=== PATIENT | female | born 1970 ===

== ENCOUNTER 2020-06-25 09:00 | Outpatient (RCR) | payer MEDICAID, SELFPAY | END 2021-05-11 09:36 | disposition home or self-care (01) | LOC: HO.PT 09:00 | PROVIDERS: Visit Provider Physician Assistant | DX: M25.562 Pain in left knee (principal); M79.7 Fibromyalgia; R79.82 Elevated C-reactive protein (CRP); Z79.899 Other long term (current) drug therapy | CPT/HCPCS: 97110; 97140; 99213 ==

== ENCOUNTER → 2021-05-07 08:52 | Outpatient (BNVA) | payer MEDICAID, SELFPAY | PROVIDERS: Visit Provider Nurse Practitioner Family | DX: M79.7 Fibromyalgia (principal); R79.82 Elevated C-reactive protein (CRP) | CPT/HCPCS: 99212 ==

== ENCOUNTER 2021-05-25 08:53 | Outpatient (REF) | payer MEDICAID, SELFPAY ==
--- NOTE | ~2021-05-25 | US_ITS ---
EXAMINATION: US PELVIS CLINICAL INFORMATION: Pelvic pain COMPARISON: Previous CT of the abdomen and pelvis February 2017 TECHNIQUE: Ultrasound of the pelvis is performed using both transabdominal and transvaginal transducers along with Doppler. Transvaginal imaging is performed due to inadequate visualization transabdominally. FINDINGS: The uterus is anteverted and measures 8.4 x 3.9 x 5.2 cm in dimension. No focal uterine lesion is seen. Endometrial thickness is normal measuring 0.5 cm. There are nabothian cysts in the cervix. The ovaries are normal-appearing. The right ovary measures 1.5 x 1.8 x 0.7 cm. The left ovary measures 1.6 x 1.3 x 1.3 cm. There is no fluid in the pelvis. US/US pelvic and transvaginal IMPRESSION: Unremarkable exam.
== END 2021-05-25 08:54 | disposition home or self-care (01) ==
LOC: HO.US 08:53
PROVIDERS: PCP Family Medicine; Visit Provider Family Medicine
DX: R10.2 Pelvic and perineal pain (principal)
CPT/HCPCS: 76830; 76856

== ENCOUNTER 2021-11-18 10:09 | Outpatient (REF) | payer MEDICAID, SELFPAY ==
--- NOTE | ~2021-11-18 | MM_ITS ---
EXAMINATION: MM SCREENING DIGITAL BREAST TOMOSYNTHESIS, BILATERAL CLINICAL INFORMATION: Screening. Asymptomatic. The lifetime risk of breast cancer based on the Tyrer-Cuzick Model is 8%. COMPARISON: Mammography: 09/28/2018, 07/11/2016 (baseline). TECHNIQUE: Digital breast tomosynthesis is performed in both the craniocaudal and mediolateral oblique views along with computer-aided detection (CAD). Synthesized 2D images are generated from the tomosynthesis. FINDINGS: The breasts are almost entirely fatty (ACR BI-RADS breast composition Category a). There are no significant masses, abnormal calcifications, or other abnormalities. Fibroglandular and stromal densities are stable. No developing density. No suspicious changes. MM/MM tomosynthesis screening BI IMPRESSION: No mammographic evidence of malignancy. ASSESSMENT: BI-RADS 1: Negative RECOMMENDATION: Routine annual mammography screening. This patient's information was entered into a reminder system with a target due date for their next mammogram.
== END 2021-11-18 10:10 | disposition home or self-care (01) ==
LOC: HO.MAMMO 10:09
PROVIDERS: PCP Family Medicine; Visit Provider Family Medicine
DX: Z12.31 Encounter for screening mammogram for malignant neoplasm of breast (principal)
CPT/HCPCS: 77063; 77067

== ENCOUNTER → 2022-01-04 08:18 | Outpatient (BNVA) | payer MEDICAID, SELFPAY | PROVIDERS: PCP Family Medicine; Visit Provider Nurse Practitioner Family | DX: M79.7 Fibromyalgia (principal); R79.82 Elevated C-reactive protein (CRP) | CPT/HCPCS: 99212 ==

== ENCOUNTER → 2022-01-05 15:29 | Outpatient (BNVA) | payer MEDICAID, SELFPAY | PROVIDERS: PCP Family Medicine; Referring Provider Family Medicine; Visit Provider Nurse Practitioner Family | DX: Z12.11 Encounter for screening for malignant neoplasm of colon (principal) | CPT/HCPCS: 99202 ==

== ENCOUNTER 2022-01-06 10:04 | Outpatient (REF) | payer MEDICAID, SELFPAY ==
[2022-01-06 10:59] LABS: Appearance Urine CLEAR; Color Urine YELLOW; Glucose Urine UA NEG (NEG); Leukocyte Esterase Urine NEG (NEG); Nitrite Urine NEG (NEG); Specific Gravity - Urine <= 1.005 (1.005-1.025); Urine Blood NEG (NEG); Urine Ketones NEG (NEG); Urine Protein NEG (NEG-TRACE)
[2022-01-06 11:19] LABS: Estimated Average Glucose 131 mg/dL; Hemoglobin A1c % 6.2 %
[2022-01-06 11:23] LABS: Alanine Aminotransferase 17 U/L (0-31); Albumin Level 3.8 g/dL (3.5-5.0); Alkaline Phosphatase 73 U/L (39-117); Anion Gap 12 (12-20); Aspartate Amino Transferase 18 U/L (5-31); Bilirubin Total 0.9 mg/dL (0.0-1.0); Blood Urea Nitrogen 13 mg/dL (9-16); Calcium 9.2 mg/dL (8.4-10.2); Carbon Dioxide 27 mmol/L (22-29); Chloride 100 mmol/L (96-108); Cholesterol 195 mg/dL; Estimated Glomerular Filt Rate > 60; Glucose Random 137 mg/dL (60-115); HDL Cholesterol 50 mg/dL; LDL Cholesterol Calculated 121 mg/dl; Potassium 4.6 mmol/L (3.3-5.1); Sodium 134 mmol/L (135-145); Total Protein 7.3 g/dL (6.5-8.0); Triglycerides 121 mg/dL
[2022-01-06 11:46] LABS: TSH reflex Free T4 1.84 uIU/mL (0.32-4.0); Vitamin D 25-OH Total 37.4 ng/mL (>30)
[2022-01-07 12:46] LABS: Calcium (PTHI) 9.1 mg/dL (8.6-10.4); PTHI 45 pg/mL (16-77)
== END 2022-01-06 10:05 | disposition home or self-care (01) ==
LOC: HO.LAB 10:04
PROVIDERS: Absent Provider Family Medicine; PCP Family Medicine; Visit Provider Nurse Practitioner Family
DX: E11.9 Type 2 diabetes mellitus without complications (principal); E78.5 Hyperlipidemia, unspecified; I10 Essential (primary) hypertension; R82.90 Unspecified abnormal findings in urine
CPT/HCPCS: 36415; 80053; 80061; 81003; 82306; 83036; 83970; 84443

== ENCOUNTER → 2022-03-18 10:51 | Outpatient (BNVA) | payer MEDICAID, SELFPAY | PROVIDERS: PCP Family Medicine; Visit Provider Nurse Practitioner Family | DX: R06.83 Snoring (principal); R40.0 Somnolence | CPT/HCPCS: 99202 ==

== ENCOUNTER → 2022-03-31 13:43 | Outpatient (REF) | payer MEDICAID, SELFPAY | LOC: HO.SL 13:43 | PROVIDERS: PCP Family Medicine; Visit Provider Nurse Practitioner Family | DX: G47.33 Obstructive sleep apnea (adult) (pediatric) (principal); R06.83 Snoring; R40.0 Somnolence | CPT/HCPCS: 95806 ==

== ENCOUNTER 2022-04-25 06:58 | Day surgery (SDC) | payer MEDICAID, SELFPAY ==
--- NOTE | 2022-04-21 14:08 | HO.ANESPROP2 ---
Documented by User: Patito Paredes NP 04/21/22 14:09 HPI - Anesthesia Eval Consult details Narrative: 51yo F for Colonoscopy PMFSH Active Problems Active Problems: All Active Problems (Updated 04/20/22 @ 10:40 by Meli Garcias RN) Loud snoring (Acute) Elevated C-reactive protein (CRP) (Acute) Fibromyalgia (Acute) Past Medical History Medical History Anxiety Depression Elevated C-reactive protein (CRP) Fibromyalgia Hypertension Lumbar herniated disc Snores Family History Family History Mother HTN (hypertension) Diabetes Maternal Aunt Colon cancer Maternal Uncle Throat cancer Surgical History Surgical History H/O section Social History Social History Household Members: Spouse Housing: Apartment Are you a primary animal care specialist to a significant other at home: No Do you presently have visiting nurse or other home services: No Alcohol intake: never Patient Tobacco Use Status: Former Tobacco user Quit Date: 27 yrs ago Years Smoked: Quit 28 years ago Use of substances other than those prescribed or required for medical reasons: No Have you been hit, kicked, punched, or otherwise hurt by someone within the past year? If so, by whom?: No Are you DNR?: No Advance Directives: No Advance Directives Information Provided: Yes Recently lost weight without trying: No Eating poorly because of decreased appetite: No Nutrition Risks: No Nutritional Risk Patient : No (menopasal) Meds Allergies Allergy/AdvReac Type Severity Reaction Status Date / Time No Known Allergies Allergy Verified 04/20/22 10:35 [No Known Allergies*] Home Medications Medication Instructions Recorded Confirmed Last Taken Type cholecalciferol (vitamin D3) 25 25 mcg PO DAILY 06/25/20 04/20/22 Unknown History mcg (1,000 unit) capsule fluticasone propionate 110 1 puff inhalation BID 06/25/20 04/20/22 Unknown History mcg/actuation HFA aerosol inhaler (Flovent HFA) hydrochlorothiazide 12.5 mg tablet 12.5 mg PO DAILY 06/25/20 04/20/22 Unknown History loratadine 10 mg tablet (Allergy 10 mg PO DAILY 06/25/20 04/20/22 Unknown History Relief (loratadine)) meloxicam 15 mg tablet 15 mg PO DAILY 06/25/20 04/20/22 Unknown History clonazepam 1 mg tablet (Klonopin) 1 mg PO BID PRN Anxiety 05/07/21 04/20/22 Unknown History duloxetine 30 mg capsule,delayed 30 mg PO BID 05/07/21 04/20/22 Unknown History release (Cymbalta) gabapentin 300 mg capsule 300 mg PO BEDTIME 05/07/21 04/20/22 Unknown History ibuprofen 600 mg tablet 600 mg PO BID 01/05/22 04/20/22 Unknown History lisinopril 5 mg tablet 5 mg PO DAILY 01/05/22 04/25/22 04/24/22 History zolpidem 5 mg tablet 5 mg PO BEDTIME PRN Sleep 01/05/22 04/20/22 Unknown History albuterol sulfate 2.5 mg/3 mL 2.5 mg inhalation Q6H PRN Wheezing 03/18/22 04/25/22 1 Day Ago History (0.083 %) solution for nebulization ~04/24/22 albuterol sulfate 90 mcg/actuation 2 puff inhalation Q4-6H PRN 03/18/22 04/25/22 04/24/22 History aerosol inhaler (ProAir HFA) Wheezing lisinopril 10 mg tablet 10 mg PO DAILY 03/18/22 Unknown History montelukast 10 mg tablet 10 mg PO BEDTIME 03/18/22 04/20/22 Unknown History (Jimena) Exam Exam Date and Time: April 21, 2022 1408 Pertinent Lab Results Pertinent Lab Results: Laboratory Tests 01/06/22 10:24 Sodium 134 L Potassium 4.6 Chloride 100 Carbon Dioxide 27 BUN 13 Creatinine 0.90 Assessment and Plan Assessment Anesthesia Assessment: Chart Reviewed Documented by User: Sushma Avalos MD 04/25/22 08:06 [facility] Past Medical History Medical History Anxiety Depression Elevated C-reactive protein (CRP) Fibromyalgia Hypertension Lumbar herniated disc Snores Family History Family History Mother HTN (hypertension) Diabetes Maternal Aunt Colon cancer Maternal Uncle Throat cancer Surgical History Surgical History H/O section History of Problems with Anesthesia: No Social History Social History Household Members: Spouse Housing: Apartment Are you a primary animal care specialist to a significant other at home: No Do you presently have visiting nurse or other home services: No Alcohol intake: never Patient Tobacco Use Status: Former Tobacco user Quit Date: 27 yrs ago Years Smoked: Quit 28 years ago Use of substances other than those prescribed or required for medical reasons: No Have you been hit, kicked, punched, or otherwise hurt by someone within the past year? If so, by whom?: No Are you DNR?: No Advance Directives: No Advance Directives Information Provided: Yes Recently lost weight without trying: No Eating poorly because of decreased appetite: No Nutrition Risks: No Nutritional Risk Patient : No (menopasal) Meds Allergies Allergy/AdvReac Type Severity Reaction Status Date / Time No Known Allergies Allergy Verified 04/20/22 10:35 [No Known Allergies*] Home Medications Medication Instructions Recorded Confirmed Last Taken Type cholecalciferol (vitamin D3) 25 25 mcg PO DAILY 06/25/20 04/20/22 Unknown History mcg (1,000 unit) capsule fluticasone propionate 110 1 puff inhalation BID 06/25/20 04/20/22 Unknown History mcg/actuation HFA aerosol inhaler (Flovent HFA) hydrochlorothiazide 12.5 mg tablet 12.5 mg PO DAILY 06/25/20 04/20/22 Unknown History loratadine 10 mg tablet (Allergy 10 mg PO DAILY 06/25/20 04/20/22 Unknown History Relief (loratadine)) meloxicam 15 mg tablet 15 mg PO DAILY 06/25/20 04/20/22 Unknown History clonazepam 1 mg tablet (Klonopin) 1 mg PO BID PRN Anxiety 05/07/21 04/20/22 Unknown History duloxetine 30 mg capsule,delayed 30 mg PO BID 05/07/21 04/20/22 Unknown History release (Cymbalta) gabapentin 300 mg capsule 300 mg PO BEDTIME 05/07/21 04/20/22 Unknown History ibuprofen 600 mg tablet 600 mg PO BID 01/05/22 04/20/22 Unknown History lisinopril 5 mg tablet 5 mg PO DAILY 01/05/22 04/25/22 04/24/22 History zolpidem 5 mg tablet 5 mg PO BEDTIME PRN Sleep 01/05/22 04/20/22 Unknown History albuterol sulfate 2.5 mg/3 mL 2.5 mg inhalation Q6H PRN Wheezing 03/18/22 04/25/22 1 Day Ago History (0.083 %) solution for nebulization ~04/24/22 albuterol sulfate 90 mcg/actuation 2 puff inhalation Q4-6H PRN 03/18/22 04/25/22 04/24/22 History aerosol inhaler (ProAir HFA) Wheezing lisinopril 10 mg tablet 10 mg PO DAILY 03/18/22 Unknown History montelukast 10 mg tablet 10 mg PO BEDTIME 03/18/22 04/20/22 Unknown History (Jimena) Exam Airway Mallampati Class: III TM Dist: >3cm Neck ROM: Full Loose/Missing/Broken Teeth: No Heart: RRR Lungs: CTA Assessment and Plan Assessment Anesthesia Assessment: Anesthesia Plan Discussed Final Anesthetic Review History of Problems with Anesthesia: No NPO: Yes ASA Class: III Final Preanesthetic Review: Meds/Allgs Chart Reviewed, Consent Obtained/Reviewed and Anes Risks/Benef Reviewed Patient Risk: Intermediate Procedure Risk: Low Anesthetic Plan Anesthetic Plan: MAC: Disposition: Standard PACU
--- NOTE | 2022-04-25 07:00 | P.HPSUR_ITS ---
Pre-Procedural Eval Section A Date of Service: 04/25/22 The patient is an INPATIENT: No The History & Physical has been completed within 30 days and I have reviewed it.: No Section B Chief Complaint: screening Details of Present Illness: colon cancer screening, family history of colon cancer Relevant Family History (Specify if Yes): Yes Relevant Social History: Tobacco Use (Former smoker) Present Medications: see Short Stay Collaborative assessment Medical History: Significant History (Anxiety Depression Elevated C-reactive pro tein (CRP) Fibromyalgia Hypertension Lumbar herniated disc) History of Previous Operations: Relevant previous surgery/procedure and date(s) (Status post ) Allergies: Allergies Allergy/AdvReac Type Severity Reaction Status Date / Time No Known Allergies Allergy Verified 04/20/22 10:35 [No Known Allergies*] Review of Systems Sugical H&P ROS: Negative: Constitution, Cardiovascular, Respiratory and Gastrointestinal Exam Surgical H&P Exam: Normal: Heart, Normal: Lungs, Normal: Extremities and Normal: Abdomen Plan Diagnosis/Plan: Unchanged I have reviewed the history and physical and performed a pertinent physical examination on my patient. No changes have occurred unless specified.
[2022-04-25 07:45] VITALS: BP 145/78; PULSE 98; RESP 18; TEMP 36.1; O2SAT 97; BMI 61.6
[2022-04-25] MEDS: Lactated Ringers 1,000 ML 100 ML IVCONT (07:58)
--- NOTE | 2022-04-25 08:08 | PM.OP ---
Brief Operative Note Date of Service: 04/25/22 Pre-op diagnosis: Colon cancer screening, family history of colon cancer (maternal aunt in her 40's) Post-op diagnosis: other ( diverticulosis, hemorrhoids) Procedure: COLONOSCOPY TILL CECUM Consent: Indications for the procedure and potential complications of bleeding, perforation, reaction to medications and missed diagnosis were discussed with the patient and informed consent was obtained. Instrument: Olympus PCF H 190 L variable stiffness pediatric colonoscope Monitoring: Vital signs and clinical assessment, intermittent blood pressure monitoring, continuous EKG monitoring, Pulse oximetry and Carbon Dioxide monitoring were done throughout the procedure. Colon withdrawl time was 12 minutes. Procedure: The patient was placed in the left lateral decubitis position and pre-procedure medications were administered. After a digital rectal examination of the ano-rectum, the video colonoscope was inserted into the rectum and advanced through the colon to the cecum. The colonoscope was slowly withdrawn in a retrograde panoramic fashion and the colon mucosa was carefully examined including a retroflexed view of the rectum. Findings and interventions are described below. Procedure Difficulty: Without difficulty Findings: Terminal Ileum: Not evaluated Cecum: Normal Ascending Colon: Normal Transverse Colon: Normal Descending Colon: moderate diverticulosis Sigmoid Colon: Moderate diverticulosis Rectum: Normal Ano-rectum: small internal hemorrhoids Colon preparation: Excellent Impression and Post Procedure Diagnosis: Colonoscopy Findings: No polyps were detected Moderate diverticulosis seen in the left colon Small hemorrhoids on retroflexed exam. Plan: Patient has an appointment on 05/10/22 in the GI Clinic with Rosa Elena Smith FNP-BC. Repeat Colonoscopy interval based on path results - in 5 years due to positive Family hx. Above findings were reviewed with the patient and diverticulosis handouts was given in the discharge area Surgeon: Moira Cote MD Anesthesia: MAC Was an Beef Cattle Farmer used for this Procedure?: Yes Beef Cattle Farmer: Marly Figueredo Estimated blood loss (mL): 0 Pathology: none sent Condition: stable Disposition: PACU
--- NOTE | 2022-04-25 08:28 | P.OP_ITS ---
Operative Note Operative Note Date of Service: 04/25/22 Narrative: Pre-op diagnosis: Colon cancer screening, family history of colon cancer (maternal aunt in her 40's) Post-op diagnosis:?other ( diverticulosis, hemorrhoids) Procedure: COLONOSCOPY TILL CECUM Consent: Indications for the procedure and potential complications of bleeding, perforation, reaction to medications and missed diagnosis were discussed with the patient and informed consent was obtained. Instrument: Olympus PCF H 190 L variable stiffness pediatric colonoscope Monitoring: Vital signs and clinical assessment, intermittent blood pressure monitoring, continuous EKG monitoring, Pulse oximetry and Carbon Dioxide monitoring were done throughout the procedure. Colon withdrawl time was 12 minutes. Procedure: The patient was placed in the left lateral decubitis position and pre-procedure medications were administered. After a digital rectal examination of the ano-rectum, the video colonoscope was inserted into the rectum and advanced through the colon to the cecum. The colonoscope was slowly withdrawn in a retrograde panoramic fashion and the colon mucosa was carefully examined including a retroflexed view of the rectum. Findings and interventions are described below. Procedure Difficulty: Without difficulty Findings: Terminal Ileum: Not evaluated Cecum:? Normal Ascending Colon:? Normal Transverse Colon:? Normal Descending Colon: ? moderate diverticulosis Sigmoid Colon:? Moderate diverticulosis Rectum:? Normal Ano-rectum: ? small internal hemorrhoids Colon preparation: Excellent ? Impression and Post Procedure Diagnosis: Colonoscopy Findings: No polyps were detected Moderate diverticulosis seen in the left colon Small hemorrhoids on retroflexed exam. Plan: Patient has an appointment on 05/10/22 in the GI Clinic with Rosa Elena Smith FNP- BC. Repeat Colonoscopy interval based on path results - in 5 years due to positive Family hx. Above findings were reviewed with the patient and diverticulosis handouts was given in the discharge area Surgeon: Moira Cote MD Anesthesia:?MAC Was an Practice Specialist used for this Procedure?:?Yes Practice Specialist:?Marly Figueredo Estimated blood loss (mL):?0 Pathology:?none sent Condition:?stable Disposition:?PACU
[2022-04-25 09:02] VITALS: BP 85/53; PULSE 84; RESP 16; TEMP 37.1; O2SAT 96
[2022-04-25 09:17] VITALS: BP 121/68; PULSE 72; RESP 16; TEMP 36.3; O2SAT 96
== END 2022-04-25 09:44 | disposition home or self-care (01) ==
PROVIDERS: PCP Family Medicine; Visit Provider Internal Medicine Gastroenterology
PROC: 0DJD8ZZ Inspection of Lower Intestinal Tract, Via Natural or Artificial Opening Endoscopic (ICD-10-PCS; CPT 45378; principal; 2022-04-25 08:30)
DX: Z12.11 Encounter for screening for malignant neoplasm of colon (principal); K57.30 Diverticulosis of large intestine without perforation or abscess without bleeding; K64.8 Other hemorrhoids; K59.00 Constipation, unspecified; I10 Essential (primary) hypertension; R79.82 Elevated C-reactive protein (CRP); M79.7 Fibromyalgia; R06.83 Snoring; F41.8 Other specified anxiety disorders; Z79.1 Long term (current) use of non-steroidal anti-inflammatories (NSAID); Z79.899 Other long term (current) drug therapy; Z87.891 Personal history of nicotine dependence
CPT/HCPCS: 45378

== ENCOUNTER → 2022-05-31 09:17 | Outpatient (BNVA) | payer MEDICAID, SELFPAY | PROVIDERS: PCP Family Medicine; Visit Provider Nurse Practitioner Family | DX: K57.90 Diverticulosis of intestine, part unspecified, without perforation or abscess without bleeding (principal); Z98.890 Other specified postprocedural states | CPT/HCPCS: 99212 ==

== ENCOUNTER → 2022-09-16 07:46 | Outpatient (BNVA) | payer MEDICAID, SELFPAY | PROVIDERS: PCP Family Medicine; Visit Provider Nurse Practitioner Family | DX: G47.33 Obstructive sleep apnea (adult) (pediatric) (principal); Z99.89 Dependence on other enabling machines and devices | CPT/HCPCS: 99212 ==

== ENCOUNTER → 2022-09-19 11:43 | Outpatient (BNVA) | payer MEDICAID, SELFPAY | PROVIDERS: PCP Family Medicine; Visit Provider Nurse Practitioner Family | DX: M79.7 Fibromyalgia (principal) | CPT/HCPCS: 99212 ==

== ENCOUNTER 2023-02-12 15:58 | Emergency (ER) | payer OTHER, SELFPAY ==
[2023-02-12 16:09] VITALS: BP 117/83; PULSE 115; RESP 20; TEMP 36.7; O2SAT 95; BMI 58.8
--- NOTE | 2023-02-12 16:11 | ED_ITS ---
HPI - General Adult General Chief complaint: General Medical Stated complaint: Bllod pressure/sugar high Time Seen by Provider: 02/12/23 20:21 Source: patient Mode of arrival: ambulatory Limitations: no limitations History of Present Illness HPI narrative: 52-year-old female with a history of hypertension, asthma, fibromyalgia, morbid obesity, borderline diabetes here with complaints of feeling dizzy when she leonid nges position and moves her head from side to side. This began this morning with waking. She denies any associated fevers, chills, neck pain or stiffness, vision changes, vomiting, chest pain, abdominal pain, shortness of breath. Patient was concerned that her blood pressure and blood sugar were elevated She currently is checking her sugars daily at home with a glucometer but is not currently on any medications for her blood sugars as her primary care doctor is marked during her Related Data Home Medications Medication Instructions Recorded Confirmed cholecalciferol (vitamin D3) 25 25 mcg PO DAILY 06/25/20 04/20/22 mcg (1,000 unit) capsule fluticasone propionate 110 1 puff inhalation BID 06/25/20 04/20/22 mcg/actuation HFA aerosol inhaler (Flovent HFA) hydrochlorothiazide 12.5 mg tablet 12.5 mg PO DAILY 06/25/20 04/20/22 meloxicam 15 mg tablet 15 mg PO DAILY 06/25/20 04/20/22 clonazepam 1 mg tablet (Klonopin) 1 mg PO BID PRN Anxiety 05/07/21 04/25/22 duloxetine 30 mg capsule,delayed 30 mg PO BID 05/07/21 04/25/22 release (Cymbalta) ibuprofen 600 mg tablet 600 mg PO BID 01/05/22 04/20/22 zolpidem 5 mg tablet 5 mg PO BEDTIME PRN Sleep 01/05/22 04/20/22 albuterol sulfate 2.5 mg/3 mL 2.5 mg inhalation Q6H PRN Wheezing 03/18/22 04/25/22 (0.083 %) solution for nebulization albuterol sulfate 90 mcg/actuation 2 puff inhalation Q4-6H PRN 03/18/22 04/25/22 aerosol inhaler (ProAir HFA) Wheezing lisinopril 10 mg tablet 10 mg PO DAILY 03/18/22 montelukast 10 mg tablet 10 mg PO BEDTIME 03/18/22 04/20/22 (Singulair) acetaminophen 500 mg tablet 1,000 mg PO Q8H PRN 09/16/22 atorvastatin 10 mg tablet 10 mg PO BEDTIME 09/16/22 Previous Rx's Medication Instructions Recorded bisacodyl 5 mg tablet 10 mg PO BEDTIME #180 tabs 01/05/22 polyethylene glycol 3350 17 gram 17 g PO DAILY #100 ea 05/31/22 oral powder packet (Miralax) cyclobenzaprine 5 mg tablet 5 mg PO BEDTIME PRN muscle spasm 12/30/22 #90 tabs meclizine 25 mg tablet 25 mg PO TID PRN dizziness #20 tabs 02/12/23 Allergies Allergy/AdvReac Type Severity Reaction Status Date / Time No Known Allergies Allergy Verified 09/19/22 12:11 [No Known Allergies*] Review of Systems Review of Systems: Yes all other systems are reviewed and are negative Constitutional: Constitutional: Reports no additional constitutional complaints, Denies body ache(s), Denies chills, Denies fever(s), Denies hea dache(s) and Denies weakness Eyes: Eyes: Reports no additional eye complaints and Denies change in vision ENT: Reports system reviewed and no additional complaints, except as documented, Reports dizziness, Denies headache(s), Denies nasal congestion, Denies nasal discharge and Denies neck pain Cardiovascular: Cardiovascular: Reports no additional cardiovascular complaints, Denies chest pain, Denies leg edema and Denies dyspnea Respiratory: Respiratory: Reports no additional respiratory complaints, Denies cough and Denies dyspnea Gastrointestinal: Gastrointestinal: Reports no additional gastrointestinal complaints, Denies abdominal pain, Denies diarrhea, Denies nausea and Denies vomiting Genitourinary: Genitourinary: Reports no additional female genitourinary complaints and Denies urinary incontinence Musculoskeletal: Musculoskeletal: Reports no additional musculoskeletal complaints, Denies back pain, Denies arthralgias, Denies joint swelling, Denies neck pain, Denies numbness and Denies tingling Integumentary/Breasts: Skin/Breast: Reports system reviewed and no additional complaints, except as docu and Denies rash Neurologic: Reports system reviewed and no additional complaints, except as documented, Reports dizziness, Denies headache(s), Denies numbness, Denies tingling and Denies weakness PMFSH Past Medical History Attestation statement: The following information was validated with the patient. Source: old records reviewed and nursing notes reviewed Medical History Anxiety Depression Elevated C-reactive protein (CRP) Fibromyalgia Hypertension Lumbar herniated disc Snores Surgical History H/O section Hx of colonoscopy Family History Family History Mother HTN (hypertension) Diabetes Maternal Aunt Colon cancer Maternal Uncle Throat cancer Social History Social History Household Members: Spouse Housing: Apartment Are you a primary ostomy care nurse to a significant other at home: No Do you presently have visiting nurse or other home services: No Alcohol intake: never Patient Tobacco Use Status: Former Tobacco user Quit Date: 27 yrs ago Years Smoked: Quit 28 years ago Advance Directives: No Advance Directives Information Provided: No Physical Exam ED Vital Signs: Vital Signs - 24 hr 02/12/23 16:09 02/12/23 19:59 02/12/23 20:39 Temperature 98.0 F 98.3 F Pulse Rate 115 H 82 77 Respiratory Rate 20 19 Blood Pressure 117/83 115/69 122/67 Pulse Oximetry 95 96 Oxygen Delivery Method Room Air Room Air 02/12/23 20:41 02/12/23 20:42 02/12/23 20:42 Temperature 97.8 F Pulse Rate 96 96 96 Respiratory Rate 20 Blood Pressure 138/81 142/85 H 142/85 H Pulse Oximetry 96 Oxygen Delivery Method Room Air BMI result Body Mass Index 58.8 Const General: cooperative, healthy appearing, comfortable and no acute distress Orientation/consciousness: patient oriented x3 Limitations: no limitations HENMT Head: Yes normal to inspection Ears: hearing grossly normal bilaterally and TM normal on the right Throat: Yes posterior oropharynx normal, Yes tonsils normal and Yes uvula midline Eyes General: appearance normal, both eyes and all related structures Pupils: Equal, round and reactive pupils present Neck Neck: Yes normal visual inspection, Yes full ROM, Yes no lymphadenopathy and Yes no meningeal signs Chest Chest palpation & inspection: normal inspection of the chest Resp Effort & Inspection: normal respiratory effort Auscultation: clear to auscultation bilaterally Cardio Rate: regular rate Rhythm: regular rhythm Peripheral pulses: Peripheral pulses 2+ throughout GI Inspection: Yes normal to inspection Palpation (GI): Soft to palpation and nontender Back/Spine/Pelvis Thoracic/Lumbar Spine: thoracic and lumbar spine normal to inspection Skin General skin exam: no rashes or lesions noted Neuro General: patient oriented x3, moves all extremities and no meningeal signs Cranial nerves: Yes CN's II-XII intact bilaterally, Yes Equal, round and reactive pupils present, Yes Bilaterally intact EOM present, Yes Nystagmus not present, Yes Normal facial strength present and Yes Midline tongue present Cognition (Neuro): normal cognition Gait exam (Neuro): Normal gait present Motor exam (neuro): 5/5 motor strength present throughout Sensory Exam: Normal double simultaneous stimulation for sensation Coordination: [id number] test normal, [id number] test normal and tandem gait normal Extrem General: Yes normal to inspection, Yes no pedal edema and Yes no calf tenderness Course Course Course Narrative: RmE: 52 yold female presents to the ED for dizziness. FEels like glucose and blood pressure is high. no neuro defcitis on exam. no chest pain or shortness of breath. labs and eKG ordrered Reevaluation(s) Reevaluation #1: Labs are unremarkable. EKG shows no ischemic changes. Orthostatics are negative. Patient feels improved after receiving meclizine. Likely vertigo. Patient be discharged home with meclizine p.r.n.. Reviewed worrisome signs and symptoms of when to return to the emergency room. Comfortable plan for discharge home. Medications Administered Discontinued Medications Generic Name Dose Route Start Last Admin Trade Name Jose Eduardoq PRN Reason Stop Dose Admin Meclizine HCl 50 mg 02/12/23 20:26 02/12/23 20:31 Meclizine Hcl 25 Mg Tablet PO 02/12/23 20:27 50 mg ONCE ONE Administration Medical Decision Making Medical Decision Making [facility] Narrative: 52-year-old female here with complaints of dizziness which is worsened with position changes and movement of the head from side to side which began today but with waking. On exam normal neurological with no focal deficits. Normal cerebellar function. Will check labs, EKG, orthostatics Will give oral meclizine Differential Diagnosis Differential Diagnoses: The differential diagnosis associated with the presentation includes Vertigo, orthostatic hypotension Low concern for intracranial hemorrhage or cerebellar infarct Lab Data MDM Lab Attestation statement: I reviewed the patient's lab results. 02/12/23 16:20 02/12/23 16:20 Labs: Lab Results 02/12/23 02/12/23 02/12/23 Range/Units 16:20 16:20 16:20 WBC 8.0 (4.8-10.8) X10*3/uL RBC 4.84 (4.20-5.50) X10*6/uL Hgb 14.1 (12.0-16.0) g/dl Hct 43.2 (37.0-47.0) % MCV 89.3 (80.0-98.0) fL MCH 29.1 (27.0-33.0) pg MCHC 32.6 (31.0-35.0) g/dl RDW 13.3 (11.0-16.0) % Plt Count 353 (160-400) X10*3/uL MPV 9.3 L (9.4-12.3) fL Immature Gran % (Auto) 0.3 (0.0-0.4) % Neut % (Auto) 60.7 (45-73) % Lymph % (Auto) 30.3 (20-40) % Greenlee % (Auto) 5.9 (2-11) % Eos % (Auto) 2.4 (0-4) % Baso % (Auto) 0.4 (0-2) % Lymph # (Auto) 2.4 (1.2-4.9) X10*3/uL Greenlee # (Auto) 0.5 (0.1-1.2) X10*3/uL Eos # (Auto) 0.2 (0.0-0.4) X10*3/uL Baso # (Auto) 0.0 (0.0-0.2) X10*3/uL Abs Immat Gran (auto) 0.02 (0.00-0.03) X10*3/uL Absolute Neuts (auto) 4.9 (2.0-8.3) x10*3/uL Absolute Nucleated RBC 0.000 (0.0-0.012) X10*3/uL Nucleated RBC % (auto) 0.0 (0.0-0.2) /100WBC PT 11.3 (10.0-13.1) SEC INR 1.0 (0.9-1.1) APTT 29.9 (26.0-36.4) SEC Sodium 138 (135-145) mmol/L Potassium 4.0 (3.3-5.1) mmol/L Chloride 102 (96-108) mmol/L Carbon Dioxide 25 (22-29) mmol/L Anion Gap 15 (12-20) BUN 16 (9-16) mg/dL Creatinine 1.39 (0.5-1.4) mg/dL Estim Creat Clear Calc 68.5 Estimated GFR 40 Random Glucose 233 H (60-115) mg/dL Calcium 9.8 D (8.4-10.2) mg/dL Total Bilirubin 1.3 H (0.0-1.0) mg/dL AST 20 (5-31) U/L ALT 21 (0-31) U/L Alkaline Phosphatase 79 (39-117) U/L Troponin I High Sens (<3.5-17.0) ng/L Total Protein 7.8 (6.5-8.0) g/dL Albumin 4.0 (3.5-5.0) g/dL 02/12/23 Range/Units 16:20 WBC (4.8-10.8) X10*3/uL RBC (4.20-5.50) X10*6/uL Hgb (12.0-16.0) g/dl Hct (37.0-47.0) % MCV (80.0-98.0) fL MCH (27.0-33.0) pg MCHC (31.0-35.0) g/dl RDW (11.0-16.0) % Plt Count (160-400) X10*3/uL MPV (9.4-12.3) fL Immature Gran % (Auto) (0.0-0.4) % Neut % (Auto) (45-73) % Lymph % (Auto) (20-40) % Greenlee % (Auto) (2-11) % Eos % (Auto) (0-4) % Baso % (Auto) (0-2) % Lymph # (Auto) (1.2-4.9) X10*3/uL Greenlee # (Auto) (0.1-1.2) X10*3/uL Eos # (Auto) (0.0-0.4) X10*3/uL Baso # (Auto) (0.0-0.2) X10*3/uL Abs Immat Gran (auto) (0.00-0.03) X10*3/uL Absolute Neuts (auto) (2.0-8.3) x10*3/uL Absolute Nucleated RBC (0.0-0.012) X10*3/uL Nucleated RBC % (auto) (0.0-0.2) /100WBC PT (10.0-13.1) SEC INR (0.9-1.1) APTT (26.0-36.4) SEC Sodium (135-145) mmol/L Potassium (3.3-5.1) mmol/L Chloride (96-108) mmol/L Carbon Dioxide (22-29) mmol/L Anion Gap (12-20) BUN (9-16) mg/dL Creatinine (0.5-1.4) mg/dL Estim Creat Clear Calc Estimated GFR Random Glucose (60-115) mg/dL Calcium (8.4-10.2) mg/dL Total Bilirubin (0.0-1.0) mg/dL AST (5-31) U/L ALT (0-31) U/L Alkaline Phosphatase (39-117) U/L Troponin I High Sens < 2.7 (<3.5-17.0) ng/L Total Protein (6.5-8.0) g/dL Albumin (3.5-5.0) g/dL Independent Interpretation I performed an independent interpretation of an: EKG Interpretation: And apparently reviewed the EKG which shows sinus tachycardia with rate of 111, normal NV, normal QRS, normal QT Discharge Plan Discharge Clinical Impression: Vertigo Patient Disposition: Home, Self-Care Instructions: Vertigo (DC) Prescriptions: New meclizine 25 mg tablet 25 mg PO TID PRN (Reason: dizziness) Qty: 20 0RF No Action cyclobenzaprine 5 mg tablet 5 mg PO BEDTIME PRN (Reason: muscle spasm) Qty: 90 0RF cholecalciferol (vitamin D3) 25 mcg (1,000 unit) capsule 25 mcg PO DAILY hydrochlorothiazide 12.5 mg tablet 12.5 mg PO DAILY Flovent HFA 110 mcg/actuation HFA aerosol inhaler 1 puff inhalation BID meloxicam 15 mg tablet 15 mg PO DAILY duloxetine [Cymbalta] 30 mg capsule,delayed release(DR/EC) 30 mg PO BID clonazepam [Klonopin] 1 mg tablet 1 mg PO BID PRN (Reason: Anxiety) polyethylene glycol 3350 [Miralax] 17 gram powder in packet 17 g PO DAILY Qty: 100 3RF albuterol sulfate 2.5 mg /3 mL (0.083 %) solution for nebulization 2.5 mg inhalation Q6H PRN (Reason: Wheezing) albuterol sulfate [ProAir HFA] 90 mcg/actuation HFA aerosol inhaler 2 puff inhalation Q4-6H PRN (Reason: Wheezing) montelukast [Singulair] 10 mg tablet 10 mg PO BEDTIME lisinopril 10 mg tablet 10 mg PO DAILY zolpidem 5 mg tablet 5 mg PO BEDTIME PRN (Reason: Sleep) ibuprofen 600 mg tablet 600 mg PO BID bisacodyl 5 mg tablet 10 mg PO BEDTIME Qty: 180 2RF atorvastatin 10 mg tablet 10 mg PO BEDTIME acetaminophen 500 mg tablet 1,000 mg PO Q8H PRN Referrals: [facility] [Primary Care Provider] - Discharge Date/Time: 02/12/23 22:20
--- NOTE | 2023-02-12 16:11 | ECG_ITS ---
Test Reason : blood pressure Blood Pressure : / mmHG Vent. Rate : 111 BPM Atrial Rate : 111 BPM P-R Int : 148 ms QRS Dur : 076 ms QT Int : 328 ms P-R-T Axes : 049 009 064 degrees QTc Int : 446 ms Sinus tachycardia Possible Inferior infarct , age undetermined Cannot rule out Anterior infarct , age undetermined Abnormal ECG When compared with ECG of 25-FEB-2017 00:05, No significant change was found Referred By: Young Dove Electronically Signed By:Rishabh Willis
[2023-02-12 16:24] LABS: MANUAL DIFF FLAG NO
[2023-02-12 16:26] LABS: Basophils Percent Auto 0.4 % (0-2); Eosinophils Absolute Auto 0.2 X10*3/uL (0.0-0.4); Eosinophils Percent Auto 2.4 % (0-4); Hematocrit 43.2 % (37.0-47.0); Hemoglobin 14.1 g/dl (12.0-16.0); Imm Gran Abs Auto 0.02 X10*3/uL (0.00-0.03); Imm Gran Pct Auto 0.3 % (0.0-0.4); Lymphocytes Absolute Auto 2.4 X10*3/uL (1.2-4.9); Lymphocytes Percent Auto 30.3 % (20-40); Mean Corpuscular HGB Conc 32.6 g/dl (31.0-35.0); Mean Corpuscular Hemoglobin 29.1 pg (27.0-33.0); Mean Corpuscular Volume 89.3 fL (80.0-98.0); Mean Platelet Volume 9.3 fL (9.4-12.3); Monocytes Absolute Auto 0.5 X10*3/uL (0.1-1.2); Monocytes Percent Auto 5.9 % (2-11); Neutrophils Absolute Auto 4.9 x10*3/uL (2.0-8.3); Neutrophils Percent Auto 60.7 % (45-73); Platelet Count 353 X10*3/uL (160-400); Red Blood Count 4.84 X10*6/uL (4.20-5.50); Red Cell Distribution Width 13.3 % (11.0-16.0)
[2023-02-12 16:31] LABS: Prothrombin Time 11.3 SEC (10.0-13.1)
[2023-02-12 16:34] LABS: Partial Thromboplastin Time 29.9 SEC (26.0-36.4)
[2023-02-12 16:44] LABS: Alanine Aminotransferase 21 U/L (0-31); Alkaline Phosphatase 79 U/L (39-117); Anion Gap 15 (12-20); Aspartate Amino Transferase 20 U/L (5-31); Bilirubin Total 1.3 mg/dL (0.0-1.0); Blood Urea Nitrogen 16 mg/dL (9-16); Calcium 9.8 mg/dL (8.4-10.2); Carbon Dioxide 25 mmol/L (22-29); Chloride 102 mmol/L (96-108); Creatinine Clr Calc Pharmacy 68.5; Estimated Glomerular Filt Rate 40; Glucose Random 233 mg/dL (60-115); Sodium 138 mmol/L (135-145); Total Protein 7.8 g/dL (6.5-8.0)
[2023-02-12 16:53] LABS: Troponin-I High Sensitivity < 2.7 ng/L (<3.5-17.0)
[2023-02-12 19:59] VITALS: BP 115/69; PULSE 82; RESP 19; TEMP 36.8; O2SAT 96
[2023-02-12] MEDS: Meclizine HCl 25 MG TABLET 50 MG PO (20:31)
[2023-02-12 20:39] VITALS: BP 122/67; PULSE 77
[2023-02-12 20:41] VITALS: BP 138/81; PULSE 96
[2023-02-12 20:42] VITALS: BP 142/85; PULSE 96; RESP 20; TEMP 36.6; O2SAT 96
== END 2023-02-12 22:20 | disposition home or self-care (01) ==
PROVIDERS: Physician Assistant; Emergency Provider Internal Medicine
DX: R42 Dizziness and giddiness (principal); R00.0 Tachycardia, unspecified; Z87.891 Personal history of nicotine dependence; Z79.899 Other long term (current) drug therapy
CPT/HCPCS: 36415; 80053; 84484; 85025; 85610; 85730; 93005; 99283; 99284

== ENCOUNTER → 2023-03-01 09:54 | Outpatient (BNVA) | payer OTHER, SELFPAY | PROVIDERS: Visit Provider Physician Assistant ==

== ENCOUNTER 2023-05-11 13:47 | Outpatient (AMB) | payer MEDICARE, SELFPAY ==
--- NOTE | 2023-05-11 13:49 | MHC.OFFVIS ---
Intake Vital Signs 05/11/23 13:50 Height 5 ft 3 in Weight 353 lb 9.943 oz BMI 62.6 BP 130/68 Blood Pressure Location Rt brachial Position Sitting Pulse 108 H Pulse Source Pulse Oximeter Temp 97.2 F Temp Source Skin Pulse Oximetry (%) 95 Intake Visit Reasons: Fibromyalgia Intake Note: Pt seen today for FM follow up. 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 Accompanied by: Self / Same As Patient Allergies Seasonal Allergies Allergy (Intermediate, Verified 05/11/23 13:53) Sneezing Medication List - Last Reconciled 05/11/23 by Ileana Isaacs MD acetaminophen 1,000 mg PO Q8H PRN albuterol sulfate 2.5 mg inhalation Q6H PRN albuterol sulfate 90 mcg/actuation (ProAir HFA) 2 puffs inhalation Q4-6H PRN atorvastatin 10 mg PO BEDTIME bisacodyl 10 mg (2 x 5 mg) PO BEDTIME calcium carbonate-vitamin D3 600 mg-10 mcg (400 unit) 1 tab PO BID cholecalciferol (vitamin D3) 25 mcg PO DAILY clonazepam (Klonopin) 1 mg PO BID PRN cyclobenzaprine 5 mg PO BEDTIME PRN duloxetine (Cymbalta) 30 mg PO BID fluticasone propionate 110 mcg/actuation (Flovent HFA) 1 puff inhalation BID hydrochlorothiazide 12.5 mg PO DAILY ibuprofen 600 mg PO BID lisinopril 10 mg PO DAILY meclizine 25 mg PO TID PRN meloxicam 15 mg PO DAILY montelukast (Singulair) 10 mg PO BEDTIME polyethylene glycol 3350 (Miralax) 17 grams PO DAILY zolpidem 5 mg PO BEDTIME PRN HPI HPI Comments History of Present Illness Details This is a 52-year-old female who presents for evaluation of fibromyalgia. She was last seen by Shirlene Dunlap 09/26. Patient states that she feels about the same overall. Continues to have aches and pains. Continues to take cyclobenzaprine 5 mg nightly and duloxetine 30 mg Twice daily. She states that she gets right shoulder pain when she reaches above her head and on the days that she washes dishes and does laundry. She also continues to have chronic mid and low back pain. [facility] Medical History Snores Lumbar herniated disc Hypertension Anxiety Depression Elevated C-reactive protein (CRP) Fibromyalgia Surgical History Hx of colonoscopy H/O section Family History Mother HTN (hypertension) Diabetes Maternal Aunt Colon cancer Maternal Uncle Throat cancer Social History Household Members: Spouse Housing: Apartment Are you a primary residential care officer to a significant other at home: No Do you presently have visiting nurse or other home services: No Alcohol intake: never Patient Tobacco Use Status: Former Tobacco user Quit Date: 27 yrs ago Years Smoked: Quit 28 years ago Review of Systems Musc Reports back pain, Reports myalgias, Reports arthralgias and Reports stiffness Physical Exam Vital Signs: Last Vital Signs Temp 97.2 F 05/11/23 13:50 Pulse 108 H 05/11/23 13:50 BP 130/68 05/11/23 13:50 Pulse Ox 95 05/11/23 13:50 BMI result Body Mass Index 62.6 Const General: cooperative, healthy appearing and comfortable Nutritional Appearance: obese morbidly obese Orientation/consciousness: patient oriented x3 Limitations: no limitations HEENT Head: Yes normocephalic and Yes atraumatic Resp Effort & Inspection: normal respiratory effort and able to speak in complete sentences Skin General skin exam: no rashes or lesions noted Neuro General: patient oriented x3 Extrem Other: No active synovitis Diffuse fibromyalgia tender points Positive empty can test right shoulder Negative infraspinatus test and lift-off test bilaterally Assessment & Plan Assessment & Plan (1) Fibromyalgia: Code(s): M79.7 - Fibromyalgia Plan: This is a 52-year-old female with a past medical history of fibromyalgia who presents for follow-up. Fibromyalgia is stable. Can continue with cyclobenzaprine and duloxetine. Patient did not have any side effects such as serotonin syndrome when combining these 2 meds for a very long period of time. Can continue the same (2) Degenerative lumbar disc: Code(s): M51.36 - Other intervertebral disc degeneration, lumbar region Plan: Referred to PT (3) Rotator cuff arthropathy of right shoulder: Code(s): M12.811 - Other specific arthropathies, not elsewhere classified, right shoulder Plan: Referred to PT. Can consider injection for subacromial bursitis next visit if no improvement with PT Plan I spent 27 minutes reviewing patient's chart, evaluating patient, placing orders, counseling patient and documenting in the chart Orders: Orders PT Evaluation and Treatment Today M12.811 - Other specific arthropathies, not elsewhere classified, right shoulder, M51.36 - Other intervertebral disc degeneration, lumbar region Coding Level of Care Code Est Pt Level 4 (63864) Diagnoses Fibromyalgia M79.7 Degenerative lumbar disc M51.36 Rotator cuff arthropathy of right shoulder M12.811
[2023-05-11 13:50] VITALS: BP 130/68; PULSE 108; TEMP 36.2; O2SAT 95; BMI 62.6
== END 2023-05-11 14:07 | disposition home or self-care (01) ==
PROVIDERS: Visit Provider Student in an Organized Health Care Education/Training Program
DX: M79.7 Fibromyalgia (principal); M51.36 Other intervertebral disc degeneration, lumbar region; M12.811 Other specific arthropathies, not elsewhere classified, right shoulder
CPT/HCPCS: 99214

== ENCOUNTER → 2023-05-11 13:47 | Outpatient (BNVA) | payer MEDICARE, SELFPAY | PROVIDERS: Visit Provider Student in an Organized Health Care Education/Training Program | DX: M79.7 Fibromyalgia (principal); M51.36 Other intervertebral disc degeneration, lumbar region; M12.811 Other specific arthropathies, not elsewhere classified, right shoulder | CPT/HCPCS: 99212 ==

== ENCOUNTER 2023-05-30 08:29 | Outpatient (AMB) | payer MEDICARE, SELFPAY ==
--- NOTE | 2023-05-30 08:38 | A.OFFVIS_ITS ---
Intake Vital Signs 05/30/23 08:40 Height 5 ft 3 in Weight 352 lb 11.834 oz BMI 62.5 BP 127/67 Blood Pressure Location Lt radial Position Sitting Pulse 96 Intake Visit Reasons: 1 Year follow up Diverticulosis Intake Note: Janina presents in the office as a 1 year follow up diverticulosis. CC: She states that she is having bleeding for 3 weeks but it is menstrual bleeding so she sees the OB tomorrow. She has not had it for 3 years and now she has had it for 3 weeks. She denies any rectal bleeding. Neighborhood Aide Required: No Allergies Seasonal Allergies Allergy (Intermediate, Verified 05/30/23 08:40) Sneezing HPI 1 Year follow up Diverticulosis HPI Details LAST VISIT Status post colonoscopy Patient denies any ill effects from the prep, anesthesia or procedure itself. Denies any GI concerning symptoms. No polyps found. However due to patient's family history of colorectal cancer patient will return for colorectal screening in 5 years. Diverticulosis to left colon. Will start patient on MiraLax Diverticulosis Patient was diagnosed with diverticulosis of left colon on colonoscopy. Will start patient on MiraLax. I will see her in 1 year to re-evaluate. Patient will call me sooner if she will have any GI concerning symptoms. Patient is agreeable to this plan and verbalizes understanding of instructions. She was given the opportunity to ask questions and all of answered. ? Thank you for allowing me to participate in her care Plan Medications Refilled polyethylene glycol 3350 (Miralax) 17 grams PO DAILY 100 ea 3RF TODAY'S VISIT Patient is here today for follow-up. Patient reports that since the last him I have seen her she has been doing well. Patient reports that she has been moving bowels without any issues now that she takes MiraLax in the morning and Dulcolax tablets in the evening. Patient denies melena, hematochezia, unintentional weight loss or ribbon like stools. Patient reports that she has been bleeding vaginally in the last 3 weeks. Patient has a follow-up appointment with PCP has not followed up with shut off worker for very long time. Patient also reports pelvic pain. Patient denies any fever or chills. Denies any urinary frequency, burning or dysuria. Patient denies any GI concerning symptoms. Denies dy spepsia, dysphagia or odynophagia. [facility] Medical History (Updated 05/30/23 @ 14:26 by Rosa Elena Smith [facility]) Menorrhagia Snores Lumbar herniated disc Hypertension Anxiety Depression Elevated C-reactive protein (CRP) Fibromyalgia Surgical History Hx of colonoscopy H/O section Family History Mother HTN (hypertension) Diabetes Maternal Aunt Colon cancer Maternal Uncle Throat cancer Social History Household Members: Spouse Housing: Apartment Are you a primary client care manager to a significant other at home: No Do you presently have visiting nurse or other home services: No Alcohol intake: never Patient Tobacco Use Status: Former Tobacco user Quit Date: 27 yrs ago Years Smoked: Quit 28 years ago Review of Systems Const Denies weight gain and Denies weight loss ENT Reports no additional complaints, Denies dysphagia and Denies odynophagia Card Reports no additional complaints Resp Reports no additional complaints GI Denies abdominal pain, Denies belching, Denies melena, Denies bloating, Denies change in bowel habits, Denies dysphagia, Denies excessive flatus, Denies dyspepsia, Denies heartburn, Denies diarrhea, Denies loose stools, Denies nausea, Denies odynophagia and Denies vomiting Reports other (Menorrhagia) Musc Reports no additional complaints Neuro Reports no additional complaints Psych Reports no additional complaints Endo Reports no additional complaints Physical Exam Vital Signs: Last Vital Signs Pulse 96 05/30/23 08:40 BP 127/67 05/30/23 08:40 BMI result Body Mass Index 62.5 Const General: healthy appearing, no acute distress and well developed Nutritional Appearance: obese Orientation/consciousness: patient oriented x3 HEENT Head: Yes normal to inspection, Yes normocephalic and Yes atraumatic Face and sinus: Yes normal facial exam Mouth: Normal oral and palatal mucosa present Throat: Yes posterior oropharynx normal, Yes tonsils normal and Yes uvula midline Eyes General: appearance normal, both eyes and all related structures Neck Neck: Yes normal visual inspection, Yes full ROM and Yes trachea midline Thyroid: Thyroid normal Resp Effort & Inspection: normal respiratory effort, able to speak in complete sentences, no tracheal deviation and symmetric chest movement Auscultation: clear to auscultation bilaterally Cardio Rate: regular rate Heart sounds: S1 normal heart sound present and S2 normal heart sound present GI Inspection: Yes normal to inspection, No distended and Yes obesity Palpation (GI): Soft to palpation, not firm, nontender and No hepatosplenomegaly present Auscultation: normal bowel sounds General: Yes no CVA tenderness Back/Spine/Pelvis Back: no CVA tenderness Skin General skin exam: elasticity normal, turgor normal and dry skin Neuro General: patient oriented x3 Psych Appearance: grossly normal Mental Status: mental status grossly normal Speech and movement: Normal speech and movement present Assessment & Plan Assessment & Plan (1) Menorrhagia: Code(s): N92.0 - Excessive and frequent menstruation with regular cycle Qualifiers: Menorrhagia type: premenopausal Qualified Code(s): N92.4 - Excessive bleeding in the premenopausal period Plan: Referral to [facility] office (2) Diverticulosis: Code(s): K57.90 - Diverticulosis of intestine, part unspecified, without perforation or abscess without bleeding Plan: Continue high-fiber diet. Can take [id number] probiotics (3) Constipation: Code(s): K59.00 - Constipation, unspecified Qualifiers: Constipation type: chronic idiopathic constipation Qualified Code(s): K59.04 - Chronic idiopathic constipation Plan: Patient can continue MiraLax and Dulcolax. Patient was encouraged to increase fluid intake and activity to promote better bowel motility. I will see patient in young year, sooner on as needed basis. Patient is agreeable to this plan and verbalizes understanding of instructions. She was given the opportunity to ask questions and all questions answered. Thank you for allowing me to participate in her care Orders: Referrals SUPPLIER QUALITY ENGINEERING MANAGER Referral N92.0 - Excessive and frequent menstruation with regular cycle Medications: Refilled polyethylene glycol 3350 (Miralax) 17 grams PO DAILY 100 ea 3RF bisacodyl 10 mg (2 x 5 mg) PO BEDTIME 180 tabs 2RF K59.00 - Constipation, unspecified Coding Level of Care Code Est Pt Level 3 (59162) Diagnoses Excessive bleeding in premenopausal period N92.4 Menorrhagia type: premenopausal Diverticulosis K57.90 Chronic idiopathic constipation K59.04 Constipation type: chronic idiopathic constipation Time Spent (min) 30 Comment 20 minutes spent with patient and additional 10 minutes spent reviewing her records
[2023-05-30 08:40] VITALS: BP 127/67; PULSE 96; BMI 62.5
== END 2023-05-30 09:10 | disposition home or self-care (01) ==
PROVIDERS: PCP Family Medicine; Visit Provider Nurse Practitioner Family
DX: N92.4 Excessive bleeding in the premenopausal period (principal); K57.90 Diverticulosis of intestine, part unspecified, without perforation or abscess without bleeding; K59.04 Chronic idiopathic constipation
CPT/HCPCS: 99213

== ENCOUNTER → 2023-05-30 08:29 | Outpatient (BNVA) | payer MEDICARE, SELFPAY | PROVIDERS: PCP Family Medicine; Visit Provider Nurse Practitioner Family | DX: K57.90 Diverticulosis of intestine, part unspecified, without perforation or abscess without bleeding (principal); K59.04 Chronic idiopathic constipation; N92.4 Excessive bleeding in the premenopausal period | CPT/HCPCS: 99212 ==

== ENCOUNTER 2023-06-08 12:15 | Outpatient (REF) | payer MEDICARE, SELFPAY | END 2023-06-08 12:16 | disposition home or self-care (01) | LOC: HO.HHCL 12:15 | PROVIDERS: Visit Provider Advanced Practice Midwife | DX: N95.0 Postmenopausal bleeding (principal) | CPT/HCPCS: 36415; 76830; 76856; 85014; 85018; 87491; 87591; 87624; 87661; 88142 ==

== ENCOUNTER 2023-06-27 09:00 | Outpatient (RCR) | payer MEDICARE, SELFPAY ==
--- NOTE | 2023-06-20 15:16 | MHC.PT.EP ---
[facility] [place] Office [place] Office [place] Office [address] Mychal Quintana [address] [phone] F: [phone] F: [phone] F: [phone] F: [phone] Physical Therapy Plan of Care Date of Evaluation: 06/20/23 Date of Surgery: Diagnosis: RIGHT shoulder cuff arthropathy (MD Dx) chronic RIGHT shoulder pain with impingement (PT Dx) Lumbar spine degenerative disc (on MD referral, pt prefers just shoulder treatment) Assessment: Patient is a 52 y.o. female who is referred to PT by Dr. Ileana Isaacs MD, with Dx of RIGHT shoulder cuff arthropathy and lumbar spine degenerative disc (on MD referral, pt prefers just shoulder treatment). PT diagnosis is chronic RIGHT shoulder pain with impingement. Patient impairments include pain, poor posture, weakness, limited ROM. Patient current functional limitations are overhead reaching, brush her hair, take off shirt, reaching out for something, reaching behind back for bra, mopping. Patient will benefit from skilled PT to address aforementioned impairments and functional limitations to meet established goals. Frequency and Duration: The patient will be seen 1x/week for 4 weeks Short Term Goals: 2 weeks Patient demonstrates consistency and independence with HEP to self manage symptoms. Patient presents with improved posture without rounded shoulders in sitting. Usp Goals: 4 weeks Patient presents with increased R shoulder flexion AROM 170 degrees to reach overhead to brush her hair. Patient presents with increased R shoulder flexion strength 4+/5 to be able to mop/clean home. Treatment Plan: Modalities to reduce pain, spasms and effusion. Manual therapy to restore motion and function. Therapeutic exercise to improve strength and flexibility. Neuromuscular re-education for posture and balance. Therapeutic activities to return to functional activities of daily living. Electronically signed by: Bess Leon, PT, DPT Please sign and return to therapist. Thank you for your referral.
--- NOTE | 2023-08-09 13:21 | MHC.PT.DC ---
[facility] [place] Office [place] Office [place] Office [address] Mychal Quintana 140 [facility] [phone] F: [phone] F: [phone] F: [phone] F: [phone] Physical Therapy Discharge Report Diagnosis: RIGHT shoulder cuff arthropathy (MD Dx) chronic RIGHT shoulder pain with impingement (PT Dx) Lumbar spine degenerative disc (on MD referral, pt prefers just shoulder treatment) Date of Surgery: Date of Evaluation: 06/20/23 Date of Discharge: 08/09/23 Treatments to Date: 2 Cancellations to Date: 0 No Shows to Date: 3 Discharge Status: Visit Non-compliance Discharge Summary: Patient was only seen for 2 sessions then did not show to her remaining scheduled sessions. Therefore she is dischagred from PT at this time. Difficulty determining effectiveness of PT interventions on patient condition due to limited visits. Electronically signed by: Bess Leon PT, DPT Please sign and return to therapist. Thank you for your referral.
== END 2023-08-09 13:22 | disposition home or self-care (01) ==
LOC: HO.PT 09:00
PROVIDERS: PCP Family Medicine; Visit Provider Student in an Organized Health Care Education/Training Program
DX: M12.811 Other specific arthropathies, not elsewhere classified, right shoulder (principal); M51.36 Other intervertebral disc degeneration, lumbar region
CPT/HCPCS: 97110; 97161

== ENCOUNTER 2023-08-04 08:15 | Outpatient (AMB) | payer MEDICARE, SELFPAY ==
--- NOTE | 2023-08-04 08:20 | A.OFFVIS_ITS ---
Intake Vital Signs 08/04/23 08:22 Height 5 ft 3 in Weight 353 lb BMI 62.5 BP 142/84 H Blood Pressure Location Rt brachial Position Sitting Pulse 107 H Pulse Source Pulse Oximeter Pulse Oximetry (%) 96 Oxygen Delivery Method Room Air Intake Visit Reasons: follow up/ Confirmed Intake Note: Pt presents to the office today for a follow up for LESTER. Allergies Seasonal Allergies Allergy (Intermediate, Verified 08/04/23 08:24) Sneezing HPI HPI Comments History of Present Illness Details 52 y/o female patient presents for follo w up of LESTER on CPAP. Pt reports she is on Ozempic now and lost 10 lb. She uses CPAP nightly and having good, rested sleep. She wakes up much less to go to bathroom, and her AM headache has resolved. She is more alert and no more naps during the day. Compliance and therapy response (05/07/23-08/04/23) reviewed. She is on APAP [id number]. Days of use was 96%, average usage hours 6 hours. Max pressure is 7.7 and the residual AHI was 0.4. [facility] Medical History Menorrhagia Snores Lumbar herniated disc Hypertension Anxiety Depression Elevated C-reactive protein (CRP) Fibromyalgia Surgical History Hx of colonoscopy H/O section Family History Mother HTN (hypertension) Diabetes Maternal Aunt Colon cancer Maternal Uncle Throat cancer Social History Household Members: Spouse Housing: Apartment Are you a primary primary care provider to a significant other at home: No Do you presently have visiting nurse or other home services: No Alcohol intake: never Patient Tobacco Use Status: Former Tobacco user Quit Date: 27 yrs ago Years Smoked: Quit 28 years ago Review of Systems Const All systems reviewed & are unremarkable except as noted in HPI and below Physical Exam Vital Signs: Last Vital Signs Pulse 107 H 08/04/23 08:22 BP 142/84 H 08/04/23 08:22 Pulse Ox 96 08/04/23 08:22 Oxygen Delivery Method Room Air 08/04/23 08:22 BMI result Body Mass Index 62.5 Const General: cooperative and comfortable Nutritional Appearance: obese Orientation/consciousness: patient oriented x3 Limitations: no limitations HEENT Head: Yes normocephalic Throat: Yes other (mallampati score 4) Neck Neck: Yes full ROM and Yes supple Resp Effort & Inspection: normal respiratory effort and able to speak in complete sentences Neuro General: patient oriented x3, gait normal, moves all extremities and CN's II-XI intact bilaterally Psych Appearance: grossly normal Mental Status: mental status grossly normal Speech and movement: Normal speech and movement present Assessment & Plan Assessment & Plan (1) LESTER on CPAP: Comment: Moderate degree of sleep apnea. The AHI was 15/hr and oxygen hosea was 81%. Code(s): G47.33 - Obstructive sleep apnea (adult) (pediatric); Z99.89 - Dependence on other enabling machines and devices Plan Advised patient to continue APAP [id number] as patient experiences good clinical effects. Stressed compliance, use CPAP every night and more than 4 hours. Clean mask and tube routinely. Wt reduction advised. Coding Level of Care Code Est Pt Level 3 (43278) Diagnoses LESTER on CPAP G47.33; Z99.89
[2023-08-04 08:22] VITALS: BP 142/84; PULSE 107; O2SAT 96; BMI 62.5
== END 2023-08-04 08:47 | disposition home or self-care (01) ==
PROVIDERS: Visit Provider Nurse Practitioner Family
DX: G47.33 Obstructive sleep apnea (adult) (pediatric) (principal); Z99.89 Dependence on other enabling machines and devices
CPT/HCPCS: 99213

== ENCOUNTER → 2023-08-04 08:15 | Outpatient (BNVA) | payer MEDICARE, SELFPAY | PROVIDERS: Visit Provider Nurse Practitioner Family | DX: G47.33 Obstructive sleep apnea (adult) (pediatric) (principal); Z99.89 Dependence on other enabling machines and devices | CPT/HCPCS: 99212 ==

== ENCOUNTER 2023-08-16 09:25 | Outpatient (AMB) | payer MEDICARE, SELFPAY ==
[2023-08-16 09:36] VITALS: BP 132/70; BMI 62.2
--- NOTE | 2023-08-16 09:36 | A.OFFVIS_ITS ---
Intake Vital Signs 08/16/23 09:36 Height 5 ft 3 in Weight 351 lb BMI 62.2 BP 132/70 Intake Visit Reasons: Irregular menses Ancillary Specialist Required: No Information Interpreted: clinical only Personal Financial Advisor: Personal Financial Advisor Present Allergies Seasonal Allergies Allergy (Intermediate, Verified 08/16/23 09:38) Sneezing Is last menstrual period known: Yes Last menstrual period: 06/18/23 Do you need a note to return to daycare/school/sports/work: No HPI Irregular menses HPI Details Patient is being seen here as a new patient referred from the [facility] for abnormal uterine bleeding. She had a full visit with Pap smear and could negative cultures and pelvic ultrasound ordered and done at the [facility] a pelvic ultrasound showed a thickened endometrial lining of 9 mm. Which was increased from an ultrasound of 2020. There are also small fibroids noted. Cultures were negative Pap smear was negative with negative HPV patient was referred here for further evaluation. Patient states that now she is fine and not bleeding anymore it is not happening anymore. Her normal last period had been 2 years previous. Patient states that she believes she is prediabetic and but her hemoglobin A1c was either 6.46.7 and her fasting blood sugars are 120 but her sugars after eating are and maybe 180. She is on metformin and Ozempic per her primary care provider and she says she has lost 14 lb. She has been overweight all her life. She also has hypertension. [facility] Medical History Menorrhagia Snores Lumbar herniated disc Hypertension Anxiety Depression Elevated C-reactive protein (CRP) Fibromyalgia Surgical History Hx of colonoscopy H/O section Family History Mother HTN (hypertension) Diabetes Maternal Aunt Colon cancer Maternal Uncle Throat cancer Social History Household Members: Spouse Housing: Apartment Are you a primary intensive care anaesthetist to a significant other at home: No Do you presently have visiting nurse or other home services: No Alcohol intake: never Patient Tobacco Use Status: Former Tobacco user Quit Date: 27 yrs ago Years Smoked: Quit 28 years ago Female Reproductive History Menstrual Age of Menarche: 12 Duration of menses: 3-5 days Date of last menstrual period: 06/18/23 control method: none Total pregnancies: 1 Full term: 1 History of abnormal pap smear: No (07[facility]14/23,[facility]) Physical Exam Vital Signs: Last Vital Signs BP 132/70 08/16/23 09:36 BMI result Body Mass Index 62.2 Assessment & Plan Assessment & Plan (1) Menorrhagia: Code(s): N92.0 - Excessive and frequent menstruation with regular cycle Qualifiers: Menorrhagia type: premenopausal Qualified Code(s): N92.4 - Excessive bleeding in the premenopausal period (2) Obesity, morbid, BMI 50 or higher: Code(s): E66.01 - Morbid (severe) obesity due to excess calories (3) Abnormal uterine bleeding (AUB): Code(s): N93.9 - Abnormal uterine and vaginal bleeding, unspecified Plan Patient is being seen here as a new patient referred from the [facility] for abnormal uterine bleeding. She had a full visit with Pap smear and could negative cultures and pelvic ultrasound ordered and done at the [facility] a pelvic ultrasound showed a thickened endometrial lining of 9 mm. Which was increased from an ultrasound of 2020. There are also small fibroids noted. Cultures were negative Pap smear was negative with negative HPV patient was referred here for further evaluation. Patient states that now she is fine and not bleeding anymore it is not happening anymore. Her normal last period had been 2 years previous. Patient states that she believes she is prediabetic and but her hemoglobin A1c was either 6.46.7 and her fasting blood sugars are 120 but her sugars after eating are and maybe 180. She is on metformin and Ozempic per her primary care provider and she says she has lost 14 lb. She has been overweight all her life. She also has hypertension. I explained to the patient that this requires a workup and that the concern could be that she could have endometrial hyperplasia or possibly cancer because of the thickened lining and that it is something that needs to be further evaluated she needs to have an endometrial biopsy and I explained how that is done and that it would cramp and be uncomfortable and that she could take ibuprofen the morning before it is being done. It can be done in this office however this provider is being sent to a different office were keep ability is not yet established for procedures so in order to not delay her care she needs to be referred to Dr. Vergara in this office for endometrial biopsy. In discussing next available appointment with his back office medical assistant Bushra parker now Discussed that depending on the results of the biopsy it is possible that she may have care here but it is also possible that she might be referred to [facility] depending on results. I encouraged her to continue with her act for hurts to lose weight and look after her health long-term. Coding Level of Care Code New Pt Level 3 (58226) Diagnoses Excessive bleeding in premenopausal period N92.4 Menorrhagia type: premenopausal Obesity, morbid, BMI 50 or higher E66.01 Abnormal uterine bleeding (AUB) N93.9
== END 2023-08-16 11:58 | disposition home or self-care (01) ==
PROVIDERS: PCP Family Medicine; Visit Provider Advanced Practice Midwife
DX: N92.4 Excessive bleeding in the premenopausal period (principal); E66.01 Morbid (severe) obesity due to excess calories; N93.9 Abnormal uterine and vaginal bleeding, unspecified
CPT/HCPCS: 99203

== ENCOUNTER → 2023-08-16 09:25 | Outpatient (BNVA) | payer MEDICARE, SELFPAY | PROVIDERS: PCP Family Medicine; Visit Provider Advanced Practice Midwife | DX: N92.4 Excessive bleeding in the premenopausal period (principal); N93.9 Abnormal uterine and vaginal bleeding, unspecified; E66.01 Morbid (severe) obesity due to excess calories; Z68.44 Body mass index [BMI] 60.0-69.9, adult | CPT/HCPCS: 99202 ==

== ENCOUNTER 2023-11-09 09:32 | Outpatient (AMB) | payer OTHER, SELFPAY ==
[2023-11-09 09:34] VITALS: BP 128/76; PULSE 87; O2SAT 97; BMI 61.1
--- NOTE | 2023-11-09 09:34 | A.OFFVIS_ITS ---
Intake Vital Signs 11/09/23 09:34 Height 5 ft 3 in Weight 345 lb 0.375 oz BMI 61.1 BP 128/76 Blood Pressure Location Lt radial Position Sitting Pulse 87 Pulse Source Pulse Oximeter Pulse Oximetry (%) 97 Oxygen Delivery Method Room Air Intake Visit Reasons: FMS Intake Note: Patient last seen 05/11/23 presents today for follow up. Chemical Production Engineer Required: No Accompanied by: Self / Same As Patient Allergies Seasonal Allergies Allergy (Intermediate, Verified 11/09/23 09:36) Sneezing Medication List - Last Reconciled 11/09/23 by Ileana Isaacs MD acetaminophen 1,000 mg PO Q8H PRN albuterol sulfate 2.5 mg inhalation Q6H PRN albuterol sulfate 90 mcg/actuation (ProAir HFA) 2 puffs inhalation Q4-6H PRN atorvastatin 10 mg PO BEDTIME bisacodyl 10 mg (2 x 5 mg) PO BEDTIME calcium carbonate-vitamin D3 600 mg-10 mcg (400 unit) 1 tab PO BID chlorhexidine gluconate 0.12% PO clonazepam (Klonopin) 1 mg PO BID PRN cyclobenzaprine 5 mg PO BEDTIME PRN duloxetine (Cymbalta) 30 mg PO BID fluticasone propionate 110 mcg/actuation (Flovent HFA) 1 puff inhalation BID hydrochlorothiazide 12.5 mg PO DAILY ibuprofen 600 mg PO BID lisinopril 10 mg PO DAILY meclizine 25 mg PO TID PRN meloxicam 15 mg PO DAILY metformin ER 500 mg PO DAILY montelukast (Singulair) 10 mg PO BEDTIME polyethylene glycol 3350 (Miralax) 17 grams PO DAILY semaglutide (Ozempic) 0.25 mg subcut QWEEK zolpidem 5 mg PO BEDTIME PRN HPI HPI Comments History of Present Illness Details This is a 53-year-old female who presents fibromyalgia follow-up. She was last seen by Shirlene Dunlap 05/27. Patient states that she feels about the same overall. Continues to have aches and pains. Continues to take cyclobenzaprine 5 mg nightly and duloxetine 30 mg Twice daily. She did some PT for her back and shoulder. States that it was quite painful. [facility] Medical History (Updated 11/09/23 @ 10:10 by Ileana Isaacs MD) LESTER (obstructive sleep apnea) Menorrhagia Lumbar herniated disc Hypertension Anxiety Depression Elevated C-reactive protein (CRP) Fibromyalgia Surgical History Hx of colonoscopy H/O section Family History Mother HTN (hypertension) Diabetes Maternal Aunt Colon cancer Maternal Uncle Throat cancer Social History Household Members: Spouse Housing: Apartment Are you a primary pet care associate to a significant other at home: No Do you presently have visiting nurse or other home services: No Alcohol intake: never Patient Tobacco Use Status: Former Tobacco user Quit Date: 27 yrs ago Years Smoked: Quit 28 years ago Female Reproductive History Menstrual Age of Menarche: 12 Review of Systems Musc Reports back pain, Reports myalgias, Reports arthralgias and Reports stiffness Physical Exam Vital Signs: Last Vital Signs Pulse 87 11/09/23 09:34 BP 128/76 11/09/23 09:34 Pulse Ox 97 11/09/23 09:34 Oxygen Delivery Method Room Air 11/09/23 09:34 BMI result Body Mass Index 61.1 Const General: cooperative, healthy appearing and comfortable Nutritional Appearance: obese morbidly obese Orientation/consciousness: patient oriented x3 Limitations: no limitations HEENT Head: Yes normocephalic and Yes atraumatic Resp Effort & Inspection: normal respiratory effort and able to speak in complete sentences Skin General skin exam: no rashes or lesions noted Neuro General: patient oriented x3 Extrem Other: No active synovitis Diffuse fibromyalgia tender points Assessment & Plan Assessment & Plan (1) Fibromyalgia: Code(s): M79.7 - Fibromyalgia Plan: This is a 53-year-old female with a past medical history of fibromyalgia who presents for follow-up. Fibromyalgia is stable. Can continue with cyclobenzaprine and duloxetine. Patient did not have any side effects such as serotonin syndrome when combining these 2 meds for a very long period of time. Can continue the same. Duloxetine is prescribed by psychiatrist Advised patient to speak with her PCP and ask them whether they would refill her cyclobenzaprine. If PCP would refill her cyclobenzaprine, she does not need to follow-up with me regularly. Plan I spent 17 minutes reviewing patient's chart, evaluating patient, counseling patient and documenting in the chart Coding Level of Care Code Est Pt Level 3 (03851) Diagnoses Fibromyalgia M79.7
== END 2023-11-09 10:09 | disposition home or self-care (01) ==
PROVIDERS: PCP Family Medicine; Visit Provider Student in an Organized Health Care Education/Training Program
DX: M79.7 Fibromyalgia (principal)
CPT/HCPCS: 99213

== ENCOUNTER → 2023-11-09 09:32 | Outpatient (BNVA) | payer OTHER, SELFPAY | PROVIDERS: PCP Family Medicine; Visit Provider Student in an Organized Health Care Education/Training Program | DX: M79.7 Fibromyalgia (principal) | CPT/HCPCS: 99212 ==

== ENCOUNTER 2023-12-08 10:03 | Outpatient (REF) | payer OTHER, SELFPAY ==
--- NOTE | ~2023-12-08 | MM_ITS ---
EXAMINATION: MM SCREENING DIGITAL BREAST TOMOSYNTHESIS, BILATERAL CLINICAL INFORMATION: Screening. Asymptomatic. COMPARISON: Mammography: This study is compared with prior exams dating back to 2016. TECHNIQUE: Digital breast tomosynthesis is performed in both the craniocaudal and mediolateral oblique views along with computer-aided detection (CAD). Synthesized 2D images are generated from the tomosynthesis. FINDINGS: The breasts are almost entirely fatty (ACR BI-RADS breast composition Category a). There are no significant masses, abnormal calcifications, or other abnormalities. MM/MM tomosynthesis screening BI IMPRESSION: No mammographic evidence of malignancy. ASSESSMENT: BI-RADS BI-RADS 1 - Negative RECOMMENDATION: Routine annual mammography screening. 1 year F/U This examination should not preclude the clinical evaluation of a suspicious palpable abnormality. This patient's information was entered into a reminder system with a target due date for their next mammogram.
== END 2023-12-08 10:04 | disposition home or self-care (01) ==
LOC: HO.MAMMO 10:03
PROVIDERS: PCP Family Medicine; Visit Provider Family Medicine
DX: Z12.31 Encounter for screening mammogram for malignant neoplasm of breast (principal)
CPT/HCPCS: 77063; 77067

== ENCOUNTER → 2023-12-08 10:45 | Outpatient (BNV) | payer OTHER, SELFPAY | PROVIDERS: PCP Family Medicine; Visit Provider Radiology Diagnostic Radiology | DX: Z12.31 Encounter for screening mammogram for malignant neoplasm of breast (principal) | CPT/HCPCS: 77063; 77067 ==

== ENCOUNTER 2024-01-26 12:42 | Outpatient (REF) | payer OTHER, SELFPAY ==
[2024-01-26 14:00] LABS: Microalbum/Creatinine Ratio Ur 3.2 ug/mg cr (<30)
[2024-01-26 16:43] LABS: Alanine Aminotransferase 22 U/L (0-31); Albumin Level 3.9 g/dL (3.5-5.0); Alkaline Phosphatase 73 U/L (39-117); Anion Gap 14 (12-20); Aspartate Amino Transferase 23 U/L (5-31); Blood Urea Nitrogen 11 mg/dL (9-16); Calcium 9.3 mg/dL (8.4-10.2); Carbon Dioxide 25 mmol/L (22-29); Chloride 103 mmol/L (96-108); Cholesterol 161 mg/dL (<200); Estimated Glomerular Filt Rate > 60; Glucose Random 125 mg/dL (60-115); HDL Cholesterol 52 mg/dL (>40); LDL Cholesterol Calculated 82 mg/dL (<100); Potassium 3.9 mmol/L (3.3-5.1); Sodium 138 mmol/L (135-145); Total Protein 7.6 g/dL (6.5-8.0); Triglycerides 136 mg/dL (<150)
[2024-01-26 16:44] LABS: Estimated Average Glucose 137 mg/dL; Hemoglobin A1c % 6.4 % (<6.0)
[2024-01-26 16:59] LABS: TSH reflex Free T4 1.42 uIU/mL (0.32-4.0)
[2024-01-26 17:13] LABS: Folate 14.6 ng/mL (> or = 4.0); Vitamin B12 535 pg/mL (200-900)
[2024-01-26 17:22] LABS: Reflex LDLD? No
== END 2024-01-26 12:43 | disposition home or self-care (01) ==
LOC: HO.HHCL 12:42
PROVIDERS: Visit Provider Family Medicine
DX: E11.9 Type 2 diabetes mellitus without complications (principal)
CPT/HCPCS: 36415; 80053; 80061; 82043; 82570; 82607; 82746; 83036; 84443

== ENCOUNTER 2024-02-19 10:51 | Outpatient (AMB) | payer OTHER, SELFPAY ==
--- NOTE | 2024-02-19 11:09 | A.OFFVIS_ITS ---
Vital Signs 02/19/24 11:12 Height 5 ft 3 in Weight 347 lb BMI 61.5 BP 120/86 Intake Visit Reasons: AUB Facilities Flight Check Pilot Required: No Information Interpreted: non-clinical & clinical Track Leader: Track Leader Present (Yin KLINE) Accompanied by: Self / Same As Patient Allergies Seasonal Allergies Allergy (Intermediate, Verified 02/19/24 11:14) Sneezing Post menopausal: Yes HPI Comments Details: Presenting for postmenopausal bleeding over the last six-month. Pelvic ultrasound done in 06/26 showed the following: The uterus is anteverted and measures 8.2 x 4.3 x 4.9 cm in dimension. There are 2 heterogeneous uterine lesions suggestive of fibroids measuring 1.5 x 1.3 x 1.5 cm in the fundus and 0.9 x 0.8 x 0.9 cm in the left uterine body. The endometrium is abnormally thickened for a postmenopausal patient measuring 9 mm. There are nabothian cysts in the cervix. The ovaries are seen transabdominally only and not optimally visualized, particularly the left ovary. The right ovary measures 3.2 x 1.9 x 2 cm. The left ovary measures 3.5 x 1.7 x 2.7 cm. No focal lesion. No fluid in the pelvis. Last co testing done in 06/26 showed the following: General Category: Negative for intraepithelial lesion/malignancy. Adequacy: Endocervical component absent. Interpretation: Endometrial cells present after age 45. Abundant blood present. HPV mRNA E6/E7: Not Detected PFSH Medical History LESTER (obstructive sleep apnea) Menorrhagia Lumbar herniated disc Hypertension Anxiety Depression Elevated C-reactive protein (CRP) Fibromyalgia Surgical History Hx of colonoscopy H/O section Family History Mother HTN (hypertension) Diabetes Maternal Aunt Colon cancer Maternal Uncle Throat cancer Social History Household Members: Spouse Housing: Apartment Are you a primary day care home provider to a significant other at home: No Do you presently have visiting nurse or other home services: No Alcohol intake: never Patient Tobacco Use Status: Former Tobacco user Years Smoked: Quit 28 years ago Female Reproductive History Menstrual Age of Menarche: 12 Review of Systems Const All systems reviewed & are unremarkable except as noted in HPI and below Physical Exam Vital Signs: Last Vital Signs BP 120/86 02/19/24 11:12 BMI result Body Mass Index 61.5 General: Yes no CVA tenderness External Female Exam: normal external appearance and normal appearance of the urethra Speculum Exam - Vagina: normal appearance of the vagina, normal palpation, no lesions and no masses Speculum Exam - Cervix: normal appearance of the cervix, normal palpation, no lesions, no masses and nontender Bimanual exam- vagina & uterus: normal bimanual exam, normal palpation, uterine size normal, normal palpation, uterine shape normal, No Cervical tenderness present and non-tender Bimanual Exam- Adnexa, other: normal adnexae Back/Spine/Pelvis Back: no CVA tenderness Office Procedures Endometrial Biopsy Details: The patient was counseled regarding the indication and benefits of endometrial sampling to rule out endometrial pathology including not limited to endometrial hyperplasia or endometrial cancer and others; The alternatives (Either do nothing vs. hysteroscopy D&C) & the risks were discussed with the patient including but not limited: pain, uterine perforation, bleeding, infection, possible injury to bladder, bowel, ureter, possible need for blood transfusion with all its possible risks. The patient verbalized understanding all questions answered and signed consent. The patient was placed into the dorsal lithotomy position; a speculum was inserted in the vagina. Using aseptic technique for the procedure, the cervix was cleansed with Betadine. The anterior lip of the cervix was grasped with a single tooth tenaculum. The uterus was sounded to 7 cm with a 4 mm Pipelle was used. Tissues samples were obtained and placed in formalin, in a patient labeled container and sent to the pathology department. At the end of the procedure, there was minimal bleeding noted The patient tolerated the procedure well and was discharged in good condition with the following instructions: Nothing in the vagina until the bleeding stops. No sex until the bleeding stops, to call if any of the following occurs: fever (>100.4), flu-like symptoms, abdominal pain, heavy bleeding, four smelling vaginal discharge. The patient was instructed to schedule a Follow up appointment in 2 weeks to discuss pathology results of the biopsy and treatment options. This note was generated with a voice recognition program. Some errors may have been overlooked during the review of this note. Sometimes these errors may affect the content or meaning of a given sentence. [id number] Biopsy Assessment & Plan Assessment & Plan (1) Postmenopausal bleeding: Code(s): N95.0 - Postmenopausal bleeding Category: Medical Plan: Discussed with the patient the pelvic ultrasound findings, the endometrial stripe thickenss measured by ultrasound was more than 4mm. The negative predictive value, positive predictive value, Sensitivity, specificity of using ultrasound measurement of endometrial stripe to detecting endometrial pathology including hyperplasia , polyp or cancer were discussed with the patient. Recommended to the patient that the next step is an endometrial sampling via hysteroscopy D&C possible polypectomy versus endometrial biopsy to r/o endometrial pathology including hyperplasia or cancer. All the pros and cons risks and benefits of each approach were discussed with the patient, endometrial biopsy being less invasive, office procedure with less sensitivity and inability diagnose a polyp and removal versus hysteroscopy done under anesthesia more invasive more sensitive to endometrial cancer and possibility of diagnosing and endometrial polyp with the possibility of polypectomy. All questions were answered pt verbalized understanding and decided to proceed with endometrial biopsy, EMB done, see procedure note (2) Uterine myoma: Code(s): D25.9 - Leiomyoma of uterus, unspecified Category: Medical Plan: Discussed with the patient the findings on pelvic ultrasound & the risk of myosarcoma; discussed with the patient the options of treatment including expectant management versus hysterectomy; the pros and cons, risks benefits of each approach were discussed with the patient including the fact that in cases of myosarcoma, surgical treatment can lead to early diagnosis and positively affects the prognosis; after further discussion, the patient decided to proceed with expectant management. Will repeat pelvic ultrasound periodically. Instructions given to patient to call in case any of the following occurs: pressure symptoms, abnormal uterine bleeding, pelvic pain; and to schedule a six-month ultrasound and a follow-up appointment . All questions answered, the patient verbalized understanding and agreed with the plan . (3) Unexplained endometrial cells on cervical Pap smear: Code(s): R87.618 - Other abnormal cytological findings on specimens from cervix uteri Category: Medical Plan: Discussed with the patient the finding of endometrial cells on Pap smear in menopause, recommended endometrial sampling to rule out endometrial pathology including endometrial hyperplasia or malignancy, EMB done, see procedure note. Orders: Orders AMB Endometrial Biopsy Today N95.0 - Postmenopausal bleeding Coding Level of Care Code New Pt Level 3 (97744) Procedure Only Diagnoses Postmenopausal bleeding N95.0 Uterine myoma D25.9 Unexplained endometrial cells on cervical Pap smear R87.618 CPT Codes Endometrial Biopsy - CPT: 55696-[id number] Biopsy ([id number])
[2024-02-19 11:12] VITALS: BP 120/86; BMI 61.5
== END 2024-02-19 11:58 | disposition home or self-care (01) ==
PROVIDERS: PCP Family Medicine; Visit Provider Obstetrics & Gynecology
DX: N95.0 Postmenopausal bleeding (principal); D25.9 Leiomyoma of uterus, unspecified; R87.618 Other abnormal cytological findings on specimens from cervix uteri
CPT/HCPCS: 58100; 99203

== ENCOUNTER 2024-02-19 10:51 | Outpatient (REF) | payer OTHER, SELFPAY | END 2024-02-19 10:52 | disposition home or self-care (01) | LOC: HO.LNP 10:51 | PROVIDERS: PCP Family Medicine; Visit Provider Obstetrics & Gynecology | DX: N95.0 Postmenopausal bleeding (principal) | CPT/HCPCS: 58100; 88305; 99202 ==

== ENCOUNTER 2024-03-26 11:37 | Outpatient (AMB) | payer OTHER, SELFPAY ==
--- NOTE | 2024-03-26 11:53 | A.OFFVIS_ITS ---
Vital Signs 03/26/24 11:54 Height 5 ft 3 in Intake Visit Reasons: EMB Results Allergies Seasonal Allergies Allergy (Intermediate, Verified 02/19/24 11:14) Sneezing HPI Comments Details: The patient is presenting after endometrial biopsy. The patient has no complaints, no vaginal bleeding, no feverishness chills or abdominal pain. The endometrial biopsy pathology report showed the following: Strips of inactive endometrium and tubal metaplasia; negative for atypia, hyperplasia or malignancy PFSH Medical History LESTER (obstructive sleep apnea) Menorrhagia Lumbar herniated disc Hypertension Anxiety Depression Elevated C-reactive protein (CRP) Fibromyalgia Surgical History Hx of colonoscopy H/O section Family History Mother HTN (hypertension) Diabetes Maternal Aunt Colon cancer Maternal Uncle Throat cancer Social History Household Members: Spouse Housing: Apartment Are you a primary anesthesiologist and critical care to a significant other at home: No Do you presently have visiting nurse or other home services: No Alcohol intake: never Patient Tobacco Use Status: Former Tobacco user Years Smoked: Quit 28 years ago Female Reproductive History Menstrual Age of Menarche: 12 Review of Systems Const All systems reviewed & are unremarkable except as noted in HPI and below Reports as per HPI and Reports no additional complaints GI Reports no additional complaints Reports no additional complaints Assessment & Plan Assessment & Plan (1) Postmenopausal bleeding: Code(s): N95.0 - Postmenopausal bleeding Category: Medical Plan: Discussed with the patient the results of the endometrial biopsy showing inactive endometrium. Discussed with the patient the sensitivity, specificity, positive and negative predictive value, of endometrial biopsy in detecting endometrial pathology including but not limited to endometrial hyperplasia, cancer and other pathology; instructed the patient to call in case vaginal bleeding bleeding recurs, the next step will be to proceed with a diagnostic hysteroscopy/D&C for further endometrial sampling evaluation to rule out end ometrial pathology. All questions answered and the patient verbalized understanding and agreed with the plan. Coding Level of Care Code Est Pt Level 3 (94471) Diagnoses Postmenopausal bleeding N95.0
== END 2024-03-26 12:07 | disposition home or self-care (01) ==
PROVIDERS: PCP Family Medicine; Visit Provider Obstetrics & Gynecology
DX: N95.0 Postmenopausal bleeding (principal)
CPT/HCPCS: 99213

== ENCOUNTER → 2024-03-26 11:37 | Outpatient (BNVA) | payer OTHER, SELFPAY | PROVIDERS: PCP Family Medicine; Visit Provider Obstetrics & Gynecology | DX: N95.0 Postmenopausal bleeding (principal); Z98.890 Other specified postprocedural states | CPT/HCPCS: 99212 ==

== ENCOUNTER 2024-05-29 13:28 | Outpatient (AMB) | payer OTHER, SELFPAY ==
[2024-05-29 13:30] VITALS: BP 128/62; PULSE 105; O2SAT 98; BMI 60.8
--- NOTE | 2024-05-29 13:30 | A.OFFVIS_ITS ---
Vital Signs 05/29/24 13:30 Height 5 ft 3 in Weight 343 lb BMI 60.8 BP 128/62 Blood Pressure Location Rt radial Position Sitting Pulse 105 H Pulse Source Doppler Pulse Oximetry (%) 98 Oxygen Delivery Method Room Air Intake Visit Reasons: asthma Allergies Seasonal Allergies Allergy (Intermediate, Verified 05/29/24 13:33) Sneezing HPI HPI asthma: Details: 53-year-old lady, nonsmoker, with underlying history of adult onset asthma with symptoms mostly with upper respiratory infections referred for pulmonary evaluation. Patient states that overall his symptoms are well controlled on her current regimen of Symbicort 160, albuterol MDI / nebs. She denies recent exacerbation. Patient denies family history of lung disease. She does complain of environmental allergies. Patient does have a dog. She denies have an allergy testing. She only had remote pulmonary function testing. Patient is also using CPAP to manage underlying obstructive sleep apnea. [facility] Medical History LESTER (obstructive sleep apnea) Menorrhagia Lumbar herniated disc Hypertension Anxiety Depression Elevated C-reactive protein (CRP) Fibromyalgia Surgical History Hx of colonoscopy H/O section Family History Mother HTN (hypertension) Diabetes Maternal Aunt Colon cancer Maternal Uncle Throat cancer Social History Household Members: Spouse Housing: Apartment Are you a primary resident care aid to a significant other at home: No Do you presently have visiting nurse or other home services: No Alcohol intake: never Patient Tobacco Use Status: Former Tobacco user Years Smoked: Quit 28 years ago Female Reproductive History Menstrual Age of Menarche: 12 Review of Systems Const Denies daytime sleepiness, Denies excessive sweating, Denies fatigue, Denies fever(s), Denies lethargy, Denies malaise, Denies night sweats, Denies snoring and Denies weight loss Eyes Denies blurry vision and Denies itchy eyes ENT Denies nasal congestion, Denies post nasal drip, Denies sinus pain, Denies sinus pressure and Denies other ( Thrush) Card Denies chest pain, Denies pedal edema, Denies dyspnea, Denies orthopnea and Denies paroxysmal nocturnal dyspnea Resp Denies cough, Denies hemoptysis, Denies excessive phlegm production, Denies dyspnea, Denies snoring and Denies wheezing GI Denies abdominal pain and Denies heartburn Musc Denies myalgias, Denies arthralgias and Denies joint swelling Skin/Breast Denies rash Neuro Denies memory loss and Denies seizure-like activity Psych Denies abnormal sleep pattern, Denies anxiety and Denies memory loss Endo Denies excessive sweating, Denies fatigue and Denies heat intolerance Bob/Lymph Denies easy bruising Aller/Immun Denies itchy eyes, Denies seasonal rhinorrhea and Denies wheezing Physical Exam Vital Signs: Last Vital Signs Pulse 105 H 05/29/24 13:30 BP 128/62 05/29/24 13:30 Pulse Ox 98 05/29/24 13:30 Oxygen Delivery Method Room Air 05/29/24 13:30 BMI result Body Mass Index 60.8 Const General: no acute distress and alert Nutritional Appearance: obese Orientation/consciousness: Other orientation findings ( oriented) HEENT Head: Yes atraumatic Eyes General: appearance normal, both eyes and all related structures Sclerae: sclerae normal EOM: EOMs intact bilaterally Neck Neck: Yes supple Lymphatic: no lymphadenopathy noted Resp Effort & Inspection: normal respiratory effort and no use of accessory muscles Auscultation: clear to auscultation bilaterally Cardio Rate: regular rate Rhythm: regular rhythm Heart sounds: no gallops, no murmurs and no rubs Skin General skin exam: other ( warm) Extrem General: No clubbing, No cyanosis and No edema Assessment & Plan Assessment & Plan (1) Asthma: Code(s): J45.909 - Unspecified asthma, uncomplicated Category: Medical Plan: Unclear severity, though well controlled on current regimen of Symbicort and albuterol MDI /nebs. Continue current regimen. Will obtain full PFT. (2) Environmental allergies: Code(s): Z91.09 - Other allergy status, other than to drugs and biological substances Category: Medical Plan: Now well controlled on Singulair. Continue current regimen. Will obtain IgE level and RAST panel for further evaluation. Orders: Orders Resp Allergy Profile Region I Today J45.909 - Unspecified asthma, uncomplicated, Z91.09 - Other allergy status, other than to drugs and biological substances PFT pulmonary function test Today J45.909 - Unspecified asthma, uncomplicated Coding Level of Care Code New Pt Level 4 (02289) Diagnoses Asthma J45.909 Environmental allergies Z91.09
== END 2024-05-29 14:11 | disposition home or self-care (01) ==
PROVIDERS: PCP Family Medicine; Visit Provider Internal Medicine Pulmonary Disease
DX: J45.909 Unspecified asthma, uncomplicated (principal); Z91.09 Other allergy status, other than to drugs and biological substances
CPT/HCPCS: 99204

== ENCOUNTER 2024-05-29 13:28 | Outpatient (REF) | payer OTHER, SELFPAY ==
[2024-06-04 23:33] LABS: Class Alternaria alternata 0; Class Aspergillus fumigatus 0; Class Bermuda Grass 0/1; Class Birch 3; Class Cat Dander 2; Class Cladosporium herbarum 0; Class Cockroach 0/1; Class Common Ragweed 2; Class Cottonwood 0; Class Derm. pterony 4; Class Dermatophagoides farinae 4; Class Dog Dander 3; Class Elm 0/1; Class Maple Box Elder 0; Class Mountain Cedar 0; Class Mouse Urine Protein 1; Class Mugwort 1; Class Oak 2; Class Penicillium crysogenum 0; Class Rough Pigweed 0; Class Sheep Sorrel 0; Class Sycamore 0/1; Class Timothy Grass 2; Class Walnut Tree 2; Class White Ash 0; Class White Mulberry 0; E001 - IgE Cat Dander 1.05 kU/L; E072-IgE Mouse Urine 0.47 kU/L; G002 IgE Bermuda Grass 0.17 kU/L; G006 - IgE Timothy Grass 0.74 kU/L; I006-IgE Cockroach, German 0.11 kU/L; Immunoglobulin E 439 kU/L (<OR=114); M001 IgE Penicillium chrysogen <0.10 kU/L; M002 - IgE Cladosporium herbar <0.10 kU/L; M003 - IgE Aspergillus fumigat <0.10 kU/L; M006 - IgE Alternaria alternat <0.10 kU/L; T001 IgE Maple/Box Elder <0.10 kU/L; T006 - IgE Cedar, Mountain <0.10 kU/L; T007 - IgE Oak, White 0.74 kU/L; T008 IgE Elm, American 0.13 kU/L; T010 - IgE Walnut 1.24 kU/L; T011 - IgE Maple Leaf Sycamore 0.12 kU/L; T014 - IgE Cottonwood <0.10 kU/L; T015 - IgE Ash, White <0.10 kU/L; T070 - IgE White Mulberry <0.10 kU/L; W001 - IgE Ragweed, Short 2.45 kU/L; W006 - IgE Mugwort 0.37 kU/L; W014 IgE Pigweed, Common <0.10 kU/L; W018 IgE Sheep Sorrel <0.10 kU/L
== END 2024-05-29 13:29 | disposition home or self-care (01) ==
LOC: HO.LAB 13:28
PROVIDERS: PCP Family Medicine; Visit Provider Internal Medicine Pulmonary Disease
DX: J45.909 Unspecified asthma, uncomplicated (principal); Z91.09 Other allergy status, other than to drugs and biological substances
CPT/HCPCS: 36415; 82785; 86003; 99202

== ENCOUNTER 2024-07-19 06:46 | Emergency (ER) | payer OTHER, SELFPAY ==
[2024-07-19 06:47] VITALS: BP 150/77; PULSE 92; RESP 18; TEMP 36.6; O2SAT 98; BMI 60.2
--- NOTE | 2024-07-19 07:31 | ED_ITS ---
HPI - Nausea/Vomiting/Diarrhea General Chief complaint: Nausea/Vomiting/Diarrhea Stated complaint: vomiting , diarrhea Time Seen by Provider: 07/19/24 06:56 Source: patient Mode of arrival: ambulatory History of Present Illness ED Provider: Arvind ALY Narrative: 53-year-old female with history of diabetes and hypertension, she is on Ozempic as well as metformin, recently had Ozempic increased in June and reports that her last shot was on Monday and then developed episodes of nausea and vomiting last night with diarrhea early this morning. No further episodes since arrival to the emergency room, patient does also report eating a meat empanada yesterday in the afternoon. Related Data Home Medications ?Medication ?Instructions ?Recorded ?Confirmed hydrochlorothiazide 12.5 mg tablet 12.5 mg PO DAILY 06/25/20 05/11/23 clonazepam 1 mg tablet (Klonopin) 1 mg PO BID PRN Anxiety 05/07/21 05/11/23 duloxetine 30 mg capsule,delayed 30 mg PO BID 05/07/21 05/11/23 release (Cymbalta) ibuprofen 600 mg tablet 600 mg PO BID 01/05/22 05/11/23 zolpidem 5 mg tablet 5 mg PO BEDTIME PRN Sleep 01/05/22 05/11/23 albuterol sulfate 2.5 mg/3 mL 2.5 mg inhalation Q6H PRN Wheezing 03/18/22 05/11/23 (0.083 %) solution for nebulization lisinopril 10 mg tablet 10 mg PO DAILY 03/18/22 05/11/23 montelukast 10 mg tablet 10 mg PO BEDTIME 03/18/22 05/11/23 (Singulair) acetaminophen 500 mg tablet 1,000 mg PO Q8H PRN 09/16/22 05/11/23 atorvastatin 10 mg tablet 10 mg PO BEDTIME 09/16/22 05/11/23 calcium carbonate 600 mg-vitamin 1 tab PO BID 05/11/23 05/11/23 D3 10 mcg (400 unit) tablet chlorhexidine gluconate 0.12 % PO 05/30/23 mouthwash metformin 500 mg tablet,extended 500 mg PO DAILY 05/30/23 release 24 hr semaglutide 0.25 mg or 0.5 mg (2 0.25 mg subcut QWEEK 12/13/23 mg/3 mL) subcutaneous pen injector (Ozempic) albuterol sulfate 90 mcg/actuation 2 puff inhalation Q6H PRN 05/29/24 aerosol inhaler (Ventolin HFA) budesonide-formoterol HFA 160 2 puff inhalation 05/29/24 mcg-4.5 mcg/actuation aerosol inhaler Previous Rx's ?Medication ?Instructions ?Recorded bisacodyl 5 mg tablet 10 mg (2 x 5 mg) PO BEDTIME #180 05/30/23 tabs polyethylene glycol 3350 17 gram 17 g PO DAILY #100 ea 05/30/23 oral powder packet (Miralax) cyclobenzaprine 5 mg tablet 5 mg PO BEDTIME PRN for muscle 12/21/23 spasm #90 tabs ondansetron 4 mg disintegrating 4 mg PO Q8H PRN nausea and 07/19/24 tablet vomiting #7 tabs Allergies Allergy/AdvReac Type Severity Reaction Status Date / Time Seasonal Allergies Allergy Intermediate Sneezing Verified 07/19/24 06:47 Review of Systems 2 Review of Systems: Pertinent positives and negatives as stated in HPI [facility] Past Medical History Medical History LESTER (obstructive sleep apnea) Menorrhagia Lumbar herniated disc Hypertension Anxiety Depression Elevated C-reactive protein (CRP) Fibromyalgia Surgical History Hx of colonoscopy H/O section Family History Family History Mother HTN (hypertension) Diabetes Maternal Aunt Colon cancer Maternal Uncle Throat cancer Social History Social History Household Members: Spouse Housing: Apartment Are you a primary nurse behavioral health care to a significant other at home: No Do you presently have visiting nurse or other home services: No Alcohol intake: never Patient Tobacco Use Status: Former Tobacco user Years Smoked: Quit 28 years ago Smoked in Last 30 Days: No Use of substances other than those prescribed or required for medical reasons: No Advance Directives: No Advance Directives Information Provided: No Do you have a plan to hurt others: No Plan Patient : No Physical Exam 2 Vital Signs: Vital Signs: Last Vital Signs Temp 97.9 F 07/19/24 06:47 Pulse 92 07/19/24 06:47 Resp 18 07/19/24 06:47 BP 150/77 H 07/19/24 06:47 Pulse Ox 98 07/19/24 06:47 O2 Del Method Room Air 07/19/24 06:47 BMI result Body Mass Index 60.2 VITAL SIGNS: Reviewed. GENERAL: Elevated BMI, Well developed, well nourished, in no acute distress. HEAD: Normocephalic/atraumatic EYES: PERRLA, EOMI EARS: Ext canals without abnormality NOSE: Nares patent bilateral OROPHARYNX: no oral lesions noted, posterior pharynx clear NECK: Supple, no adenopathy LUNGS: Normal breath sounds. No adventitious sounds or accessory muscle use. SpO2<98> CARDIOVASCULAR: Regular rate and rhythm without noted murmurs ABDOMEN: Soft, non-tender, non-distended with bowel sounds. MUSCULOSKELETAL: No tenderness, deformities, or effusions noted on gross inspection. EXTREMITIES: No cyanosis, clubbing or edema. SKIN: Inspection of the skin reveals no rashes NEUROLOGIC: Alert and oriented x 4. Strength and sensation to light touch were grossly intact x 4. Medications Administered Discontinued Medications Generic Name Dose Route Start Last Admin Trade Name Freq PRN Reason Stop Dose Admin Ondansetron HCl 4 mg 07/19/24 08:13 07/19/24 08:22 Ondansetron Odt 4 Mg Tab.Rapdis TRANSLINGU 07/19/24 08:14 4 mg ONCE ONE Administration Medical Decision Making Medical Decision Making MDM Narrative: 53-year-old female with history and clinical presentation, DD DX: Medication side effect, food poisoning, gastroenteritis, low clinical suspicion for cholecystitis/pancreatitis/gastritis/obstruction. INTERVENTION: P.o. Zofran 0852: I reviewed interpreted all investigations and there is no evidence of acute infection, anemia, or thrombocytopenia. There is no evidence of KRYSTYNA/electrolyte or liver enzyme derangements. The noted T bili is likely stress response or possibly related with suspicion of food contamination. Urinalysis is negative for UTI or hematuria, it appears to be a contaminated sample with multiple squamous epithelium and so do not feel that the bacteria that is seen is related with urinary tract infection. Will recommend that patient follows up with primary care doctor for review of urine culture. Urine is negative. Patient has had no further episodes of nausea, vomiting, or diarrhea. My interpretation is patient has had either gastroenteritis or food poisoning and is otherwise stable at this time. Differential Diagnosis Differential Diagnoses: The differential diagnosis associated with the presentation includes See above Admission/Observation Consideration of admission/observation: Escalation of care including admission/observation considered Does not meet inpatient level of care Lab Data MDM Lab Attestation statement: I reviewed the patient's lab results. See above 07/19/24 07:40 07/19/24 07:40 Labs: Lab Results 07/19/24 Range/Units 07:40 WBC 9.5 (4.8-10.8) X10*3/uL RBC 4.68 (4.20-5.50) X10*6/uL Hgb 14.3 (12.0-16.0) g/dl Hct 42.6 (37.0-47.0) % MCV 91.0 (80.0-98.0) fL MCH 30.6 (27.0-33.0) pg MCHC 33.6 (31.0-35.0) g/dl RDW 13.8 (11.0-16.0) % Plt Count 345 (160-400) X10*3/uL MPV 9.2 L (9.4-12.3) fL Immature Gran % (Auto) 0.4 (0.0-0.4) % Neut % (Auto) 79.8 H (45-73) % Lymph % (Auto) 13.7 L (20-40) % [place] % (Auto) 4.9 (2-11) % Eos % (Auto) 1.0 (0-4) % Baso % (Auto) 0.2 (0-2) % Lymph # (Auto) 1.3 (1.2-4.9) X10*3/uL [place] # (Auto) 0.5 (0.1-1.2) X10*3/uL Eos # (Auto) 0.1 (0.0-0.4) X10*3/uL Baso # (Auto) 0.0 (0.0-0.2) X10*3/uL Abs Immat Gran (auto) 0.04 H (0.00-0.03) X10*3/uL Absolute Neuts (auto) 7.6 (2.0-8.3) x10*3/uL Absolute Nucleated RBC 0.000 (0.0-0.012) X10*3/uL Nucleated RBC % (auto) 0.0 (0.0-0.2) /100WBC Sodium 136 (135-145) mmol/L Potassium 4.0 (3.3-5.1) mmol/L Chloride 99 (96-108) mmol/L Carbon Dioxide 28 (22-29) mmol/L Anion Gap 13 (12-20) BUN 14 (9-16) mg/dL Creatinine 1.02 (0.5-1.4) mg/dL Estim Creat Clear Calc 93.8 Estimated GFR 57 Random Glucose 137 H (60-115) mg/dL Calcium 9.7 (8.4-10.2) mg/dL Total Bilirubin 1.1 H (0.0-1.0) mg/dL AST 25 (5-31) U/L ALT 20 (0-31) U/L Alkaline Phosphatase 83 (39-117) U/L Total Protein 8.0 (6.5-8.0) g/dL Albumin 4.1 (3.5-5.0) g/dL Lipase 23 (8-78) U/L Urine Color Dark Yellow Urine Appearance Cloudy Urine pH 5.5 (5.0-9.0) Ur Specific [place] 1.020 (1.005-1.025) Urine Protein Negative (Neg-Trace) mg/dL Urine Glucose (UA) Negative (Negative) mg/dL Urine Ketones Negative (Negative) mg/dL Urine Blood Negative (Negative) Urine Nitrite Negative (Negative) Ur Leukocyte Esterase Small (1+) H (Negative) Urine RBC 0-2 (0-2) /HPF Urine WBC 0-5 (0-5) /HPF Ur Squamous Epith Cells 11-20 (0-2) /HPF Urine Bacteria 3+ (None Seen) Hyaline Casts 0-2 (0-2) /LPF Urine Test NEGATIVE (NEGATIVE) External Record Review External record reviewed: Prior outpatient labs and Outside ED record Chronic Conditions Patient?s care impacted by: Diabetes and Hypertension Discharge Plan Discharge Clinical Impression: Food poisoning, Gastroenteritis Patient Disposition: Home, Self-Care Instructions: Gastroenteritis (ED), Food Poisoning (ED) Additional Instructions: Resume all home medications as prescribed. You are being discharged with a prescription for nausea control medication, take this as directed and continue to stay well hydrated. Follow-up with your primary care doctor as you will need to review urine cultures. Return to the ER for any worsening symptoms. Prescriptions: New ondansetron 4 mg tablet,disintegrating 4 mg PO Q8H PRN (Reason: nausea and vomiting) Qty: 7 0RF No Action cyclobenzaprine 5 mg tablet 5 mg PO BEDTIME PRN (Reason: for muscle spasm) Qty: 90 0RF hydrochlorothiazide 12.5 mg tablet 12.5 mg PO DAILY duloxetine [Cymbalta] 30 mg capsule,delayed release(DR/EC) 30 mg PO BID clonazepam [Klonopin] 1 mg tablet 1 mg PO BID PRN (Reason: Anxiety) albuterol sulfate 2.5 mg /3 mL (0.083 %) solution for nebulization 2.5 mg inhalation Q6H PRN (Reason: Wheezing) montelukast [Singulair] 10 mg tablet 10 mg PO BEDTIME lisinopril 10 mg tablet 10 mg PO DAILY metformin 500 mg tablet extended release 24 hr 500 mg PO DAILY chlorhexidine gluconate 0.12 % mouthwash PO polyethylene glycol 3350 [Miralax] 17 gram powder in packet 17 g PO DAILY Qty: 100 3RF bisacodyl 5 mg tablet 10 mg PO BEDTIME Qty: 180 2RF zolpidem 5 mg tablet 5 mg PO BEDTIME PRN (Reason: Sleep) ibuprofen 600 mg tablet 600 mg PO BID atorvastatin 10 mg tablet 10 mg PO BEDTIME acetaminophen 500 mg tablet 1,000 mg PO Q8H PRN calcium carbonate-vitamin D3 600 mg-10 mcg (400 unit) tablet 1 tab PO BID budesonide-formoterol 160-4.5 mcg/actuation HFA aerosol inhaler 2 puff inhalation albuterol sulfate [Ventolin HFA] 90 mcg/actuation HFA aerosol inhaler 2 puff inhalation Q6H PRN Ozempic 0.25 mg or 0.5 mg (2 mg/3 mL) pen injector 0.25 mg subcut QWEEK Rx Instructions: for 4 weeks Print Language: Tajik
[2024-07-19 07:47] LABS: Appearance Urine Cloudy; Color Urine Dark Yellow; Glucose Urine UA Negative (Negative); Leukocyte Esterase Urine Small (1+) (Negative); Nitrite Urine Negative (Negative); PH 5.5 (5.0-9.0); UMIC TRIGGER UACC YES; Urine Blood Negative (Negative); Urine Ketones Negative (Negative); Urine Protein Negative (Neg-Trace)
[2024-07-19 07:48] LABS: MANUAL DIFF FLAG NO
[2024-07-19 07:49] LABS: UPreg QC Valid YES; Urine Pregnancy NEGATIVE (NEGATIVE)
[2024-07-19 07:52] LABS: Basophils Percent Auto 0.2 % (0-2); Eosinophils Absolute Auto 0.1 X10*3/uL (0.0-0.4); Hematocrit 42.6 % (37.0-47.0); Hemoglobin 14.3 g/dl (12.0-16.0); Imm Gran Abs Auto 0.04 X10*3/uL (0.00-0.03); Imm Gran Pct Auto 0.4 % (0.0-0.4); Lymphocytes Absolute Auto 1.3 X10*3/uL (1.2-4.9); Lymphocytes Percent Auto 13.7 % (20-40); Mean Corpuscular HGB Conc 33.6 g/dl (31.0-35.0); Mean Corpuscular Hemoglobin 30.6 pg (27.0-33.0); Mean Platelet Volume 9.2 fL (9.4-12.3); Monocytes Absolute Auto 0.5 X10*3/uL (0.1-1.2); Monocytes Percent Auto 4.9 % (2-11); Neutrophils Absolute Auto 7.6 x10*3/uL (2.0-8.3); Neutrophils Percent Auto 79.8 % (45-73); Platelet Count 345 X10*3/uL (160-400); Red Blood Count 4.68 X10*6/uL (4.20-5.50); Red Cell Distribution Width 13.8 % (11.0-16.0); White Blood Count 9.5 X10*3/uL (4.8-10.8)
[2024-07-19 07:58] LABS: Bacteria Urine 3+ (None Seen); Hyaline Casts Urine 0-2 /LPF (0-2); RBC Urine 0-2 /HPF (0-2); UACC Culture Trigger YES; WBC Urine 0-5 /HPF (0-5)
[2024-07-19 08:05] LABS: Alanine Aminotransferase 20 U/L (0-31); Albumin Level 4.1 g/dL (3.5-5.0); Alkaline Phosphatase 83 U/L (39-117); Anion Gap 13 (12-20); Aspartate Amino Transferase 25 U/L (5-31); Bilirubin Total 1.1 mg/dL (0.0-1.0); Blood Urea Nitrogen 14 mg/dL (9-16); Calcium 9.7 mg/dL (8.4-10.2); Carbon Dioxide 28 mmol/L (22-29); Chloride 99 mmol/L (96-108); Creatinine Clr Calc Pharmacy 93.8; Estimated Glomerular Filt Rate 57; Glucose Random 137 mg/dL (60-115); Lipase 23 U/L (8-78); Sodium 136 mmol/L (135-145)
--- NOTE | 2024-07-19 08:06 | PC.NURSE ---
a&ox4. vss and up to date. pt presents to the ED c/o generalized upper abd pain in epigastric region w/ associate nonbloody n/v/d/decreased PO intake/chills x yesterday. pt reports 9/10 pain. tender w/ palpation. denies aggravating/provoking factors. 20gIV placed in the left AC - labs obtained/sent to lab. pt ambulates to the restroom w/ a steady gait - no use of assistive devices. on RA w/o difficulty - no sob/wob noted. respirations even/unlabored. family bedside for support. plan of care ongoing. call [place]ham placed within reach.
[2024-07-19] MEDS: Ondansetron ODT 4 MG TAB.RAPDIS TRANSLINGU (08:22)
[2024-07-19 09:46] VITALS: BP 128/63; PULSE 75; RESP 16; TEMP 36.6; O2SAT 99
== END 2024-07-19 09:46 | disposition home or self-care (01) ==
PROVIDERS: Emergency Provider Student in an Organized Health Care Education/Training Program; PCP Family Medicine
DX: A05.9 Bacterial foodborne intoxication, unspecified (principal); K52.9 Noninfective gastroenteritis and colitis, unspecified; R11.2 Nausea with vomiting, unspecified; I10 Essential (primary) hypertension; E11.9 Type 2 diabetes mellitus without complications; Z79.899 Other long term (current) drug therapy
CPT/HCPCS: 36415; 80053; 81001; 81025; 83690; 85025; 87086; 99283; 99284

== ENCOUNTER 2024-07-23 09:50 | Outpatient (REF) | payer OTHER, SELFPAY ==
[2024-07-23 11:30] LABS: Alanine Aminotransferase 30 U/L (0-31); Albumin Level 3.9 g/dL (3.5-5.0); Alkaline Phosphatase 73 U/L (39-117); Amylase 34 U/L (28-100); Anion Gap 9 (12-20); Aspartate Amino Transferase 28 U/L (5-31); Bilirubin Direct 0.3 mg/dL (0.0-0.5); Bilirubin Total 1.1 mg/dL (0.0-1.0); Blood Urea Nitrogen 12 mg/dL (9-16); Calcium 9.1 mg/dL (8.4-10.2); Carbon Dioxide 29 mmol/L (22-29); Chloride 103 mmol/L (96-108); Estimated Glomerular Filt Rate 59; Glucose Random 119 mg/dL (60-115); Lipase 17 U/L (8-78); Potassium 3.9 mmol/L (3.3-5.1); Sodium 137 mmol/L (135-145); Total Protein 7.4 g/dL (6.5-8.0)
== END 2024-07-23 09:51 | disposition home or self-care (01) ==
LOC: HO.HHCL 09:50
PROVIDERS: Visit Provider Nurse Practitioner Primary Care
DX: N17.9 Acute kidney failure, unspecified (principal); R10.13 Epigastric pain
CPT/HCPCS: 36415; 80048; 80076; 82150; 83690

== ENCOUNTER 2024-08-20 09:05 | Outpatient (REF) | payer OTHER, SELFPAY ==
--- OUTSIDE RECORDS SUMMARY | 2024-08-20 09:14 | XMS_ITS | Continuity of Care Document ---
Author Organization [place] 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 [facility] after being seen in hospital on 07/18 with n/v/d, had labs done at that time. On 07/20 creatinine had elevated a bit and she was given IVFs. No recent antibiotics prior to the onset of diarrhea earlier this month. She has had similar symptoms in the past and was told she had colitis per report (and was given antibiotics at that time). This colitis diagnosis was approximately 3 years ago. No recent travel. No known sick contacts at home. Had usual Thanksgiving dinner last night. Diarrhea recurred today, 3 watery episodes today, nonbloody. She reports having an episode of vomiting today. She is thirsty and hungry. Drinking soup right now with the medic at the bedside. No f/c. No abd pain. No cp. No sob. Evaluation in the field was performed by my transportation inspector colleague, as noted above, I provided real-time direction and supervision for this visit. Please reference exam above Impression: Nausea, Vomiting, Diarrhea Per medic assessment, she appears well hydrated, she is voiding, she is taking POs. She did have a mild bump in her creatinine earlier in the month (1.02-->1.8) in the setting of an ED visit for n/v/d and hypotension. We did not repeat the labs today as she clinically appears well, sxs less severe, nl BP, is taking POs, has normal BP, appears clinically well hydrated Plan: Continue to push PO fluids, BRAT diet Red flags reviewed for immediate re-evaluation Discussed with patient differential diagnosis which includes viral, c diff (though no recent abx and no prior history), bacterial (though no fevers, no abd pain, no bloody stool), diverticulitis (though no fevers, no abd pain). Lower clinical suspicion for appendicitis She has zofran left over. Advised on use of that prn and can use pepto-bismul prn Red flags of abd pain, fevers, bloody diarrhea, worsening symptoms, dehydration/light headedness reviewed for immediate re-evaluation Primary care, consider a re-evaluation. This is the 2nd episode of n/v/d this month. No known history of diverticulitis (per report) and no known risk factors for c diff but advised the patient that if diarrhea continues, she should have a stool sample collected and repeat labs. Thank you. Disposition: We discussed the diagnostic uncertainty of home visits and the risk associated with this. In this case, the patient and I felt this to be an acceptable and reasonable amount of risk given the benefit of avoiding an ED visit. We discussed the need to seek care urgently/emergent ly in the setting of any new or worsening serious symptoms, particularly red flags as detailed in my note [email or web address] Not available 08/02/2024 19:04:04 Plan of Treatment Reminders Order Date Submit Date Provider Last Modified By Organization Details Last Modified Time Details Appointments None record ed. Lab None record ed. Referral None record ed. Procedures None record ed. Surgeries None record ed. Imaging None record ed. Medication Orders None record ed. Patient TargetsNo targets recorded. Patient InstructionsNo instructions recorded. Reason for Referral None Reported. Medical Equipment None Reported. Allergies No known drug allergies Medications Name Sig Start Date Stop Date Status Note LastModified by Organization Details LastModified Time cetirizine 10 mg tablet TAKE 1 TABLET BY MOUTH EVERY MORNING active Not Available Not Available No t Available atorvastatin 10 mg tablet active Not Available Not Available Not Available azithromycin 250 mg tablet TAKE 2 TABLETS BY MOUTH FOR 1 DAY THEN TAKE 1 TABLET BY MOUTH DAILY FOR 4 DAYS active Not Available Not Available N ot Available FreeStyle Lancets 28 gauge DIRECTED TO TEST BLOOD SUGAR TWICE DAILY active Not Available Not Available Not Available prednisone 20 mg tablet TAKE 1 TABLET BY MOUTH THREE TIMES DAILY FOR 5 DAYS THEN TAKE 1 TABLET TWICE DAILY FOR 2 DAYS THEN TAKE 1 TABLET IN THE MORNING FOR 2 DAYS active Not Available Not Available N ot Available clonazepam 0.5 mg tablet TAKE 1 TABLET BY MOUTH THREE TIMES DAILY NEEDED FOR ANXIETY active Not Available Not Available Not Available clonazepam 1 mg tablet TAKE 1 TABLET BY MOUTH TWICE DAILY NEEDED FOR ANXIETY active Not Available Not Available No t Available lactated Ringers intravenous solution Inject 1000 mL by intravenous route. 2023 active Not Available Not Available Not Avai lable guaifenesin 100 mg/5 mL oral liquid active Not Available Not Available Not Available triamcinolon e acetonide 0.1 % topical cream APPLY TOPICALLY TO THE AFFECTED AREA IN THE MORNING AND AT BEDTIME NEEDED FOR PAIN OR SWELLING active Not Available Not Available No t Available lisinopril 10 mg tablet TAKE 1 TABLET BY MOUTH DAILY active Not Available Not Available Not Available bisacodyl 5 mg tablet,delay ed release TAKE 2 TABLETS BY MOUTH AT BEDTIME active Not Available Not Available No t Available zolpidem 5 mg tablet TAKE 1 TABLET BY MOUTH AT BEDTIME NEEDED active Not Available Not Available No t Available ondansetron 4 mg disintegrati ng tablet active Not Available Not Available No t Available fluticasone propionate 50 mcg/actuatio n nasal spray,suspen nathan active Not Available Not Available Not Available metformin ER 500 mg tablet,exten ded release 24 hr active Not Available Not Available Not Available loratadine 10 mg tablet TAKE1 TABLET BY MOUTH ONCE DAILY active Not Available Not Available No t Available Ventolin HFA 90 mcg/actuatio n aerosol inhaler INHALE 2 PUFFS BY MOUTH EVERY 4 HOURS NEEDED FOR WHEEZING OR SHORTNESS OF BREATH active Not Available Not Available No t Available cyclobenzapr ine 5 mg tablet TAKE 1 TABLET BY MOUTH AT BEDTIME NEEDED FOR MUSCLE SPASM active Not Available Not Available No t Available nitrofuranto in monohydrate/ macrocrystal s 100 mg capsule active Not Available Not Available Not Available duloxetine 30 mg capsule,beto yed release TAKE ONE CAPSULE BY MOUTH TWICE DAILY active Not Available Not Available No t Available Flovent HFA 110 mcg/actuatio n aerosol inhaler INHALE 1 PUFF BY MOUTH TWICE DAILY active Not Available Not Available No t Available Chest Congestion Relief 400 mg tablet TAKE 1 TABLET BY MOUTH EVERY 6 HOURS IF NEEDED FOR COUGH active Not Available Not Available No t Available calcium 600 mg (as carbonate)-v itamin D3 10 mcg (400 unit) tablet TAKE 1 TABLET BY MOUTH TWICE DAILY active Not Available Not Available No t Available hydrochlorot hiazide 12.5 mg tablet active Not Available Not Available No t Available budesonide-f ormoterol HFA 160 mcg-4.5 mcg/actuatio n aerosol inhaler INHALE 2 PUFFS BY MOUTH IN THE MORNING AND AT BEDTIME. RINSE MOUTH WITH WATER AFTER USE FOR AFTERTASTE AND INCIDENCE OF CANDIDIASIS . DO NOT SWALLOW active Not Available Not Available No t Available FreeStyle Lite Strips DIRECTED TO TEST BLOOD SUGAR TWICE DAILY active Not Available Not Available Not Available blood pressure kit-extra large cuff USE TO CHECK BLOOD PRESSURE EVERY DAY DIRECTED active Not Available Not Available Not Available Ozempic 1 mg/dose (4 mg/3 mL) subcutaneous pen injector INJECT 1 MG UNDER THE SKIN ONCE PER WEEK active Not Available Not Available No t Available Ozempic 2 mg/dose (8 mg/3 mL) subcutaneous pen injector INJECT 2 MG UNDER THE SKIN 1 TIME PER WEEK active Not Available Not Available No t Available Ozempic 0.25 mg or 0.5 mg (2 mg/3 mL) subcutaneous pen injector INJECT 0.5 UNDER THE SKIN 1 TIME PER WEEK active Not Available Not Available No t Available Vitals Date Recorded Oxygen saturation Oxygen saturation in Arterial blood by Pulse oximetry Heart rate Respiratory rate Body weight Body temperature Systolic blood pressure Diastolic blood pressure Provider Name and Address Organization Details Last Updated DateTime 4 98 % 98 % 86 /min 16 /min 633464. 28 g 97.2 [degF] 138 mm[Hg] 78 mm[Hg] Not Available [facility] - production 4 18:22:52 Social History None recorded. Functional Status None recorded. Mental Status None recorded. Family History Nothing Reported. Medical History No medical history recorded. Gynecological HistoryNo gynecological history recorded. Obstetrics History GPAL:G 0 P 0 0 0 0 Past Encounters Encounter ID Performer Location Encounter Start Date Encounter Closed Date Diagnosis/Indication Diagnosis SNOMED-CT Code Diagnosis ICD10 Code [id number] Ramesh Merrill MD [facility] - [facility] [address] [place] [id number] 07/20/2024 19:47:48 07/21/2024 14:05:18 Acute kidney injury 20043409 N17.9 [id number] MAYA DONALD MD Main - [address] [phone] 08/02/2024 18:20:23 08/02/2024 22:57:36 Nausea, vomiting and diarrhea 0524128 R19.7 Health Concerns Section Related Observation LastModified by Organization Christine ls LastModified Time None Recorded Concern Status LastModified by Organization Details LastModified Time None Recorded Payers Encounter Date Sequence Insurance Name Policy Number Policy You Covered Member ID You Member ID Guarantor Name 08/02/[address] [facility] - DOS ON OR AFTER 2022 - DUAL ELIGIBLE - [employer] AND [employer] (MEDICARE REPLACEMENT/AD VANTAGE - HMO) Janina Saldaña [id number] Janina Saldaña Notes Date Note Type Note Provider Name and Address Organization Details Recorded Time 08/02/2024 text/html [facility] Nurse Triage Notes (Lucio Sibley): Reason For Request: PT reporting n/v/d which started today Patient Reports: Nausea with or without vomiting; Inability to tolerate foods, fluids or daily medications Denies: Vague abdominal pain greater than 24 hours Constipation Diarrhea ? no blood in stool Chief Complaints: Nausea, Vomiting, Diarrhea PMH: Diabetes Mellitus Type 2, Hypertension, Chronic Pain, Fibromyalgia Comments: Tile Edger verified the Pt.'s name//address and phone number. Education provided on the response time and the Pt. was advised to monitor reported s/s and seek emergency treatment if needed. Pt reports feeling unwell with N/V/D since this AM - Decreased PO intake - Abdominal pain - Pain is 4/10 - Denies fever - Denies chest pain - Denies SOB - Wellness visit requested - Pt has not taken any medication to assist with symptoms. .................. .................. .................. .................. .................. .................. .................. ............... Cull Grader Note From Giovani Morillo: Pt Co nausea with vomiting and diarrhea x3 since this morning. Pt sts recently had food poisoning and felt she didn't give her stomach enough time to rest before having thanksgiving Dinner. Pt denies alcohol use, CP. SOB, bloody or black stools or vomit, headache, Dizziness, abdominal pain. Pt eating noodle soup and drinking angela apolonia upon arrival. Pt sts she feels better now that she has gotten food in her stomach. Baseline vitals assessed, WNL, Good skin color and turgor, Afebrile, abdomen soft non tender, lungs clear bilaterally. [facility] Jean-Claude contacted and advised to monitor symptoms. Pepto bismol if pt felt the need. Pt advised to eat the brat diet for a few days. Pt has Zofran on hand from previous prescription, Pt advised she could take every 5-6 hours for nausea if needed. Pt advised to hydrate and rest. Pt education on signs indicating the ER. Pt advised to follow up with PCP. Pt signed hard copy consent during visit. .................. .................. .................. .................. .................. .................. .................. ............... [facility] Consulted: Maya Donald .................. .................. .................. .................. .................. .................. .................. ............... Disposition: Fulfilled MAYA DONALD MD [address] [facility],[address] [facility], [place], [phone], [employer] 08/02/2024 19:04:18 OBGyn Episode No OBEpisode recorded.
--- OUTSIDE RECORDS SUMMARY | 2024-08-20 09:14 | XMS_ITS | Data Portability ---
Author Organization [place] - [employer] [facility], Or in - [facility] Address [address] [place] [address] Care Team Providers Care Production Welder Name Role Phone HIM CCA OTHER AMBAR HAMILTON Primary Care Provider [phone] Assessment Encounter Date Assessment Date Assessment LastModified by Organization Details LastModified Time 07/20/2024 07/20/2024 As noted, pa campos called to see this patient regarding concerns of hypotension.Evalu ation in the field was performed by my recreation clerk colleague, as noted above, I provided real-time direction and supervision for this visit. 53 F reports low BP, ongoing diarrhea. recent admission at [facility] for gastroenteritis, reportedly had large volume diarrhea which is improving. Low bp checked at home which prompted her to reach out for insted eval. she is not interested in an ED eval. Labs demonstrate KRYSTYNA (nl cr yesterday) mild lactic acidosis but no abd pain. pt feels like diarrhea is getting better. no fever to suggest bacterial etiology. no blood in the stool. d/w medic, will administer 1 L LR and recommend continued oral rehydration and pcp follow up to check in on symptoms, and repeat cr. Impression: [email or web address] Plan: 1L LR, pcp follow up monday Primary care, consider repeat bmp Disposition: We discussed the diagnostic uncertainty of home visits and the risk associated with this. In this case, the patient and I felt this to be an acceptable and reasonable amount of risk given the benefit of avoiding an ED visit. We discussed the need to seek care urgently/emergent ly in the setting of any new or worsening serious symptoms, particularly abd pain, bloody stool, reduced urine output, increased diarrhea [email or web address] Not available 07/20/2024 20:45:18 08/02/2024 08/02/2024 As noted, pa campos called to see this patient regarding concerns of nausea, vomiting and diarrhea since yesterday. Patient was seen by German on 07/20 with dehydration after being seen [...] in the field was performed by my recreation clerk colleague, as noted above, I provided real-time [...] Details Last Modified Time Details Appointments None recorded. Lab BMP, serum or plasma 2023 024 DANIEL Ham [facility], [address] [place] [address], [id number], 07:56:10 Referral None recorded. Procedures None recorded. Surgeries None recorded. Imaging None recorded. Medication Orders lactated Ringers intravenous solution 2023 024 [email or web address] [id number], [address] [place], [place], [id number], 20:51:37 Patient TargetsNo targets recorded. Patient InstructionsNo instructions recorded. Reason for Referral None Reported. Results Created Date Observation Date Name Description Value Unit Range Abnormal Flag Note LastModifiedBy Organization Detail LastModifiedTime Result Notes None recorded. Medical Equipment None Reported. Allergies No known [...] 2023 active Not Available Not Available Not Lacho labserafin guaifenesin 100 mg/5 mL oral liquid active [...] Available No t Available Vitals Date Recorded Body weight Respiratory rate Heart rate Oxygen saturation Oxygen saturation in Arterial blood by Pulse oximetry Body height Body temperature Heart rate Systolic blood pressure Diastolic blood pressure Systolic blood pressure Diastolic blood pressure Provider Name and Address Organization Details Last Updated DateTime 4 726794. 28 g 16 /min 94 /min 95 % 95 % 160.02 cm 97.7 [degF] 74 /min 89 mm[Hg] 58 mm[Hg] 143 mm[Hg] 78 mm[Hg] Not Available [employer] 4 20:44:04 Date Recorded Oxygen saturation Oxygen saturation in Arterial blood by Pulse oximetry Heart rate Respiratory rate Body weight Body temperature Systolic blood pressure Diastolic blood pressure Provider Name and Address Organization Details Last Updated DateTime 4 98 % 98 % 86 /min 16 /min 778353. 28 g 97.2 [degF] 138 mm[Hg] 78 mm[Hg] Not Available [employer] 4 18:22:52 Social History None recorded. Functional Status None recorded. Mental Status None recorded. Family History Nothing Reported. Medical History No medical history recorded. Gynecological HistoryNo gynecological history recorded. Obstetrics History GPAL:G 0 P 0 0 0 0 Past Encounters Encounter ID Performer Location Encounter Start Date Encounter Closed Date Diagnosis/Indication Diagnosis SNOMED-CT Code Diagnosis ICD10 Code [id number] Ramesh Merrill MD [facility] - [facility] [address] [place] [phone] [id number] 07/20/2024 19:47:48 07/21/2024 14:05:18 Acute kidney injury 28855681 N17.9 [id number] MAYA DONALD MD Main - [facility] [address] [place] [id number] 08/02/2024 18:20:23 08/02/2024 22:57:36 Nausea, vomiting and diarrhea 1404897 R19.7 Health Concerns Section Related Observation LastModified by Organization Detai ls LastModified Time None Recorded Concern Status LastModified by Organization Details LastModified Time None Recorded Advance Directives Directive None Recorded Payers Encounter Date Sequence Insurance Name Policy Number Policy You Covered Member ID You Member ID Guarantor Name 07/20/2024 1 [employer] [facility] - DOS ON OR AFTER 2022 - DUAL ELIGIBLE - USP OPTIONS AND ONE CARE (MEDICARE REPLACEMENT/AD VANTAGE - HMO) Janina Saldaña [id number] Janina Saldaña 08/02/2024 1 [employer] [facility] - DOS ON OR AFTER 2022 - DUAL ELIGIBLE - USP OPTIONS AND ONE CARE (MEDICARE REPLACEMENT/AD VANTAGE - HMO) Janina Saldaña [id number] Janina Saldaña Notes Date Note Type Note Provider Name and Address Organization Details Recorded Time 07/20/2024 text/html CRC Nurse Triage Notes (Lucio Sibley): Chief Complaints: Hypotension PMH: Diabetes Mellitus Type 2 Comments: Ground Layer verified the Pt.'s name//address and phone number. Education provided on the response time and the Pt. was advised to monitor reported s/s and seek emergency treatment if needed. CG reports the pt is feeling unwell with dizziness and SOB - b/p 70/50 - Denies chest pain - Pt was recently discharged from the hospital for food poisoning x 2 days ago - POC 125 - Concerns expressed - ER treatment declined Registered Dental Hygienist Organization Information for Wardrobe Housekeeper Legal Name: [facility] [place] [facility] [employer] [facility] Address: [address] [place] [address], Manager Systems: Julien Macias MD CLIA No.: [id number] Registered Dental Hygienist POC Test Results from Raschilla, [facility] (19:45:09) pH: 7.44 pH units pCO2: 41.7 mmHg pO2: 33.0 mmHg Na: 136 mmol/L K: 3.6 mmol/L iCa: 1.09 mmol/L Cl: 98 mmol/L TCO2: 28.6 mEq/L Hct: 45 % Hb: 15.5 g/dL Glu: 108 mg/dL Lac: 2.5 mmol/L Cr: 1.86 mg/dL BUN: 20 mg/dL A .................... .................... .................... .................... .................... .................... .................... . Registered Dental Hygienist Note From Butch Valdez: This 53-year-old female with a history including but not limited to HTN, DM type II, COPD, obesity, depression requested a visit today to address low blood pressure readings at home. She tells me that she was seen in [facility]'s emergency department two days ago for nausea, vomiting, diarrhea. [place] told her that she has food poisoning and/or gastroenteritis. Patient states since returning home the nausea and vomiting have resolved. She reports two episodes of loose, not watery diarrhea in the past 24 hours, most recently one hour prior to my arrival. She states she feels weak overall but denies chest pain, shortness of breath, abdominal pain/discomfort, fevers, nausea, dizziness, lightheadedness.She presents awake and alert, in no acute distress. Hypotensive, vital signs are otherwise stable and she is afebrile. Nonfocal neurological exam. Normal gait. Lungs are clear throughout auscultation. Abdomen is soft, nontender, nondistended. No lower extremity edema. Cbzge-[id number] labs are uploaded, of note creatinine is 1.86. Patient was able to provide labs from [place], creatinine 1.02.I treated this patient for hypovolemia with lactated ringer's 1 L IV which resolve the hypotension. I provided education on BRAT diet and the importance of increasing oral hydration. I instructed her to follow up with her primary care physician on Monday to have her creatinine rechecked. I also instructed her to present to the emergency department for any new or worsening severe symptoms such as uncontrollable nausea, vomiting, diarrhea, high fever, severe abdominal pain, altered mental status. The patient and her daughter were given the opportunity to ask questions and are agreeable to this plan. .................... .................... .................... .................... .................... .................... .................... . [facility] Consulted: Ramesh Merrill .................... .................... .................... .................... .................... .................... .................... . Disposition: Jose Eduardo Merrill MD [address] [facility],[address], [place], [phone], [employer] 07/20/2024 20:51:47 08/02/2024 text/html CRC Nurse Triage Notes (Lucio Sibley): Reason For Request: PT reporting n/v/d which started today Patient Reports: Nausea with or without vomiting; Inability to tolerate foods, fluids or daily medications Denies: Vague abdominal pain greater than 24 hours Constipation Diarrhea ? no blood in stool Chief Complaints: Nausea, Vomiting, Diarrhea PMH: Diabetes Mellitus Type 2, Hypertension, Chronic Pain, Fibromyalgia Comments: Ground Layer verified the Pt.'s name//address and phone number. Education provided on the response time and the Pt. was advised to monitor reported s/s and seek emergency treatment if needed. Pt reports feeling unwell with N/V/D since this AM - Decreased PO intake - Abdominal pain - Pain is 12/12 - Denies fever - Denies chest pain - Denies SOB - Wellness visit requested - Pt has not taken any medication to assist with symptoms. .................... .................... .................... .................... .................... .................... .................... . Registered Dental Hygienist Note From Giovani Morillo: Pt Co nausea [...] abdomen soft non tender, lungs clear bilaterally. [facility] Jean-Claude contacted and advised to monitor symptoms. [...] Pt signed hard copy consent during visit. .................... .................... .................... .................... .................... .................... .................... . [facility] Consulted: Maya Donald .................... .................... .................... .................... .................... .................... .................... . Disposition: Fulfilled MAYA DONALD MD [address] [facility] [facility], [place], [address], [employer] 08/02/2024 19:04:18 OBGyn Episode No OBEpisode recorded.
--- OUTSIDE RECORDS SUMMARY | 2024-08-20 09:14 | XMS_ITS | Continuity of Care Document ---
Author Organization [employer], [place] in - [employer] Address [address] [place] [address] Care Team Providers Care Juvenile Correctional Officer Name Role Phone HIM CCA OTHER AMBAR HAMILOTN Primary Care Provider Assessment Encounter Date Assessment Date Assessment LastModified by Organization Details LastModified Time 07/20/2024 07/20/2024 As noted, we were called to see this patient regarding concerns of hypotension.Otilia luation in the field was performed by my reel repairer colleague, as noted above, I provided real-time direction and supervision for this visit. 53 F reports low BP, ongoing diarrhea. recent admission at [facility] for gastroenteritis , reportedly had large volume diarrhea which is [...] We discussed the need to seek care urgently/emerge ntly in the setting of any new or worsening serious symptoms, particularly abd pain, bloody stool, reduced urine output, increased diarrhea [id number] Not available 07/20/2024 20:45:18 Plan of Treatment Reminders Order Date Submit Date Provider Last Modified By Organization Details Last Modified Time Details Appointments None recorded. Lab BMP, serum or plasma 2023 024 [facility], [address] [place], [address], 4 07:56:10 Referral None recorded. Procedures None recorded. Surgeries None recorded. Imaging None recorded. Medication Orders lactated Ringers intravenous solution 2023 [email or web address] [facility][id number], [address] [place], [place], [id number], 4 20:51:37 Patient TargetsNo targets recorded. Patient InstructionsNo [...] Address Organization Details Last Updated DateTime 4 295893. 28 g 16 /min 94 /min 95 % 95 % 160.02 cm 97.7 [degF] 74 /min 89 mm[Hg] 58 mm[Hg] 143 mm[Hg] 78 mm[Hg] Not Available [facility] 4 20:44:04 Social History None recorded. Functional Status None recorded. Mental Status None recorded. Family History Nothing Reported. Medical History No medical history recorded. Gynecological HistoryNo gynecological history recorded. Obstetrics History GPAL:G 0 P 0 0 0 0 Past Encounters Encounter ID Performer Location Encounter Start Date Encounter Closed Date Diagnosis/Indication Diagnosis SNOMED-CT Code Diagnosis ICD10 Code [id number] Ramesh Merrill MD Main - [facility] [address] [place] [phone] 07/20/2024 19:47:48 07/21/2024 14:05:18 Acute kidney injury 87523137 N17.9 Health Concerns Section Related Observation LastModified by Organization Detai ls LastModified Time None Recorded Concern Status LastModified by Organization Details LastModified Time None Recorded Payers Encounter Date Sequence Insurance Name Policy Number Policy You Covered Member ID You Member ID Guarantor Name 07/20/2024 1 [facility] - DOS ON OR AFTER 2022 - DUAL ELIGIBLE - RESIDENTIAL OPTIONS AND ONE CARE (MEDICARE REPLACEMENT/AD VANTAGE - HMO) Janina Saldaña [id number] Janina Saldaña Notes Date Note Type Note Provider Name and Address Organization Details Recorded Time 07/20/2024 text/html CRC Nurse Triage Notes (Lucio Sibley): Chief Complaints: Hypotension PMH: Diabetes Mellitus Type 2 Comments: Bariatric Coordinator verified the Pt.'s name//address and phone number. [...] - Concerns expressed - ER treatment declined Windows Server Support Technician Organization Information for Butch Valdez Business Legal Name: [facility] Address: [address] [place] [address], [place] [address], Family Resource Management Specialist: Julien Macias MD CLIA No.: [id number] Windows Server Support Technician POC Test Results from Butch Valdez [facility] (19:45:09) pH: 7.44 pH units pCO2: 41.7 mmHg pO2: 33.0 mmHg Na: 136 mmol/L K: 3.6 mmol/L iCa: 1.09 mmol/L Cl: 98 mmol/L TCO2: 28.6 mEq/L Hct: 45 % Hb: 15.5 g/dL Glu: 108 mg/dL Lac: 2.5 mmol/L Cr: 1.86 mg/dL BUN: 20 mg/dL A .................... .................... .................... .................... .................... .................... .................... . Windows Server Support Technician Note From Courtney Butch: This 53-year-old female with a history including but not limited to HTN, DM type II, COPD, obesity, depression requested a visit today to address low blood pressure readings at home. She tells me that she was seen in [facility]'s emergency department two days ago for nausea, vomiting, diarrhea. [place] told her that she has food poisoning [...] soft, nontender, nondistended. No lower extremity edema. Tsika-us-cgie labs are uploaded, of note creatinine is 1.86. Patient was able to provide labs from [place], creatinine 1.02.I treated this patient for hypovolemia [...] .................... .................... .................... .................... .................... .................... . [facility] Consulted: Ramesh Merrill .................... .................... .................... .................... .................... .................... .................... . Disposition: Fulfilled Ramesh Merrill MD [address] [place] [address],[address], [place], [address], [employer], [facility] 07/20/2024 20:51:47 OBGyn Episode No OBEpisode recorded.
[2024-08-20 11:05] VITALS: PULSE 83; O2SAT 97
== END 2024-08-20 09:06 | disposition home or self-care (01) ==
LOC: HO.RESP 09:05
PROVIDERS: PCP Family Medicine; Visit Provider Internal Medicine Pulmonary Disease
DX: J45.909 Unspecified asthma, uncomplicated (principal)
CPT/HCPCS: 94010; 94640; 94727; 94729

== ENCOUNTER → 2024-08-20 09:42 | Outpatient (BNV) | payer OTHER, SELFPAY | PROVIDERS: PCP Family Medicine; Visit Provider Internal Medicine Pulmonary Disease | DX: J45.909 Unspecified asthma, uncomplicated (principal) | CPT/HCPCS: 94060; 94727; 94729 ==

== ENCOUNTER 2024-08-20 10:22 | Outpatient (REF) | payer OTHER, SELFPAY ==
--- NOTE | ~2024-08-20 | US_ITS ---
EXAMINATION: US PELVIS CLINICAL INFORMATION: Postmenopausal bleeding, patient denies pain. COMPARISON: June 08, 2023. TECHNIQUE: Ultrasound of the pelvis is performed using both transabdominal and transvaginal transducers along with Doppler. Transvaginal imaging is performed due to inadequate visualization transabdominally. Limited visualization due to bowel gas and body habitus. FINDINGS: The anteverted uterus measures 8.6 x 3.9 x 5.2 cm, volume 91.3 mL. A 1.0 x 0.9 x 1.1 cm uterine mass, previously 0.9 x 0.8 x 0.9 cm and 1.1 x 1.1 x 1.3 cm mass, previously 1.5 x 1.3 x 1.5 cm are characteristic of fibroids. Limited visualization due to bowel gas and body habitus. No significant free fluid. The ovaries were seen only on limited transabdominal ultrasound images. RIGHT ovary measures 2.4 x 1.6 x 1.6 cm. LEFT ovary measures 2.2 x 1.3 x 1.6 cm. Endometrial thickness is 6 mm, which is considered abnormal for a patient with postmenopausal bleeding, although visualization is limited due to body habitus and bowel gas. Gynecologic consultation recommended to determine further management including possible biopsy. US/US pelvic and transvaginal IMPRESSION: 1. Endometrial thickness is 6 mm, which is considered abnormal for a patient with postmenopausal bleeding, although visualization is limited due to body habitus and bowel gas. Gynecologic consultation recommended to determine further management including possible biopsy. 2. Fibroid uterus. 3. Limited visualization of the bilateral ovaries. 4. Limited visualization due to bowel gas and body habitus. Electronically signed by: Vivian Singh MD 09/09/2024 09:24 AM [facility] [place] [place]
--- NOTE | 2024-08-20 09:42 | PFT_ITS ---
Flows: FEV1: 87 % of predicted at 2.25 L FVC: 86 % of predicted at 2.77 L FEV1/FVC: 81 % Bronchodilator response: Present in small to medium airways only Volumes: Total lung capacity: 76 % of predicted at 3.79 L Residual volume: 62 % of predicted at 0.95 L Slow vital capacity: 81 % of predicted at 2.83 L Expiratory reserve volume: 52 % of predicted at 0.47 L Diffusion capacity: Normal Impression: Mild restrictive ventilatory defect with bronchodilator response present in small to medium airways only. Decreased expiratory reserve volume suggests extrathoracic restriction likely secondary to abdominal obesity. MTDD
== END 2024-08-20 10:23 | disposition home or self-care (01) ==
LOC: HO.RESP 10:22
PROVIDERS: PCP Family Medicine; Visit Provider Obstetrics & Gynecology
DX: N95.0 Postmenopausal bleeding (principal)
CPT/HCPCS: 76830; 76856

== ENCOUNTER 2024-09-11 10:38 | Outpatient (AMB) | payer OTHER, SELFPAY ==
--- NOTE | 2024-09-11 10:41 | MHC.OFFVIS ---
Intake Visit Reasons: Ultrasound follow up Emd Special Education Teacher: Emd Special Education Teacher Present (Franny) Accompanied by: Self / Same As Patient Allergies Seasonal Allergies Allergy (Intermediate, Verified 09/11/24 10:41) Sneezing HPI Comments Details: Presenting for follow-up ultrasound regarding myomas with no complaints, no vaginal bleeding, pelvic pain or pressure or any other concerns. Pelvic ultrasound showed the following: The anteverted uterus measures 8.6 x 3.9 x 5.2 cm, volume 91.3 mL. A 1.0 x 0.9 x 1.1 cm uterine mass, previously 0.9 x 0.8 x 0.9 cm and 1.1 x 1.1 x 1.3 cm mass, previously 1.5 x 1.3 x 1.5 cm are characteristic of fibroids. Limited visualization due to bowel gas and body habitus. No significant free fluid. The ovaries were seen only on limited transabdominal ultrasound images. RIGHT ovary measures 2.4 x 1.6 x 1.6 cm. LEFT ovary measures 2.2 x 1.3 x 1.6 cm. Endometrial thickness is 6 mm, which is considered abnormal for a patient with postmenopausal bleeding, although visualization is limited due to body habitus and bowel gas. Gynecologic consultation recommended to determine further management including possible biopsy. ON LICENSE OF [facility] Medical History LESTER (obstructive sleep apnea) Menorrhagia Lumbar herniated disc Hypertension Anxiety Depression Elevated C-reactive protein (CRP) Fibromyalgia Surgical History Hx of colonoscopy H/O section Family History Mother HTN (hypertension) Diabetes Maternal Aunt Colon cancer Maternal Uncle Throat cancer Social History Household Members: Spouse Housing: Apartment Are you a primary child care center administrator to a significant other at home: No Do you presently have visiting nurse or other home services: No Alcohol intake: never Patient Tobacco Use Status: Former Tobacco user Years Smoked: Quit 28 years ago Female Reproductive History Menstrual Age of Menarche: 12 Review of Systems Const All systems reviewed & are unremarkable except as noted in HPI and below Reports as per HPI and Reports no additional complaints GI Reports no additional complaints Reports no additional complaints Assessment & Plan Assessment & Plan (1) Uterine myoma: Code(s): D25.9 - Leiomyoma of uterus, unspecified Category: Medical Plan: Discussed with the patient the findings on pelvic ultrasound & the risk of myosarcoma; discussed with the patient the options of treatment including expectant management versus hysterectomy; the pros and cons, risks benefits of each approach were discussed with the patient including the fact that in cases of myosarcoma, surgical treatment can lead to early diagnosis and positively affects the prognosis; after further discussion, the patient decided to proceed with expectant management. Will repeat pelvic ultrasound periodically. Instructions given to patient to call in case any of the following occurs: pressure symptoms, abnormal uterine bleeding, pelvic pain; and to schedule a 12 months months pelvic ultrasound (order placed) and a follow-up appointment . All questions answered, the patient verbalized understanding and agreed with the plan . (2) Thickened endometrium: Code(s): R93.89 - Abnormal findings on diagnostic imaging of other specified body structures Category: Medical Plan: Discussed with the patient endometrial thickness above 4 mm in menopause , the differential diagnosis of a thickened endometrium includes but not limited to endometrial polyp, hyperplasia or carcinoma. Explained to the patient that endometrial each thickness is less predictive of endometrial neoplasia in asymptomatic patients, i.e. those without postmenopausal uterine bleeding. The sensitivity and specificity for detecting endometrial carcinoma at an endometrial thickness of >= 5mm was 83 and 72 percent, respectively; this is lower than in patients with bleeding. Studies have shown that postmenopausal patients without uterine bleeding who had an endometrial thickness >11 mm had an endometrial carcinoma risk of 6.7 percent; this risk is similar to postmenopausal patients with bleeding and an endometrial thickness >5 mm. Recommended endometrial sampling to rule endometrial pathology via either office endometrial biopsy or diagnostic hysteroscopy/D&C with possible polypectomy/myomectomy. All pros and cons, risks and benefits of each approach were discussed with the patient, the patient decided to proceed with endometrial biopsy. Instructions given the patient to schedule an EMB appointment within 2 weeks. All questions answered, the patient verbalized Orders: Orders US pelvic and transvaginal 1 Year D25.9 - Leiomyoma of uterus, unspecified Coding Level of Care Code Est Pt Level 3 (19714) Diagnoses Uterine myoma D25.9 Thickened endometrium R93.89
--- OUTSIDE RECORDS SUMMARY | 2024-09-11 11:01 | XMS_ITS | Continuity of Care Document ---
Author Organization [employer], [place] in - [employer] Address [address] [place] [address] Care Team Providers Care Datapower Developer Name Role Phone HIM CCA OTHER AMBAR HAMILTON Primary Care Provider [phone] Assessment Encounter Date Assessment Date Assessment LastModified by Organization Details LastModified Time 07/20/2024 07/20/2024 As noted, we were called to see this patient regarding concerns of hypotension.Otilia luation in the field was performed by my cathode ray tube salvage processor colleague, as noted above, I provided real-time direction and supervision for this visit. 53 F reports low BP, ongoing diarrhea. recent admission at [facility] for gastroenteritis , reportedly had large volume [...] bloody stool, reduced urine output, increased diarrhea [email or web address] Not available 07/20/2024 20:45:18 Plan of Treatment Reminders Order Date Submit Date Provider Last Modified By Organization Details Last Modified Time Details Appointments None recorded. Lab BMP, serum or plasma 2023 024 [facility], [address] [place], [address], 4 07:56:10 Referral None recorded. Procedures None recorded. Surgeries None recorded. Imaging None recorded. Medication Orders lactated Ringers intravenous solution 2023 [email or web address] [id number], [address] [place], [place], [phone], 4 20:51:37 Patient TargetsNo targets recorded. Patient [...] Address Organization Details Last Updated DateTime 4 494705. 28 g 16 /min 94 /min 95 [...] Diagnosis/Indication Diagnosis SNOMED-CT Code Diagnosis ICD10 Code Diagnosis Note [id number] Ramesh Merrill MD Main - instED [address] [place] [phone] 07/20/2024 19:47:48 07/21/2024 14:05:18 Acute kidney injury 11636044 N17.9 Health Concerns Section Related Observation LastModified by Organization Detai ls LastModified Time None Recorded Concern Status LastModified by Organization Details LastModified Time None Recorded Payers Encounter Date Sequence Insurance Name Policy Number Policy You Covered Member ID You Member ID Guarantor Name 07/20/2024 1 [facility] - DOS ON OR AFTER 2022 - DUAL ELIGIBLE - LONG-TERM OPTIONS AND ONE CARE (MEDICARE REPLACEMENT/AD VANTAGE - HMO) Janina Saldaña [id number] Janina Saldaña Notes Date Note Type Note Provider Name and Address Organization Details Recorded Time 07/20/2024 text/html CRC Nurse Triage Notes (Lucio Sibley): Chief Complaints: Hypotension PMH: Diabetes Mellitus Type 2 Comments: Control Panel Tester verified the Pt.'s name//address and phone number. [...] - Concerns expressed - ER treatment declined Helicopter Pilot Instructor Organization Information for Butch Valdez Ch[employer]ger Legal Name: [facility] Transportation Address: [address] [place] [address], [place] [address], Endodontics Dentist: Julien Macias MD CLIA No.: [id number] Helicopter Pilot Instructor POC Test Results from Butch Valdez [facility] (19:45:09) pH: 7.44 pH units pCO2: 41.7 mmHg pO2: 33.0 mmHg Na: 136 mmol/L K: 3.6 mmol/L iCa: 1.09 mmol/L Cl: 98 mmol/L TCO2: 28.6 mEq/L Hct: 45 % Hb: 15.5 g/dL Glu: 108 mg/dL Lac: 2.5 mmol/L Cr: 1.86 mg/dL BUN: 20 mg/dL A .................... .................... .................... .................... .................... .................... .................... . Helicopter Pilot Instructor Note From Butch Valdez: This 53-year-old female with a history including but not limited to HTN, DM type II, COPD, obesity, depression requested a visit today to address low blood pressure readings at home. She tells me that she was seen in [facility]'s emergency department two days ago for nausea, vomiting, diarrhea. [place] told her that she has food poisoning [...] soft, nontender, nondistended. No lower extremity edema. [id number] labs are uploaded, of note creatinine is 1.86. Patient was able to provide labs from [place], creatinine 1.02.I treated this patient for hypovolemia [...] .................... . Disposition: Fulfilled Ramesh Merrill MD [address] [place] [address],[address], [place], [address], [place] [facility] [employer], [facility] 07/20/2024 20:51:47 OBGyn Episode No OBEpisode recorded.
--- OUTSIDE RECORDS SUMMARY | 2024-09-11 11:01 | XMS_ITS | Data Portability ---
Author Organization [place] - [facility], [place] in - [facility] Address [address] [place] [address] Care Team Providers Care Automobile Damage Appraiser Name Role Phone HIM CCA OTHER AMBAR HAMILTON Primary Care Provider [phone] Assessment Encounter Date Assessment Date Assessment LastModified by Organization Details LastModified Time 07/20/2024 07/20/2024 As noted, pa campos called to see this patient regarding concerns of hypotension.Evalu ation in the field was performed by my gym attendant colleague, as noted above, I provided real-time direction and supervision for this visit. 53 F reports low BP, ongoing diarrhea. recent admission at [facility] for gastroenteritis, reportedly had large volume diarrhea [...] bloody stool, reduced urine output, increased diarrhea [email or web address] Not available 07/20/2024 20:45:18 08/02/2024 08/02/2024 As [...] in the field was performed by my gym attendant colleague, as noted above, I provided real-time [...] serum or plasma 2023 024 DANIEL Ham [facility], [address] [place] [address], [phone], 07:56:10 Referral None recorded. Procedures None recorded. Surgeries None recorded. Imaging None recorded. Medication Orders lactated Ringers intravenous solution 2023 024 [email or web address] [facility] #[id number], [address] [place], [place], [phone], 20:51:37 Patient TargetsNo targets recorded. Patient InstructionsNo [...] Address Organization Details Last Updated DateTime 4 626762. 28 g 16 /min 94 /min 95 % 95 % 160.02 cm 97.7 [degF] 74 /min 89 mm[Hg] 58 mm[Hg] 143 mm[Hg] 78 mm[Hg] Not Available [employer] 4 20:44:04 Date Recorded Oxygen saturation Oxygen saturation in Arterial blood by Pulse oximetry Heart rate Respiratory rate Body weight Body temperature Systolic blood pressure Diastolic blood pressure Provider Name and Address Organization Details Last Updated DateTime 4 98 % 98 % 86 /min 16 /min 564534. 28 g 97.2 [degF] 138 mm[Hg] 78 mm[Hg] Not Available [employer] 4 18:22:52 Social History None recorded. Functional Status None recorded. Mental Status None recorded. Family History Nothing Reported. Medical History No medical history recorded. Gynecological HistoryNo gynecological history recorded. Obstetrics History GPAL:G 0 P 0 0 0 0 Past Encounters Encounter ID Performer Location Encounter Start Date Encounter Closed Date Diagnosis/Indication Diagnosis SNOMED-CT Code Diagnosis ICD10 Code Diagnosis Note [id number] Ramesh Merrill MD Main - [facility] [address] [place] [phone] 07/20/2024 19:47:48 07/21/2024 14:05:18 Acute kidney injury [id number] N17.9 [id number] MAYA DONALD MD Main - [facility] [address] [place] [phone] 0 08/02/2024 18:20:23 08/02/2024 22:57:36 Nausea, vomiting and diarrhea 4602465 R19.7 Health Concerns Section Related Observation LastModified by Organization Detai ls LastModified Time None Recorded Concern Status LastModified by Organization Details LastModified Time None Recorded Advance Directives Directive None Recorded Payers Encounter Date Sequence Insurance Name Policy Number Policy You Covered Member ID You Member ID Guarantor Name 07/20/2024 1 [email or web address] [facility] - DOS ON OR AFTER 2022 - DUAL ELIGIBLE - [facility] OPTIONS AND ONE CARE (MEDICARE REPLACEMENT/AD VANTAGE - HMO) Janina Saldaña [id number] Janina Saldaña 08/02/2024 1 [email or web address] [facility] [employer] - DOS ON OR AFTER 2022 - DUAL ELIGIBLE - [facility] OPTIONS AND ONE CARE (MEDICARE REPLACEMENT/AD VANTAGE - HMO) Janina Saldaña [id number] Janina Saldaña Notes Date Note Type Note Provider Name and Address Organization Details Recorded Time 07/20/2024 text/html CRC Nurse Triage Notes (Lucio Sibley): Chief Complaints: Hypotension PMH: Diabetes Mellitus Type 2 Comments: [place] Boatman verified the Pt.'s name//address and phone number. [...] - Concerns expressed - ER treatment declined Senior Net Developer Architect Organization Information for [employer] Legal Name: [facility] Address: [address] [place] [address], Heat Treat Furnace Operator: Julien Macias MD CLIA No.: [id number] Senior Net Developer Architect POC Test Results from Butch Valdez [employer] [facility] (19:45:09) pH: 7.44 pH units pCO2: 41.7 mmHg pO2: 33.0 mmHg Na: 136 mmol/L K: 3.6 mmol/L iCa: 1.09 mmol/L Cl: 98 mmol/L TCO2: 28.6 mEq/L Hct: 45 % Hb: 15.5 g/dL Glu: 108 mg/dL Lac: 2.5 mmol/L Cr: 1.86 mg/dL BUN: 20 mg/dL A .................... .................... .................... .................... .................... .................... .................... . Senior Net Developer Architect Note From Butch Valdez: This 53-year-old female with a history including but not limited to HTN, DM type II, COPD, obesity, depression requested a visit today to address low blood pressure readings at home. She tells me that she was seen in [facility]'s emergency department two days ago for nausea, vomiting, diarrhea. [place] told her that she has food poisoning [...] soft, nontender, nondistended. No lower extremity edema. Mzapl-rw-[id number] labs are uploaded, of note creatinine is 1.86. Patient was able to provide labs from [place], creatinine 1.02.I treated this patient for hypovolemia [...] .................... .................... .................... .................... .................... .................... . [facility] Consulted: Ramesh Merrill .................... .................... .................... .................... .................... .................... .................... . Disposition: Fulfilled Ramesh Merrill MD [address] [facility],[address], [place], [address], [employer] 07/20/2024 20:51:47 08/02/2024 text/html CRC Nurse Triage [...] Type 2, Hypertension, Chronic Pain, Fibromyalgia Comments: [place] [employer] verified the Pt.'s name//address and phone number. [...] .................... .................... .................... .................... .................... .................... . Senior Net Developer Architect Note From Giovani Morillo: Pt Co nausea [...] abdomen soft non tender, lungs clear bilaterally. [facility] Jean-Claude contacted and advised to monitor symptoms. [...] .................... .................... .................... .................... .................... .................... . [facility] Consulted: Maya Donald .................... .................... .................... .................... .................... .................... .................... . Disposition: Fulfilled MAYA DONALD MD [address] [place] [address],[address] [facility], [place], [address], [employer] [facility] 08/02/2024 19:04:18 OBGyn Episode No OBEpisode recorded.
--- OUTSIDE RECORDS SUMMARY | 2024-09-11 11:01 | XMS_ITS | Continuity of Care Document ---
Author Organization [place] [facility], [place] - [facility] Address [address] [place] [address] Care Team Providers Care Car Ferrier Name Role Phone HIM CCA OTHER AMBAR HAMILTON Primary Care Provider [phone] Assessment Encounter Date Assessment Date Assessment LastModified by Organization Details LastModified Time 08/02/2024 08/02/2024 As noted, we radha e called to see this patient regarding concerns of nausea, vomiting and diarrhea since yesterday. [facility] after being seen [...] in the field was performed by my municipal firefighter colleague, as noted above, I provided real-time [...] % 98 % 86 /min 16 /min 430246. 28 g 97.2 [degF] 138 mm[Hg] 78 [...] SNOMED-CT Code Diagnosis ICD10 Code Diagnosis Note [id number] Ramesh Merrill MD Main - instED [address] [place] [phone] 07/20/2024 19:47:48 07/21/2024 14:05:18 Acute kidney injury [id number] N17.9 [id number] MAYA DONALD MD Main - [address] [address] 08/02/2024 18:20:23 08/02/2024 22:57:36 Nausea, vomiting and diarrhea 1256669 R19.7 Health Concerns Section Related Observation LastModified by Organization Detgeraldine ls LastModified Time None Recorded Concern Status LastModified by Organization Details LastModified Time None Recorded Payers Encounter Date Sequence Insurance Name Policy Number Policy You Covered Member ID You Member ID Guarantor Name 08/02/[address] [facility] - DOS ON OR AFTER 2022 - DUAL ELIGIBLE - NURSING HOME OPTIONS AND ONE CARE (MEDICARE REPLACEMENT/AD VANTAGE - HMO) Janina Saldaña [id number] Janina Saldaña Notes Date Note Type Note [...] Type 2, Hypertension, Chronic Pain, Fibromyalgia Comments: Grey Stock Recorder verified the Pt.'s name//address and phone number. [...] .................. .................. .................. .................. .................. .................. ............... Die Maintenance Technician Note From Giovani Morillo: Pt Co nausea [...] abdomen soft non tender, lungs clear bilaterally. [facility] Jean-Claude contacted and advised to monitor [...] .................. .................. .................. .................. .................. .................. ............... [facility] Consulted: Maya Donald .................. .................. .................. .................. .................. .................. .................. ............... Disposition: Fulfilled MAYA DONALD MD [address] [place] [address],[address] [facility], [place], [address], [employer] 08/02/2024 19:04:18 OBGyn Episode No OBEpisode recorded.
== END 2024-09-11 10:55 | disposition home or self-care (01) ==
PROVIDERS: PCP Family Medicine; Visit Provider Obstetrics & Gynecology
DX: D25.9 Leiomyoma of uterus, unspecified (principal); R93.89 Abnormal findings on diagnostic imaging of other specified body structures
CPT/HCPCS: 99213

== ENCOUNTER → 2024-09-11 10:38 | Outpatient (BNVA) | payer OTHER, SELFPAY | PROVIDERS: PCP Family Medicine; Visit Provider Obstetrics & Gynecology | DX: D25.9 Leiomyoma of uterus, unspecified (principal); R93.89 Abnormal findings on diagnostic imaging of other specified body structures | CPT/HCPCS: 99212 ==

== ENCOUNTER 2024-10-08 10:19 | Outpatient (REF) | payer OTHER, SELFPAY ==
--- OUTSIDE RECORDS SUMMARY | 2024-10-08 11:03 | XMS_ITS | Encounter Summary ---
Author Organization [employer] Address [address] [place] [address] Care Team Providers Care Loan Officer Name Role Phone Liliana Ricks MD Primary Care Provider [phone] Ozzy Quevedo PharmD Unavailable [phone] Reason for Visit * Reason Onset Date Comments Med Refill 06/12/2024 Encounter Details Date Type Department Care Team (Late st Contact Info) Description 06/12/[address] [facility] [address] [place], [place] [phone] Liliana Ricks MD [address] [place], [place] [phone] Med Refill Social History Tobacco Use Types Packs/Day Years Used Date Smoking Tobacco: Former Cigarettes Q uit: 10/08/1997 Passive Smoke Exposure: Past Smokeless Tobacco: Never Alcohol Use Standard Drinks/Week Comments Defer 0 (1 standard drink = 0.6 oz pur e alcohol) Depression Answer Date Recorded Patient Health Questionnaire-9 Score 0 02/01/2024 Patient Health Questionnaire-9 Score 0 02/01/2024 Last PHQ-9: Questionnaire Data Not on file 0 02/01/2024 Housing Stability Answer Date Recorded What is your housing situation today? I have yvonne mancear 02/01/[address] you li ve. Do you have problems with any of the following? None of the above 02/01/2024 Food Insecurity Answer Date Recorded Within the past 12 months, y ou worried that your food would run out before you got money to buy more: Never True 02/01/2024 Within the past 12 months,th e food you bought just didn't last and you didn't have enough money to get more: Never True Transportation Answer Date Recorded In the past 12 months, has l ack of transportation kept you from medical appts, meetings, work or from getting things needed for daily living? No 02/01/2024 Utilities Answer Date Recorded In the past 12 months, has t he electric, gas, oil or water company threatened to shut off services in your home? No 02/01/2024 Depression Answer Date Recorded Patient Health Questionnaire-2 Score 0 02/01/2024 Comments No Sex and Gender Information Value Date Recorded Sex Assigned at Female 07/04/2022 10:19 AM EDT Legal Sex Female 10:19 AM EDT Gender Identity Female 07/04/2022 10:19 AM EDT Sexual Orientation Straight 07/04/2022 10 :19 AM EDT documented as of this encounter Miscellaneous Notes * Telephone Encounter - Yanely Camarillo LPN - 06/12/2024 12:49 PM EDT Medication pended to PCP. * Telephone Encounter - Bernie Platt - 06/12/2024 12:44 PM EDT Tc from pt requesting a refill for lisinopril 10 MG tablet and hydroCHLOROthiazide (HYDRODiuril) 12.5 MG tablet documented in this encounter Plan of Treatment Not on file documented as of this encounter Goals Goal Patient Goal Type Associated Problems Recent Progress Patient-Stated? Author Blood Pressure < 140/90 Blood Pressure 128/76(2024 10:06 AM EST) No Ozzy Quevedo, PharmHumaira Hemoglobin A1c < 7 Result Component 5.7( 3:35 PM EST) No Ozzy Quevdeo PharmD documented as of this encounter Visit Diagnoses Not on filedocumented in this encounter Additional Health Concerns Assessment Noted Time PHQ-9 Depression Total Score: 0 02/01/20 24 10:58 AM EDT documented as of this encounter Care Teams Loan Officer Relationship Specialty Start Date End Date Liliana Ricks MD [address] [place] [address] PCP - General Family Medicine 09/04/18 Ozzy Quevedo, MarinaD [address] [place] [address] Pharmacist Internal Medicine 06/14/23 documented as of this encounter
--- OUTSIDE RECORDS SUMMARY | 2024-10-08 11:03 | XMS_ITS | Clinical Summary ---
Author Organization [employer] Address [address] [facility] [address] [place] [address] Care Team Providers Care Mac Operator Name Role Phone Liliana Hamilton MD Primary Care Provider [phone] Ozzy Quevedo PharmD Unavailable [phone] Allergies No known active allergies Medications Bisacodyl EC 5 MG EC tablet Take 10 mg by mouth at bedtime. 05/14/20 22 Active Blood Glucose Monitoring Suppl (FreeStyle Lite) device USE TO TEST BLOOD SUGAR TWICE DAILY 11/09/19 22 Active cholecalciferol (Vitamin D-3) 25 MCG (1000 UT) capsule Take 25 mcg by mouth in the morning. 08/08/20 22 Active clonazePAM (KlonoPIN) 1 MG tablet TAKE 1/2 TO 1 TABLET BY MOUTH TWICE DAILY NEEDED FOR ANXIETY 09/13/19 23 Active cyclobenzaprine (Flexeril) 5 MG tablet TAKE 1 TABLET BY MOUTH AT BEDTIME NEEDED FOR MUSCLE SPASM 09/19/19 23 Active DULoxetine (Cymbalta) [address] capsule Take 30 mg by mouth 2 times daily. 08/08/20 22 Active polyethylene glycol, PEG, 3350 (Miralax) 17 g packet MIX AND DRINK 17G BY MOUTH EVERY DAY DIRECTED 05/14/20 22 Active zolpidem (Ambien) 5 MG tablet Take 5 mg by mouth if needed at bedtime. 09/13/19 23 Active montelukast (Singulair) 10 MG tabletIndicatio ns:Moderate persistent asthma without complication Take 1 tablet (10 mg) by mouth in the evening. 90 tablet 1 11/18/19 Active Acetaminophen Extra Strength 500 MG tablet TAKE TWO TABLET BY MOUTH EVERY EIGHT HOURS NEEDED 60 tablet 3 01/18/20 Active Blood Pressure Monitor kitIndications: Essential hypertension Use daily as directed 1 kit 08/11/20 Active FREESTYLE LITE test strip Use to test blood sugar 2 times daily 100 each 10/20/19 24 025 Active Lancets misc Use to test blood sugar 2 times daily 100 each 10/20/19 24 Active atorvastatin (Lipitor) 10 MG tablet Take 1 tablet (10 mg) by mouth at bedtime. 90 tablet 3 10/30/19 24 Active fluticasone (Flonase) 50 MCG/ACT nasal spray Administer 1-2 sprays into each nostril in the morning. Shake gently. Before first use, prime pump. After use, clean tip and replace cap. 16 g 2 10/30/19 24 025 Active budesonide-form oterol (Symbicort) 160-4.5 MCG/ACT inhaler Inhale 2 puffs in the morning and at bedtime. Rinse mouth with water after use to reduce aftertaste and incidence of candidiasis. Do not swallow. 1 each 10/30/19 24 025 Active Calcium Carb-Cholecalci ferol 600-10 MG-MCG tablet TAKE 1 TABLET BY MOUTH TWICE DAILY 180 tablet 3 12/21/19 24 Active loratadine (Claritin) 10 MG tablet Take 1 tablet (10 mg) by mouth Once per day. 30 tablet 02/01/20 24 025 Active metFORMIN XR (Glucophage-XR) 500 MG 24 hr tablet TAKE 1 TABLET(500 MG) BY MOUTH WITH THE EVENING MEAL. DO NOT CRUSH, CHEW, OR SPLIT 90 tablet 3 03/22/20 24 Active Ventolin HFA 108 (90 Base) MCG/ACT inhalerIndicati ons:Moderate persistent asthma without complication INHALE 2 PUFFS BY MOUTH EVERY 4 HOURS NEEDED FOR WHEEZING OR SHORTNESS OF BREATH 18 g 3 05/01/20 24 Active lisinopril 10 MG tabletIndicatio ns:Essential hypertension TAKE 1 TABLET BY MOUTH DAILY 90 tablet 1 06/12/20 24 Active hydroCHLOROthia zide 12.5 MG tabletIndicatio ns:Essential hypertension TAKE 1 TABLET(12.5 MG) BY MOUTH IN THE MORNING 90 tablet 1 09/16/19 25 Active meloxicam (Mobic) 15 MG tabletIndicatio ns:Chronic pain of right knee TAKE 1 TABLET(15 MG) BY MOUTH EACH DAY NEEDED FOR MILD PAIN 30 tablet 2 09/17/19 25 Active semaglutide (Ozempic) 2 MG/1.5ML solution pen-injectorInd ications:Type 2 diabetes mellitus without complication, without long-term current use of insulin (CMS/HCC),Morbi d obesity (CMS/HCC) Inject 1 mg under the skin 1 (one) time per week. 2 each 12 09/17/19 25 Active omeprazole (PriLOSEC) [address] capsule Take 1 capsule (20 mg) by mouth before breakfast. Do not crush or chew. 90 capsule 3 09/17/19 25 026 Active meloxicam (Mobic) 15 MG tabletIndicatio ns:Chronic pain of right knee TAKE 1 TABLET(15 MG) BY MOUTH EACH DAY NEEDED FOR MILD PAIN 30 tablet 2 03/21/20 23 025 Discontinued(R eorder (will not trigger notification to Pharmacy)) guaiFENesin (Humibid 3) 400 MG tablet Take 1 tablet (400 mg) by mouth every 6 (six) hours if needed for cough. 30 tablet 1 10/30/19 24 025 Discontinued(M ed list cleanup (will not trigger notification to Pharmacy)) azithromycin (Zithromax Z-Vijay) 250 MG tabletIndicatio ns:Acute cough,Moderate persistent asthma without complication Take 2 tabs x 1 day then 1 tab daily x 4 days 6 tablet 01/03/20 24 025 Discontinued(M ed list cleanup (will not trigger notification to Pharmacy)) hydroCHLOROthia zide 12.5 MG tabletIndicatio ns:Essential hypertension TAKE 1 TABLET(12.5 MG) BY MOUTH IN THE MORNING 90 tablet 1 06/12/20 24 025 Discontinued semaglutide (Ozempic) 2 MG/1.5ML solution pen-injectorInd ications:Type 2 diabetes mellitus without complication, without long-term current use of insulin (CMS/[facility]),Morbi d obesity (CMS/HCC) Inject 1 mg under the skin 1 (one) time per week. 2 each 08/07/20 025 Discontinued(R eorder (will not trigger notification to Pharmacy)) Active Problems Problem Noted Date Diagnosed Date Bilious vomiting with nausea 10/08/2024 Assessment & Plan (10/08/2024 10:09 AM EST): Patient of Dr. Hamilton here with c/o persistent Nausea, Vomiting and Diarrhea on lower dose of Ozempic. Pt has been on Ozempic for over 1 year but since July noted that every time she took it she felt extremely nauseous, vomited and had diarrhea associated with it. She decided to stop it and symptoms since then have resolved. Exam today is unremarkable. It seems like she is clearly not tolerating even the lower dose Plan; Stop Ozempic, I instructed patient to increase Metformin to 2 tabs po daily IF FBS goes over 140 Follow up with PCP in 4 weeks Increased urinary frequency 08/07/2024 Assessment & Plan (08/07/2024 4:28 PM EST): U/A negative for infection today Increased urination presumed to be related to increase in fluid intake past 2 weeks Epigastric pain 08/07/2024 Assessment & Plan (09/23/2024 11:56 AM EST): - frequent vomiting when she was taking higher dose of Semaglutide - possible irritation in her GE areas - start omeprazole - check H. Pylori - consider EGD referral. Her colonoscopy was done by Dr. Cote at [facility] in Apr 2022 Assessment & Plan (08/07/2024 4:33 PM EST): Abdominal exam was normal aside from mild tenderness to palpation on epigastric area Will lower ozempic dose from 2 mg to 1 mg Will f/u with PCP in 1 month to reassess tolerance to dosage change Consideration for GI referral for gastroenteritis workup if side effects persist Traumatic ecchymosis of right lower leg 06/24/20 Assessment & Plan (06/24/2024 12:03 PM EDT): Sp accidental fall, no evidence of functional limitation or compartmental edema. We discussed re routine resolution fo sxs. Advised to elevate leg prn pain, edema, call back prn if she develops leg edema that doesn't resolve Use moisturizing cream to affected area, along with triamcinolone cream daily prn pruritus Td is up to date. Re consult prn Vertigo 05/08/2024 Assessment & Plan (05/08/2024 12:55 PM EDT): - likely BPPV - patient is not interested in PT - patient has tried meclizine and it was not effective - patient states it is not severe of affecting her activity - patient was advised to contact us if she is interested in further evaluation and treatment Abnormal uterine bleeding (AUB) 10/30/2023 Assessment & Plan (09/18/2024 1:10 PM EST): - Normal PAP and negative high risk HPV in Jun 2023 - most recent transvaginal US in Jun 2023 showed endometrial thickness, 9 mm - evaluated by cat dog or other pet groomer for postmenopausal bleeding and endometrial biopsy done on 02/19/24. Result was negative for atypia, hyperplasia, or malignancy. Assessment & Plan (05/10/2024 2:48 PM EDT): - Normal PAP and negative high risk HPV in Jun 2023 - most recent transvaginal US in Jun 2023 showed endometrial thickness, 9 mm - evaluated by cat dog or other pet groomer for postmenopausal bleeding and endometrial biopsy done on 02/19/24. Result was negative for atypia, hyperplasia, or malignancy. Assessment & Plan (02/01/2024 11:24 AM EDT): - Normal PAP and negative high risk HPV in Jun 2023 - most recent transvaginal US in Jun 2023 showed endometrial thickness, 9 mm - seen by [facility] in Aug 2023, scheduling for endometrial biopsy Assessment & Plan (10/30/2023 5:30 AM EST): - Normal PAP and negative high risk HPV in Jun 2023 - most recent transvaginal US in Jun 2023 showed endometrial thickness, 9 mm - seen by [facility] in Aug 2023, scheduling for endometrial biopsy Periodontal disease 04/17/2023 Dental caries 04/17/2023 Derangement of posterior horn of lateral meniscu s 01/13/2023 Type 2 diabetes mellitus without complication Assessment & Plan (10/08/2024 10:10 AM EST): Pt of Dr. Hamilton Most recent A1C 5.7% on 08/07/24, 6.3% on 05/08/24 Current medications: metformin ER 500 mg daily; semaglutide 1.0 mg weekly, - treatment history: patient was unable to tolerate semaglutide 2 mg due to nausea and vomiting Patient of Dr. Hamilton here with c/o persistent Nausea, Vomiting and Diarrhea on lower dose of Ozempic. Pt has been on Ozempic for over 1 year but since July noted that every time she took it she felt extremely nauseous, vomited and had diarrhea associated with it. She decided to stop it and symptoms since then have resolved. Exam today is uremarkable. It seems like she is clearly not tolerating even the lower dose Plan; Stop Ozempic, I instructed patient to increase Metformin to 2 tabs po daily IF FBS goes over 140 Follow up with PCP in 4 weeks Assessment & Plan (09/23/2024 11:49 AM EST): -A1C 5.7% on 08/07/24, 6.3% on 05/08/24 - last eye exam: Aug 2022 - last foot exam: 05/08/24 - last lipid profile: 01/26/24 - microalbumin : 01/26/24 no microalbuminuria - current medications: metformin ER 500 mg daily; semaglutide 1.0 mg weekly, - treatment history: patient was unable to tolerate semaglutide 2 mg due to nausea and vomiting - Discussed importance of lifestyle modifications. - Last dental exam: 12/15/21 - Immunizations: Up to date, except COVID-19 booster Assessment & Plan (08/07/2024 4:27 PM EST): Pt A1c at goal today 5.7 On metformin 500 daily Will titrate down dose of Ozempic from 2mg to 1mg once weekly d/t side effects including nausea and abdominal pain. Will f/u with PCP next month to assess tolerance to dosage change Assessment & Plan (05/08/2024 12:49 PM EDT): -A1C 6.3% on 05/08/24 - last eye exam: Aug 2022 - last foot exam: 05/08/24 - last lipid profile: 01/26/24 - microalbumin : 01/26/24 no microalbuminuria - current medications: metformin ER 500 mg daily; semaglutide 1.0 mg weekly, will increase to 2 mg weekly today - Discussed importance of lifestyle modifications. - Last dental exam: 12/15/21 - Immunizations: Up to date, except COVID-19 booster Assessment & Plan (02/01/2024 11:23 AM EDT): -A1C 6.7% on 02/01/24 - last eye exam: Aug 2022 - last foot exam: 04/18/23 - last lipid profile: 01/16/23 TC 206; TG 145; HDL 51; LDL 129 - microalbumin : 01/16/23 no microalbuminuria - current medications: metformin ER 500 mg daily; semaglutide 0.5 mg weekly, will increase to 1 mg weekly today - Discussed importance of lifestyle modifications. - Last dental exam: 12/15/21 - Immunizations: Up to date, except COVID-19 booster Assessment & Plan (11/13/2023 8:50 AM EDT): -A1C 6.3% on 10/30/22, stable - last eye exam: Aug 2022 - last foot exam: 04/18/23 - last lipid profile: 01/16/23 TC 206; TG 145; HDL 51; LDL 129 - microalbumin : 01/16/23 no microalbuminuria - current medications: metformin ER 500 mg daily; semaglutide 0.5 mg weekly - Discussed importance of lifestyle modifications. - Last dental exam: 12/15/21 - Immunizations: Up to date, except COVID-19 booster Assessment & Plan (07/28/2023 7:04 AM EST): -A1C 6.3% on 01/17/23 -A1C 6.7% on 04/18/23 -A1C 6.4% on 07/18/23, some improvement with new meds - last eye exam: Aug 2022 - last foot exam: 04/18/23 - last lipid profile: 01/16/23 TC 206; TG 145; HDL 51; LDL 129 - microalbumin : 01/16/23 no microalbuminuria - current medications: metformin ER 500 mg daily; semaglutide 0.2 mg weekly, increasing to 0.5 mg weekly today - Discussed importance of lifestyle modifications. - Last dental exam: 12/15/21 - Immunizations: Up to date, except COVID-19 booster Assessment & Plan (04/27/2023 5:54 AM EDT): -A1C 6.3% on 01/17/23 -A1C 6.7% on 04/18/23, trending upward - last eye exam: Aug 2022 - last foot exam: 04/18/23 - last lipid profile: 01/16/23 TC 206; TG 145; HDL 51; LDL 129 - microalbumin : 01/16/23 no microalbuminuria - current medications: none, will start metformin ER 500 mg daily today; consider GLP-1 agonist for both weight and glycemic control - Discussed importance of lifestyle modifications. - Last dental exam: 12/15/21 - Immunizations: Up to date, except COVID-19 booster Assessment & Plan (01/20/2023 12:20 PM EDT): -A1C 6.3% today 01/17/23 - last eye exam: Aug 2022 - last foot exam: 05/30/22 - last lipid profile: 01/16/23 TC 206; TG 145; HDL 51; LDL 129 - microalbumin : 01/16/23 no microalbuminuria - current medications: none - Discussed importance of lifestyle modifications. - Last dental exam: 12/15/21 - Immunizations: Up to date, except COVID-19 booster Assessment & Plan (10/21/2022 7:06 PM EST): -A1C 6.5% today 10/11/22, slightly worsened from 6.2% in May 2022 - last eye exam: 02/28/19, next appt in AUG 2022. - last foot exam: 05/30/22 - last lipid profile: 01/06/22 A1C 6.2%. TC 195; TG 121; HDL 50; LDL 121 - microalbumin : 03/10/21 UACR 2 - current medications: none - Discussed importance of lifestyle modifications. - Last dental exam: 12/15/21 - Immunizations: Up to date, except COVID-19 booster Pain in left knee 10/11/2022 Assessment & Plan (10/11/2022 10:54 AM EST): Received Steroid Injection on 05/18/22; -Cont APAP, prn -Cont following with Orthopedist at [facility] Chronic pain of right knee 10/11/2022 LESTER (obstructive sleep apnea) 10/11/2022 Assessment & Plan (05/08/2024 11:32 AM EDT): -Sleep Study in February 2019, recommended Position Therapy, avoid sleeping in spine position; If she is symptomatic still then recommended CPAP Therapy. -Home sleep study and titration study in Apr 2022 showed moderate LESTER -Following with [facility] on 09/16/22 -Continue auto PAP 5-20. Assessment & Plan (11/13/2023 8:46 AM EDT): -Sleep Study in February 2019, recommended Position Therapy, avoid sleeping in spine position; If she is symptomatic still then recommended CPAP Therapy. -Home sleep study and titration study in Apr 2022 showed moderate LESTER -Following with [facility] on 09/16/22 -Continue auto PAP 5-20. Assessment & Plan (07/28/2023 6:56 AM EST): -Sleep Study in February 2019, recommended Position Therapy, avoid sleeping in spine position; If she is symptomatic still then recommended CPAP Therapy. -Home sleep study and titration study in Apr 2022 showed moderate LESTER -Following with [facility] medicine [facility] on 09/16/22 -Continue auto PAP 5-20. Assessment & Plan (04/27/2023 5:46 AM EDT): -Sleep Study in February 2019, recommended Position Therapy, avoid sleeping in spine position; If she is symptomatic still then recommended CPAP Therapy. -Home sleep study and titration study in Apr 2022 showed moderate LESTER -Following with [facility] medicine [facility] on 09/16/22 -Continue auto PAP 5-20. Assessment & Plan (10/21/2022 7:13 PM EST): -Sleep Study in February 2019, recommended Position Therapy, avoid sleeping in spine position; If she is symptomatic still then recommended CPAP Therapy. -Home sleep study and titration study in Apr 2022 showed moderate LESTER -Following with [facility] medicine [facility] on 09/16/22 -Continue auto PAP 5-20. Essential hypertension 10/11/2022 Assessment & Plan (09/18/2024 1:09 PM EST): -Goal BP <140/90 per JNC-8 and < 130/80 per ACC/AHA guideline - BP at goal today - Co-managed with our pharmacist CDTM - Continue HCTZ 12.5 mg daily - Continue lisinopril 10 mg daily - Continue working on lifestyle modifications -Follow-up in 3-4 mo or sooner if any problem arises Assessment & Plan (05/08/2024 11:32 AM EDT): -Goal BP <140/90 per JNC-8 and < 130/80 per ACC/AHA guideline - BP at goal today - Co-managed with our pharmacist CDTM - Continue HCTZ 12.5 mg daily - Continue lisinopril 10 mg daily - Continue working on lifestyle modifications -Follow-up in 3-4 mo or sooner if any problem arises Assessment & Plan (02/01/2024 11:24 AM EDT): -Goal BP <140/90 per JNC-8 and < 130/80 per ACC/AHA guideline - BP not at goal today - Co-managed with our pharmacist CDTM - Continue HCTZ 12.5 mg daily - Continue lisinopril 10 mg daily - Continue working on lifestyle modifications -Follow-up in 3-4 mo or sooner if any problem arises Assessment & Plan (10/30/2023 5:28 AM EST): -Goal BP <140/90 per JNC-8 and < 130/80 per ACC/AHA guideline - BP not at goal today - Co-managed with our pharmacist CDTM - Continue HCTZ 12.5 mg daily - Continue lisinopril 10 mg daily - Continue working on lifestyle modifications -Follow-up in 3-4 mo or sooner if any problem arises Assessment & Plan (07/28/2023 6:58 AM EST): -Goal BP <140/90 per JNC-8 and < 130/80 per ACC/AHA guideline - BP not at goal today - Co-managed with our pharmacist CDTM - Continue HCTZ 12.5 mg daily - Continue lisinopril 10 mg daily - Continue working on lifestyle modifications -Follow-up in 3-4 mo or sooner if any problem arises Assessment & Plan (04/18/2023 9:25 AM EDT): -Goal BP <140/90 per JNC-8 and < 130/80 per ACC/AHA guideline - BP not at goal today - Continue HCTZ 12.5 mg daily - Continue lisinopril 10 mg daily - Continue working on lifestyle modifications -Follow-up in 3-6 mo or sooner if any problem arises Assessment & Plan (01/20/2023 12:15 PM EDT): -Goal BP <140/90 per JNC-8 and < 130/80 per ACC/AHA guideline - BP not at goal today - Continue HCTZ 12.5 mg daily - Continue lisinopril 10 mg daily - Continue working on lifestyle modifications -Follow-up in 3-6 mo or sooner if any problem arises Assessment & Plan (10/21/2022 6:51 PM EST): -Goal BP <140/90 per JNC-8 and < 130/80 per ACC/AHA guideline - BP not at goal today - Continue HCTZ 12.5 mg daily - Continue lisinopril 10 mg daily - Continue working on lifestyle modifications -Follow-up in 3 mo or sooner if any problem arises Dyslipidemia 10/11/2022 Assessment & Plan (09/23/2024 11:52 AM EST): -Last lipid profile: 01/26/24 LDL 82 -Current medication: atorvastatin 10 mg qhs -Work on lifestyle modification. Assessment & Plan (02/09/2024 6:17 AM EDT): -Last lipid profile: 01/26/24 LDL 82 -Current medication: atorvastatin 10 mg qhs -Work on lifestyle modification. Assessment & Plan (11/13/2023 8:48 AM EDT): - 01/16/23 TC 206; TG 145; HDL 51; LDL 129 -Current medication: atorvastatin 10 mg qhs -Work on lifestyle modification. Assessment & Plan (07/28/2023 7:01 AM EST): - 01/16/23 TC 206; TG 145; HDL 51; LDL 129 -Current medication: atorvastatin 10 mg qhs -Work on lifestyle modification. Assessment & Plan (04/27/2023 5:52 AM EDT): - 01/16/23 TC 206; TG 145; HDL 51; LDL 129 -Current medication: none -10-year ASCVD risk is 3%. Yet, because she has DM2, statin initiation is indicated. -We agreed to repeat lipid profile in 3 mo, and if it does not improve, then she will start a statin. -Work on lifestyle modification. -Follow-up in 6 months. Assessment & Plan (01/20/2023 12:21 PM EDT): - 01/16/23 TC 206; TG 145; HDL 51; LDL 129 -Current medication: none -10-year ASCVD risk is 3%. Yet, because she has DM2, statin initiation is indicated. -We agreed to repeat lipid profile in 3 mo, and if it does not improve, then she will start a statin. -Work on lifestyle modification. -Follow-up in 6 months. Assessment & Plan (10/21/2022 7:10 PM EST): 01/06/22 A1C 6.2%. TC 195; TG 121; HDL 50; LDL 121 -Current medication: none -10-year ASCVD risk is 3%. Yet, because she has DM2, statin initiation is indicated. -We agreed to repeat lipid profile in 3 mo, and if it does not improve, then she will start a statin. -Work on lifestyle modification. -Follow-up in 6 months. Fibromyalgia 10/11/2022 Assessment & Plan (09/23/2024 12:12 PM EST): -Evaluated by Rheumatology, last seen on 11/2023, safely discharged -Inflammatory arthritis work-up suggests it is unlikely (Slightly elevated ESR and CRP, negative Lyme titers, negative ZAIDA / RF) -Continue Cyclobenzaprine 5 mg QHS -Continue Cymbalta 30 mg QHS -Continue Gabapentin 300mg QHS -Continue Ibuprofen 800mg prn -Encouraged to remain physically active, increase as tolerated -Encouraged to search peer support Assessment & Plan (02/01/2024 11:28 AM EDT): -Evaluated by Rheumatology, last seen on 11/2023, safely discharged -Inflammatory arthritis work-up suggests it is unlikely (Slightly elevated ESR and CRP, negative Lyme titers, negative ZAIDA / RF) -Continue Cyclobenzaprine 5 mg QHS -Continue Cymbalta 30 mg QHS -Continue Gabapentin 300mg QHS -Continue Ibuprofen 800mg prn -Encouraged to remain physically active, increase as tolerated -Encouraged to search peer support Assessment & Plan (04/27/2023 5:48 AM EDT): -Evaluated by Rheumatology, last seen on 01/04/22. -Inflammatory arthritis work-up suggests it is unlikely (Slightly elevated ESR and CRP, negative Lyme titers, negative ZAIDA / RF) -Continue Cyclobenzaprine as prescribed by medical radiation dosimetrist -Continue Cymbalta 30 mg QHS -Continue Gabapentin 300mg QHS -Continue Ibuprofen 800mg prn -Encouraged to remain physically active, increase as tolerated -Encouraged to search peer support Assessment & Plan (01/20/2023 12:15 PM EDT): -Evaluated by Rheumatology, last seen on 01/04/22. -Inflammatory arthritis work-up suggests it is unlikely (Slightly elevated ESR and CRP, negative Lyme titers, negative ZAIDA / RF) -Continue Cyclobenzaprine as prescribed by medical radiation dosimetrist -Continue Cymbalta 30 mg QHS -Continue Gabapentin 300mg QHS -Continue Ibuprofen 800mg prn -Encouraged to remain physically active, increase as tolerated -Encouraged to search peer support Assessment & Plan (10/11/2022 10:57 AM EST): -Evaluated by Rheumatology, last seen on 01/04/22. -Inflammatory arthritis work-up suggests it is unlikely (Slightly elevated ESR and CRP, negative Lyme titers, negative ZAIDA / RF) -Continue Cyclobenzaprine as prescribed by medical radiation dosimetrist -Continue Cymbalta 30 mg QHS -Continue Gabapentin 300mg QHS -Continue Ibuprofen 800mg prn -Encouraged to remain physically active, increase as tolerated -Encouraged to search peer support Depression with anxiety 10/11/2022 Assessment & Plan (04/27/2023 5:52 AM EDT): -Followed by [facility]. -Continue current medications as prescribed: Cymbalta, Clonazepam and Ambien. -Previously on escitalopram Assessment & Plan (01/20/2023 12:21 PM EDT): Followed by N. -Continue current medications as prescribed: Cymbalta, Clonazepam and Ambien. -Previously on Lexapro. Assessment & Plan (10/11/2022 10:58 AM EST): Followed by N. -Continue current medications as prescribed: Cymbalta, Clonazepam and Ambien. -Previously on Lexapro. Bilateral primary osteoarthritis of knee 023 Assessment & Plan (09/23/2024 12:13 PM EST): Previously followed by [facility], seen 2020. -Received steroid injection. -Continue judicious use of meloxicam -Recommended to f/u. -Work on achieving healthier weight Assessment & Plan (07/28/2023 7:02 AM EST): Previously followed by [facility], seen 2020. -Received steroid injection. -Recommended to f/u. -Work on achieving healthier weight Assessment & Plan (01/20/2023 12:16 PM EDT): Previously followed by [facility], seen 2020. -Received steroid injection. -Recommended to f/u. Assessment & Plan (10/11/2022 10:59 AM EST): Previously followed by [facility], seen 2020. -Received steroid injection. -Recommended to f/u. Vitamin D deficiency 05/15/2017 Assessment & Plan (01/20/2023 12:23 PM EDT): - slightly low calcium - change vitamin D supplementation to Calcium + Vitamin D - continue weight bearing exercise for bone health Allergic rhinitis 07/11/2016 Assessment & Plan (02/01/2024 11:27 AM EDT): - switch cetirizine to loratadine, montelukast, and Fluticasone nasal (Flonase) - recommended to take it everyday while symptomatic Assessment & Plan (11/13/2023 8:52 AM EDT): - continue cetirizine, montelukast, and Fluticasone nasal (Flonase) - recommended to take it everyday while symptomatic Asthma 07/11/2016 Assessment & Plan (09/23/2024 12:06 PM EST): - 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 Last seen by Dr. Cash in May 2024 - Most recent exacerbation in January 2024, Rx azithromycin, yet still coughing - PFT in Aug 2024: Mild restrictive ventilatory defect with bronchodilator response present in small to medium airways only. Decreased expiratory reserve volume suggests extrathoracic restriction likely secondary to abdominal obesity. - Continue budesonide / formoterol (Symbicort) as maintenance - Continue Singulair 10 mg daily as maintenance - Continue albuterol HFA prn and neb prn as rescue. Assessment & Plan (05/08/2024 11:32 AM EDT): - Most recent exacerbation in January 2024, Rx azithromycin, yet still coughing - Continue budesonide / formoterol (Symbicort) as maintenance - Continue Singulair 10 mg daily as maintenance - Continue albuterol HFA prn and neb prn as rescue. Assessment & Plan (02/01/2024 11:24 AM EDT): - Most recent exacerbation in January 2024, Rx azithromycin, yet still coughing - Continue budesonide / formoterol (Symbicort) as maintenance - Continue Singulair 10 mg daily as maintenance - Continue albuterol HFA prn and neb prn as rescue. Assessment & Plan (01/03/2024 3:36 PM EDT): Asthma exacerbation with mild sinusitis x 2 weeks - azithromycin x 5 days - continue OTC/herbal remedies - continue Allergy medications - increase MRAIANELA frequency to every 4-6 hours with 4-6 puffs as needed - will refer to pulmonology to consider biologics Assessment & Plan (11/13/2023 8:47 AM EDT): - Most recent exacerbation in Sep 2023, Rx azithromycin, yet still coughing - Switch fluticasone (Flovent) to budesonide / formoterol (Symbicort) as maintenance - Continue Singulair 10 mg daily as maintenance - Continue albuterol HFA prn and neb prn as rescue. Assessment & Plan (10/30/2023 5:27 AM EST): >>ASSESSMENT AND PLAN FOR MODERATE PERSISTENT ASTHMA WITHOUT COMPLICATION WRITTEN ON 10/21/2022 6:52 PM BY LILIANA HAMILTON MD Reviewed maintenance and rescue medications. -Continue Flovent to 110 mcg bid as maintenance -Continue Singulair 10 mg daily as maintenance -Continue albuterol HFA prn and neb prn as rescue. Improve adherence or consider step-down therapy Assessment & Plan (10/30/2023 5:27 AM EST): >>ASSESSMENT AND PLAN FOR MODERATE PERSISTENT ASTHMA WITHOUT COMPLICATION WRITTEN ON 01/20/2023 12:14 PM BY LILIANA HAMILTON MD Reviewed maintenance and rescue medications. -Continue Flovent to 110 mcg bid as maintenance -Continue Singulair 10 mg daily as maintenance -Continue albuterol HFA prn and neb prn as rescue. Improve adherence or consider step-down therapy Assessment & Plan (10/30/2023 5:27 AM EST): >>ASSESSMENT AND PLAN FOR MODERATE PERSISTENT ASTHMA WITHOUT COMPLICATION WRITTEN ON 04/27/2023 5:47 AM BY LILIANA HAMILTON MD Reviewed maintenance and rescue medications. -Continue Flovent to 110 mcg bid as maintenance -Continue Singulair 10 mg daily as maintenance -Continue albuterol HFA prn and neb prn as rescue. Improve adherence or consider step-down therapy Assessment & Plan (10/30/2023 5:27 AM EST): >>ASSESSMENT AND PLAN FOR MODERATE PERSISTENT ASTHMA WITHOUT COMPLICATION WRITTEN ON 10/26/2023 4:27 PM BY MARIIA BOYD MD Pt with c/o persistent cough, exam indicative of asthma exacerbation and bronchitis. Plan; Pt co continue with inhalers, Zpack and supportive measures Folow up if no improvement Neg for Covid, Flu and Strep Assessment & Plan (10/30/2023 5:27 AM EST): >>ASSESSMENT AND PLAN FOR ASTHMA WRITTEN ON 07/28/2023 6:57 AM BY LILIANA HAMILTON MD Reviewed maintenance and rescue medications. -Continue Flovent to 110 mcg bid as maintenance -Continue Singulair 10 mg daily as maintenance -Continue albuterol HFA prn and neb prn as rescue. Improve adherence or consider step-down therapy >>ASSESSMENT AND PLAN FOR MODERATE PERSISTENT ASTHMA WITHOUT COMPLICATION WRITTEN ON 07/28/2023 6:56 AM BY LILIANA HAMILTON MD Reviewed maintenance and rescue medications. -Continue Flovent to 110 mcg bid as maintenance -Continue Singulair 10 mg daily as maintenance -Continue albuterol HFA prn and neb prn as rescue. Improve adherence or consider step-down therapy Morbid obesity 05/04/2012 Assessment & Plan (09/23/2024 11:49 AM EST): Pt was previously in [facility]. Pt is hesitant to have surgical weight loss due to family members with severe complications. Continue semaglutide at 1 mg weekly. Patient developed adverse reaction to 2 mg. Assessment & Plan (05/08/2024 12:50 PM EDT): Pt was previously in [facility]. Pt is hesitant to have surgical weight loss due to family members with severe complications. Continue semaglutide, increased dose Assessment & Plan (07/28/2023 6:59 AM EST): Pt was previously in [facility]. Pt is hesitant to have surgical weight loss due to family members with severe complications. Continue semaglutide, increased dose Assessment & Plan (04/27/2023 5:52 AM EDT): Pt was previously in [facility]. Pt is hesitant to have surgical weight loss due to family members with severe complications. Pt is interested in GLP-1 agonist; we have discussed about difficulty getting insurance coverage and its shortage at this time, but will try as she has obesity class 3 with multiple complications Assessment & Plan (01/20/2023 12:20 PM EDT): Pt was previously in [facility]. Pt is recommended to resume [facility]. Assessment & Plan (10/11/2022 10:58 AM EST): Pt was previously in [facility]. Pt advised to resume [facility]. Chronic low back pain 05/04/2012 Assessment & Plan (09/23/2024 11:51 AM EST): >>ASSESSMENT AND PLAN FOR LOW BACK PAIN POTENTIALLY ASSOCIATED WITH RADICULOPATHY WRITTEN ON 10/11/2022 10:53 AM BY REX RAMOS -Followed by [facility] provider, last seen in November 2020 -tried PT -tried different muscle relaxants: methocarbamol, cyclobenzaprine -tried gabapentin and pregabalin -received left L3-L4 transforaminal epidural steroid injection on 10/22/19 -restarted PT again at [facility], but stopped -recommended to restart [facility] management clinic -continue cyclobenzaprine -continue judicious use of meloxicam and ibuprofen -Continue gabapentin -discussed about judicious use of muscle relaxant and pain medication -optimize Tx fibromyalgia -encouraged to try home exercise Assessment & Plan (09/23/2024 11:51 AM EST): >>ASSESSMENT AND PLAN FOR LOW BACK PAIN POTENTIALLY ASSOCIATED WITH RADICULOPATHY WRITTEN ON 01/20/2023 12:21 PM BY LILIANA HAMILTON MD -Followed by [facility] provider, last seen in November 2020 -tried PT -tried different muscle relaxants: methocarbamol, cyclobenzaprine -tried gabapentin and pregabalin -received left L3-L4 transforaminal epidural steroid injection on 10/22/19 -restarted PT again at [facility], but stopped -recommended to restart [facility] management clinic -continue cyclobenzaprine -continue judicious use of meloxicam and ibuprofen -Continue gabapentin -discussed about judicious use of muscle relaxant and pain medication -optimize Tx fibromyalgia -encouraged to try home exercise Assessment & Plan (09/23/2024 11:51 AM EST): -Followed by [facility] provider, last seen in November 2020 -tried PT -tried different muscle relaxants: methocarbamol, cyclobenzaprine -tried gabapentin and pregabalin -received left L3-L4 transforaminal epidural steroid injection on 10/22/19 -restarted PT again at [facility], but stopped -recommended to restart [facility] clinic -continue cyclobenzaprine -continue judicious use of meloxicam and ibuprofen -Continue gabapentin -discussed about judicious use of muscle relaxant and pain medication -optimize Tx fibromyalgia -encouraged to try home exercise Resolved Problems Problem Noted Date Diagnosed Date Resolved Date Diarrhea 10/08/2024 10/08/2024 Acute cough 10/03/2023 10/30/2023 Hypertensive disorder 04/10/20172022 Mixed anxiety and depressive disorder 06/25/2015 01/15/2023 Impaired fasting glucose 05/04/2012 Encounters Date Type Department Care Team Description 10/08/2024 10:00 AM EST Office Visit [facility] [address] [place] [phone] Mariia Brown MD Bilious vomiting with nausea (Primary Dx); Type 2 diabetes mellitus without complication, without long-term current use of insulin ([facility]) 10/08/2024 Travel 10/03/2024 Telephone [facility] [place] [address] Liliana Hamilton MD Nurse Triage 09/17/2024 11:15 AM EST Office Visit [facility] [place] [address] Liliana Hamilton MD Moderate persistent asthma without complication (Primary Dx); LESTER (obstructive sleep apnea); Abnormal uterine bleeding (AUB); Essential hypertension; Type 2 diabetes mellitus without complication, without long-term current use of insulin ([facility]); Chronic pain of right knee; Morbid obesity ([facility]); Gastroesophageal reflux disease, unspecified whether esophagitis present; Low back pain potentially associated with radiculopathy; Chronic low back pain, unspecified back pain laterality, unspecified whether sciatica present; Dyslipidemia; Epigastric pain; Fibromyalgia; Bilateral primary osteoarthritis of knee; Dietary counseling; Exercise counseling; Class 3 severe obesity due to excess calories with serious comorbidity and body mass index (BMI) of 50.0 to 59.9 in adult ([facility]) 09/17/2024 Travel 09/16/2024 Refill [facility] [place] [address] Liliana Hamilton MD Essential hypertension 08/20/2024 Orders Only [facility] External Provider, [facility] 08/08/2024 Telephone [facility] [place] [place] [address] Liliana Hamilton MD Medication Question 08/07/2024 3:30 PM EST Office Visit [facility] [place] [address] Irena Alfred MD Type 2 diabetes mellitus without complication, without long-term current use of insulin ([facility]) (Primary Dx); Morbid obesity ([facility]); Increased urinary frequency; Epigastric pain 08/06/2024 Travel 08/06/2024 Telephone [facility] [place] [place] [address] To Moore [place] chart prep 08/05/2024 Telephone [facility] [address] [place] [address] Liliana Hamilton MD Nurse Triage 07/23/2024 9:15 AM EST Office Visit [facility] [address] [place] [phone] Amaya Lombardo ANP KRYSTYNA (acute kidney injury) (CMS/HCC) (Primary Dx); Epigastric pain 07/23/2024 Telephone [facility] [address] [place] [address] Liliana Hamilton MD Results 07/23/2024 Travel 07/22/2024 Telephone [facility] [address] [place], [place] [phone] Liliana Hamilton MD ER Follow-up from Last 3 Months Immunizations Name Administration Dates Next Due Hep B, adult 05/22/2019,12/24/2018,10/02/2018 Influenza injectable quadriv alent IIV4 with preservative 05/22/2019,06/21/2018 Influenza injectable quadriv alent preservative free 07/18/2023,05/30/2022,07/14/2021,05/19 Influenza, Split (incl. cynthia fied surface antigen) 09/21/2012 Pneumococcal Conjugate PCV 20 05/08/2024 Pneumococcal Polysaccharide PPSV23 10/02/2018 TD (adult), 2 Lf tetanus tox oid, preservative free, adsorbed 08/17/2007 Td (adult), 5 Lf tetanus tox oid, preservative free, adsorbed 01/17/2023 Tdap 09/21/2012 Family History Medical History Relation Name Comments Stomach cancer Maternal Grandfather Throat cancer Mother's Brother Colon cancer Other Maternal great Aunt Relation Name Status Comments Maternal Grandfather Mother's Brother Other Maternal great Aunt Social History Tobacco Use Types Packs/Day Years Used Date Smoking Tobacco: Former Cigarettes Q uit: 10/08/1997 Passive Smoke Exposure: Past Smokeless Tobacco: Never Tobacco Cessation:Counseling Given: Not Answered Alcohol Use Standard Drinks/Week Comments Defer 0 (1 standard drink = 0.6 oz pur e alcohol) Depression Answer Date Recorded Patient Health Questionnaire-9 Score 0 02/01/2024 Patient Health Questionnaire-9 Score 0 02/01/2024 Last PHQ-9: Questionnaire Data Not on file 0 02/01/2024 Housing Stability Answer Date Recorded What is your housing situation today? I have yvonne mancera 02/01/[address] you li [...] Orientation Straight 07/04/2022 10 :19 AM EDT Last Filed Vital Signs Vital Sign Reading Time Taken Comments Blood Pressure 128/76 10/08/2024 10:06 AM EST Pulse 95 10/08/2024 9:42 AM EST Temperature 35 ??C (95 ??F) 10/08/2024 9:42 AM EST Respiratory Rate 20 10/08/2024 9:42 AM EST Oxygen Saturation 96% 10/08/2024 9:42 AM EST Inhaled Oxygen Concentration - - Weight 150 kg (329 lb 9.6 oz) 10/08/2024 9:42 AM EST Height 160 cm (5' 3 ) 10/08/2024 9:42 AM EST Body Mass Index 58.39 10/08/2024 9:42 AM EST Plan of Treatment Health Maintenance Due Date Last Done Comments CT Colonography 1970 Dental Oral Exam 1970 Dental Prophylaxis 1970 Dental X-Ray: Bitewings 1970 FIT DNA/Cologuard 1970 FIT 1970 FOBT 1970 HIV Screening 1970 Sigmoidoscopy 1970 Eye Exam 1980 Hepatitis C Screening 1988 Zoster Vaccines (1 of 2) 2020 COVID-19 Vaccine (3 - season) 2024 12/18/2020, 11/20/2020 Diabetes: Urine Protein Screening 01/25/2025 01/26/2024, 01/16/2023, 03/10/2021, Additional history exists Lipid Panel 01/25/2025 01/26/2024, 01/02, 05/30/2022, Additional history exists Depression Screening 01/31/2025 02/01/2024, 02/01/20 24 SDOH Screening 01/31/2025 02/01/2024 Diabetes: Hemoglobin A1C 02/05/2025 024, 02/01/2024, 01/26/2024, Additional history exists Diabetes: Foot Exam 05/08/2025 05/08/2024, 05/08/2024, 05/08/2024, Additional history exists Alcohol/Substance Use Screening 08/07/2025 08/07/2024 Tobacco Screening 10/08/2025 10/08/2024 Mammogram 12/07/2025 12/08/2023, 11/02, 10/01/2018 Dental X-Ray: Full Mouth 04/18/2026 04/17/2023 Pap Smear 06/08/2026 06/08/2023, 06/08/2023 Colonoscopy 04/25/2027 04/25/2022 Colorectal Cancer Screening 04/25/2027 Cervical Cancer Screening 06/08/2028 HPV/Cotest 06/08/2028 06/08/2023 DTaP/Tdap/Td Vaccines (3 - Td or Tdap) 01/17/2033 01/17/2023, 09/21/2012, 08/17/2007 RSV Patients and Patients Aged 60 years or older (1 - 1-dose 75+ series) 2045 Hepatitis B Vaccines Completed 05/22/2019, 12/24/2018, 10/02/2018 Pneumococcal Vaccine: 50+ Years Completed 05/08/2024, 10/02/2018 Influenza Vaccine Completed 06/06/2024, , 05/30/2022, Additional history exists HIB Vaccines Aged Out No longer eligi ble based on patient's age to complete this topic HPV Vaccines Aged Out No longer eligi ble based on patient's age to complete this topic Hepatitis A Vaccines Aged Out No long er eligible based on patient's age to complete this topic IPV Vaccines Aged Out No longer eligi ble based on patient's age to complete this topic Meningococcal Vaccine Aged Out No edgar jose luis eligible based on patient's age to complete this topic RSV under 20 months Aged Out No longe r eligible based on patient's age to complete this topic Rotavirus Vaccines Aged Out No longer eligible based on patient's age to complete this topic Goals Goal Patient Goal Type Associated Problems Recent Progress Patient-Stated? Author Blood Pressure < 140/90 Blood Pressure 128/76(2024 10:06 AM EST) No Ozzy Quevedo PharmD Hemoglobin A1c < 7 Result Component 5.7( 3:35 PM EST) No Ozzy Quevedo PharmD Procedures Procedure Name Priority Date/Time Associated Diagnosis Comments US PELVIS TRANSVAGINAL Routine 4 10:52 AM EST POCT GLYCATED HEMOGLOBIN, TOTAL Routine 08/07/2024 3:35 PM EST Type 2 diabetes mellitus without complication, without long-term current use of insulin (CMS/HCC) POCT GLUCOSE Routine 08/07/2024 3:30 PM EST Type 2 diabetes mellitus without complication, without long-term current use of insulin (CMS/HCC) HEPATIC FUNCTION PANEL Routine 4 9:51 AM EST KRYSTYNA (acute kidney injury) (CMS/HCC) AMYLASE Routine 07/23/2024 9:51 AM EST Epigastric pain LIPASE Routine 07/23/2024 9:51 AM EST Epigastric pain BASIC METABOLIC PANEL Routine 07/23/2024 9:51 AM EST KRYSTYNA (acute kidney injury) (CMS/HCC) CBC WITH AUTO DIFFERENTIAL Routine 07/19/2024 7:40 AM EST HCG, QL, URINE Routine 07/19/2024 7:40 AM EST URINALYSIS, COMPLETE, WITH REFLEX TO CULTURE Routine 07/19/2024 7:40 AM EST CULTURE, URINE, ROUTINE Routine 07/19/2024 12:00 AM EST ALBUMIN, RANDOM URINE W/CREATININE Routine 01/26/2024 12:43 PM EDT Type 2 diabetes mellitus without complication, without long-term current use of insulin (CMS/HCC) LIPID PANEL WITH REFLEX TO DIRECT LDL Routine 01/26/2024 12:43 PM EDT Type 2 diabetes mellitus without complication, without long-term current use of insulin (CMS/HCC) BI MAMMOGRAM SCREENING TOMOSYNTHESIS BILATERAL Routine 12/08/2023 10:25 AM EDT HPV MRNA E6/E7 REFLEX TO HPV 16, 18/45 Routine 06/08/2023 12:02 PM EDT IMAGE-GUIDED PAP W/AGE BASED SCR,W/CT/NG/TRICH Routine 06/08/2023 12:02 PM EDT Postmenopausal bleeding Cervical cancer screening Encntr screen for infections w sexl mode of transmiss PANORAMIC RADIOGRAPHIC IMAGE Routine 04/17/2023 1:00 PM EDT HM COLONOSCOPY Routine 04/25/2022 from Last 3 Months or Most Recently Relevant to Health Maintenance Results * US Pelvis Transvaginal (08/20/2024 10:52 AM EST) Anatomical Region Laterality Modality Pelvis Ultrasound 08/20/2024 10:5 2 AM EST Narrative 09/09/2024 9:27 AM EST ? [facility] [facility] ?[address] ?[place] [address] ? Ultrasound Report ? Signed ? Patient: Saldaña,Janina ?MR#: [id number] ? : 1970 ?Acct:[id number] ? Age/Sex: 53 / F ?ADM Date: 08/20/24 ? Loc: HO.RESP ? Attending Dr: Thony Vergara MD ? Ordering Physician: Thony Vergara MD ?? Date of Service: 08/20/24 ?? Procedure(s): US pelvic and transvaginal ?? Accession Number(s): [id number] ? cc: Liilana Hamilton MD; Thony Vergara MD ? EXAMINATION: ? US PELVIS ? CLINICAL INFORMATION: ? Postmenopausal bleeding, patient denies pain. ? COMPARISON: ?? June 08, 2023. ? TECHNIQUE: ?? Ultrasound of the pelvis is performed using both transabdominal and ?? transvaginal transducers along with Doppler. Transvaginal imaging is ?? performed due to inadequate visualization transabdominally. ??Limited ?? visualization due to bowel gas and body habitus. ? FINDINGS: ?? The anteverted uterus measures 8.6 x 3.9 x 5.2 cm, volume 91.3 mL. ? A 1.0 x 0.9 x 1.1 cm uterine mass, previously 0.9 x 0.8 x 0.9 cm and ?? 1.1 x 1.1 x 1.3 cm mass, previously 1.5 x 1.3 x 1.5 cm are ?? characteristic of fibroids. ? Limited visualization due to bowel gas and body habitus. ? No significant free fluid. ? The ovaries were seen only on limited transabdominal ultrasound images. ?? RIGHT ovary measures 2.4 x 1.6 x 1.6 cm. LEFT ovary measures 2.2 x 1.3 ?? x 1.6 cm. ? Endometrial thickness is 6 mm, which is considered abnormal for a ?? patient with postmenopausal bleeding, although visualization is limited ?? due to body habitus and bowel gas. Gynecologic consultation recommended ?? to determine further management including possible biopsy. ? US/US pelvic and transvaginal ?? IMPRESSION: ? 1. Endometrial thickness is 6 mm, which is considered abnormal for a ?? patient with postmenopausal bleeding, although visualization is limited ?? due to body habitus and bowel gas. Gynecologic consultation recommended ?? to determine further management including possible biopsy. ? 2. Fibroid uterus. ? 3. Limited visualization of the bilateral ovaries. ? 4. Limited visualization due to bowel gas and body habitus. ? Electronically signed by: ??Vivian Singh MD ??09/09/2024 09:24 AM EST ? Dictated By: ?Vivian Singh MD ? Signed By: ?<Electronically signed by Vivian Singh MD in OV> ? 09/09/24923 ? DD/ 1052 ? TD/TT: 08/20/24 1110 ? Security Incident Response Engineer: ? Procedure Note Donshobhater, Image - 09/09/2024 [place] [address] Ultrasound Report Signed Patient: Catherine Saldaña#: [id number] : 1970Acct:[id number] Age/Sex: 53 / FADM Date: 08/20/24 Loc: HO.RESP Attending Dr: Thony Vergara MD Ordering Physician: Thony Vergara MD Date of Service: 08/20/24 Procedure(s): US pelvic and transvaginal Accession Number(s): [id number] cc: Liliana Hamilton MD; Thony Vergara MD EXAMINATION: US PELVIS CLINICAL INFORMATION: Postmenopausal bleeding, patient denies pain. COMPARISON: June 08, 2023. TECHNIQUE: Ultrasound of the pelvis is performed using both transabdominal and transvaginal transducers along with Doppler. Transvaginal imaging is performed due to inadequate visualization transabdominally. Limited visualization due to bowel gas and body habitus. FINDINGS: The anteverted uterus measures 8.6 x 3.9 x 5.2 cm, volume 91.3 mL. A 1.0 x 0.9 x 1.1 cm uterine mass, previously 0.9 x 0.8 x 0.9 cm and 1.1 x 1.1 x 1.3 cm mass, previously 1.5 x 1.3 x 1.5 cm are characteristic of fibroids. Limited visualization due to bowel gas and body habitus. No significant free fluid. The ovaries were seen only on limited transabdominal ultrasound images. RIGHT ovary measures 2.4 x 1.6 x 1.6 cm. LEFT ovary measures 2.2 x 1.3 x 1.6 cm. Endometrial thickness is 6 mm, which is considered abnormal for a patient with postmenopausal bleeding, although visualization is limited due to body habitus and bowel gas. Gynecologic consultation recommended to determine further management including possible biopsy. US/US pelvic and transvaginal IMPRESSION: 1. Endometrial thickness is 6 mm, which is considered abnormal for a patient with postmenopausal bleeding, although visualization is limited due to body habitus and bowel gas. Gynecologic consultation recommended to determine further management including possible biopsy. 2. Fibroid uterus. 3. Limited visualization of the bilateral ovaries. 4. Limited visualization due to bowel gas and body habitus. Electronically signed by: Vivian Singh MD 09/09/2024 09:24 AM EST Dictated By: Vivian Singh MD Signed By: <Electronically signed by Vivian Singh MD in OV> 09/09/24 0924 DD/ 1052 TD/TT: 08/20/24 1110 Security Incident Response Engineer: [facility] External Provider IMG US PROCEDURES Edited Result - Final * POCT HGB A1C (08/07/2024 3:35 PM EST) Hemoglobin A1C 5.7 4.0 - 6.0 % QC Media Lot # [id number] Lot# Expiration Date , Blood 08/07/2024 3:35 PM EST Liliana Hamilton MD POINT OF CARE TEST ENTER/EDIT OR DERABLES Final Result * POCT Glucose (08/07/2024 3:30 PM EST) Glucose Blood, POC 127 60 - 200 mg/dL QC Media Lot # [id number] Lot# Expiration Date 5,025 Blood Capillary blood specimen / Unknown 08/07/2024 3:30 PM EST Liliana Hamilton MD POINT OF CARE TEST ENTER/EDIT OR DERABLES Final Result * Lipase (07/23/2024 9:51 AM EST) Lipase 17 8 - 78 U/L [facility] Blood Venous blood specimen / Unknown 07/23/2024 9:51 AM EST 07/23/2024 10:54 AM EST Amaya Lombardo ANP LAB BLOOD ORDERABLES Final Resul t Performing Organization Address City/[facility]/ZIP Co de Phone Number [facility] LABS [address] [place] [address] [phone] * Amylase (07/23/2024 9:51 AM EST) Amylase 34 28 - 100 U/L [facility] Blood Venous blood specimen / Unknown 07/23/2024 9:51 AM EST 07/23/2024 10:54 AM EST Amaya Lombardo [facility] LAB BLOOD ORDERABLES Final Resul t Performing Organization Address [facility] de Phone Number [facility] [address] [place] [phone] * (ABNORMAL) Hepatic Function Panel (07/23/2024 9:51 AM EST) Bilirubin, Total 1.1(H) 0.0 - 1.0 mg/dL [facility] Bilirubin, Direct 0.3 0.0 - 0.5 mg/dL [facility] Aspartate Amino Transferase 28 5 - 31 U/L [facility] Alanine Aminotransferase 30 0 - 31 U/L [facility] Total Protein 7.4 6.5 - 8.0 g/dL [facility] Albumin Level 3.9 3.5 - 5.0 g/dL [facility] Alkaline Phosphatase 73 39 - 117 U/L [facility] Blood Venous blood specimen / Unknown 07/23/2024 9:51 AM EST 07/23/2024 10:54 AM EST Amaya Lombardo [facility] LAB BLOOD ORDERABLES Final Resul t Performing Organization Address [facility] de Phone Number [facility] [address] [place] [phone] * (ABNORMAL) Basic Metabolic Panel (07/23/2024 9:51 AM EST) Sodium 137 135 - 145 mmol/L [facility] Potassium 3.9 3.3 - 5.1 mmol/L [facility] Chloride 103 96 - 108 mmol/L [facility] Carbon Dioxide 29 22 - 29 mmol/L [facility] Anion Gap 9(L) 12 - 20 [facility] Urea Nitrogen (BUN) 12 9 - 16 mg/dL [facility] Creatinine, Serum 0.98 0.5 - 1.4 mg/dL [facility] Estimated Glomerular Filt Rate 59 [facility] Comment:Chronic Kidney Disea se: Estimated GFR < 60 mL/min/1.14a6Wsrsgs Kidney Disease: Estimated GFR < 15 mL/min/1.73m2 Glucose 119(H) 60 - 115 mg/dL [facility] Calcium 9.1 8.4 - 10.2 mg/dL [facility] Blood Venous blood specimen / Unknown 07/23/2024 9:51 AM EST 07/23/2024 10:54 AM EST Amaya Lombardo [facility] LAB BLOOD ORDERABLES Final Resul t Performing Organization Address [facility] Co de Phone Number [facility] [address] [place] [phone] * (ABNORMAL) Urinalysis, Complete, with Reflex to Culture (07/19/2024 7:40 AM EST) Color Urine Dark Yellow [facility] Appearance Urine Cloudy [facility] PH 5.5 5.0 - 9.0 [facility] Glucose Urine UA Negative Negative mg/dL [facility] Urine Blood Negative Negative [facility] Specific [place] - Urine 1.020 1.005 - 1.025 [facility] Urine Protein Negative Neg-Trace mg/dL [facility] Urine Ketones Negative Negative mg/dL [facility] Nitrite Urine Negative Negative [facility] Leukocyte Esterase Urine Small (1+)(A) Negative [facility] RBC Urine 0-2 0 - 2 /HPF [facility] Urine WBC 0-5 0 - 5 /HPF [facility] Urine Squamous Epithelial Cell 11-20 0 - 2 /HPF [facility] Urine Bacteria 3+ None Seen [facility] Hyaline Casts, Urine 0-2 0 - 2 /LPF [facility] 07/19/2024 7:40 AM EST 07/19/2024 7:48 AM EST Narrative [facility] - 07/19/2024 7:59 AM EST [id number], Clean Catch us Generic External Data Provider LAB URINE ORDERAB LES Final Result [facility] [address] [place] [phone] * (ABNORMAL) CBC auto differential (07/19/2024 7:40 AM EST) White Blood Count 9.5 4.8 - 10.8 X10*3/uL [facility] Red Blood Count 4.68 4.20 - 5.50 X10*6/uL [facility] Hemoglobin 14.3 12.0 - 16.0 g/dl [facility] Hematocrit 42.6 37.0 - 47.0 % [facility] Mean Corpuscular Volume 91.0 80.0 - 98.0 fL [facility] Mean Corpuscular Hemoglobin 30.6 27.0 - 33.0 pg [facility] Mean Corpuscular HGB Conc 33.6 31.0 - 35.0 g/dl [facility] Red Cell Distribution Width 13.8 11.0 - 16.0 % [facility] Platelet Count 345 160 - 400 X10*3/uL [facility] Mean Platelet Volume 9.2(L) 9.4 - 12.3 fL [facility] Neutrophils Percent Auto 79.8(H) 45 - 73 % [facility] Imm Gran Pct Auto 0.4 0.0 - 0.4 % [facility] Lymphocytes Percent Auto 13.7(L) 20 - 40 % [facility] Monocytes Percent Auto 4.9 2 - 11 % [facility] Eosinophils Percent Auto 1.0 0 - 4 % [facility] Basophils Percent Auto 0.2 0 - 2 % [facility] NRBC Pct Auto 0.0 0.0 - 0.2 /100WBC [facility] Neutrophils Absolute Auto 7.6 2.0 - 8.3 x10*3/uL [facility] Imm Gran Abs Auto 0.04(H) 0.00 - 0.03 X10*3/uL [facility] Lymphocytes Absolute Auto 1.3 1.2 - 4.9 X10*3/uL [facility] Monocytes Absolute Auto 0.5 0.1 - 1.2 X10*3/uL [facility] Eosinophils Absolute Auto 0.1 0.0 - 0.4 X10*3/uL [facility] Basophils Absolute Auto 0.0 0.0 - 0.2 X10*3/uL [facility] NRBC Abs Auto 0.000 0.0 - 0.012 X10*3/uL [facility] 07/19/2024 7:40 AM EST 07/19/2024 7:47 AM EST us Generic External Data Provider LAB BLOOD ORDERAB LES Final Result [facility] [address] [place] [phone] * HCG, Qualitative, Urine (07/19/2024 7:40 AM EST) Urine NEGATIVE NEGATIVE [facility] Comment:This test was develo ped to detect early . Falsenegative results may occur after the 5th - 7th week ofpregnancy when using this test method. If clinicallyindicated, consider a serum hCG. 07/19/2024 7:40 AM EST 07/19/2024 7:43 AM EST Generic External Data Provider LAB URINE ORDERAB LES Final Result Performing Organization Address [facility] Co de Phone Number [facility] [address] [place] [phone] * Culture, Urine, Routine (07/19/2024 12:00 AM EST) Urine Urine specimen obtained by clean catch procedure / Unknown 07/19/2024 07/19/2024 Comment:UACC Narrative [facility] - 07/20/2024 8:43 AM EST Urine Culture Report Result Urine Culture > 100,000 cfu/ml Urine Culture Mixed bacterial montrell characteristic of Urine Culture urogenital contamination. Specimen Source: Urine clean catch Generic External Data Provider LAB MICROBIOLOGY - GENERAL ORDERABLES Final Result Performing Organization Address [facility] Co de Phone Number [facility] [address] [place] [phone] * Lipid Panel with Reflex to Direct LDL (01/26/2024 12:43 PM EDT) Triglycerides 136 <150 mg/dL [facility] Comment:Desirable Triglyceri de: less than 150 mg/dLBorderline High Triglyceride 150-199 mg/dLHigh Triglyceride: 200-499 mg/dLVery High Triglyceride: greater than or equal to 5OO mg/dL Cholesterol 161 <200 mg/dL [facility] Comment:Desirable Cholestero l: less than 200 mg/dLBorderline High Cholesterol: 200-239 mg/dLHigh Cholesterol: greater than 239 mg/dL LDL Cholesterol Calculated 82 <100 mg/dL [facility] Comment:Desirable LDL: less than 100 mg/dLNear Optimal/Above Optimal LDL: 110- 129 mg/dLBorderline High LDL: 130-159 mg/dLHigh LDL: 160-189 mg/dLVery High LDL: greater than or equal to 190 mg/dL HDL Cholesterol 52 >40 mg/dL [facility] Comment:Desirable HDL: great er than 40 mg/dL Note: This HDL assay may give artificially low results in patients with liver disease. Blood 01/26/2024 12:4 3 PM EDT 01/26/2024 4:12 PM EDT Liliana Hamilton MD LAB BLOOD ORDERABLES Final Resul t Performing Organization Address [facility] Co de Phone Number [facility] [address] [place] [address] [phone] * Albumin, Random Urine W/Creatinine (01/26/2024 12:43 PM EDT) Creatinine, Urine 279.10 mg/dL [facility] Microalbumin Urine 9.0 mg/L [facility] Microalbum Creatinine Ratio Ur 3.2 <30 ug/mg cr [facility] Comment:Albumin/Creatinine R atio Reference Ranges: Normal: < 30 ug/mg creatinine Microalbuminuria: 30 - 300 ug/mg creatinineClinical Albuminuria: > 300 ug/mg creatinine Urine 01/26/2024 12:4 3 PM EDT 01/26/2024 1:09 PM EDT Liliana Hamilton MD LAB URINE ORDERABLES Final Resul t Performing Organization Address [facility] Co de Phone Number [facility] [address] [place] [address] [phone] * BI Mammogram Screening Tomosynthesis Bilateral (12/08/2023 10:25 AM EDT) Anatomical Region Laterality Modality Breast Bilateral Mammography 12/08/2023 10:2 5 AM EDT Narrative 12/16/2023 5:19 PM EDT ? [facility] ? [address] ?[place] [address] ? Mammography Report ? Signed ? Patient: Saldaña,Janina ?MR#: [id number] ?? [id number] ? : 1970 ?Acct:[id number] ? Age/Sex: 53 / F ?ADM Date: 12/08/23 ? Loc: HO.MAMMO ? Attending Dr: Liliana Hamilton MD ? Ordering Physician: Liliana Hamilton MD ?Results: 1Negative ? Date of Service: 12/08/23 ?Follow Up: 1 Year From Orig ?? inal Mammogram ? Procedure(s): MM tomosynthesis screening BI ?? Accession Number(s): [id number] ? cc: Liliana Hamilton MD ? EXAMINATION: ?? MM SCREENING DIGITAL BREAST TOMOSYNTHESIS, BILATERAL ? CLINICAL INFORMATION: ? Screening. Asymptomatic. ? COMPARISON: ?? Mammography: This study is compared with prior exams dating back to ?? 2015. ? TECHNIQUE: ?? Digital breast tomosynthesis is performed in both the craniocaudal and ?? mediolateral oblique views along with computer-aided detection (CAD). ?? Synthesized 2D images are generated from the tomosynthesis. ? FINDINGS: ?? The breasts are almost entirely fatty (ACR BI-RADS breast composition ?? Category a). ? There are no significant masses, abnormal calcifications, or other ?? abnormalities. ? MM/MM tomosynthesis screening BI ?? IMPRESSION: ?? No mammographic evidence of malignancy. ? ASSESSMENT: ? BI-RADS BI-RADS 1 - Negative ? RECOMMENDATION: ?? Routine annual mammography screening. ? 1 year F/U ? This examination should not preclude the clinical evaluation of a ?? suspicious palpable abnormality. ? This patient's information was entered into a reminder system with a ?? target due date for their next mammogram. ? Dictated By: ?Bhavna Parra MD ? Signed By: ?<Electronically signed by Bhavna Parra MD in OV> ? 12/16/235 ? DD/ 1025 ? TD/TT: ? Security Incident Response Engineer: ? Procedure Note Douglasmitul, Image - 12/16/2023 [facility] [address] [place] [address] Mammography Report Signed Patient: Janina SaldañaMR#: [id number] : 1970Acct:[id number] Age/Sex: 53 / FADM Date: 12/08/23 Loc: TRISHA Attending Dr: Liliana Hamilton MD Ordering Physician: Liliana Hamilton MDResults: 1Negative Date of Service: 12/08/23Follow Up: 1 Year From Orig inal Mammogram Procedure(s): MM tomosynthesis screening BI Accession Number(s): [id number] cc: Liliana Hamilton MD EXAMINATION: MM SCREENING DIGITAL BREAST TOMOSYNTHESIS, BILATERAL CLINICAL INFORMATION: Screening. Asymptomatic. COMPARISON: Mammography: This study is compared with prior exams dating back to 2016. TECHNIQUE: Digital breast tomosynthesis is performed in both the craniocaudal and mediolateral oblique views along with computer-aided detection (CAD). Synthesized 2D images are generated from the tomosynthesis. FINDINGS: The breasts are almost entirely fatty (ACR BI-RADS breast composition Category a). There are no significant masses, abnormal calcifications, or other abnormalities. MM/MM tomosynthesis screening BI IMPRESSION: No mammographic evidence of malignancy. ASSESSMENT: BI-RADS BI-RADS 1 - Negative RECOMMENDATION: Routine annual mammography screening. 1 year F/U This examination should not preclude the clinical evaluation of a suspicious palpable abnormality. This patient's information was entered into a reminder system with a target due date for their next mammogram. Dictated By: Bhavna Parra MD Signed By: <Electronically signed by Bhavna Parra MD in OV> 12/16/23 1715 DD/ 1025 TD/TT: Security Incident Response Engineer: Liliana Hamilton MD IMG BI PROCEDURES Edited Result - Final * Image-Guided Pap with Age-Based Screening??with CT/NG,??Trichomonas (06/08/2023 12:02 PM EDT) Pathologist [facility] Trichomonas (NAAT) NOT DETECTED NOT DETECTED [facility] Comment:The analytical perfo rmance characteristics of thisassay have been determined by [employer]. Themodifications have not been cleared or approved bythe FDA. This assay has been validated pursuant to theCLIA regulations and is used for clinical purposes.For additional information, please refer tohttp://education.Phorest/faq/Trichomonastma(This link is being provided for information/educational purposes only.)THIS TEST WAS PERFORMED AT:[facility] [place] [id number] CAR MD CTNG Ref Lab NOT DETECTED NOT DETECTED [facility] NG Ref Lab NOT DETECTED NOT DETECTED [facility] 06/08/2023 12:0 2 PM EDT 06/09/2023 9:00 AM EDT Isela BUI LAB CYTOLOGY ORDERABLES F inal Result [facility] [address] [place] [phone] * HPV mRNA E6/E7 w/Reflex to HPV Genotypes 16, 18/45 (06/08/2023 12:02 PM EDT) HPV nRNA E6/E7 Not Detected Not Detected [facility] Comment:Methodology: Transcr iption-Mediated AmplificationThis assay detects E6/E7 viral messenger RNA (mRNA) from 14high-risk HPV types (16,18,31,33,35,39,45,51,52,56,58,59,66,68).Cervical sources are required for HPV testing.If a vaginal source from a patient who has had atotal hysterectomy with removal of cervix wassubmitted, please contact the testing laboratoryfor alternative testing options.For additional information, please refer tohttp://education.Phorest/faq/NFS080g6(This link if provided for information/educational purposes only.)THIS TEST WAS PERFORMED AT:[facility] [place] [id number] CAR MD HPV mRNA E6/E7 [facility] HPV 16 RNA [facility] HPV 18/45 RNA [facility] 06/08/2023 12:0 2 PM EDT 06/09/2023 9:00 AM EDT Isela BUI LAB CYTOLOGY ORDERABLES F inal Result [facility] [address] [place] [phone] * Colonoscopy (04/25/2022) Colonoscopy Normal Normal Historical Provider HEALTH MAINTENANCE Final Result from Last 3 Months or Most Recently Relevant to Health Maintenance Insurance [facility] [address] [address] [id number] DENTAL - [facility] [address] [place] [id number] [place] [phone] [place] [phone] Care Teams Mac Operator Relationship Specialty Start Date End Date Liliana Hamilton MD [address] [place] [address] PCP - General Family Medicine 09/04/18 Ozzy Quevedo, MarinaD [address] [place] [address] Pharmacist Internal Medicine 06/14/23
--- OUTSIDE RECORDS SUMMARY | 2024-10-08 11:03 | XMS_ITS | Data Portability ---
Author Organization [place] - [employer] [facility] [place] - [facility] Address [address] [place] [address] Care Team Providers Care Glass Fitter Name Role Phone HIM CCA OTHER AMBAR HAMILTON Primary Care Provider Assessment Encounter Date Assessment Date Assessment LastModified by Organization Details LastModified Time 07/20/2024 07/20/2024 As noted, pa campos called to see this patient regarding concerns of hypotension.Evalu ation in the field was performed by my picture enlarger colleague, as noted above, I provided real-time direction and supervision for this visit. 53 F reports low BP, ongoing diarrhea. recent admission at [facility] for gastroenteritis, reportedly had large volume [...] bloody stool, reduced urine output, increased diarrhea [email or web address] Not available 07/20/2024 20:45:18 08/02/2024 08/02/2024 As [...] in the field was performed by my picture enlarger colleague, as noted above, I provided real-time [...] serum or plasma 2023 024 DANIEL [facility], [address] [place] [address], [phone], 07:56:10 Referral None recorded. Procedures None recorded. Surgeries None recorded. Imaging None recorded. Medication Orders lactated Ringers intravenous solution 2023 024 [email or web address] [id number], [address] [place], [place], [phone], 20:51:37 Patient TargetsNo targets recorded. Patient InstructionsNo [...] Address Organization Details Last Updated DateTime 4 946846. 28 g 16 /min 94 /min 95 % 95 % 160.02 cm 97.7 [degF] 74 /min 89 mm[Hg] 58 mm[Hg] 143 mm[Hg] 78 mm[Hg] Not Available [facility] 4 20:44:04 Date Recorded Oxygen saturation Oxygen saturation in Arterial blood by Pulse oximetry Heart rate Respiratory rate Body weight Body temperature Systolic blood pressure Diastolic blood pressure Provider Name and Address Organization Details Last Updated DateTime 4 98 % 98 % 86 /min 16 /min 673333. 28 g 97.2 [degF] 138 mm[Hg] 78 mm[Hg] Not Available [facility] 4 18:22:52 Social History None recorded. Functional Status None recorded. Mental Status None recorded. Family History Nothing Reported. Medical History No medical history recorded. Gynecological HistoryNo gynecological history recorded. Obstetrics History GPAL:G 0 P 0 0 0 0 Past Encounters Encounter ID Performer Location Encounter Start Date Encounter Closed Date Diagnosis/Indication Diagnosis SNOMED-CT Code Diagnosis ICD10 Code Diagnosis Note [id number] Ramesh Merrill MD [facility] [address] [place] [phone] 07/20/2024 19:47:48 07/21/2024 14:05:18 Acute kidney injury 66350400 N17.9 [id number] MAYA DONALD MD [facility] - [facility] [address] [place] [phone] 08/02/2024 18:20:23 08/02/2024 22:57:36 Nausea, vomiting and diarrhea 5974806 R19.7 Health Concerns Section Related Observation LastModified by Organization Detai ls LastModified Time None Recorded Concern Status LastModified by Organization Details LastModified Time None Recorded Advance Directives Directive None Recorded Payers Encounter Date Sequence Insurance Name Policy Number Policy You Covered Member ID You Member ID Guarantor Name 07/20/2024 1 [id number] [facility] - DOS ON OR AFTER 2022 - DUAL ELIGIBLE - INTERMEDIATE OPTIONS AND ONE CARE (MEDICARE REPLACEMENT/AD VANTAGE - HMO) Janina Saldaña [id number] Janina Saldaña 08/02/2024 1 [employer] [facility] [employer] - DOS ON OR AFTER 2022 - DUAL ELIGIBLE - INTERMEDIATE OPTIONS AND ONE CARE (MEDICARE REPLACEMENT/AD VANTAGE - HMO) Janina Saldaña [id number] Janina Saldaña Notes Date Note Type Note Provider Name and Address Organization Details Recorded Time 07/20/2024 text/html CRC Nurse Triage Notes (Lucio Sibley): Chief Complaints: Hypotension PMH: Diabetes Mellitus Type 2 Comments: Director Of Real Estate verified the Pt.'s name//address and phone number. [...] - Concerns expressed - ER treatment declined First Aid Trainer Organization Information for [employer] Legal Name: [facility] Address: [address] [place] [address], Head Mechanic: Julien Macias MD CLIA No.: [id number] First Aid Trainer POC Test Results from Butch Valdez Responsa [facility] (19:45:09) pH: 7.44 pH units pCO2: 41.7 mmHg pO2: 33.0 mmHg Na: 136 mmol/L K: 3.6 mmol/L iCa: 1.09 mmol/L Cl: 98 mmol/L TCO2: 28.6 mEq/L Hct: 45 % Hb: 15.5 g/dL Glu: 108 mg/dL Lac: 2.5 mmol/L Cr: 1.86 mg/dL BUN: 20 mg/dL A .................... .................... .................... .................... .................... .................... .................... . First Aid Trainer Note From Butch Valdez: This 53-year-old female with a history including but not limited to HTN, DM type II, COPD, obesity, depression requested a visit today to address low blood pressure readings at home. She tells me that she was seen in [facility]'s emergency department two days ago for nausea, vomiting, diarrhea. [facility]rtle told her that she has food poisoning [...] soft, nontender, nondistended. No lower extremity edema. Ehvkp-[id number] labs are uploaded, of note creatinine is 1.86. Patient was able to provide labs from [facility], creatinine 1.02.I treated this patient for hypovolemia [...] .................... .................... .................... .................... .................... .................... . [facility] Consulted: Ramesh Merrill .................... .................... .................... .................... .................... .................... .................... . Disposition: Fulfilled Ramesh Merrill MD [address] [facility],[address], [place], [phone], [employer] 07/20/2024 20:51:47 08/02/2024 text/html CRC Nurse Triage [...] Type 2, Hypertension, Chronic Pain, Fibromyalgia Comments: Director Of Real Estate verified the Pt.'s name//address and phone number. [...] .................... .................... .................... .................... .................... .................... . First Aid Trainer Note From Giovani Morillo: Pt Co nausea [...] abdomen soft non tender, lungs clear bilaterally. [facility] Jean-Claude contacted and advised to monitor symptoms. [...] .................... .................... .................... .................... .................... .................... . [facility] Consulted: Maya Donald .................... .................... .................... .................... .................... .................... .................... . Disposition: Fulfilled MAYA DONALD MD [address] [place] [address],[address] [facility], [place], [phone], [employer] 08/02/2024 19:04:18 OBGyn Episode No OBEpisode recorded.
--- OUTSIDE RECORDS SUMMARY | 2024-10-08 11:03 | XMS_ITS | Encounter Summary ---
Author Organization [employer] Address [address] [place] [address] Care Team Providers Care Letterset Press Set Up Operator Name Role Phone Liliana Ricks MD Primary Care Provider [phone] Ozzy Quevedo PharmD Unavailable [phone] Encounter Details Date Type Department Care Team (Late st Contact Info) Description 08/20/2024 Orders Only [facility] External Provider, [facility] Social History Tobacco Use Types Packs/Day Years [...] AM EDT documented as of this encounter Plan of Treatment Not on file documented as of this encounter Goals Goal Patient Goal Type Associated Problems Recent Progress Patient-Stated? Author Blood Pressure < 140/90 Blood Pressure 128/76(2024 10:06 AM EST) No Ozzy Quevedo PharmD Hemoglobin A1c < 7 Result Component 5.7( 3:35 PM EST) No Ozzy Qeuvedo PharmD documented as of this encounter Procedures Procedure Name Priority Date/Time Associated Diagnosis Comments US PELVIS TRANSVAGINAL Routine 08/20/2024 10:52 AM EST documented in this encounter Results * US Pelvis Transvaginal (08/20/2024 10:52 AM EST) Anatomical Region Laterality Modality Pelvis Ultrasound 08/20/2024 10:5 2 AM EST Narrative 09/09/2024 9:27 AM EST ? [facility] ?[address] ?[place] [address] ? Ultrasound Report ? Signed ? Patient: Saldaña,Janina ?MR#: [id number] ?? [id number] ? : 1970 ?Acct:[id number] ? Age/Sex: 53 / F ?ADM Date: 12/17/24 ? Loc: HO.RESP ? Attending : Thony Vergara MD ? Ordering Physician: Thony Vergara MD ?? Date of Service: 08/20/24 ?? Procedure(s): US pelvic and transvaginal ?? Accession Number(s): [id number] ? cc: Liliana Ricks MD; Thony Vergara MD ? EXAMINATION: ? [...] ??Vivian Singh MD ??09/09/2024 09:24 AM EST ?? RP ? Dictated By: ?Vivian Singh MD ? Signed By: ?<Electronically signed by Vivian Singh MD in OV> ? 09/09/24 0924 ? DD/ 1052 ? TD/TT: 08/20/24 1110 ? Heel Seat Filler: ? Procedure Note Donotuseinterpreter, Image - 09/09/[address] [address] Ultrasound Report Signed Patient: Catherine Saldaña#: [id number] : 1970Acct:[id number] Age/Sex: 53 / FADM Date: 08/20/24 Loc: HO.RESP Attending Dr: Thony Vergara MD Ordering Physician: Thony Vergara MD Date of Service: 08/20/24 Procedure(s): US pelvic and transvaginal Accession Number(s): [id number] cc: Liliana Ricks MD; Thony Vergara MD EXAMINATION: US PELVIS [...] 09/09/24 0924 DD/ 1052 TD/TT: 08/20/24 1110 Heel Seat Filler: [facility] External Provider IMG US PROCEDURES Edited Result - Final documented in this encounter Visit Diagnoses Not on filedocumented in this encounter Additional Health Concerns Assessment Noted Time PHQ-9 Depression Total Score: 0 02/01/20 24 10:58 AM EDT documented as of this encounter Care Teams Letterset Press Set Up Operator Relationship Specialty Start Date End Date Liliana Ricks MD [address] [place] [address] PCP - General Family Medicine 09/04/18 Ozzy Quevedo, MarinaD [address] [place] [address] Pharmacist Internal Medicine 06/14/23 documented as of this encounter
--- OUTSIDE RECORDS SUMMARY | 2024-10-08 11:04 | XMS_ITS | Encounter Summary ---
Author Organization [employer] Address [address] [place] [address] [address]t [place] [address] Care Team Providers Care Ice Cream Freezer Name Role Phone Liliana Ricks MD Primary Care Provider [phone] Ozzy Quevedo PharmD Unavailable [phone] Reason for Visit * Reason Onset Date Comments Nurse Triage 05/18/2023 Encounter Details Date Type Department Care Team (Late st Contact Info) Description 05/18/2023 Telephone [facility] [address] [place], [place] [phone] Liliana Ricks MD [address] [place], [place] [phone] Nurse Triage Social History Tobacco Use Types Packs/Day Years Used Date Smoking Tobacco: Former Cigarettes Q uit: 10/08/1997 Passive Smoke Exposure: Past Smokeless Tobacco: Never Alcohol Use Standard Drinks/Week Comments Defer 0 (1 standard drink = 0.6 oz pur e alcohol) Depression Answer Date Recorded Patient Health Questionnaire-9 Score 2 01/17/2023 Depression Answer Date Recorded Patient Health Questionnaire-2 Score 0 01/17/2023 Comments Unknown Sex and Gender Information Value Date Recorded Sex Assigned at Female 07/04/2022 10:19 AM EDT Legal Sex Female 10:19 AM EDT Gender Identity Female 07/04/2022 10:19 AM EDT Sexual Orientation Straight 07/04/2022 10 :19 AM EDT documented as of this encounter Miscellaneous Notes * Telephone Encounter - Fabi Connolly RN - 05/18/2023 1:46 PM EDT Triage call Pt reports vaginal bleeding which started 05/04/23 and continues. Pt is using 3-4 pads daily. Pt does have some cramping which comes and goes but, tylenol is effective for relief. Pt reports when turned 49 periods had stopped. Pt will go for a year without period then will get the periodfor a week but not this long. Pt reports no pap smear for last 5 years. Pt reports has not talked to PCP about this and is not using control. Insurance is verified as active prior to booking. Protocol Used: Vaginal Bleeding - Abnormal (Adult) Protocol-Based Disposition: See in Office or Video Visit within 2 Weeks Positive Triage Questions: * Periods last > 7 days * Age > 39 years with irregular or excessive bleeding * All higher-acuity triage questions were negative Care Advice Discussed: * Reasons To Call Back - Severe abdomen pain or lightheadedness occurs - test is positive - Bleeding worsens - Bleeding or spotting lasts over 7 days - You become worse * Telephone Encounter - Brandi Wilkes - 05/18/2023 10:52 AM EDT Symptom: Vaginal Bleeding - Not Outcome: Schedule an appointment to be seen within 24 hours Reason: Caller denied all higher acuity questions The caller accepted this outcome documented in this encounter Plan of Treatment Not on file documented as of this encounter Visit Diagnoses Not on filedocumented in this encounter Additional Health Concerns Assessment Noted Time PHQ-9 Depression Total Score: 2 01/18/20 23 9:56 AM EDT documented as of this encounter Care Teams Ice Cream Freezer Relationship Specialty Start Date End Date Liliana Ricks MD [address] [place] [address] PCP - General Family Medicine 09/04/18 Ozzy Quevedo, Josue [address] [place] [address] Pharmacist Internal Medicine 06/14/23 documented as of this encounter
--- OUTSIDE RECORDS SUMMARY | 2024-10-08 11:04 | XMS_ITS | Encounter Summary ---
Author Organization [employer] Address [address] [place] [address] Care Team Providers Care Insole Presser Name Role Phone Liliana Ricks MD Primary Care Provider [phone] Ozzy Quevedo PharmD Unavailable [phone] Reason for Visit * Reason Comments Sick Onsite Vomiting/diarrhea fr om Ozempic Encounter Details Date Type Department Care Team (Late st Contact Info) Description 10/08/2024 10:00 AM EST Office Visit [facility] [address] [place], [place] [phone] Magan Brown MD [address] [place], [place] [phone] Bilious vomiting with nausea (Primary Dx); Type 2 diabetes mellitus without complication, without long-term current use of insulin ([facility]) Social History Tobacco Use Types Packs/Day Years [...] the past 12 months, has t he [employer], gas, oil or water company threatened to [...] AM EDT documented as of this encounter Last Filed Vital Signs Vital Sign Reading [...] Mass Index 58.39 10/08/2024 9:42 AM EST documented in this encounter Progress Notes * Magan Rosen MD - 10/08/2024 10:00 AM EST SUBJECTIVE Janina Saldaña is a 54 y.o. female who presents for Sick Onsite (Vomiting/diarrhea from Ozempic ). Vomiting This is a recurrent problem. The current episode started more than 1 month ago. The problem has been resolved. There has been no fever. Pertinent negatives include no abdominal pain, chest pain, coughing, fever or headaches. Review of Systems Constitutional: Negative for fever. HENT: Negative for sore throat. Respiratory: Negative for cough and shortness of breath. Cardiovascular: Negative for chest pain. Gastrointestinal: Positive for vomiting. Negative for abdominal pain. Neurological: Negative for headaches. No Known Allergies OBJECTIVE Vitals: 10/08/24 0942 10/08/24 1006 BP: (!) 156/82 128/76 BP Location: Other (Comment) Patient Position: Sitting BP Cuff Size: Large adult Pulse: 95 Resp: 20 Temp: 95 ??F (35 ??C) TempSrc: Temporal SpO2: 96% Weight: 329 lb 9.6 oz (150 kg) Height: 5' 3 (1.6 m) Physical Exam Vitals reviewed. Constitutional: Appearance: Normal appearance. HENT: Head: Normocephalic and atraumatic. Right Ear: External ear normal. Left Ear: External ear normal. Nose: Nose normal. Mouth/Throat: Mouth: Mucous membranes are moist. Eyes: Conjunctiva/sclera: Conjunctivae normal. Cardiovascular: Rate and Rhythm: Normal rate and regular rhythm. Pulmonary: Effort: Pulmonary effort is normal. Breath sounds: Normal breath sounds. Skin: General: Skin is warm. Neurological: Mental Status: She is alert. Mental status is at baseline. Assessment/Plan Problem List Items Addressed This Visit Bilious vomiting with nausea - Primary Patient of Dr. Ricks here with c/o persistent Nausea, Vomiting and Diarrhea on lower dose of Ozempic. Pt has been on Ozempic for over 1 year but since July noted that every time she took it shefelt extremely nauseous, vomited and had diarrhea associated with it. She decided to stop it and symptoms since then have resolved. Exam today is unremarkable. It seems like she is clearly not tolerating even the lower dose Plan; Stop Ozempic, I instructed patient to increase Metformin to 2 tabs po daily IF FBS goes over 140 Follow up with PCP in 4 weeks Type 2 diabetes mellitus without complication ([facility]) Pt of Dr. Ricks Most recent A1C 5.7% on 08/07/24, 6.3% on 05/08/24 Current medications: metformin ER 500 mg daily; semaglutide 1.0 mg weekly, - treatment history: patient was unable to tolerate semaglutide 2 mg due to nausea and vomiting Patient of Dr. Ricks here with c/o persistent Nausea, Vomiting and Diarrhea on lower dose of Ozempic. Pt has been on Ozempic for over 1 year but since July noted that every time she took it shefelt extremely nauseous, vomited and had diarrhea associated with it. She decided to stop it and symptoms since then have resolved. Exam today is uremarkable. It seems like she is clearly not tolerating even the lower dose Plan; Stop Ozempic, I instructed patient to increase Metformin to 2 tabs po daily IF FBS goes over 140 Follow up with PCP in 4 weeks documented in this encounter Miscellaneous Notes * Assessment & Plan Note - Magan Rosen MD - 10/08/2024 9:54 AM EST Associated Problem(s): Type 2 diabetes mellitus without complication ([facility]) Pt of Dr. Ricks Most recent A1C 5.7% on 08/07/24, 6.3% on 05/08/24 Current medications: metformin ER 500 mg daily; semaglutide 1.0 mg weekly, - treatment history: patient was unable to tolerate semaglutide 2 mg due to nausea and vomiting Patient of Dr. Ricks here with c/o persistent Nausea, Vomiting and Diarrhea on lower dose of Ozempic. Pt has been on Ozempic for over 1 year but since July noted that every time she took it shefelt extremely nauseous, vomited and had diarrhea associated with it. She decided to stop it and symptoms since then have resolved. Exam today is uremarkable. It seems like she is clearly not tolerating even the lower dose Plan; Stop Ozempic, I instructed patient to increase Metformin to 2 tabs po daily IF FBS goes over 140 Follow up with PCP in 4 weeks * Assessment & Plan Note - Magan Rosen MD - 10/08/2024 9:52 AM EST Associated Problem(s): Bilious vomiting with nausea Patient of Dr. Ricks here with c/o persistent Nausea, Vomiting and Diarrhea on lower dose of Ozempic. Pt has been on Ozempic for over 1 year but since July noted that every time she took it shefelt extremely nauseous, vomited and had diarrhea associated with it. She decided to stop it and symptoms since then have resolved. Exam today is unremarkable. It seems like she is clearly not tolerating even the lower dose Plan; Stop Ozempic, I instructed patient to increase Metformin to 2 tabs po daily IF FBS goes over 140 Follow up with PCP in 4 weeks documented in this encounter Plan of Treatment Not on file documented as of this encounter Goals Goal Patient Goal Type Associated Problems Recent Progress Patient-Stated? Author Blood Pressure < 140/90 Blood Pressure 128/76(2024 10:06 AM EST) No Ozzy Queveod PharmD Hemoglobin A1c < 7 Result Component 5.7( 3:35 PM EST) No Ozzy Quevedo PharmD documented as of this encounter Visit Diagnoses Diagnosis Bilious vomiting with nausea- Primary Type 2 diabetes mellitus without complication, without long-term current use of insulin ([facility]) documented in this encounter Additional Health Concerns Assessment Noted Time PHQ-9 Depression Total Score: 0 02/01/20 24 10:58 AM EDT documented as of this encounter Care Teams Insole Presser Relationship Specialty Start Date End Date Liliana Ricks MD [address] [place] [address] PCP - General Family Medicine 09/04/18 Ozzy Quevedo PharmD [address] [place] [address] Pharmacist Internal Medicine 06/14/23 documented as of this encounter
--- OUTSIDE RECORDS SUMMARY | 2024-10-08 11:04 | XMS_ITS | Encounter Summary ---
Author Organization [employer] Address [address] [facility] 7t [place] [address] Care Team Providers Care Parking Lot Spotter Name Role Phone Liliana Ricks MD Primary Care Provider [phone] Ozzy Quevedo PharmD Unavailable [phone] Reason for Visit * Reason Comments Med Refill Encounter Details Date Type Department Care Team (Late st Contact Info) Description 09/16/2024 Refill [facility] [address] [place], [place] [phone] Liliana Ricks MD [address] [place], [place] [phone] Essential hypertension Social History Tobacco Use Types Packs/Day Years [...] 128/76(2024 10:06 AM EST) No Ozzy Quevedo, Josue Hemoglobin A1c < 7 Result Component 5.7( 3:35 PM EST) No Ozzy Quevedo PharmD documented as of this encounter Visit Diagnoses Diagnosis Essential hypertension Unspecified essential hypertension documented in this encounter Additional Health Concerns Assessment Noted Time PHQ-9 Depression Total Score: 0 02/01/20 24 10:58 AM EDT documented as of this encounter Care Teams Parking Lot Spotter Relationship Specialty Start Date End Date Liliana Ricks MD [address] [place] [address] PCP - General Family Medicine 09/04/18 Ozzy Quevedo PharmD [address] [place] [address] Pharmacist Internal Medicine 06/14/23 documented as of this encounter
--- OUTSIDE RECORDS SUMMARY | 2024-10-08 11:04 | XMS_ITS | Encounter Summary ---
Author Organization [employer] Address [address] [facility] [address]t [place] [address] Care Team Providers Care Hydrogen Power Plant Manager Name Role Phone Liliana Ricks MD Primary Care Provider [phone] Ozzy Quevedo PharmD Unavailable [phone] Reason for Visit * Reason Onset Date Comments Nurse Triage 10/03/2024 Encounter Details Date Type Department Care Team (Late st Contact Info) Description 10/03/2024 Telephone [facility] [address] [place], [place] [phone] Liliana Ricks MD [address] [place], [place] [phone] Nurse Triage Social History Tobacco Use Types [...] Telephone Encounter - Fabi Connolly RN - 10/07/2024 12:41 PM EST Triage call Pt was triaged 10/03/24 regarding side effect of diarrhea and vomiting when taking ozempic injection. Pt was advised to take injection that and Pt agreed and calls today with continued side effect of vomiting and diarrhea. Pt is due for next injection 10/09/24 and requests to see PCP before then. No available apts with PCP this week and ASK apt with Dr. Luna 10/08/24 @ 1000am given. Pt agrees with this disposition. Insurance is verified as active prior to booking. Protocol Used: Medication Question Call (Adult) Protocol-Based Disposition: Callback or Video Visit by PCP Today Override (Final) Disposition: See in Office or Video Visit Today or Tomorrow Override Reason: Other Video visit not offered Positive Triage Question: * Caller has NON-URGENT medicine question about med that PCP or specialist prescribed and triager unable to answer question * All higher-acuity triage questions were negative Care Advice Discussed: * Reasons To Call Back - You have any more questions - You become worse * Telephone Encounter - Raffi Campos - 10/07/2024 12:12 PM EST TC from pt requesting a call back regarding upset stomach after taking dose of ozempic . Pt reported injecting her self again and having same symptoms : vomiting and diarrhea. * Telephone Encounter - Anisa Luis RN - 10/03/2024 4:17 PM EST called pt to triage, spoke to pt. pt states is currently on Ozempic and having symptoms. pt states having intermittent nausea, vomiting, and loose diarrhea. pt denies recent dose increase, and has not taken her dose for this week that was due yesterday. pt denies severe symptoms or acute dehydration. advised home care: fluids, light feedings, and call back as needed. pt will get back on Ozempic dose and call back if worsening or other associated symptoms. insurance verified, Protocol Used: Diarrhea (Adult) Protocol-Based Disposition: Home Care Positive Triage Question: * Mild-Moderate diarrhea (e.g., 1-6 times / day more than normal) * All higher-acuity triage questions were negative Care Advice Discussed: * Reassurance and Education - Diarrhea * Wash Your Hands * Reasons To Call Back - Signs of dehydration occur (such as no urine over 12 hours, very dry mouth, lightheaded, etc.) - Severe diarrhea lasts more than a day - Diarrhea lasts over 7 days - You become worse * Telephone Encounter - Nicolasa Mcallister - 10/03/2024 3:14 PM EST Symptom: upset stomach Outcome: Schedule an appointment to be seen within 24 hours Reason: Caller denied all higher acuity questions The caller accepted this outcome. [phone] documented in this encounter Plan of Treatment Not on file documented as of this encounter Goals Goal Patient Goal Type Associated Problems Recent Progress Patient-Stated? Author Blood Pressure < 140/90 Blood Pressure 128/76(2024 10:06 AM EST) No Quevedo, Ozzy, PharmD Hemoglobin A1c < 7 Result Component 5.7( 4 3:35 PM EST) No Ozzy Quevedo PharmD documented as of this encounter Visit Diagnoses Not on filedocumented in this encounter Additional Health Concerns Assessment Noted Time PHQ-9 Depression Total Score: 0 02/01/20 24 10:58 AM EDT documented as of this encounter Care Teams Hydrogen Power Plant Manager Relationship Specialty Start Date End Date Liliana Ricks MD [address] [place] [address] PCP - General Family Medicine 09/04/18 Ozzy Quevedo PharmD [address] [place] [address] Pharmacist Internal Medicine 06/14/23 documented as of this encounter
--- OUTSIDE RECORDS SUMMARY | 2024-10-08 11:04 | XMS_ITS | Encounter Summary ---
Author Organization [employer] Address [address] [place] [address] [address] [place] [address] Care Team Providers Care Publicity Consultant Name Role Phone Liliana Ricks MD Primary Care Provider [phone] Ozzy Quevedo PharmD Unavailable [phone] Encounter Details Date Type Department Care Team (Latest Contact Info) Description 09/17/2024 11:15 AM EST Office Visit [facility] [address], [place] [phone] Liliana Ricks MD [address] [place], [place] [id number] Moderate persistent asthma without complication (Primary Dx); LESTER (obstructive sleep apnea); Abnormal uterine bleeding (AUB); Essential hypertension; Type 2 diabetes mellitus without complication, without long-term current use of insulin ([facility]); Chronic pain of right knee; Morbid obesity ([facility]); Gastroesophageal reflux disease, unspecified whether esophagitis present; Low back pain potentially associated with radiculopathy; Chronic low back pain, unspecified back pain laterality, unspecified whether sciatica present; Dyslipidemia; Epigastric pain; Fibromyalgia; Bilateral primary osteoarthritis of knee; Dietary counseling; Exercise counseling; Class 3 severe obesity due to excess calories with serious comorbidity and body mass index (BMI) of 50.0 to 59.9 in adult ([facility]) Social History Tobacco Use Types Packs/Day [...] Sign Reading Time Taken Comments Blood Pressure 110/70 09/17/2024 11:41 AM EST Pulse 80 09/17/2024 11:22 AM EST Temperature 36 ??C (96.8 ??F) 09/17/2024 11:22 AM EST Respiratory Rate 16 09/17/2024 11:22 AM EST Oxygen Saturation - - Inhaled Oxygen Concentration - - Weight 151 kg (332 lb) 09/17/2024 11:22 AM EST Height 159 cm (5' 2.6 ) 09/17/2024 11:22 AM EST Body Mass Index 59.57 09/17/2024 11:22 AM EST documented in this encounter Progress Notes * Liliana Ricks MD - 09/17/2024 11:15 AM EST Subjective Janina Saldaña is a 54 y.o. female who has diabetes mellitus type 2, hypertension, asthma, and fibromyalgia, and patient presents for follow up of chronic conditions. Background: Our last encounter was 05/08/2024. She stated Semaglutide had been helpful in terms of weight loss. Yet, she reported feeling dehydrated and dizzy. Wt 345 lb. Interval history: Seen by Dr. Cash, [facility] pulmonology, on 05/28/24. Following with Dr. Vergara, [facility], for AUB and increased endometrial thickness. Last seen on 09/11/24. Cotest negative in 2023. ECC negative in Seen in the walk-in clinic on 06/24/24 for right leg ecchymosis after a fall. Educated on natural course of traumatic ecchymosis. Given reassurance. Wt 340 lb. Seen in [facility] ED on 07/19/24 for nausea, vomiting, and diarrhea. Dx food poisoning / gastroenteritis.Rx ondansetron. Elevated BP. Normal lab. Seen in [facility] on 07/20/24 for hypotension. Dx KRYSTYNA. Tx 1L LR. Seen in the walk-in clinic on 07/23/24 for follow up of KRYSTYNA. Repeated lab. Wt 336 lb. Seen in the walk-in clinic on 08/07/24 for vomiting x 4 weeks. Dx Semaglutide side effect. Titrated down Semaglutide from 2 to 1 mg weekly. BP normal. Wt 333 lb. 08/20/24 Pelvic US for postmenopausal bleeding showed: 1. Endometrial thickness 6 mm, fibroid uterus. Following with Dr. Vergara, [facility] [facility], for postmenopausal bleeding and increased endometrial thickness.Cotest negative in 2023. Endometrial biopsy was benign in February 2024. Last seen on 09/11/24. Being scheduled for ECC. Today: Patient presents for follow up. Patient is currently on Ozempic for diabetes Type 2 and reports experiencing nausea and vomiting with fatigue, dehydration and hypotension along with diarrhea on the Ozempic 2 mg, but is currently tolerating the 1 mg dosage well without issues. Patient monitors her blood sugars and home and currently report them as under control. Patient reports a weight loss of 30 pounds with overall improvement. Patient does report continued significant acid reflux and states she has not tried any OTC reflux medications. Patient reports colonoscopy in 2022, but no endoscopy. Patient requests Meloxicam for back pain. Review of Systems Constitutional: Negative for activity change, appetite change and fever. Respiratory: Negative for shortness of breath. Cardiovascular: Negative for chest pain. Objective Vitals: 09/17/24 1122 09/17/24 1141 BP: 110/70 Pulse: 80 Resp: 16 Temp: 96.8 ??F (36 ??C) TempSrc: Temporal Weight: 332 lb (151 kg) Height: 5' 2.6 (1.59 m) Physical Exam Constitutional: General: She is not in acute distress. Appearance: Normal appearance. She is not ill-appearing. HENT: Head: Normocephalic and atraumatic. Mouth/Throat: Mouth: Mucous membranes are moist. Eyes: Extraocular Movements: Extraocular movements intact. Pupils: Pupils are equal, round, and reactive to light. Cardiovascular: Rate and Rhythm: Normal rate and regular rhythm. Heart sounds: No murmur heard. Pulmonary: Effort: Pulmonary effort is normal. No respiratory distress. Breath sounds: Normal breath sounds. No wheezing or rhonchi. Skin: General: Skin is warm. Neurological: Mental Status: She is alert. Mental status is at baseline. Psychiatric: Mood and Affect: Mood normal. Results: Lab Results Component Value Date NA 137 07/23/2024 K 3.9 07/23/2024 CL 103 07/23/2024 CO2 29 07/23/2024 BUN 12 07/23/2024 CREATININE 0.98 07/23/2024 CRCLCALCPH 68.5 02/12/2023 EGFR 59 07/23/2024 GLUCOSE 119 (H) 07/23/2024 TOTALBILIRUB 1.1 (H) 07/23/2024 AST 28 07/23/2024 ALT 30 07/23/2024 TOTPROTEIN 7.4 07/23/2024 ALB 3.9 07/23/2024 ALP 73 07/23/2024 Lab Results Component Value Date TRIG 136 01/26/2024 CHOL 161 01/26/2024 LDLCHOLCAL 82 01/26/2024 HDL 52 01/26/2024 Lab Results Component Value Date HGBA1C 5.7 08/07/2024 MICROALBUR 9.0 01/26/2024 CREATUR 279.10 01/26/2024 MICROALBCREU 3.2 01/26/2024 ALBCREATUR NOTE 01/16/2023 Lab Results Component Value Date WBC 9.5 07/19/2024 HGB 14.3 07/19/2024 HCT 42.6 07/19/2024 PLT 345 07/19/2024 MCV 91.0 07/19/2024 The 10-year ASCVD risk score (Anita HERNANDEZ, et al., 2019) is: 2.9% Values used to calculate the score: Age: 54 years Sex: Female Is Non- : No Diabetic: Yes Tobacco smoker: No Systolic Blood Pressure: 110 mmHg Is BP treated: Yes HDL Cholesterol: 52 mg/dL Total Cholesterol: 161 mg/dL Screening and Health Care Maintenance: PHQ-2/9 Score: Patient Health Questionnaire-9 Score: 0 (02/01/2024 10:58 AM) Patient Health Questionnaire-2 Score: 0 (02/01/2024 10:58 AM) Thoughts that you would be better off or hurting yourself in some way: Not at all (02/01/2024 10:58 AM) MODESTO-7 Score: No data recorded Health Maintenance Due Topic Date Due HIV Screening Never done Diabetes: Retinopathy Screening Never done Hepatitis C Screening Never done Zoster Vaccines (1 of 2) Never done COVID-19 Vaccine ( season) 2024 She declined her immunizations today Assessment/Plan 1. Moderate persistent asthma without complication (Primary) Assessment & Plan: - Followed by nurse infection control, [facility]. Last seen by Dr. Cash in May [...] HFA prn and neb prn as rescue. 2. LESTER (obstructive sleep apnea) 3. Abnormal uterine bleeding (AUB) Assessment & Plan: - Normal PAP and negative high risk HPV in Jun 2023 - most recent transvaginal US in Jun 2023 showed endometrial thickness, 9 mm - evaluated by well logger for postmenopausal bleeding and endometrial biopsy done on 02/19/24. Result was negative for atypia, hyperplasia, or malignancy. 4. Essential hypertension Assessment & Plan: -Goal BP <140/90 per JNC-8 and < 130/80 per ACC/AHA guideline - BP at goal today - Co-managed with our pharmacist CDTM - Continue HCTZ 12.5 mg daily - Continue lisinopril 10 mg daily - Continue working on lifestyle modifications -Follow-up in 3-4 mo or sooner if any problem arises Orders: - Albumin, Random Urine W/Creatinine; Future - Comprehensive Metabolic Panel; Future - Albumin, Random Urine W/Creatinine - Comprehensive Metabolic Panel 5. Type 2 diabetes mellitus without complication, without long-term current use of insulin ([facility]) Assessment & Plan: -A1C 5.7% on 08/07/24, 6.3% on 05/08/24 [...] Immunizations: Up to date, except COVID-19 booster Orders: - semaglutide (Ozempic) 2 MG/1.5ML solution pen-injector; Inject 1 mg under the skin 1 (one) time per week. - Vitamin B12 (Cobalamin) and Folate Panel, Serum; Future - Lipid Panel with Reflex to Direct LDL; Future - Albumin, Random Urine W/Creatinine; Future - Comprehensive Metabolic Panel; Future - Vitamin B12 (Cobalamin) and Folate Panel, Serum - Lipid Panel with Reflex to Direct LDL - Albumin, Random Urine W/Creatinine - Comprehensive Metabolic Panel 6. Chronic pain of right knee - meloxicam (Mobic) 15 MG tablet; TAKE 1 TABLET(15 MG) BY MOUTH EACH DAY NEEDED FOR MILD PAIN 7. Morbid obesity (CMS/HCC) Assessment & Plan: Pt was previously in [facility] W[facility]. Pt is hesitant to have surgical weight loss due to family members with severe complications. Continue semaglutide at 1 mg weekly. Patient developed adverse reaction to 2 mg. Orders: - semaglutide (Ozempic) 2 MG/1.5ML solution pen-injector; Inject 1 mg under the skin 1 (one) time per week. 8. Gastroesophageal reflux disease, unspecified whether esophagitis present - Helicobacter pylori Antigen, EIA, Stool; Future - Helicobacter pylori Antigen, EIA, Stool 9. Low back pain potentially associated with radiculopathy 10. Chronic low back pain, unspecified back pain laterality, unspecified whether sciatica present Assessment & Plan: -Followed by PSS provider, last seen in November 2020 -tried PT -tried different muscle relaxants: methocarbamol, cyclobenzaprine -tried gabapentin and pregabalin -received left L3-L4 transforaminal epidural steroid injection on 10/22/19 -restarted PT again at [facility], but stopped -recommended to restart Wt management clinic -continue cyclobenzaprine -continue judicious use of meloxicam and ibuprofen -Continue gabapentin -discussed about judicious use of muscle relaxant and pain medication -optimize Tx fibromyalgia -encouraged to try home exercise 11. Dyslipidemia Assessment & Plan: -Last lipid profile: 01/26/24 LDL 82 -Current medication: atorvastatin 10 mg qhs -Work on lifestyle modification. Orders: - Lipid Panel with Reflex to Direct LDL; Future - Albumin, Random Urine W/Creatinine; Future - Comprehensive Metabolic Panel; Future - Lipid Panel with Reflex to Direct LDL - Albumin, Random Urine W/Creatinine - Comprehensive Metabolic Panel 12. Epigastric pain Assessment & Plan: - frequent vomiting when she was taking higher dose of Semaglutide - possible irritation in her GE areas - start omeprazole - check H. Pylori - consider EGD referral. Her colonoscopy was done by Dr. Cote at [facility] in Apr 2022 13. Fibromyalgia Assessment & Plan: -Evaluated by Rheumatology, last seen on 11/2023, safely discharged -Inflammatory arthritis work-up suggests it is unlikely (Slightly elevated ESR and CRP, negative Lyme titers, negative ZAIDA / RF) -Continue Cyclobenzaprine 5 mg QHS -Continue Cymbalta 30 mg QHS -Continue Gabapentin 300mg QHS -Continue Ibuprofen 800mg prn -Encouraged to remain physically active, increase as tolerated -Encouraged to search peer support 14. Bilateral primary osteoarthritis of knee Assessment & Plan: Previously followed by [facility], seen 2020. -Received steroid injection. -Continue judicious use of meloxicam -Recommended to f/u. -Work on achieving healthier weight 15. Dietary counseling 16. Exercise counseling 17. Class 3 severe obesity due to excess calories with serious comorbidity and body mass index (BMI) of 50.0 to 59.9 in adult ([facility]) Other orders - omeprazole (PriLOSEC) [address] capsule; Take 1 capsule (20 mg) by mouth before breakfast. Do not crush or chew. No Known Allergies Current Outpatient Medications Medication Instructions Acetaminophen Extra Strength 500 MG tablet TAKE TWO TABLET BY MOUTH EVERY EIGHT HOURS NEEDED atorvastatin (LIPITOR) 10 mg, Oral, Nightly Bisacodyl EC 10 mg, Oral, Nightly Blood Glucose Monitoring Suppl (InMobiStyle Lite) device USE TO TEST BLOOD SUGAR TWICE DAILY Blood Pressure Monitor kit Use daily as directed budesonide-formoterol (Symbicort) 160-4.5 MCG/ACT inhaler 2 puffs, Inhalation, 2 times daily RT, Rinse mouth with water after use to reduce aftertaste and incidence of candidiasis. Do not swallow. Calcium Carb-Cholecalciferol 600-10 MG-MCG tablet 1 tablet, Oral, 2 times daily cholecalciferol (VITAMIN D-3) 25 mcg, Oral, Daily clonazePAM (KlonoPIN) 1 MG tablet TAKE 1/2 TO 1 TABLET BY MOUTH TWICE DAILY NEEDED FOR ANXIETY cyclobenzaprine (Flexeril) 5 MG tablet TAKE 1 TABLET BY MOUTH AT BEDTIME NEEDED FOR MUSCLE SPASM DULoxetine (CYMBALTA) 30 mg, Oral, 2 times daily fluticasone (Flonase) 50 MCG/ACT nasal spray 1-2 sprays, Each Nostril, Daily, Shake gently. Before first use, prime pump. After use, clean tip and replace cap. FREESTYLE LITE test strip Use to test blood sugar 2 times daily hydroCHLOROthiazide 12.5 MG tablet TAKE 1 TABLET(12.5 MG) BY MOUTH IN THE MORNING Lancets misc Use to test blood sugar 2 times daily lisinopril 10 MG tablet TAKE 1 TABLET BY MOUTH DAILY loratadine (CLARITIN) 10 mg, Oral, Daily meloxicam (Mobic) 15 MG tablet TAKE 1 TABLET(15 MG) BY MOUTH EACH DAY NEEDED FOR MILD PAIN metFORMIN XR (Glucophage-XR) 500 MG 24 hr tablet TAKE 1 TABLET(500 MG) BY MOUTH WITH THE EVENING MEAL. DO NOT CRUSH, CHEW, OR SPLIT montelukast (SINGULAIR) 10 mg, Oral, Every evening omeprazole (PRILOSEC) 20 mg, Oral, Daily before breakfast, Do not crush or chew. polyethylene glycol, PEG, 3350 (Miralax) 17 g packet MIX AND DRINK 17G BY MOUTH EVERY DAY DIRECTED semaglutide (OZEMPIC) 1 mg, Subcutaneous, Weekly Ventolin HFA 108 (90 Base) MCG/ACT inhaler INHALE 2 PUFFS BY MOUTH EVERY 4 HOURS NEEDED FOR WHEEZING OR SHORTNESS OF BREATH zolpidem (AMBIEN) 5 mg, Oral, Nightly PRN Follow-up: 3-4 months or sooner if any problem arises. Scribe attestation: Rosario Jiménez, am serving as a scribe to document services personally performed by Liliana Guevarasedennise on the patient's response to questions by provider and providers statements to me. Physicians Attestation: Liliana Jiménez, have reviewed the information by the scribe, Rosario [place], for accuracy and agree with its content. documented in this encounter Miscellaneous Notes * Assessment & Plan Note - Liliana Ricks MD - 09/23/2024 12:12 PM ESTAssociated Problem(s): Bilateral primary osteoarthritis of knee Previously followed by [facility], seen 2020. -Received steroid injection. -Continue judicious use of meloxicam -Recommended to f/u. -Work on achieving healthier weight * Assessment & Plan Note - Liliana Ricks MD - 09/23/2024 12:12 PM ESTAssociated Problem(s): Fibromyalgia -Evaluated by Rheumatology, last seen on 11/2023, safely discharged -Inflammatory arthritis work-up suggests it is unlikely (Slightly elevated ESR and CRP, negative Lyme titers, negative ZAIDA / RF) -Continue Cyclobenzaprine 5 mg QHS -Continue Cymbalta 30 mg QHS -Continue Gabapentin 300mg QHS -Continue Ibuprofen 800mg prn -Encouraged to remain physically active, increase as tolerated -Encouraged to search peer support * Assessment & Plan Note - Liliana Ricks MD - 09/23/2024 12:06 PM ESTAssociated Problem(s): Asthma - Followed by nurse infection control, [facility]. Last seen by Dr. Cash in May [...] HFA prn and neb prn as rescue. * Assessment & Plan Note - Liliana Ricks MD - 09/23/2024 11:56 AM ESTAssociated Problem(s): Epigastric pain - frequent vomiting when she was taking higher dose of Semaglutide - possible irritation in her GE areas - start omeprazole - check H. Pylori - consider EGD referral. Her colonoscopy was done by Dr. Cote at [facility] in Apr 2022 * Assessment & Plan Note - Liliana Ricks MD - 09/23/2024 11:52 AM ESTAssociated Problem(s): Dyslipidemia -Last lipid profile: 01/26/24 LDL 82 -Current medication: atorvastatin 10 mg qhs -Work on lifestyle modification. * Assessment & Plan Note - Liliana Ricks MD - 09/23/2024 11:51 AM ESTAssociated Problem(s): Chronic low back pain -Followed by PSS provider, last seen in November 2020 -tried PT -tried different muscle relaxants: methocarbamol, cyclobenzaprine -tried gabapentin and pregabalin -received left L3-L4 transforaminal epidural steroid injection on 10/22/19 -restarted PT again at [facility], but stopped -recommended to restart Wt management clinic -continue cyclobenzaprine -continue judicious use of meloxicam and ibuprofen -Continue gabapentin -discussed about judicious use of muscle relaxant and pain medication -optimize Tx fibromyalgia -encouraged to try home exercise * Assessment & Plan Note - Rosario [place] - 09/18/2024 1:10 PM ESTAssociated Problem(s): Morbid obesity (CMS/HCC) Pt was previously in [facility]. Pt is hesitant to have surgical weight loss due to family members with severe complications. Continue semaglutide at 1 mg weekly. Patient developed adverse reaction to 2 mg. * Assessment & Plan Note - Rosario [place] - 09/18/2024 1:10 PM ESTAssociated Problem(s): Type 2 diabetes mellitus without complication (CMS/HCC) -A1C 5.7% on 08/07/24, 6.3% on 05/08/24 [...] of lifestyle modifications. - Last dental exam: 4/13/22 - Immunizations: Up to date, except COVID-19 booster * Assessment & Plan Note - Rosario [place] - 09/18/2024 1:10 PM ESTAssociated Problem(s): Abnormal uterine bleeding (AUB) - Normal PAP and negative high risk HPV in Jun 2023 - most recent transvaginal US in Jun 2023 showed endometrial thickness, 9 mm - evaluated by well logger for postmenopausal bleeding and endometrial biopsy done on 02/19/24. Result was negative for atypia, hyperplasia, or malignancy. * Assessment & Plan Note - Rosario [place] - 09/18/2024 1:09 PM ESTAssociated Problem(s): Essential hypertension -Goal BP <140/90 per JNC-8 and < 130/80 per ACC/AHA guideline - BP at goal today - Co-managed with our pharmacist CDTM - Continue HCTZ 12.5 mg daily - Continue lisinopril 10 mg daily - Continue working on lifestyle modifications -Follow-up in 3-4 mo or sooner if any problem arises documented in this encounter Plan of Treatment Scheduled Orders Name Type Priority Associated Diagnoses Orde r Schedule Helicobacter pylori??Antigen, EIA, Stool Lab Routine Gastroesophageal reflux disease, unspecified whether esophagitis present Expected: 09/17/2024 (Approximate), Expires: 09/17/2025 Vitamin B12 (Cobalamin) and Folate Panel, Serum Lab Routine Type 2 diabetes mellitus without complication, without long-term current use of insulin (CMS/HCC) Expected: 09/23/2024 (Approximate), Expires: 09/23/2025 Lipid Panel with Reflex to Direct LDL Lab Routine Type 2 diabetes mellitus without complication, without long-term current use of insulin (CMS/HCC) Dyslipidemia Expected: 09/23/2024 (Approximate), Expires: 09/23/2025 Albumin, Random Urine W/Creatinine Lab Routine Essential hypertension Type 2 diabetes mellitus without complication, without long-term current use of insulin ([facility]) Dyslipidemia Expected: 09/23/2024 (Approximate), Expires: 09/23/2025 Comprehensive Metabolic Panel Lab Routine Essential hypertension Type 2 diabetes mellitus without complication, without long-term current use of insulin ([facility]) Dyslipidemia Expected: 09/23/2024 (Approximate), Expires: 09/23/2025 documented as of this encounter Goals Goal Patient Goal Type Associated Problems Recent Progress Patient-Stated? Author Blood Pressure < 140/90 Blood Pressure 128/76(2024 10:06 AM EST) No Ozzy Quevedo PharmD Hemoglobin A1c < 7 Result Component 5.7( 3:35 PM EST) No Ozzy Quevedo PharmD documented as of this encounter Visit Diagnoses Diagnosis Moderate persistent asthma without complication- Primary LESTER (obstructive sleep apnea) Obstructive sleep apnea (adult) (pediatric) Abnormal uterine bleeding (AUB) Essential hypertension Unspecified essential hypertension Type 2 diabetes mellitus without complication, without long-term current use of insulin ([facility]) Chronic pain of right knee Morbid obesity ([facility]) Morbid obesity Gastroesophageal reflux disease, unspecified whether esophagitis present Low back pain potentially associated with radiculopathy Chronic low back pain, unspecified back pain laterality, unspecified whether sciatica present Dyslipidemia Other and unspecified hyperlipidemia Epigastric pain Abdominal pain, epigastric Fibromyalgia Unspecified myalgia and myositis Bilateral primary osteoarthritis of knee Dietary counseling Dietary surveillance and counseling Exercise counseling Class 3 severe obesity due to excess calories with serious comorbidity and body mass index (BMI) of 50.0 to 59.9 in adult ([facility]) documented in this encounter Additional Health Concerns Assessment Noted Time PHQ-9 Depression Total Score: 0 02/01/20 24 10:58 AM EDT documented as of this encounter Care Teams Publicity Consultant Relationship Specialty Start Date End Date Liliana Ricks MD [address] [place] [address] PCP - General Family Medicine 09/04/18 Ozzy Quevedo, MarinaD [address] [place] [id number] Pharmacist Internal Medicine 06/14/23 documented as of this encounter
--- OUTSIDE RECORDS SUMMARY | 2024-10-08 11:04 | XMS_ITS | Encounter Summary ---
Author Organization [employer] Address [address] [facility] [address] [place] [address] Care Team Providers Care Tractor Mechanic Name Role Phone Liliana Ricks MD Primary Care Provider [phone] Ozzy Quevedo PharmD Unavailable [phone] Reason for Visit * Reason Comments Med Refill Encounter Details Date Type Department Care Team (Late st Contact Info) Description 11/01/2022 Refill [facility] [address] [place] [address] Liliana Ricks MD [address] [place] [address] Chronic pain of right knee Social History Tobacco Use Types Packs/Day Years Used Date Smoking Tobacco: Former Cigarettes Q uit: 10/08/1997 Passive Smoke Exposure: Past Smokeless Tobacco: Never Comments Unknown Sex and Gender Information Value Date Recorded Sex Assigned at Female 07/04/2022 10:19 AM EDT Legal Sex Female 10:19 AM EDT Gender Identity Female 07/04/2022 10:19 AM EDT Sexual Orientation Straight 07/04/2022 10 :19 AM EDT COVID-19 Exposure Response Date Recorded In the last 10 days, have yo u been in contact with someone who was confirmed or suspected to have Coronavirus/COVID-19? No / Unsure 10/11/2022 10:07 AM EST documented as of this encounter Plan of Treatment Not on file documented as of this encounter Visit Diagnoses Diagnosis Chronic pain of right knee documented in this encounter Care Teams Tractor Mechanic Relationship Specialty Start Date End Date Liliana Ricks MD [address] [place] [address] PCP - General Family Medicine 09/04/18 Ozzy Quevedo, MarinaD [address] [place] [address] Pharmacist Internal Medicine 06/14/23 documented as of this encounter
--- OUTSIDE RECORDS SUMMARY | 2024-10-08 11:04 | XMS_ITS | Encounter Summary ---
Author Organization [employer] Address [address] [place] [address] Care Team Providers Care Commercial Energy Rater Name Role Phone Liliana Ricks MD Primary Care Provider [phone] Ozzy Quevedo PharmD Unavailable [phone] Encounter Details Date Type Department Care Team (Latest Contact Info) Description 09/17/2024 Travel Social History Tobacco Use Types Packs/Day Years [...] documented as of this encounter Care Teams Commercial Energy Rater Relationship Specialty Start Date End Date Liliana Ricks MD [address] [place] [address] PCP - General Family Medicine 09/04/18 Ozzy Quevedo PharmD [address] [place] [address] Pharmacist Internal Medicine 06/14/23 documented as of this encounter
--- OUTSIDE RECORDS SUMMARY | 2024-10-08 11:04 | XMS_ITS | Encounter Summary ---
Author Organization [employer] Address [address] [place] [address] Care Team Providers Care Solar Field Installation Crew Member Name Role Phone Liliana Ricks MD Primary Care Provider [phone] Ozzy Quevedo PharmD Unavailable [phone] Encounter Details Date Type Department Care Team (Latest Contact Info) Description 10/08/2024 Travel Social History Tobacco Use Types Packs/Day [...] documented as of this encounter Care Teams Solar [employer] Installation Crew Member Relationship Specialty Start Date End Date Liliana Ricks MD [address] [place] [address] PCP - General Family Medicine 09/04/18 Ozzy Quevedo PharmD [address] [place] [address] Pharmacist Internal Medicine 06/14/23 documented as of this encounter
[2024-10-08 12:08] LABS: Alanine Aminotransferase 18 U/L (0-31); Albumin Level 3.8 g/dL (3.5-5.0); Alkaline Phosphatase 77 U/L (39-117); Anion Gap 15 (12-20); Aspartate Amino Transferase 25 U/L (5-31); Bilirubin Total 0.9 mg/dL (0.0-1.0); Blood Urea Nitrogen 10 mg/dL (9-16); Carbon Dioxide 24 mmol/L (22-29); Chloride 103 mmol/L (96-108); Cholesterol 141 mg/dL (<200); Estimated Glomerular Filt Rate > 60; Glucose Random 128 mg/dL (60-115); HDL Cholesterol 45 mg/dL (>40); LDL Cholesterol Calculated 81 mg/dL (<100); Potassium 3.4 mmol/L (3.3-5.1); Sodium 139 mmol/L (135-145); Total Protein 7.6 g/dL (6.5-8.0); Triglycerides 78 mg/dL (<150)
[2024-10-08 12:25] LABS: Folate 14.9 ng/mL (> or = 4.0); Vitamin B12 459 pg/mL (200-900)
[2024-10-08 12:29] LABS: Creatinine Urine 420.86 mg/dL; Microalbum/Creatinine Ratio Ur 5.2 ug/mg cr (<30)
[2024-10-08 13:24] LABS: Reflex LDLD? No
== END 2024-10-08 10:20 | disposition home or self-care (01) ==
LOC: HO.HHCL 10:19
PROVIDERS: Visit Provider Family Medicine
DX: I10 Essential (primary) hypertension (principal); E11.9 Type 2 diabetes mellitus without complications; E78.5 Hyperlipidemia, unspecified
CPT/HCPCS: 36415; 80053; 80061; 82043; 82570; 82607; 82746

== ENCOUNTER 2024-10-15 | Outpatient (REF) | payer OTHER, SELFPAY ==
--- OUTSIDE RECORDS SUMMARY | 2024-10-16 16:39 | XMS_ITS | Clinical Summary ---
Author Organization [employer] Address [address] [facility] [address] [place] [address] Care Team Providers Care Youth Officer Name Role Phone Liliana Hamilton MD Primary Care Provider [phone] Ozzy Quevedo PharmD Unavailable Allergies No known active allergies Medications Bisacodyl [...] complication, without long-term current use of insulin (CMS/[facility]),Morbi d obesity (CMS/HCC) Inject 1 mg under [...] cleanup (will not trigger notification to Pharmacy)) semaglutide (Ozempic) 2 MG/1.5ML solution pen-injectorInd ications:Type 2 diabetes mellitus without complication, without long-term current use of insulin (CMS/[facility]),Morbi d obesity (CMS/HCC) Inject 1 mg under the skin 1 (one) time per week. 2 each 12 08/07/20 24 025 Discontinued(R eorder (will not trigger notification [...] was done [place]. Cote [place] [facility] [place] Assessment & Plan (08/07/2024 [...] endometrial thickness, 9 mm - evaluated by medical office worker for postmenopausal bleeding and endometrial biopsy done on 02/19/24. Result was negative for atypia, hyperplasia, or malignancy. Assessment & Plan (05/10/2024 2:48 PM EDT): - Normal PAP and negative high risk HPV in Jun 2023 - most recent transvaginal US in Jun 2023 showed endometrial thickness, 9 mm - evaluated by medical office worker for postmenopausal bleeding and endometrial biopsy done on 02/19/24. Result was negative for atypia, hyperplasia, or malignancy. Assessment & Plan (02/01/2024 11:24 AM EDT): - Normal PAP and negative high risk HPV in Jun 2023 - most recent transvaginal US in Jun 2023 showed endometrial thickness, 9 mm - seen by [facility] in Aug 2023, scheduling for endometrial biopsy Assessment & Plan (10/30/2023 5:30 AM EST): - Normal PAP and negative high risk HPV in Jun 2023 - most recent transvaginal US in Jun 2023 showed endometrial thickness, 9 mm - seen by [facility] in Aug 2023, scheduling for endometrial biopsy [...] APAP, prn -Cont following with Orthopedist at [facility] Chronic pain of right knee 10/11/2022 LESTER (obstructive sleep apnea) 10/11/2022 Assessment & Plan (05/08/2024 11:32 AM EDT): -Sleep Study in February 2019, recommended Position Therapy, avoid sleeping in spine position; If she is symptomatic still then recommended CPAP Therapy. -Home sleep study and titration study in Apr 2022 showed moderate LESTER -Following with [facility] on 09/16/22 -Continue auto PAP 5-20. Assessment & Plan (11/13/2023 8:46 AM EDT): -Sleep Study in February 2019, recommended Position Therapy, avoid sleeping in spine position; If she is symptomatic still then recommended CPAP Therapy. -Home sleep study and titration study in Apr 2022 showed moderate LESTER -Following with [facility] on 09/16/22 -Continue auto PAP 5-20. Assessment & Plan (07/28/2023 6:56 AM EST): -Sleep Study in February 2019, recommended Position Therapy, avoid sleeping in spine position; If she is symptomatic still then recommended CPAP Therapy. -Home sleep study and titration study in Apr 2022 showed moderate LESTER -Following with [facility] [place] [facility] on 09/16/22 -Continue auto PAP 5-20. Assessment & Plan (04/27/2023 5:46 AM EDT): -Sleep Study in February 2019, recommended Position Therapy, avoid sleeping in spine position; If she is symptomatic still then recommended CPAP Therapy. -Home sleep study and titration study in Apr 2022 showed moderate LESTER -Following with [facility] [place] [facility] [place] on 09/16/22 -Continue auto PAP 5-20. Assessment & Plan (10/21/2022 7:13 PM EST): -Sleep Study in February 2019, recommended Position Therapy, avoid sleeping in spine position; If she is symptomatic still then recommended CPAP Therapy. -Home sleep study and titration study in Apr 2022 showed moderate LESTER -Following with [facility] [place] [facility] on 09/16/22 -Continue auto [...] / RF) -Continue Cyclobenzaprine as prescribed by radioactive waste disposal dispatcher -Continue Cymbalta 30 mg QHS -Continue Gabapentin [...] / RF) -Continue Cyclobenzaprine as prescribed by radioactive waste disposal dispatcher -Continue Cymbalta 30 mg QHS -Continue Gabapentin [...] / RF) -Continue Cyclobenzaprine as prescribed by radioactive waste disposal dispatcher -Continue Cymbalta 30 mg QHS -Continue Gabapentin 300mg QHS -Continue Ibuprofen 800mg prn -Encouraged to remain physically active, increase as tolerated -Encouraged to search peer support Depression with anxiety 10/11/2022 Assessment & Plan (04/27/2023 5:52 AM EDT): -Followed by [facility]. -Continue current medications as prescribed: Cymbalta, Clonazepam and Ambien. -Previously on escitalopram Assessment & Plan (01/20/2023 12:21 PM EDT): Followed by [facility]. -Continue current medications as prescribed: Cymbalta, Clonazepam and Ambien. -Previously on Lexapro. Assessment & Plan (10/11/2022 10:58 AM EST): Followed by [facility]. -Continue current medications as prescribed: Cymbalta, Clonazepam and Ambien. -Previously on Lexapro. Bilateral primary osteoarthritis of knee 023 Assessment & Plan (09/23/2024 12:13 PM EST): Previously followed by [facility], seen 2020. -Received steroid injection. -Continue judicious use of meloxicam -Recommended to f/u. -Work on achieving healthier weight Assessment & Plan (07/28/2023 7:02 AM EST): Previously followed by [facility], seen 2020. -Received steroid injection. -Recommended to f/u. -Work on achieving healthier weight Assessment & Plan (01/20/2023 12:16 PM EDT): Previously followed by [facility], seen 2020. -Received steroid injection. -Recommended to f/u. Assessment & Plan (10/11/2022 10:59 AM EST): Previously followed by [facility], seen 2020. -Received steroid injection. -Recommended [...] (09/23/2024 12:06 PM EST): - Followed by machine deicer element winder, [facility]. Last seen by Dr. Cash in [...] remedies - continue Allergy medications - increase MARIANELA frequency to every 4-6 hours with 4-6 [...] 11:49 AM EST): Pt was previously in [facility]. Pt is hesitant to have surgical weight loss due to family members with severe complications. Continue semaglutide at 1 mg weekly. Patient developed adverse reaction to 2 mg. Assessment & Plan (05/08/2024 12:50 PM EDT): Pt was previously in [facility]. Pt is hesitant to have surgical weight loss due to family members with severe complications. Continue semaglutide, increased dose Assessment & Plan (07/28/2023 6:59 AM EST): Pt was previously in [facility]. Pt is hesitant to have surgical weight loss due to family members with severe complications. Continue semaglutide, increased dose Assessment & Plan (04/27/2023 5:52 AM EDT): Pt was previously in [facility]. Pt is hesitant to have surgical weight loss due to family members with severe complications. Pt is interested in GLP-1 agonist; we have discussed about difficulty getting insurance coverage and its shortage at this time, but will try as she has obesity class 3 with multiple complications Assessment & Plan (01/20/2023 12:20 PM EDT): Pt was previously in [facility]. Pt is recommended to resume [facility]. Assessment & Plan (10/11/2022 10:58 AM EST): Pt was previously in [facility]. Pt advised to resume [facility]. Chronic low back pain 05/04/2012 Assessment [...] on 10/22/19 -restarted PT again at [facility], but stopped -recommended to restart Wt [...] on 10/22/19 -restarted PT again at [facility], but stopped -recommended to restart Wt [...] on 10/22/19 -restarted PT again at [facility], but stopped -recommended to restart Wt [...] 10/08/2024 10:00 AM EST Office Visit [facility] [address] [place] [phone] Mariia Brown MD Bilious vomiting with nausea (Primary Dx); Type 2 diabetes mellitus without complication, without long-term current use of insulin ([facility]) 10/08/2024 Travel 10/03/2024 Telephone [facility] [address] [place] [address] Liliana Hamilton MD Nurse Triage 09/17/2024 11:15 AM EST Office Visit [facility] [address] [place] [address] Liliana Hamilton MD Moderate persistent asthma without complication (Primary Dx); LESTER (obstructive sleep apnea); Abnormal uterine bleeding (AUB); Essential hypertension; Type 2 diabetes mellitus without complication, without long-term current use of insulin ([facility]); Chronic pain of right knee; Morbid obesity ([facility]); Gastroesophageal reflux disease, unspecified whether esophagitis present; Low back pain potentially associated with radiculopathy; Chronic low back pain, unspecified back pain laterality, unspecified whether sciatica present; Dyslipidemia; Epigastric pain; Fibromyalgia; Bilateral primary osteoarthritis of knee; Dietary counseling; Exercise counseling; Class 3 severe obesity due to excess calories with serious comorbidity and body mass index (BMI) of 50.0 to 59.9 in adult ([facility]) 09/17/2024 Travel 09/16/[address] [address] Liliana Hamilton MD Essential hypertension 08/20/2024 Orders Only [facility] External Provider, [facility] 08/08/[address] [address] Liliana Hamilton MD Medication Question 08/07/2024 3:30 PM EST Office Visit [address] [address] Irena Alfred MD Type 2 diabetes mellitus without complication, without long-term current use of insulin ([facility]) (Primary Dx); Morbid obesity ([facility]); Increased urinary frequency; Epigastric pain 08/06/2024 Travel 08/06/[address] [address] To Moore [place] chart prep 08/05/[address] [address] Liliana Hamilton MD Nurse Triage 07/23/2024 9:15 AM EST Office Visit [address] [address] Amaya Lombardo ANP KRYSTYNA (acute kidney injury) ([facility]) (Primary Dx); Epigastric pain 07/23/2024 Telephone [facility] [address] [place] [address] Liliana Hamilton MD Results 07/23/2024 Travel 07/22/2024 Telephone [facility] [address] [place] [address] Liliana Hamilton MD ER Follow-up from Last [...] the past 12 months, has t he [employer], gas, oil or water company threatened to [...] 10/08/2024 9:42 AM EST Plan of Treatment Upcoming Encounters Date Type Department Care Team (Late st Contact Info) Description 11/06/2024 11:15 AM EST Office Visit [facility] [address] [place] [address] Liliana Hamilton MD [address] [place] [address] Health Maintenance Due Date Last Done Comments CT Colonography 1970 Dental Oral Exam 1970 Dental Prophylaxis 1970 Dental X-Ray: Bitewings 1970 FIT DNA/Cologuard 1970 FIT 1970 FOBT 1970 HIV Screening 1970 Sigmoidoscopy 1970 Eye Exam 1980 Hepatitis C Screening 1988 Zoster Vaccines (1 of 2) 2020 COVID-19 Vaccine ( season) 2024 12/18/2020, 11/20/2020 Depression Screening 01/31/2025 02/01/2024, 02/01/20 24 SDOH Screening 01/31/2025 02/01/2024 Diabetes: Hemoglobin A1C 02/05/2025 024, 02/01/2024, 01/26/2024, Additional history exists Diabetes: Foot Exam 05/08/2025 05/08/2024, 05/08/2024, 05/08/2024, Additional history exists Alcohol/Substance Use Screening 08/07/2025 08/07/2024 Diabetes: Urine Protein Screening 10/08/2025 10/08/2024, 01/26/2024, 01/16/2023, Additional history exists Lipid Panel 10/08/2025 10/08/2024, 01/03, 01/16/2023, Additional history exists Tobacco Screening 10/08/2025 10/08/2024 Mammogram 12/07/2025 12/08/2023, [...] Procedure Name Priority Date/Time Associated Diagnosis Comments COMPREHENSIVE METABOLIC PANEL Routine 10/08/2024 10:21 AM EST Essential hypertension Type 2 diabetes mellitus without complication, without long-term current use of insulin ([facility]) Dyslipidemia ALBUMIN, RANDOM URINE W/CREATININE Routine 10/08/2024 10:21 AM EST Essential hypertension Type 2 diabetes mellitus without complication, without long-term current use of insulin ([facility]) Dyslipidemia LIPID PANEL WITH REFLEX TO DIRECT LDL Routine 10/08/2024 10:21 AM EST Type 2 diabetes mellitus without complication, without long-term current use of insulin ([facility]) Dyslipidemia VITAMIN B12/FOLATE, SERUM PANEL Routine 10/08/2024 10:21 AM EST Type 2 diabetes mellitus without complication, without long-term current use of insulin ([facility]) US PELVIS TRANSVAGINAL Routine 10:52 AM EST POCT GLYCATED HEMOGLOBIN, TOTAL Routine 08/07/2024 3:35 PM EST Type 2 diabetes mellitus without complication, without long-term current use of insulin (CMS/HCC) POCT GLUCOSE Routine 08/07/2024 3:30 PM EST Type 2 diabetes mellitus without complication, without long-term current use of insulin (CMS/HCC) HEPATIC FUNCTION PANEL Routine 9:51 AM EST KRYSTYNA (acute kidney injury) [...] URINE, ROUTINE Routine 07/19/2024 12:00 AM EST BI MAMMOGRAM SCREENING TOMOSYNTHESIS BILATERAL Routine 12/08/2023 [...] Recently Relevant to Health Maintenance Results * Vitamin B12 (Cobalamin) and Folate Panel, Serum (10/08/2024 10:21 AM EST) Vitamin B12 459 200 - 900 pg/mL [facility] Comment:NORMAL 200-900 PG/ML INDETERMINATE 160-199 PG/ML DEFICIENT < 160 PG/ML Folate 14.9 > or = 4.0 ng/mL [facility] Comment:Reference Values:> o r = 4.0 ng/mL< 4.0 ng/mL suggests folate deficiency Methotrexate, aminopterin and folinic acid(leucovorin) are chemotherapeutic agents whose molecularstructures are similar to folate; therefore, the Architectfolate assay cannot be used for patients using these drugs. Blood 10/08/2024 10:2 1 AM EST 10/08/2024 11:27 AM EST us Liliana Hamilton MD LAB BLOOD ORDERABLES Final Resul t [facility] [address] [place] [phone] * Lipid Panel with Reflex to Direct LDL (10/08/2024 10:21 AM EST) Triglycerides 78 <150 mg/dL [facility] Comment:Desirable Triglyceri de: less than 150 mg/dLBorderline High Triglyceride 150-199 mg/dLHigh Triglyceride: 200-499 mg/dLVery High Triglyceride: greater than or equal to 5OO mg/dL Cholesterol 141 <200 mg/dL [facility] Comment:Desirable Cholestero l: less than 200 mg/dLBorderline High Cholesterol: 200-239 mg/dLHigh Cholesterol: greater than 239 mg/dL LDL Cholesterol Calculated 81 <100 mg/dL [facility] Comment:Desirable LDL: less than 100 mg/dLNear Optimal/Above Optimal LDL: 110- 129 mg/dLBorderline High LDL: 130-159 mg/dLHigh LDL: 160-189 mg/dLVery High LDL: greater than or equal to 190 mg/dL HDL Cholesterol 45 >40 mg/dL [facility] Comment:Desirable HDL: great er than 40 mg/dL Note: This HDL assay may give artificially low results in patients with liver disease. Blood 10/08/2024 10:2 1 AM EST 10/08/2024 11:27 AM EST us Liliana Hamilton MD LAB BLOOD ORDERABLES Final Resul t Performing Organization Address [facility] de Phone Number [facility] [address] [place] [address] [phone] * Albumin, Random Urine W/Creatinine (10/08/2024 10:21 AM EST) Creatinine, Urine 420.86 mg/dL [facility] Microalbumin Urine 22.0 mg/L [facility] Microalbum Creatinine Ratio Ur 5.2 <30 ug/mg cr [facility] Comment:Albumin/Creatinine R atio Reference Ranges: Normal: < 30 ug/mg creatinine Microalbuminuria: 30 - 300 ug/mg creatinineClinical Albuminuria: > 300 ug/mg creatinine Urine 10/08/2024 10:2 1 AM EST 10/08/2024 11:18 AM EST us Liliana Hamilton MD LAB URINE ORDERABLES Final Resul t Performing Organization Address [facility] de Phone Number [facility] [address] [place] [phone] * (ABNORMAL) Comprehensive Metabolic Panel (10/08/2024 10:21 AM EST) Sodium 139 135 - 145 mmol/L [facility] Potassium 3.4 3.3 - 5.1 mmol/L [facility] Chloride 103 96 - 108 mmol/L [facility] Carbon Dioxide 24 22 - 29 mmol/L [facility] Anion Gap 15 12 - 20 [facility] Urea Nitrogen (BUN) 10 9 - 16 mg/dL [facility] Creatinine, Serum 0.89 0.5 - 1.4 mg/dL [facility] Estimated Glomerular Filt Rate >60 [facility] Comment:Chronic Kidney Disea se: Estimated GFR < 60 mL/min/1.72t9Ucftmc Kidney Disease: Estimated GFR < 15 mL/min/1.73m2 Glucose 128(H) 60 - 115 mg/dL [facility] Calcium 9.0 8.4 - 10.2 mg/dL [facility] Bilirubin, Total 0.9 0.0 - 1.0 mg/dL [facility] Aspartate Amino Transferase 25 5 - 31 U/L [facility] Alanine Aminotransferase 18 0 - 31 U/L [facility] Total Protein 7.6 6.5 - 8.0 g/dL [facility] Albumin Level 3.8 3.5 - 5.0 g/dL [facility] Alkaline Phosphatase 77 39 - 117 U/L [facility] Blood Venous blood specimen / Unknown 10/08/2024 10:21 AM EST 10/08/2024 11:27 AM EST us Liliana Hamilton MD LAB BLOOD ORDERABLES Final Resul t Performing Organization Address City/State/[facility] Co de Phone Number [facility] [address] [place] [address] [phone] * US Pelvis Transvaginal (08/20/2024 10:52 AM EST) Anatomical Region Laterality Modality Pelvis Ultrasound 08/20/2024 10:5 2 AM EST Narrative 09/09/2024 9:27 AM EST ? [facility] ?[address] ?[place] [address] ? Ultrasound Report ? Signed ? Patient: Saldaña,Janina ?MR#: [id number] ?? [id number] ? : 1970 ?Acct:[id number] ? Age/Sex: 53 / F ?ADM Date: 12/17/24 ? Loc: HO.RESP ? Attending Dr: Thony Vergara MD ? Ordering Physician: Thony Vergara MD ?? Date of Service: 08/20/24 ?? Procedure(s): US pelvic and transvaginal ?? Accession Number(s): [id number] ? cc: Liliana Hamilton MD; Thony Vergara MD ? EXAMINATION: [...] MD in OV> ? 09/09/24923 ? DD/ ? TD/TT: 08/20/24 1110 ? Electronics Installer: ? Procedure Note Donotlonginterpreter, Image - 09/09/[address] [address] Ultrasound Report Signed Patient: Catherine Saldaña#: [id number] : 1970Acct:[id number] Age/Sex: 53 / FADM Date: 08/20/24 Loc: HO.RESP Attending Dr: Thony Vergara MD Ordering Physician: Thony Vergara MD Date of Service: 08/20/24 Procedure(s): US pelvic and transvaginal Accession Number(s): [id number] cc: Liliana Hamilton MD; Thony Vergara MD [...] 09/09/24 0924 DD/ 1052 TD/TT: 08/20/24 1110 Electronics Installer: [facility] External Provider IMG US PROCEDURES Edited Result - Final * POCT HGB A1C (08/07/2024 3:35 PM EST) Hemoglobin A1C 5.7 4.0 - 6.0 % QC Media Lot # [id number] Lot# Expiration Date Blood 08/07/2024 3:35 PM EST Result [facility] Liliana Hamilton MD POINT OF CARE TEST ENTER/EDIT OR DERABLES Final Result * POCT Glucose (08/07/2024 3:30 PM EST) Pathologist [facility] Glucose Blood, POC 127 60 - 200 mg/dL QC Media Lot # [id number] Lot# Expiration Date Blood Capillary blood specimen / Unknown 08/07/2024 3:30 PM EST Result [facility] Liliana Hamilton MD POINT OF CARE TEST ENTER/EDIT OR DERABLES Final Result * Lipase (07/23/2024 9:51 AM EST) Lipase 17 8 - 78 U/L [facility] Blood Venous blood specimen / Unknown 07/23/2024 9:51 AM EST 07/23/2024 10:54 AM EST us Amaya Lombardo ANP LAB BLOOD ORDERABLES Final Resul t Performing Organization Address [facility] Phone Number [facility] [address] [place] [phone] * Amylase (07/23/2024 9:51 AM EST) Amylase 34 28 - 100 U/L [facility] Blood Venous blood specimen / Unknown 07/23/2024 9:51 AM EST 07/23/2024 10:54 AM EST us Amaya Lombardo [facility] LAB BLOOD ORDERABLES Final Resul t Performing Organization Address [facility] Phone Number [facility] [address] [place] [phone] * (ABNORMAL) Hepatic Function Panel (07/23/2024 9:51 AM EST) Bilirubin, Total 1.1(H) 0.0 - 1.0 mg/dL [facility] Bilirubin, Direct 0.3 0.0 - 0.5 mg/dL [facility] Aspartate Amino Transferase 28 5 - 31 U/L [facility] Alanine Aminotransferase 30 0 - 31 U/L [facility] Total Protein 7.4 6.5 - 8.0 g/dL [facility] Albumin Level 3.9 3.5 - 5.0 g/dL [facility] Alkaline Phosphatase 73 39 - 117 U/L [facility] Blood Venous blood specimen / Unknown 07/23/2024 9:51 AM EST 07/23/2024 10:54 AM EST Amaya Lombardo ANP LAB BLOOD ORDERABLES Final Resul t Performing Organization Address [facility] Phone Number [facility] [address] [place] [address] [phone] * (ABNORMAL) Basic Metabolic Panel (07/23/2024 9:51 AM EST) Sodium 137 135 - 145 mmol/L [facility] Potassium 3.9 3.3 - 5.1 mmol/L [facility] Chloride 103 96 - 108 mmol/L [facility] Carbon Dioxide 29 22 - 29 mmol/L [facility] Anion Gap 9(L) 12 - 20 [facility] Urea Nitrogen (BUN) 12 9 - 16 mg/dL [facility] Creatinine, Serum 0.98 0.5 - 1.4 mg/dL [facility] Estimated Glomerular Filt Rate 59 [facility] Comment:Chronic Kidney Disea se: Estimated GFR < 60 mL/min/1.45w7Pfmlug Kidney Disease: Estimated GFR < 15 mL/min/1.73m2 Glucose 119(H) 60 - 115 mg/dL [facility] Calcium 9.1 8.4 - 10.2 mg/dL [facility] Blood Venous blood specimen / Unknown 07/23/2024 9:51 AM EST 07/23/2024 10:54 AM EST Amaya Lombardo [facility] LAB BLOOD ORDERABLES Final Resul t [facility] [address] [place] [phone] * (ABNORMAL) Urinalysis, Complete, with Reflex to Culture (07/19/2024 7:40 AM EST) Color Urine Dark Yellow [facility] Appearance Urine Cloudy [facility] PH 5.5 5.0 - 9.0 [facility] Glucose Urine UA Negative Negative mg/dL [facility] Urine Blood Negative Negative [facility] Specific [place] - Urine 1.020 1.005 - 1.025 [facility] Urine Protein Negative Neg-Trace mg/dL [facility] Urine Ketones Negative Negative mg/dL [facility] Nitrite Urine Negative Negative [facility] Leukocyte Esterase Urine Small (1+)(A) Negative [facility] RBC Urine 0-2 0 - 2 /HPF [facility] Urine WBC 0-5 0 - 5 /HPF [facility] Urine Squamous Epithelial Cell 11-20 0 - 2 /HPF [facility] Urine Bacteria 3+ None Seen [facility] Hyaline Casts, Urine 0-2 0 - 2 /LPF [facility] 07/19/2024 7:40 AM EST 07/19/2024 7:48 AM EST Narrative [facility] - 07/19/2024 7:59 AM EST [id number], Clean Catch us Generic External Data Provider LAB URINE ORDERAB LES Final Result [facility] [address] [place] [phone] * (ABNORMAL) CBC auto differential (07/19/2024 7:40 AM EST) White Blood Count 9.5 4.8 - 10.8 X10*3/uL [facility] Red Blood Count 4.68 4.20 - 5.50 X10*6/uL [facility] Hemoglobin 14.3 12.0 - 16.0 g/dl [facility] Hematocrit 42.6 37.0 - 47.0 % [facility] Mean Corpuscular Volume 91.0 80.0 - 98.0 fL [facility] Mean Corpuscular Hemoglobin 30.6 27.0 - 33.0 pg [facility] Mean Corpuscular HGB Conc 33.6 31.0 - 35.0 g/dl [facility] Red Cell Distribution Width 13.8 11.0 - 16.0 % [facility] Platelet Count 345 160 - 400 X10*3/uL [facility] Mean Platelet Volume 9.2(L) 9.4 - 12.3 fL [facility] Neutrophils Percent Auto 79.8(H) 45 - 73 % [facility] Imm Gran Pct Auto 0.4 0.0 - 0.4 % [facility] Lymphocytes Percent Auto 13.7(L) 20 - 40 % [facility] Monocytes Percent Auto 4.9 2 - 11 % [facility] Eosinophils Percent Auto 1.0 0 - 4 % [facility] Basophils Percent Auto 0.2 0 - 2 % [facility] NRBC Pct Auto 0.0 0.0 - 0.2 /100WBC [facility] Neutrophils Absolute Auto 7.6 2.0 - 8.3 x10*3/uL [facility] Imm Gran Abs Auto 0.04(H) 0.00 - 0.03 X10*3/uL [facility] Lymphocytes Absolute Auto 1.3 1.2 - 4.9 X10*3/uL [facility] Monocytes Absolute Auto 0.5 0.1 - 1.2 X10*3/uL [facility] Eosinophils Absolute Auto 0.1 0.0 - 0.4 X10*3/uL [facility] Basophils Absolute Auto 0.0 0.0 - 0.2 X10*3/uL [facility] NRBC Abs Auto 0.000 0.0 - 0.012 X10*3/uL [facility] 07/19/2024 7:40 AM EST 07/19/2024 7:47 AM EST us Generic External Data Provider LAB BLOOD ORDERAB LES Final Result [facility] [address] [place] [address] [phone] * HCG, Qualitative, Urine (07/19/2024 7:40 AM EST) Urine NEGATIVE NEGATIVE [facility] Comment:This test was develo ped to detect early . Falsenegative results may occur after the 5th - 7th week ofpregnancy when using this test method. If clinicallyindicated, consider a serum hCG. 07/19/2024 7:40 AM EST 07/19/2024 7:43 AM EST Generic External Data Provider LAB URINE ORDERAB LES Final Result Performing Organization Address [facility] de Phone Number [facility] [address] [place] [address] [phone] * Culture, Urine, Routine (07/19/2024 12:00 AM EST) Urine Urine specimen obtained by clean catch procedure / Unknown 07/19/2024 07/19/2024 Comment:UACC Narrative [facility] - 07/20/2024 8:43 AM EST Urine Culture Report Result Urine Culture > 100,000 cfu/ml Urine Culture Mixed bacterial montrell characteristic of Urine Culture urogenital contamination. Specimen Source: Urine clean catch Generic External Data Provider LAB MICROBIOLOGY - GENERAL ORDERABLES Final Result Performing Organization Address [facility] de Phone Number [facility] [address] [place] [address] [phone] * BI Mammogram Screening Tomosynthesis Bilateral (12/08/2023 10:25 AM EDT) Anatomical Region Laterality Modality Breast Bilateral Mammography 12/08/2023 10:2 5 AM EDT Narrative 12/16/2023 5:19 PM EDT ? [facility] [place] ? [address] [facility] ?[place] [address] ? Mammography Report ? Signed ? Patient: Piotr,Janina ?MR#: [id number] ?? [id number] ? : 1970 ?Acct:[id number] ? Age/Sex: 53 / F ?ADM Date: 04/05/24 ? Loc: HO.MAMMO ? Attending : Liliana [place] MD ? Ordering Physician: Liliana [place] MD ?Results: 1Negative ? Date of Service: 12/08/23 ?Follow Up: 1 Year From Orig ?? inal Mammogram ? Procedure(s): MM tomosynthesis screening BI ?? Accession Number(s): [id number] ? cc: Liliana [place] MD ? EXAMINATION: [...] MD in OV> ? 12/16/235 ? DD/ 24 ? TD/TT: ? Electronics Installer: ? Procedure Note Donotuseinterpreter, Image - 12/16/2023 [facility] [address] [place] [address] [place] [address] Mammography Report Signed Patient: Catherine Saldaña#: [id number] : 1970Acct:[id number] Age/Sex: 53 / FADM Date: 12/08/23 Loc: HO.MAMMO Attending Dr: Liliana [place] MD Ordering Physician: Liliana [place] MDResults: 1Negative Date of Service: 12/08/23Follow Up: 1 Year From Orig inal Mammogram Procedure(s): MM tomosynthesis screening BI Accession Number(s): [id number] cc: Liliana [place] MD EXAMINATION: MM SCREENING [...] in OV> 12/16/23 1715 DD/ 1025 TD/TT: Electronics Installer: Liliana [place] MD IMG BI PROCEDURES Edited Result - Final * Image-Guided Pap with Age-Based Screening??with CT/NG,??Trichomonas (06/08/2023 12:02 PM EDT) Trichomonas (NAAT) NOT DETECTED NOT DETECTED [facility] Comment:The analytical perfo rmance characteristics of thisassay have been determined by [employer]. Themodifications have not been cleared or approved bythe FDA. This assay has been validated pursuant to theIA regulations and is used for clinical purposes.For additional information, please refer tohttp://Revelation.[employer]IS[employer]/faq/Trichomonastma(This link is being provided for information/educational purposes only.)THIS TEST WAS PERFORMED AT:[facility] [place] [id number] CAR MD CTNG Ref Lab NOT DETECTED NOT DETECTED [facility] NG Ref Lab NOT DETECTED NOT DETECTED [facility] 06/08/2023 12:0 2 PM EDT 06/09/2023 9:00 AM EDT us Isela Jones [facility] CYTOLOGY ORDERABLES F inal Result [facility] [address] [place] [phone] * HPV mRNA E6/E7 w/Reflex to HPV Genotypes 16, 18/45 (06/08/2023 12:02 PM EDT) HPV nRNA E6/E7 Not Detected Not Detected [facility] Comment:Methodology: Transcr iption-Mediated AmplificationThis assay detects E6/E7 viral messenger RNA (mRNA) from 14high-risk HPV types (16,18,31,33,35,39,45,51,52,56,58,59,66,68).Cervical sources are required for HPV testing.If a vaginal source from a patient who has had atotal hysterectomy with removal of cervix wassubmitted, please contact the testing laboratoryfor alternative testing options.For additional information, please refer tohttp://education.IRIS-RFID/faq/OPU622n6(This link if provided for information/educational purposes only.)THIS TEST WAS PERFORMED AT:[facility] [place] [id number] CAR MD HPV mRNA E6/E7 [facility] HPV 16 RNA [facility] HPV 18/45 RNA [facility] 06/08/2023 12:0 2 PM EDT 06/09/2023 9:00 AM EDT Isela Jones CN LAB CYTOLOGY ORDERABLES F inal Result [facility] [address] [place] [address] [phone] * Colonoscopy (04/25/2022) Colonoscopy Normal Normal Historical Provider HEALTH MAINTENANCE Final Result from Last 3 Months or Most Recently Relevant to Health Maintenance Insurance [address] [place] [id number] [facility] Care Teams Youth Officer Relationship Specialty Start Date End Date Liliana [place] MD [address] [place] [address] PCP - General Family Medicine 09/04/18 Ozzy Quevedo, MarinaD [address] [place] [address] Pharmacist Internal Medicine 06/14/23
--- OUTSIDE RECORDS SUMMARY | 2024-10-16 16:40 | XMS_ITS | Encounter Summary ---
Author Organization [employer] Address [address] [facility] 7t [place] [address] Care Team Providers Care Outside Collector Name Role Phone Liliana Ricks MD Primary Care Provider Ozzy Quevedo PharmD Unavailable [phone] Reason for Visit * Reason Comments Sick Onsite Vomiting/diarrhea fr om Ozempic Encounter Details Date Type Department Care Team (Late st Contact Info) Description 10/08/2024 10:00 AM EST Office Visit [facility] [address] [place], [place] [phone] Magan Brown MD [address] [place], [place] [phone] Bilious vomiting with nausea (Primary Dx); Type 2 diabetes mellitus without complication, without long-term current use of insulin ([facility]) Social History Tobacco Use Types Packs/Day [...] the past 12 months, has t he [employer], gas, oil or water company threatened to [...] weeks Type 2 diabetes mellitus without complication ([facility]) Pt of Dr. Ricks Most recent [...] Problem(s): Type 2 diabetes mellitus without complication ([facility]) Pt of Dr. Ricks Most recent [...] documented in this encounter Plan of Treatment Upcoming Encounters Date Type Department Care Team (Late st Contact Info) Description 11/06/2024 11:15 AM EST Office Visit [facility] [address] [place] [address] Liliana Ricks MD [address] [place] [address] documented as of this encounter Goals Goal Patient Goal Type Associated Problems Recent Progress Patient-Stated? Author Blood Pressure < 140/90 Blood Pressure 128/76(2024 10:06 AM EST) No Ozzy Quevedo, PharmHumaira Hemoglobin A1c < 7 Result Component 5.7( 3:35 PM EST) No Ozzy Quevedo, PharmD documented as of this encounter Visit Diagnoses Diagnosis Bilious vomiting with nausea- Primary Type 2 diabetes mellitus without complication, without long-term current use of insulin ([facility]) documented in this encounter Additional Health Concerns Assessment Noted Time PHQ-9 Depression Total Score: 0 02/01/20 24 10:58 AM EDT documented as of this encounter Care Teams Outside Collector Relationship Specialty Start Date End Date Liliana Ricks MD [address] [place] [address] PCP - General Family Medicine 09/04/18 Ozzy Quevedo, PharmD [address] [place] [address] Pharmacist Internal Medicine 06/14/23 documented as of this encounter
--- OUTSIDE RECORDS SUMMARY | 2024-10-16 16:40 | XMS_ITS | Encounter Summary ---
Author Organization [employer] Address [address] 7[address] [place] [address] Care Team Providers Care Associate Account Director Name Role Phone Liliana Ricks MD Primary Care Provider [phone] Ozzy Quevedo PharmD Unavailable Reason for Visit * Reason Onset Date Comments Med Refill 06/12/2024 Encounter Details Date Type Department Care Team (Late st Contact Info) Description 06/12/2024 Telephone [facility] [address] [place], [place] [phone] Liliana Ricks MD [address] [place], [place] [phone] Med Refill Social History Tobacco Use Types [...] Description 11/06/2024 11:15 AM EST Office Visit [facility] [address] [place] [address] Liliana Ricks MD [address] [place] [address] documented as of this encounter Goals Goal [...] documented as of this encounter Care Teams Associate Account Director Relationship Specialty Start Date End Date Liliana Ricks MD [address] [place] [address] PCP - General Family Medicine 09/04/18 Ozzy Quevedo PharmD [address] [place] [phone] Pharmacist Internal Medicine 06/14/23 documented as of this encounter
--- OUTSIDE RECORDS SUMMARY | 2024-10-16 16:40 | XMS_ITS | Data Portability ---
Author Organization [place] - [employer] [facility] [place] [facility] Address [address] [place] [address] Care Team Providers Care Cryptographer Name Role Phone HIM CCA OTHER AMBAR HAMILTON Primary Care Provider [phone] Assessment Encounter Date Assessment Date Assessment LastModified by Organization Details LastModified Time 07/20/2024 07/20/2024 As noted, pa campos called to see this patient regarding concerns of hypotension.Evalu ation in the field was performed by my adobe maker colleague, as noted above, I provided real-time direction and supervision for this visit. 53 F reports low BP, ongoing diarrhea. recent admission at [facility] for gastroenteritis, reportedly had large volume [...] bloody stool, reduced urine output, increased diarrhea Not available 07/20/2024 20:45:18 08/02/2024 08/02/2024 As [...] in the field was performed by my adobe maker colleague, as noted above, I provided real-time [...] serum or plasma 2023 024 DANIEL Ham [facility], [address] [place] [address], [phone], 07:56:10 Referral None recorded. Procedures None recorded. Surgeries None recorded. Imaging None recorded. Medication Orders lactated Ringers intravenous solution 2023 024 [email or web address] [id number], [address] [place], [place], [phone], 20:51:37 Patient TargetsNo targets recorded. Patient InstructionsNo [...] Address Organization Details Last Updated DateTime 4 767580. 28 g 16 /min 94 /min 95 % 95 % 160.02 cm 97.7 [degF] 74 /min 89 mm[Hg] 58 mm[Hg] 143 mm[Hg] 78 mm[Hg] Not Available [employer] 4 20:44:04 Date Recorded Oxygen saturation Oxygen saturation in Arterial blood by Pulse oximetry Heart rate Respiratory rate Body weight Body temperature Systolic blood pressure Diastolic blood pressure Provider Name and Address Organization Details Last Updated DateTime 4 98 % 98 % 86 /min 16 /min 677443. 28 g 97.2 [degF] 138 mm[Hg] 78 mm[Hg] Not Available [employer] 4 18:22:52 Social History None recorded. Functional Status None recorded. Mental Status None recorded. Family History Nothing Reported. Medical History No medical history recorded. Gynecological HistoryNo gynecological history recorded. Obstetrics History GPAL:G 0 P 0 0 0 0 Past Encounters Encounter ID Performer Location Encounter Start Date Encounter Closed Date Diagnosis/Indication Diagnosis SNOMED-CT Code Diagnosis ICD10 Code Diagnosis Note [id number] Ramesh Merrill MD [facility] [address] [place] [address] [phone] 07/20/2024 19:47:48 07/21/2024 14:05:18 Acute kidney injury 49220911 N17.9 [id number] MAYA DONALD MD [facility] [address] [place] [address] [id number] 08/02/2024 18:20:23 08/02/2024 22:57:36 Nausea, vomiting and diarrhea 1275193 R19.7 Health Concerns Section Related Observation LastModified by Organization Detai ls LastModified Time None Recorded Concern Status LastModified by Organization Details LastModified Time None Recorded Advance Directives Directive None Recorded Payers Encounter Date Sequence Insurance Name Policy Number Policy You Covered Member ID You Member ID Guarantor Name 07/20/2024 1 [employer] [facility] - DOS ON OR AFTER 2022 - DUAL ELIGIBLE - HALF-WAY OPTIONS AND ONE CARE (MEDICARE REPLACEMENT/AD VANTAGE - HMO) Janina Saldaña [id number] Janina Saldaña 08/02/2024 1 [employer] [facility] [employer] - DOS ON OR AFTER 2022 - DUAL ELIGIBLE - HALF-WAY OPTIONS AND ONE CARE (MEDICARE REPLACEMENT/AD VANTAGE - HMO) Janina Saldaña [id number] Janina Saldaña Notes Date Note Type Note Provider Name and Address Organization Details Recorded Time 07/20/2024 text/html [facility] Nurse Triage Notes (Lucio Sibley): Chief Complaints: Hypotension PMH: Diabetes Mellitus Type 2 Comments: Bathhouse Attendant verified the Pt.'s name//address and phone number. [...] - Concerns expressed - ER treatment declined Lime Hide Inspector Organization Information for [employer] Legal Name: [facility] Address: [address] [place] [address], Childhood Development Teacher: Julien Macias MD CLIA No.: [id number] Lime Hide Inspector POC Test Results from Butch Valdez [facility] (19:45:09) pH: 7.44 pH units pCO2: 41.7 mmHg pO2: 33.0 mmHg Na: 136 mmol/L K: 3.6 mmol/L iCa: 1.09 mmol/L Cl: 98 mmol/L TCO2: 28.6 mEq/L Hct: 45 % Hb: 15.5 g/dL Glu: 108 mg/dL Lac: 2.5 mmol/L Cr: 1.86 mg/dL BUN: 20 mg/dL A .................... .................... .................... .................... .................... .................... .................... . Lime Hide Inspector Note From Butch Valdez: This 53-year-old female with a history including but not limited to HTN, DM type II, COPD, obesity, depression requested a visit today to address low blood pressure readings at home. She tells me that she was seen in [facility]'s emergency department two days ago for nausea, vomiting, diarrhea. [place] told her that she has food poisoning [...] soft, nontender, nondistended. No lower extremity edema. [id number] labs are uploaded, of note creatinine is 1.86. Patient was able to provide labs from [place], creatinine 1.02.I treated this patient for hypovolemia [...] .................... .................... .................... .................... .................... .................... . [facility] Consulted: Ramesh Merrill .................... .................... .................... .................... .................... .................... .................... . Disposition: Fulfilled Ramesh Merrill MD [address] [facility],[address], [place], [phone], [employer] 07/20/2024 20:51:47 08/02/2024 text/html [facility] Nurse Triage [...] Type 2, Hypertension, Chronic Pain, Fibromyalgia Comments: Bathhouse Attendant verified the Pt.'s name//address and phone number. [...] .................... .................... .................... .................... .................... .................... . Lime Hide Inspector Note From Giovani Morillo: Pt Co nausea [...] abdomen soft non tender, lungs clear bilaterally. [facility] Jean-Claude contacted and advised to monitor symptoms. [...] .................... .................... .................... .................... .................... .................... . [facility] Consulted: Maya Donald .................... .................... .................... .................... .................... .................... .................... . Disposition: Fulfilled MAYA DONALD MD [address] [place] [address],[address] [facility], [place], [address], [employer] 08/02/2024 19:04:18 OBGyn Episode No OBEpisode recorded.
--- OUTSIDE RECORDS SUMMARY | 2024-10-16 16:40 | XMS_ITS | Encounter Summary ---
Author Organization [employer] Address [address] [place] [address] 7t [place] [address] Care Team Providers Care Clinical Science Liaison Name Role Phone Liliana Ricks MD Primary Care Provider [phone] Ozzy Quevedo PharmD Unavailable [phone] Reason for Visit * Reason Onset Date Comments Nurse Triage 05/18/2023 Encounter Details Date Type Department Care Team (Late st Contact Info) Description 05/18/2023 Telephone [facility] [address] [place], [place] [phone] Liliana Ricks MD [address] [place], [place] [phone] Nurse Triage Social History Tobacco Use Types [...] Description 11/06/2024 11:15 AM EST Office Visit [facility] [address] [place] [address] Liliana Ricks MD [address] [place] [address] documented as of this encounter Visit Diagnoses Not on filedocumented in this encounter Additional Health Concerns Assessment Noted Time PHQ-9 Depression Total Score: 2 01/18/20 23 9:56 AM EDT documented as of this encounter Care Teams Clinical Science Liaison Relationship Specialty Start Date End Date Liliana Ricks MD [address] [place] [address] PCP - General Family Medicine 09/04/18 Ozzy Quevedo, MarinaD [address] [place] [address] Pharmacist Internal Medicine 06/14/23 documented as of this encounter
--- OUTSIDE RECORDS SUMMARY | 2024-10-16 16:40 | XMS_ITS | Encounter Summary ---
Author Organization [employer] Address [address] [facility] 7t [place] [address] Care Team Providers Care Flare Man Name Role Phone Liliana Ricks MD Primary Care Provider [phone] Ozzy Quevedo PharmD Unavailable [phone] Reason for Visit * Reason Comments Med Refill Encounter Details Date Type Department Care Team (Late st Contact Info) Description 09/16/2024 Refill [facility] [address] [place], [place] [phone] Liliana Ricks MD [address] [place], [place] [phone] Essential hypertension Social History Tobacco Use Types [...] as of this encounter Plan of Treatment Upcoming Encounters Date Type Department Care Team (Late st Contact Info) Description 11/06/2024 11:15 AM EST Office Visit [facility] [address] [place] [phone] Liliana Ricks MD [address] [place] [address] documented as of this encounter Goals Goal [...] documented as of this encounter Care Teams Flare Man Relationship Specialty Start Date End Date Liliana Ricks MD [address] [place] [address] PCP - General Family Medicine 09/04/18 Ozzy Quevedo PharmD [address] [place] [address] Pharmacist Internal Medicine 06/14/23 documented as of this encounter
--- OUTSIDE RECORDS SUMMARY | 2024-10-16 16:40 | XMS_ITS | Encounter Summary ---
Author Organization [employer] Address [address] [place] [address] 7t [place] [address] Care Team Providers Care Housing Inspectors Name Role Phone Liliana Ricks MD Primary Care Provider [phone] Ozzy Quevedo PharmD Unavailable [phone] Encounter Details Date Type Department Care Team (Latest Contact Info) Description 09/17/2024 11:15 AM EST Office Visit [facility] [address] [place], [place] [phone] Liliana Ricks MD [address] [place], [place] [phone] Moderate persistent asthma without complication (Primary Dx); LESTER (obstructive sleep apnea); Abnormal uterine bleeding (AUB); Essential hypertension; Type 2 diabetes mellitus without complication, without long-term current use of insulin ([facility]); Chronic pain of right knee; Morbid obesity ([facility]); Gastroesophageal reflux disease, unspecified whether esophagitis present; Low back pain potentially associated with radiculopathy; Chronic low back pain, unspecified back pain laterality, unspecified whether sciatica present; Dyslipidemia; Epigastric pain; Fibromyalgia; Bilateral primary osteoarthritis of knee; Dietary counseling; Exercise counseling; Class 3 severe obesity due to excess calories with serious comorbidity and body mass index (BMI) of 50.0 to 59.9 in adult ([facility]) Social History Tobacco Use Types Packs/Day Years [...] lb. Interval history: Seen by Dr. Cash, [facility] pulmonology, on 05/28/[address] Vergara, [facility] ACCESSORIES REPAIRER, for AUB and increased endometrial thickness. Last seen on 09/11/24. Cotest negative in 2023. ECC negative in Seen in the walk-in clinic on 06/24/24 for right leg ecchymosis after a fall. Educated on natural course of traumatic ecchymosis. Given reassurance. Wt 340 lb. Seen in [facility] ED on 07/19/24 for nausea, vomiting, [...] mm, fibroid uterus. Following with Dr. Vergara, [facility] ACCESSORIES REPAIRER, for postmenopausal bleeding and increased endometrial thickness.Cotest [...] (Primary) Assessment & Plan: - Followed by yarn finisher, [facility]. Last seen by Dr. Cash in [...] endometrial thickness, 9 mm - evaluated by fruit checker for postmenopausal bleeding and endometrial biopsy done [...] complication, without long-term current use of insulin ([facility]) Assessment & Plan: -A1C 5.7% on 08/07/24, [...] Assessment & Plan: Pt was previously in [facility] Wt Clinic. Pt is hesitant to [...] injection on 10/22/19 -restarted PT again at [facility], but stopped -recommended to restart Wt [...] colonoscopy was done by Dr. Cote at [facility] in Apr 2022 13. Fibromyalgia Assessment [...] knee Assessment & Plan: Previously followed by [facility], seen 2020. -Received steroid injection. -Continue judicious use of meloxicam -Recommended to f/u. -Work on achieving healthier weight 15. Dietary counseling 16. Exercise counseling 17. Class 3 severe obesity due to excess calories with serious comorbidity and body mass index (BMI) of 50.0 to 59.9 in adult ([facility]) Other orders - omeprazole (PriLOSEC) [address] capsule; Take 1 capsule (20 mg) by mouth before breakfast. Do not crush or chew. No Known Allergies Current Outpatient Medications Medication Instructions Acetaminophen Extra Strength 500 MG tablet TAKE TWO TABLET BY MOUTH EVERY EIGHT HOURS NEEDED atorvastatin (LIPITOR) 10 mg, Oral, Nightly Bisacodyl EC 10 mg, Oral, Nightly Blood Glucose Monitoring Suppl (WellsphereStyle Lite) device USE TO TEST BLOOD SUGAR [...] primary osteoarthritis of knee Previously followed by [facility], seen 2020. -Received steroid injection. -Continue [...] PM ESTAssociated Problem(s): Asthma - Followed by yarn finisher, [facility]. Last seen by Dr. Cash in [...] colonoscopy was done by Dr. Cote at [facility] in Apr 2022 * Assessment & [...] injection on 10/22/19 -restarted PT again at [facility], but stopped -recommended to restart Wt management clinic -continue cyclobenzaprine -continue judicious use of meloxicam and ibuprofen -Continue gabapentin -discussed about judicious use of muscle relaxant and pain medication -optimize Tx fibromyalgia -encouraged to try home exercise * Assessment & Plan Note - Rosario Luke - 09/18/2024 1:10 PM ESTAssociated Problem(s): Morbid obesity (CMS/HCC) Pt was previously in [facility] Wt Clinic. Pt is hesitant to [...] endometrial thickness, 9 mm - evaluated by fruit checker for postmenopausal bleeding and endometrial biopsy done [...] Description 11/06/2024 11:15 AM EST Office Visit [facility] [address] [place] [address] Liliana Ricks MD [address] [place] [address] Scheduled Orders Name Type Priority Associated Diagnoses Orde r Schedule Helicobacter pylori??Antigen, EIA, Stool Lab Routine Gastroesophageal reflux disease, unspecified whether esophagitis present Expected: 09/17/2024 (Approximate), Expires: 09/17/2025 documented as of this encounter Goals Goal Patient Goal Type Associated Problems Recent Progress Patient-Stated? Author Blood Pressure < 140/90 Blood Pressure 128/76(2024 10:06 AM EST) No Ozzy Quevedo, Josue Hemoglobin A1c < 7 Result Component 5.7( 4 3:35 PM EST) No Ozzy Quevedo PharmD documented as of this encounter Procedures Procedure Name Priority Date/Time Associated Diagnosis Comments VITAMIN B12/FOLATE, SERUM PANEL Routine 10/08/2024 10:21 AM EST Type 2 diabetes mellitus without complication, without long-term current use of insulin ([facility]) LIPID PANEL WITH REFLEX TO DIRECT LDL Routine 10/08/2024 10:21 AM EST Type 2 diabetes mellitus without complication, without long-term current use of insulin ([facility]) Dyslipidemia ALBUMIN, RANDOM URINE W/CREATININE Routine 10/08/2024 10:21 AM EST Essential hypertension Type 2 diabetes mellitus without complication, without long-term current use of insulin ([facility]) Dyslipidemia COMPREHENSIVE METABOLIC PANEL Routine 10/08/2024 10:21 AM EST Essential hypertension Type 2 diabetes mellitus without complication, without long-term current use of insulin ([facility]) Dyslipidemia documented in this encounter Results * (ABNORMAL) Comprehensive Metabolic Panel (10/08/2024 10:21 AM EST) Sodium 139 135 - 145 mmol/L [facility] Potassium 3.4 3.3 - 5.1 mmol/L [facility] Chloride 103 96 - 108 mmol/L [facility] Carbon Dioxide 24 22 - 29 mmol/L [facility] Anion Gap 15 12 - 20 [facility] Urea Nitrogen (BUN) 10 9 - 16 mg/dL [facility] Creatinine, Serum 0.89 0.5 - 1.4 mg/dL [facility] Estimated Glomerular Filt Rate >60 [facility] Comment:Chronic Kidney Disea se: Estimated GFR < 60 mL/min/1.52m6Vebvlv Kidney Disease: Estimated GFR < 15 mL/min/1.73m2 Glucose 128(H) 60 - 115 mg/dL [facility] Calcium 9.0 8.4 - 10.2 mg/dL [facility] Bilirubin, Total 0.9 0.0 - 1.0 mg/dL [facility] Aspartate Amino Transferase 25 5 - 31 U/L [facility] Alanine Aminotransferase 18 0 - 31 U/L [facility] Total Protein 7.6 6.5 - 8.0 g/dL [facility] Albumin Level 3.8 3.5 - 5.0 g/dL [facility] Alkaline Phosphatase 77 39 - 117 U/L [facility] Blood Venous blood specimen / Unknown 10/08/2024 10:21 AM EST 10/08/2024 11:27 AM EST us Liliana Ricks MD LAB BLOOD ORDERABLES Final Resul t Performing Organization Address City/[facility] Co de Phone Number [facility] [address] [place] [phone] * Albumin, Random Urine W/Creatinine (10/08/2024 10:21 AM EST) Creatinine, Urine 420.86 mg/dL [facility] Microalbumin Urine 22.0 mg/L [facility] Microalbum Creatinine Ratio Ur 5.2 <30 ug/mg cr [facility] Comment:Albumin/Creatinine R atio Reference Ranges: Normal: < 30 ug/mg creatinine Microalbuminuria: 30 - 300 ug/mg creatinineClinical Albuminuria: > 300 ug/mg creatinine Urine 10/08/2024 10:2 1 AM EST 10/08/2024 11:18 AM EST us Liliana Ricks MD LAB URINE ORDERABLES Final Resul t Performing Organization Address [facility]/ZIP Co de Phone Number [facility] [address] [place] [phone] * Lipid Panel with Reflex to Direct LDL (10/08/2024 10:21 AM EST) Triglycerides 78 <150 mg/dL [facility] Comment:Desirable Triglyceri de: less than 150 mg/dLBorderline High Triglyceride 150-199 mg/dLHigh Triglyceride: 200-499 mg/dLVery High Triglyceride: greater than or equal to 5OO mg/dL Cholesterol 141 <200 mg/dL [facility] Comment:Desirable Cholestero l: less than 200 mg/dLBorderline High Cholesterol: 200-239 mg/dLHigh Cholesterol: greater than 239 mg/dL LDL Cholesterol Calculated 81 <100 mg/dL [facility] Comment:Desirable LDL: less than 100 mg/dLNear Optimal/Above Optimal LDL: 110- 129 mg/dLBorderline High LDL: 130-159 mg/dLHigh LDL: 160-189 mg/dLVery High LDL: greater than or equal to 190 mg/dL HDL Cholesterol 45 >40 mg/dL [facility] Comment:Desirable HDL: great er than 40 mg/dL Note: This HDL assay may give artificially low results in patients with liver disease. Blood 10/08/2024 10:2 1 AM EST 10/08/2024 11:27 AM EST us Liliana Ricks MD LAB BLOOD ORDERABLES Final Resul t [facility] [address] [place] [phone] * Vitamin B12 (Cobalamin) and Folate Panel, Serum (10/08/2024 10:21 AM EST) Vitamin B12 459 200 - 900 pg/mL [facility] Comment:NORMAL 200-900 PG/ML INDETERMINATE 160-199 PG/ML DEFICIENT < 160 PG/ML Folate 14.9 > or = 4.0 ng/mL [facility] Comment:Reference Values:> o r = 4.0 ng/mL< 4.0 ng/mL suggests folate deficiency Methotrexate, aminopterin and folinic acid(leucovorin) are chemotherapeutic agents whose molecularstructures are similar to folate; therefore, the Architectfolate assay cannot be used for patients using these drugs. Blood 10/08/2024 10:2 1 AM EST 10/08/2024 11:27 AM EST us Liliana Ricks MD LAB BLOOD ORDERABLES Final Resul t [facility] [address] [place] [phone] documented in this encounter Visit Diagnoses Diagnosis Moderate persistent asthma without complication- Primary LESTER (obstructive sleep apnea) Obstructive sleep apnea (adult) (pediatric) Abnormal uterine bleeding (AUB) Essential hypertension Unspecified essential hypertension Type 2 diabetes mellitus without complication, without long-term current use of insulin ([facility]) Chronic pain of right knee Morbid obesity ([facility]) Morbid obesity Gastroesophageal reflux disease, unspecified whether [...] (BMI) of 50.0 to 59.9 in adult ([facility]) documented in this encounter Additional Health Concerns Assessment Noted Time PHQ-9 Depression Total Score: 0 02/01/20 24 10:58 AM EDT documented as of this encounter Care Teams Housing Inspectors Relationship Specialty Start Date End Date Liliana Ricks MD [address] [place] [address] PCP - General Family Medicine 09/04/18 Ozzy Quevedo, PharmD [address] [place] [address] Pharmacist Internal Medicine 06/14/23 documented as of this encounter
--- OUTSIDE RECORDS SUMMARY | 2024-10-16 16:40 | XMS_ITS | Encounter Summary ---
Author Organization [email or web address] Address [address] [facility] 7t [place] [address] Care Team Providers Care Planner Name Role Phone Liliana Ricks MD Primary Care Provider [phone] Ozzy Quevedo PharmD Unavailable [phone] Reason for Visit * Reason Comments Med Refill Encounter Details Date Type Department Care Team ([facility] Contact Info) Description 11/01/2022 Refill [facility] [address] [place] [phone] Liliana Ricks MD [address] [place] [address] Chronic pain of right knee Social History [...] Encounters Date Type Department Care Team (Late Contact Info) Description 11/06/2024 11:15 AM EST Office Visit [facility] [address] [place] [address] [place] [address] Liliana Ricks MD [address] [place] [address] documented as of this encounter Visit Diagnoses Diagnosis Chronic pain of right knee documented in this encounter Care Teams Planner Relationship Specialty Start Date End Date Liliana Ricks MD [address] [place] [address] PCP - General Family Medicine 09/04/18 Ozzy Queevdo, MarinaD [address] [place] [phone] Pharmacist Internal Medicine 06/14/23 documented as of this encounter
--- OUTSIDE RECORDS SUMMARY | 2024-10-16 16:40 | XMS_ITS | Encounter Summary ---
Author Organization [employer] Address [address] [facility] 7t [place] [address] Care Team Providers Care Real Estate Broker Name Role Phone Liliana Ricks MD Primary Care Provider Ozzy Quevedo PharmD Unavailable [phone] Reason for Visit * Reason Onset Date Comments Nurse Triage 10/03/2024 Encounter Details Date Type Department Care Team (Late st Contact Info) Description 10/03/2024 Telephone [facility] [address] [place], [place] [phone] Liliana Ricks MD [address] [place], [place] [phone] Nurse Triage Social History Tobacco Use Types [...] acuity questions The caller accepted this outcome. [phone] documented in this encounter Plan of Treatment Upcoming Encounters Date Type Department Care Team (Late st Contact Info) Description 11/06/2024 11:15 AM EST Office Visit [address] [address] Liliana Ricks MD [address] [place] [address] documented as of this encounter Goals Goal [...] documented as of this encounter Care Teams Real Estate Broker Relationship Specialty Start Date End Date Liliana Ricks MD [address] [place] [address] PCP - General Family Medicine 09/04/18 Ozzy Quevedo, MarinaD [address] [place] [address] Pharmacist Internal Medicine 06/14/23 documented as of this encounter
--- OUTSIDE RECORDS SUMMARY | 2024-10-16 16:40 | XMS_ITS | Encounter Summary ---
Author Organization [employer] Address [address] [facility] [address] [place] [address] Care Team Providers Care Waist Presser Name Role Phone Liliana Ricks MD Primary Care Provider [phone] Ozzy Quevedo PharmD Unavailable [phone] Encounter Details Date Type Department Care Team [...] Description 11/06/2024 11:15 AM EST Office Visit [facility] [address] [place] [address] Liliana Ricks MD [address] [place] [address] documented as of this encounter Goals Goal [...] documented as of this encounter Care Teams Waist Presser Relationship Specialty Start Date End Date Liliana Ricks MD [address] [place] [address] PCP - General Family Medicine 09/04/18 Ozzy Quevedo PharmD [address] [place] [phone] Pharmacist Internal Medicine 06/14/23 documented as of this encounter
--- OUTSIDE RECORDS SUMMARY | 2024-10-16 16:40 | XMS_ITS | Encounter Summary ---
Author Organization [email or web address] Address [address] [facility] [address] [place] [address] Care Team Providers Care Block Making Machine Operator Name Role Phone Liliana Ricks MD Primary Care Provider [phone] Ozzy Quevedo PharmD Unavailable [phone] Encounter Details Date Type Department Care Team [...] Description 11/06/2024 11:15 AM EST Office Visit [facility] [address] [place] [address] Liliana Ricks MD [address] [place] [address] documented as of this encounter Goals Goal [...] documented as of this encounter Care Teams Block Making Machine Operator Relationship Specialty Start Date End Date Liliana Ricks MD [address] [place] [phone] PCP - General Family Medicine 09/04/18 Ozzy Quevedo PharmD [address] [place] [phone] Pharmacist Internal Medicine 06/14/23 documented as of this encounter
== END 2024-10-15 00:01 | disposition home or self-care (01) ==
LOC: HO.HHCLNP
PROVIDERS: Visit Provider Family Medicine
DX: K21.9 Gastro-esophageal reflux disease without esophagitis (principal)
CPT/HCPCS: 87338

== ENCOUNTER 2025-01-06 14:20 | Outpatient (AMB) | payer OTHER, SELFPAY ==
[2025-01-06 14:34] VITALS: BP 130/78; PULSE 84; O2SAT 97; BMI 60.2
--- NOTE | 2025-01-06 14:34 | A.OFFVIS_ITS ---
Vital Signs 01/06/25 14:34 Height 5 ft 3 in Weight 340 lb BMI 60.2 BP 130/78 Blood Pressure Location Lt brachial Position Sitting Pulse 84 Pulse Source Pulse Oximeter Pulse Oximetry (%) 97 Oxygen Delivery Method Room Air Intake Visit Reasons: 1Y follow up Intake Note: Patient presents follow up LESTER- Compliance in chart Livestock Farmworker Required: No Accompanied by: Self / Same As Patient Allergies Seasonal Allergies Allergy (Intermediate, Verified 01/06/25 14:35) Sneezing HPI Comments Details: 54 y/o female patient presents for follow up of LESTER on CPAP. Pt denies any significant medical history changes. She states she is compliant with her CPAP, uses it nightly. However there is no current PAP compliance data past 09/13/2024. Patient reports she is sleeping well with CPAP. Has good daytime energy. No longer waking up with morning headaches. States she uses distilled water in her CPAP water tank reservoir. She does clean and change her PAP supplies regularly. Compliance and therapy response (06/16/2024-09/13/2024) reviewed. Overall usage 100% Usage greater than 4 hours 95% Average usage on days used 6 hours and 53 minutes APAP 5-20 cm H2O with EPR set to 2 Average pressure 5.4 cm H2O Average leaks 2.6 L/min Residual AHI 0.4 per hour. [facility] Medical History LESTER (obstructive sleep apnea) Menorrhagia Lumbar herniated disc Hypertension Anxiety Depression Elevated C-reactive protein (CRP) Fibromyalgia Surgical History Hx of colonoscopy H/O section Family History Mother HTN (hypertension) Diabetes Maternal Aunt Colon cancer Maternal Uncle Throat cancer Social History Household Members: Spouse Housing: Apartment Are you a primary child care coordinator to a significant other at home: No Do you presently have visiting nurse or other home services: No Alcohol intake: never Patient Tobacco Use Status: Former Tobacco user Years Smoked: Quit 28 years ago Female Reproductive History Menstrual Age of Menarche: 12 Physical Exam Vital Signs: Last Vital Signs Pulse 84 01/06/25 14:34 BP 130/78 01/06/25 14:34 Pulse Ox 97 01/06/25 14:34 Oxygen Delivery Method Room Air 01/06/25 14:34 BMI result Body Mass Index 60.2 Const General: no acute distress Orientation/consciousness: patient oriented x3 Resp Effort & Inspection: normal respiratory effort and able to speak in complete sentences Neuro General: patient oriented x3 Psych Mental Status: mental status grossly normal Speech and movement: Clear speech present Attitude: cooperative Assessment & Plan Assessment & Plan (1) LESTER on CPAP: Comment: Moderate degree of sleep apnea. The AHI was 15/hr and oxygen hosea was 81%. Code(s): G47.33 - Obstructive sleep apnea (adult) (pediatric); Z99.89 - Dependence on other enabling machines and devices Category: Medical Plan For LESTER: Continue APAP 5-20 cmH2O w/ EPR 2 nightly > 4 hours, as pt continues to have good clinical effect from use. Clean CPAP machine and supplies routinely. Change CPAP supplies routinely. Use distilled water in CPAP water reservoir. Pt to contact us or respiratory company with any questions or concerns. We will reach out to regional home care to determine why patient's PAP machine is no longer transmitting compliance data. Pt to follow-up in 12 months or sooner prn. Coding Level of Care Code Est Pt Level 3 (09768) Diagnoses LESTER on CPAP G47.33; Z99.89
--- OUTSIDE RECORDS SUMMARY | 2025-01-06 15:53 | XMS_ITS | Data Portability ---
Author Organization [place] - [employer] [facility], Id in - Formerly [facility] Address [address] [place] [address] Care Team Providers Care Adjunct Faculty For Medical Terminology Name Role Phone HIM CCA OTHER AMBAR HAMILTON Primary Care Provider Assessment Encounter Date Assessment Date Assessment LastModified by Organization Details LastModified Time 07/20/2024 07/20/2024 As noted, pa campos called to see this patient regarding concerns of hypotension.Evalu ation in the field was performed by my thermodynamics engineer colleague, as noted above, I provided real-time [...] bloody stool, reduced urine output, increased diarrhea [id number] Not available 07/20/2024 20:45:18 08/02/2024 08/02/2024 As [...] in the field was performed by my thermodynamics engineer colleague, as noted above, I provided real-time [...] BMP, serum or plasma 2023 024 DANIEL Jitendra [facility], [address] [place] [address], [phone] 4 07:56:10 Referral None recorded. Procedures None recorded. Surgeries None recorded. Imaging None recorded. Medication Orders lactated Ringers intravenous solution 2023 024 [email or web address] [id number] [address] [place], [place], [phone], 20:51:37 Patient TargetsNo targets recorded. Patient InstructionsNo [...] Address Organization Details Last Updated DateTime 4 354179. 28 g 16 /min 94 /min 95 % 95 % 160.02 cm 97.7 [degF] 74 /min 89 mm[Hg] 58 mm[Hg] 143 mm[Hg] 78 mm[Hg] Not Available [facility] 4 20:44:04 Date Recorded Oxygen saturation Oxygen saturation in Arterial blood by Pulse oximetry Heart rate Respiratory rate Body weight Body temperature Systolic blood pressure Diastolic blood pressure Provider Name and Address Organization Details Last Updated DateTime 4 98 % 98 % 86 /min 16 /min 158543. 28 g 97.2 [degF] 138 mm[Hg] 78 mm[Hg] Not Available [email or web address] 4 18:22:52 Social History None recorded. Functional Status None recorded. Mental Status None recorded. Family History Nothing Reported. Medical History No medical history recorded. Gynecological HistoryNo gynecological history recorded. Obstetrics History GPAL:G 0 P 0 0 0 0 Past Encounters Encounter ID Performer Location Encounter Start Date Encounter Closed Date Diagnosis/Indication Diagnosis SNOMED-CT Code Diagnosis ICD10 Code Diagnosis Note [id number] Ramesh Merrill MD [facility] [address] [place] [phone] 07/20/2024 19:47:48 07/21/2024 14:05:18 Acute kidney injury 93441297 N17.9 [id number] MAYA DONALD MD [facility] [address] [place] [phone] 08/02/2024 18:20:23 08/02/2024 22:57:36 Nausea, vomiting and diarrhea 6202323 R19.7 Health Concerns Section Related Observation LastModified by Organization Detai ls LastModified Time None Recorded Concern Status LastModified by Organization Details LastModified Time None Recorded Advance Directives Directive None Recorded Payers Encounter Date Sequence Insurance Name Policy Number Policy You Covered Member ID You Member ID Guarantor Name 07/20/2024 [facility] AFTER 2022 - DUAL ELIGIBLE - ASSISTED OPTIONS AND ONE CARE (MEDICARE REPLACEMENT/AD VANTAGE - HMO) Janina Saldaña [id number] Janina Saldaña 08/02/2024 1 [employer] [facility] - DOS ON OR AFTER 2022 - DUAL ELIGIBLE - ASSISTED OPTIONS AND ONE CARE (MEDICARE REPLACEMENT/AD VANTAGE - HMO) Janina Saldaña [id number] Janina Saldaña Notes Date Note Type Note Provider Name and Address Organization Details Recorded Time 07/20/2024 text/html CRC Nurse Triage Notes (Lucio Sibley): Chief Complaints: Hypotension PMH: Diabetes Mellitus Type 2 Comments: Dumpster Operator verified the Pt.'s name//address and phone number. [...] Concerns expressed - ER treatment declined Senior Mainframe Programmer Analyst Organization Information for Butch Valdez [employer] Legal Name: [facility] [email or web address] Address: [address] [place] [address] [place] [address], Manager Legal: Julien Macias MD CLIA No.: [id number] Senior Mainframe Programmer Analyst POC Test Results from Butch Valdez [facility] (19:45:09) pH: 7.44 pH units pCO2: 41.7 mmHg pO2: 33.0 mmHg Na: 136 mmol/L K: 3.6 mmol/L iCa: 1.09 mmol/L Cl: 98 mmol/L TCO2: 28.6 mEq/L Hct: 45 % Hb: 15.5 g/dL Glu: 108 mg/dL Lac: 2.5 mmol/L Cr: 1.86 mg/dL BUN: 20 mg/dL A .................... .................... .................... .................... .................... .................... .................... . Senior Mainframe Programmer Analyst Note From Butch Valdez: This 53-year-old female with a history including but not limited to HTN, DM type II, COPD, obesity, depression requested a visit today to address low blood pressure readings at home. She tells me that she was seen in [facility] emergency department two days ago for nausea, vomiting, diarrhea. [facility] told her that she has food poisoning [...] soft, nontender, nondistended. No lower extremity edema. Ulzto-ca-rejo labs are uploaded, of note creatinine is 1.86. Patient was able to provide labs from [facility], creatinine 1.02.I treated this patient for hypovolemia [...] .................... .................... .................... .................... .................... .................... . [facility] Consulted: Ramesh Merrill .................... .................... .................... .................... .................... .................... .................... . Disposition: Jose Eduardo Merrill MD [address] [facility],[address], [place], [address], [employer] 07/20/2024 20:51:47 08/02/2024 text/html CRC Nurse Triage [...] Type 2, Hypertension, Chronic Pain, Fibromyalgia Comments: Dumpster Operator verified the Pt.'s name//address and phone number. Education provided on the response time and the Pt. was advised to monitor reported s/s and seek emergency treatment if needed. Pt reports feeling unwell with N/V/D since this AM - Decreased PO intake - Abdominal pain - Pain is 10 - Denies fever - Denies chest pain - Denies SOB - Wellness visit requested - Pt has not taken any medication to assist with symptoms. .................... .................... .................... .................... .................... .................... .................... . Senior Mainframe Programmer Analyst Note From Giovani Morillo: Pt Co nausea [...] abdomen soft non tender, lungs clear bilaterally. [facility] Jean-Claude contacted and advised to monitor symptoms. [...] .................... .................... .................... .................... .................... .................... . [facility] Consulted: Maya Donald .................... .................... .................... .................... .................... .................... .................... . Disposition: Fulfilled MAYA DONALD MD [address] [place] [address],[address], [place], [address], [employer] 08/02/2024 19:04:18 OBGyn Episode No OBEpisode recorded.
--- OUTSIDE RECORDS SUMMARY | 2025-01-06 15:53 | XMS_ITS | Encounter Summary ---
Author Organization [employer] Address [address] [place] [address] Care Team Providers Care Marine Engineering Technicians Name Role Phone Liliana Ricks MD Primary Care Provider [phone] Ozzy Quevedo PharmD Unavailable [phone] Encounter Details Date Type Department Care Team ([facility] st Contact Info) Description 12/30/2024 Orders Only [facility] [address], [place] [phone] Liliana Ricks MD [address] [place] [address] Type 2 diabetes mellitus without complication, without long-term current use of insulin ([facility]) Social History Tobacco Use Types [...] Care Team (Late st Contact Info) Description 02/03/2025 11:15 AM EDT Office Visit [facility] [address] [place] [address] Liliana Ricks MD [address] [place] [address] documented as of this encounter Goals Goal Patient Goal Type Associated Problems Recent Progress Patient-Stated? Author Blood Pressure < 140/90 Blood Pressure 128/98(2024 12:06 PM EST) No Ozzy Quevedo PharmD Hemoglobin A1c < 7 Result Component 6.3( 2:09 PM EST) No Ozzy Quevedo, Josue documented as of this encounter Visit Diagnoses Diagnosis Type 2 diabetes mellitus without complication, without long-term current use of insulin ([facility]) documented in this encounter Additional Health Concerns Assessment Noted Time PHQ-9 Depression Total Score: 0 02/01/20 24 10:58 AM EDT documented as of this encounter Care Teams Marine Engineering Technicians Relationship Specialty Start Date End Date Liliana Ricks MD [address] [place] [address] PCP - General Family Medicine 09/04/18 Ozzy Quevedo, PharmD [address] [place] [id number] Pharmacist Internal Medicine 06/14/23 documented as of this encounter
--- OUTSIDE RECORDS SUMMARY | 2025-01-06 15:53 | XMS_ITS | Clinical Summary ---
Author Organization [employer] Address [address] [facility] [address] [place] [address] Care Team Providers Care Assistant Film Editor Name Role Phone Liliana Hamilton MD Primary Care Provider [phone] Ozzy Quevedo PharmD Unavailable [phone] Allergies No known active allergies Medications Bisacodyl EC 5 MG EC tablet Take 10 mg by mouth at bedtime. Active Blood Glucose Monitoring Suppl (FreeStyle Lite) device USE TO TEST BLOOD SUGAR TWICE DAILY Active cholecalciferol (Vitamin D-3) 25 MCG (1000 UT) capsule Take 25 mcg by mouth in the morning. Active clonazePAM (KlonoPIN) 1 MG tablet TAKE 1/2 TO 1 TABLET BY MOUTH TWICE DAILY NEEDED FOR ANXIETY 023 Active cyclobenzaprine (Flexeril) 5 MG tablet TAKE 1 TABLET BY MOUTH AT BEDTIME NEEDED FOR MUSCLE SPASM 023 Active DULoxetine (Cymbalta) [address] capsule Take 30 mg by mouth 2 times daily. 022 Active polyethylene glycol, PEG, 3350 (Miralax) 17 g packet MIX AND DRINK 17G BY MOUTH EVERY DAY DIRECTED Active zolpidem (Ambien) 5 MG tablet Take 5 mg by mouth if needed at bedtime. 023 Active montelukast (Singulair) 10 MG tabletIndications :Moderate persistent asthma without complication Take 1 tablet (10 mg) by mouth in the evening. 90 tablet 1 023 Active Acetaminophen Extra Strength 500 MG tablet TAKE TWO TABLET BY MOUTH EVERY EIGHT HOURS NEEDED 60 tablet 3 023 Active Blood Pressure Monitor kitIndications:Es sential hypertension Use daily as directed 1 kit 023 Active fluticasone (Flonase) 50 MCG/ACT nasal spray Administer 1-2 sprays into each nostril in the morning. Shake gently. Before first use, prime pump. After use, clean tip and replace cap. 16 g 2 024 Active loratadine (Claritin) 10 MG tablet Take 1 tablet (10 mg) by mouth Once per day. 30 tablet 11 024 2024 Active metFORMIN XR (Glucophage-XR) 500 MG 24 hr tablet TAKE 1 TABLET(500 MG) BY MOUTH WITH THE EVENING MEAL. DO NOT CRUSH, CHEW, OR SPLIT 90 tablet 3 024 Active Ventolin HFA 108 (90 Base) MCG/ACT inhalerIndication s:Moderate persistent asthma without complication INHALE 2 PUFFS BY MOUTH EVERY 4 HOURS NEEDED FOR WHEEZING OR SHORTNESS OF BREATH 18 g 3 024 Active hydroCHLOROthiazi de 12.5 MG tabletIndications :Essential hypertension TAKE 1 TABLET(12.5 MG) BY MOUTH IN THE MORNING 90 tablet 1 025 Active meloxicam (Mobic) 15 MG tabletIndications :Chronic pain of right knee TAKE 1 TABLET(15 MG) BY MOUTH EACH DAY NEEDED FOR MILD PAIN 30 tablet 2 025 Active omeprazole (PriLOSEC) [address] capsule Take 1 capsule (20 mg) by mouth before breakfast. Do not crush or chew. 90 capsule 3 025 2025 Active atorvastatin (Lipitor) 10 MG tablet TAKE 1 TABLET(10 MG) BY MOUTH AT BEDTIME 90 tablet 3 025 Active FreeStyle lancetsIndication s:Type 2 diabetes mellitus without complication, without long-term current use of insulin ([facility]) 1 each by Other route Once per day. USE TO TEST BLOOD SUGAR TWICE DAILY 100 each 025 Active glucose blood (FREESTYLE LITE) test stripIndications: Type 2 diabetes mellitus without complication, without long-term current use of insulin (CMS/HCC) USE TO TEST BLOOD SUGAR TWICE DAILY 100 strip 025 Active ondansetron ODT (Zofran-ODT) 4 MG disintegrating tabletIndications :Nausea Take 1 tablet (4 mg) by mouth every 8 (eight) hours if needed for nausea or vomiting. 30 tablet 1 025 Active budesonide-formot adebayo (Symbicort) 160-4.5 MCG/ACT inhaler INHALE 2 PUFFS BY MOUTH IN THE MORNING AND AT BEDTIME. RINSE MOUTH WITH WATER AFTER USE FOR AFTERTASTE AND INCIDENCE OF CANDIDIASIS. DO NOT SWALLOW 10.2 g Active lisinopril 10 MG tabletIndications :Essential hypertension TAKE 1 TABLET BY MOUTH DAILY 90 tablet 1 025 Active Calcium Carb-Cholecalcife rol 600-10 MG-MCG tablet TAKE 1 TABLET BY MOUTH TWICE DAILY 180 tablet 3 025 Active Tirzepatide (Mounjaro) 5 MG/0.5ML solution auto-injectorIndi cations:Type 2 diabetes mellitus without complication, without long-term current use of insulin (CMS/HCC) Inject 5 mg under the skin 1 (one) time per week. 2 mL 025 Active Calcium Carb-Cholecalcife rol 600-10 MG-MCG tablet TAKE 1 TABLET BY MOUTH TWICE DAILY 180 tablet 3 024 2024 Discontinued Tirzepatide (Mounjaro) 2.5 MG/0.5ML solution auto-injectorIndi cations:Type 2 diabetes mellitus without complication, without long-term current use of insulin (CMS/HCC) Inject 2.5 mg under the skin 1 (one) time per week. 2 mL 025 2024 Discontinued(D ose adjustment) Active Problems Problem Noted Date Diagnosed Date Increased urinary frequency 08/07/2024 Assessment & Plan [...] colonoscopy was done by Dr. Cote at [facility] in Apr 2022 Assessment & Plan (08/07/2024 [...] endometrial thickness, 9 mm - evaluated by chemical laboratory tester for postmenopausal bleeding and endometrial biopsy done on 02/19/24. Result was negative for atypia, hyperplasia, or malignancy. Assessment & Plan (05/10/2024 2:48 PM EDT): - Normal PAP and negative high risk HPV in Jun 2023 - most recent transvaginal US in Jun 2023 showed endometrial thickness, 9 mm - evaluated by chemical laboratory tester for postmenopausal bleeding and endometrial biopsy done on 02/19/24. Result was negative for atypia, hyperplasia, or malignancy. Assessment & Plan (02/01/2024 11:24 AM EDT): - Normal PAP and negative high risk HPV in Jun 2023 - most recent transvaginal US in Jun 2023 showed endometrial thickness, 9 mm - seen by [facility] READING INSTRUCTOR in Aug 2023, scheduling for endometrial biopsy Assessment & Plan (10/30/2023 5:30 AM EST): - Normal PAP and negative high risk HPV in Jun 2023 - most recent transvaginal US in Jun 2023 showed endometrial thickness, 9 mm - seen by [facility] READING INSTRUCTOR in Aug 2023, scheduling for endometrial biopsy Periodontal disease 04/17/2023 Dental caries 04/17/2023 Derangement of posterior horn of lateral meniscu s 01/13/2023 Type 2 diabetes mellitus without complication Assessment & Plan (11/13/2024 12:43 PM EDT): -A1C 6.3% on 11/06/24, worsened from 5.7% in Aug 2024 - last eye exam: 04/16/24 No diabetic retinopathy. - last foot exam: 05/08/24 - last lipid profile: 01/26/24 - microalbumin : 01/26/24 no microalbuminuria - current medications: metformin ER 500 mg daily; semaglutide 1.0 mg weekly will be discontinued due to nausea, vomiting, and diarrhea. Will start Mounjaro at lowest dose, and will increase slowly if needed. 11/06/24 - treatment history: patient was unable to tolerate semaglutide 2 mg due to nausea and vomiting - Discussed importance of lifestyle modifications. - Last dental exam: 12/15/21 - Immunizations: Up to date, except COVID-19 booster Assessment & Plan (10/08/2024 10:10 AM EST): [...] 10:54 AM EST): Received Steroid Injection on 9/14/22; -Cont APAP, prn -Cont following with Orthopedist at [facility] Chronic pain of right knee 10/11/2022 LESTER (obstructive sleep apnea) 10/11/2022 Assessment & Plan (11/13/2024 12:38 PM EDT): -Sleep Study in February 2019, recommended Position Therapy, avoid sleeping in spine position; If she is symptomatic still then recommended CPAP Therapy. -Home sleep study and titration study in Apr 2022 showed moderate LESTER -Following with [facility] Sleep medicine clinic on 09/16/22 -Continue auto PAP 5-20. Assessment & Plan (05/08/2024 11:32 AM EDT): -Sleep Study in February 2019, recommended Position Therapy, avoid sleeping in spine position; If she is symptomatic still then recommended CPAP Therapy. -Home sleep study and titration study in Apr 2022 showed moderate LESTER -Following with [facility] Sleep medicine clinic on 09/16/22 -Continue auto PAP 5-20. Assessment & Plan (11/13/2023 8:46 AM EDT): -Sleep Study in February 2019, recommended Position Therapy, avoid sleeping in spine position; If she is symptomatic still then recommended CPAP Therapy. -Home sleep study and titration study in Apr 2022 showed moderate LESTER -Following with [facility] Sleep medicine clinic on 09/16/22 -Continue auto PAP 5-20. Assessment & Plan (07/28/2023 6:56 AM EST): -Sleep Study in February 2019, recommended Position Therapy, avoid sleeping in spine position; If she is symptomatic still then recommended CPAP Therapy. -Home sleep study and titration study in Apr 2022 showed moderate LESTER -Following with [facility] Sleep medicine clinic on 09/16/22 -Continue auto PAP 5-20. Assessment & Plan (04/27/2023 5:46 AM EDT): -Sleep Study in February 2019, recommended Position Therapy, avoid sleeping in spine position; If she is symptomatic still then recommended CPAP Therapy. -Home sleep study and titration study in Apr 2022 showed moderate LESTER -Following with [facility] Sleep medicine clinic on 09/16/22 -Continue auto PAP 5-20. Assessment & Plan (10/21/2022 7:13 PM EST): -Sleep Study in February 2019, recommended Position Therapy, avoid sleeping in spine position; If she is symptomatic still then recommended CPAP Therapy. -Home sleep study and titration study in Apr 2022 showed moderate LESTER -Following with [facility] Sleep medicine clinic on 09/16/22 -Continue auto PAP 5-20. Essential hypertension 10/11/2022 Assessment & Plan (11/13/2024 12:40 PM EDT): -Goal BP <140/90 per JNC-8 and < 130/80 per ACC/AHA guideline - BP borderline today - Co-managed with our pharmacist CDTM - Continue HCTZ 12.5 mg daily - Continue lisinopril 10 mg daily - Continue working on lifestyle modifications -Follow-up in 3-4 mo or sooner if any problem arises Assessment & Plan (09/18/2024 1:09 PM EST): [...] / RF) -Continue Cyclobenzaprine as prescribed by bounty trapper -Continue Cymbalta 30 mg QHS -Continue Gabapentin [...] / RF) -Continue Cyclobenzaprine as prescribed by bounty trapper -Continue Cymbalta 30 mg QHS -Continue Gabapentin [...] / RF) -Continue Cyclobenzaprine as prescribed by bounty trapper -Continue Cymbalta 30 mg QHS -Continue Gabapentin 300mg QHS -Continue Ibuprofen 800mg prn -Encouraged to remain physically active, increase as tolerated -Encouraged to search peer support Depression with anxiety 10/11/2022 Assessment & Plan (04/27/2023 5:52 AM EDT): -Followed by N. -Continue current medications as prescribed: [...] (09/23/2024 12:13 PM EST): Previously followed by [facility], seen 2020. -Received steroid injection. -Continue judicious use of meloxicam -Recommended to f/u. -Work on achieving healthier weight Assessment & Plan (07/28/2023 7:02 AM EST): Previously followed by [facility], seen 2020. -Received steroid injection. -Recommended to f/u. -Work on achieving healthier weight Assessment & Plan (01/20/2023 12:16 PM EDT): Previously followed by [facility], seen 2020. -Received steroid injection. -Recommended to f/u. Assessment & Plan (10/11/2022 10:59 AM EST): Previously followed by [facility], seen 2020. -Received steroid injection. -Recommended [...] while symptomatic Asthma 07/11/2016 Assessment & Plan (11/13/2024 12:39 PM EDT): - Followed by paid search marketing strategist, [facility]. Last seen by Dr. Cash in May [...] neb prn as rescue. Assessment & Plan (09/23/2024 12:06 PM EST): - Followed by paid search marketing strategist, [facility]. Last seen by Dr. Cash in May [...] COMPLICATION WRITTEN ON 10/26/2023 4:27 PM BY AMRIIA BOYD MD Pt with c/o persistent cough, [...] therapy Morbid obesity 05/04/2012 Assessment & Plan (11/13/2024 12:41 PM EDT): Pt was previously in [facility]. Pt is hesitant to have surgical weight loss due to family members with severe complications. Patient tried GLP1RA for diabetes mellitus, but was unable to tolerate semaglutide side effects. Will switch to tirzepatide. Continue working on lifestyle modifications Assessment & Plan (09/23/2024 11:49 AM EST): Pt was previously in [facility]. Pt is hesitant to have surgical weight loss due to family members with severe complications. Continue semaglutide at 1 mg weekly. Patient developed adverse reaction to 2 mg. Assessment & Plan (05/08/2024 12:50 PM EDT): Pt was previously in [facility]. Pt is hesitant to have surgical weight loss due to family members with severe complications. Continue semaglutide, increased dose Assessment & Plan (07/28/2023 6:59 AM EST): Pt was previously in [facility]. Pt is hesitant to have surgical weight loss due to family members with severe complications. Continue semaglutide, increased dose Assessment & Plan (04/27/2023 5:52 AM EDT): Pt was previously in [facility]. Pt is hesitant to have surgical weight loss due to family members with severe complications. Pt is interested in GLP-1 agonist; we have discussed about difficulty getting insurance coverage and its shortage at this time, but will try as she has obesity class 3 with multiple complications Assessment & Plan (01/20/2023 12:20 PM EDT): Pt was previously in [facility]. Pt is recommended to resume [facility]. Assessment & Plan (10/11/2022 10:58 AM EST): Pt was previously in [facility]. Pt advised to resume [facility]. Chronic low back pain 05/04/2012 Assessment & [...] injection on 10/22/19 -restarted PT again at [facility], but stopped -recommended to restart W[facility] management [...] injection on 10/22/19 -restarted PT again at [facility], but stopped -recommended to restart Wt management [...] injection on 10/22/19 -restarted PT again at [facility], but stopped -recommended to restart [facility] clinic -continue cyclobenzaprine -continue judicious use of meloxicam and ibuprofen -Continue gabapentin -discussed about judicious use of muscle relaxant and pain medication -optimize Tx fibromyalgia -encouraged to try home exercise Resolved Problems Problem Noted Date Diagnosed Date Resolved Date Bilious vomiting with nausea 10/08/2024 11/13/2024 Assessment & Plan (10/08/2024 10:09 AM EST): [...] Follow up with PCP in 4 weeks Diarrhea 10/08/2024 10/08/2024 Acute cough 10/03/2023 10/30/2023 Hypertensive disorder 04/10/20172022 Mixed anxiety and depressive disorder 06/25/2015 01/15/2023 Impaired fasting glucose 05/04/2012 Encounters Date Type Department Care Team Description 12/30/2024 Orders Only [facility] [address] [facility] [place] [phone] Liliana Hamilton MD Type 2 diabetes mellitus without complication, without long-term current use of insulin ([facility]) 12/25/2024 Telephone [facility]IC[facility] [address] [place] [address] Liliana Hamilton MD Medication Question 12/16/2024 Refill [facility] [address] [facility] [place] [phone] Liliana Hamilton MD 12/04/2024 Refill [facility] [address] [facility] [place] [phone] Liliana Hamilton MD Essential hypertension 12/03/2024 Refill [facility] [address] [place] [phone] Liliana Hamilton MD 11/26/2024 Telephone [facility] [address] [facility] [place] [address] Liliana Hamilton MD DME from [facility] 11/06/2024 11:15 AM EST Office Visit [facility] [address] [facility] [place] [phone] Liliana Hamilton MD Essential hypertension (Primary Dx); Type 2 diabetes mellitus without complication, without long-term current use of insulin (CMS/HCC); Morbid obesity (CMS/HCC); Nausea; LESTER (obstructive sleep apnea); Moderate persistent asthma without complication 11/06/2024 Travel 11/01/2024 Refill [facility] [address] [facility] [place], [place] [phone] Nichole Whitaker MD Type 2 diabetes mellitus without complication, without long-term current use of insulin (CMS/HCC) 10/23/2024 Refill [facility] [place] [address] Liliana Hamilton MD from Last 3 Months Immunizations Name Administration [...] the past 12 months, has t he [facility], gas, oil or water company threatened to [...] Sign Reading Time Taken Comments Blood Pressure 128/98 11/06/2024 12:06 PM EST Pulse 98 11/06/2024 11:51 AM EST Temperature 35.8 ??C (96.4 ??F) 11/06/2024 11:[address] Respiratory Rate 15 11/06/2024 11:51 AM EST Oxygen Saturation 97% 11/06/2024 11:51 AM EST Inhaled Oxygen Concentration - - Weight 151 kg (332 lb 3.2 oz) 11/06/2024 11:51 A M EST Height 160 cm (5' 2.99 ) 11/06/2024 11:51 AM EST Body Mass Index 58.86 11/06/2024 11:51 AM EST Plan of Treatment Upcoming Encounters Date Type Department Care Team (Late st Contact Info) Description 02/03/2025 11:15 AM EDT Office Visit [facility]INE [address] [place], [place] [phone] Liliana Hamilton MD [address] [place], [place] [phone] Health Maintenance Due Date Last Done Comments [...] 02/01/20 24 SDOH Screening 01/31/2025 02/01/2024 Diabetes: Foot Exam 05/08/2025 05/08/2024, 05/08/2024, 05/08/2024, Additional history exists Diabetes: Hemoglobin A1C 05/09/2025 025, 08/07/2024, 02/01/2024, Additional history exists Alcohol/Substance Use Screening 08/07/2025 08/07/2024 Diabetes: Urine Protein Screening 10/08/2025 10/08/2024, 01/26/2024, 01/16/2023, Additional history exists Lipid Panel 10/08/2025 10/08/2024, 01/03, 01/16/2023, Additional history exists Tobacco Screening 11/13/2025 11/13/2024 Mammogram 12/07/2025 12/08/2023, 11/02, 10/01/2018 Dental X-Ray: [...] Pressure 128/98(2024 12:06 PM EST) No Ozzy Quevedo, PharmD Hemoglobin A1c < 7 Result Component 6.3( 2:09 PM EST) No Ozzy Quevedo, Josue Procedures Procedure Name Priority Date/Time Associated Diagnosis Comments POCT GLYCOSYLATED HEMOGLOBIN (HGB A1C) Routine 11/06/2024 2:09 PM EST Type 2 diabetes mellitus without complication, without long-term current use of insulin ([facility]) POCT GLUCOSE Routine 11/06/2024 2:07 PM EST Type 2 diabetes mellitus without complication, without long-term current use of insulin ([facility]) HELICOBACTER PYLORI AG, EIA, STOOL Routine 10/15/2024 11:15 AM EST Gastroesophageal reflux disease, unspecified whether esophagitis present ALBUMIN, RANDOM URINE W/CREATININE Routine 10/08/2024 10:21 AM EST Essential hypertension Type 2 diabetes mellitus without complication, without long-term current use of insulin ([facility]) Dyslipidemia LIPID PANEL WITH REFLEX TO DIRECT LDL Routine 10/08/2024 10:21 AM EST Type 2 diabetes mellitus without complication, without long-term current use of insulin ([facility]) Dyslipidemia BI MAMMOGRAM SCREENING TOMOSYNTHESIS BILATERAL Routine 12/08/2023 [...] Recently Relevant to Health Maintenance Results * (ABNORMAL) POCT glycosylated hemoglobin (Hgb A1c) (11/06/2024 2:09 PM EST) Hemoglobin A1C 6.3(A) 4.0 - 6.0 % QC Media Lot # [id number] Lot# Expiration Date Blood Capillary blood specimen / Unknown 11/06/2024 2:09 PM EST Liliana Hamilton MD POINT OF CARE TEST ENTER/EDIT OR DERABLES Final Result * POCT glucose manually resulted (11/06/2024 2:07 PM EST) Glucose Blood, POC 137 60 - 200 mg/dL QC Media Lot # [id number] Lot# Expiration Date Blood Capillary blood specimen / Unknown 11/06/2024 2:07 PM EST Liliana Hamilton MD POINT OF CARE TEST ENTER/EDIT OR DERABLES Edited Result - Final * Helicobacter pylori??Antigen, EIA, Stool (10/15/2024 11:15 AM EST) H pylori Ag Stool SEE [facility] Comment:HELICOBACTER PYLORI AG, EIA, STOOL Micro Number: [id number] Test Status: Final Specimen Source: Not given Specimen Quality: Adequate H.pylori Ag: Not Detected Antimicrobials, proton pump inhibitors, and bismuth preparations inhibit H. pylori and ingestion up to two weeks prior to testing may cause false negative results. If clinically indicated the test should be repeated on a new specimen obtained two weeks after discontinuing treatment. Reference Range: Not DetectedTHIS TEST WAS PERFORMED AT:[facility] [place] [id number] CAR MD Stool Rectal contents / Unknown 10/15/2024 11:15 AM EST 10/16/2024 4:13 PM EST Liliana Hamilton MD LAB BODY FLUIDS AND STOOLS ORDER JEAN-PAUL Final Result [facility] [address] [place] [phone] * Lipid Panel with Reflex to Direct LDL (10/08/2024 10:21 AM EST) Triglycerides 78 <150 mg/dL [facility] Comment:Desirable Triglyceri de: less than 150 mg/dLBorderline High Triglyceride 150-199 mg/dLHigh Triglyceride: 200-499 mg/dLVery High Triglyceride: greater than or equal to 5OO mg/dL Cholesterol 141 <200 mg/dL [facility] Comment:Desirable Cholestero l: less than 200 mg/dLBorderline High Cholesterol: 200-239 mg/dLHigh Cholesterol: greater than 239 mg/dL LDL Cholesterol Calculated 81 <100 mg/dL [facility] Comment:Desirable LDL: less than 100 mg/dLNear Optimal/Above Optimal LDL: 110- 129 mg/dLBorderline High LDL: 130-159 mg/dLHigh LDL: 160-189 mg/dLVery High LDL: greater than or equal to 190 mg/dL HDL Cholesterol 45 >40 mg/dL [facility] Comment:Desirable HDL: great er than 40 mg/dL Note: This HDL assay may give artificially low results in patients with liver disease. Blood 10/08/2024 10:2 1 AM EST 10/08/2024 11:27 AM EST us Liliana Hamilton MD LAB BLOOD ORDERABLES Final Resul t [facility] [address] [place] [phone] * Albumin, Random Urine W/Creatinine (10/08/2024 10:21 AM EST) Creatinine, Urine 420.86 mg/dL [facility] Microalbumin Urine 22.0 mg/L [facility] Microalbum Creatinine Ratio Ur 5.2 <30 ug/mg cr [facility] Comment:Albumin/Creatinine R atio Reference Ranges: Normal: < 30 ug/mg creatinine Microalbuminuria: 30 - 300 ug/mg creatinineClinical Albuminuria: > 300 ug/mg creatinine Urine 10/08/2024 10:2 1 AM EST 10/08/2024 11:18 AM EST us Liliana Hamilton MD LAB URINE ORDERABLES Final Resul t [facility] [address] [facility] [place] [phone] * BI Mammogram Screening Tomosynthesis Bilateral (12/08/2023 10:25 AM EDT) Anatomical Region Laterality Modality Breast Bilateral Mammography 12/08/2023 10:2 5 AM EDT Narrative 12/16/2023 5:19 PM EDT ? [facility] ? [address] ?[place] [id number] ? Mammography Report ? Signed ? Patient: Saldaña,Janina ?MR#: [id number] ?? [id number] ? : 1970 ?Acct:[id number] ? Age/Sex: 53 / F ?ADM Date: 12/08/23 ? Loc: HO.MAMMO ? Attending Dr: Liliana Hamilton MD ? Ordering Physician: Liliana Hamilton MD ?Results: 1Negative ? Date of Service: 12/08/23 ?Follow Up: 1 Year From Orig ?? inal Mammogram ? Procedure(s): MM tomosynthesis screening BI ?? Accession Number(s): [id number] ? cc: Liliana Hamilton MD ? EXAMINATION: [...] by Bhavna Parra MD in OV> ? 12/16/23 1715 ? DD/ 1025 ? TD/TT: ? Centralized Traffic Control Operator: ? Procedure Note Les Rivera - 12/16/2023 [facility] [address] [place] [address] [place], [place] [address] Mammography Report Signed Patient: Catherine Saldaña#: [id number] : 1970Acct:[id number] Age/Sex: 53 / FADM Date: 12/08/23 Loc: [facility] Attending Dr: Liliana Hamilton MD Ordering Physician: Liliana Hamiltonesults: 1Negative Date of Service: 12/08/23Follow Up: 1 Year From Orig inal Mammogram Procedure(s): MM tomosynthesis screening BI Accession Number(s): [id number] cc: Liliana Hamilton MD EXAMINATION: MM SCREENING [...] in OV> 12/16/23 1715 DD/ 1025 TD/TT: Centralized Traffic Control Operator: Liliana Hamilton MD [facility] BI PROCEDURES Edited Result - Final * Image-Guided Pap with Age-Based Screening??with CT/NG,??Trichomonas (06/08/2023 12:02 PM EDT) Trichomonas (NAAT) NOT DETECTED NOT DETECTED [facility] Comment:The analytical perfo rmance characteristics of thisassay have been determined by [employer]. Themodifications have not been cleared or approved bythe FDA. This assay has been validated pursuant to theCLIA regulations and is used for clinical purposes.For additional information, please refer [email or web address]/faq/Trichomonastma(This link is being provided for information/educational purposes only.)THIS TEST WAS PERFORMED AT:[facility] [place] [id number] CAR MD CTNG Ref Lab NOT DETECTED NOT DETECTED [facility] NG Ref Lab NOT DETECTED NOT DETECTED [facility] 06/08/2023 12:0 2 PM EDT 06/09/2023 9:00 AM EDT [facility] CYTOLOGY ORDERABLES F inal Result Performing Organization Address City/[facility]/ZIP Co de Phone Number [facility] [address] [place] [address] [phone] * HPV mRNA E6/E7 w/Reflex to HPV Genotypes 16, 18/45 (06/08/2023 12:02 PM EDT) HPV nRNA E6/E7 Not Detected Not Detected [facility] Comment:Methodology: Transcr iption-Mediated AmplificationThis assay detects E6/E7 viral messenger RNA (mRNA) from 14high-risk HPV types (16,18,31,33,35,39,45,51,52,56,58,59,66,68).Cervical sources are required for HPV testing.If a vaginal source from a patient who has had atotal hysterectomy with removal of cervix wassubmitted, please contact the testing laboratoryfor alternative testing options.For additional information, please refer tohttp://education.[employer]/faq/BOD271d0(This link if provided for information/educational purposes only.)THIS TEST WAS PERFORMED AT:[facility] [place] [id number] CAR MD HPV mRNA E6/E7 [facility] HPV 16 RNA TNP [facility] HPV 18/45 RNA [facility] 06/08/2023 12:0 2 PM EDT 06/09/2023 9:00 AM EDT [facility] CYTOLOGY ORDERABLES F inal Result Performing Organization Address City/[facility]/ZIP Co de Phone Number [facility] [address] [place] [address] [phone] * Hm Colonoscopy (04/25/2022) Colonoscopy Normal Normal us Historical Provider MD HEALTH MAINTENANCE Final Result from Last 3 Months or Most Recently Relevant to Health Maintenance Insurance [address] [address] [facility] [address] [facility] [address] [place] [id number] Care Teams Assistant Film Editor Relationship Specialty Start Date End Date Liliana Hamilton MD [address] [place] [address] PCP - General Family Medicine 09/04/18 Ozzy Quevedo, MarinaD [address] [place] [address] Pharmacist Internal Medicine 06/14/23
--- OUTSIDE RECORDS SUMMARY | 2025-01-06 15:53 | XMS_ITS | Encounter Summary ---
Author Organization [employer] Address [address] [place] [address] Care Team Providers Care Contract Law Specialist Name Role Phone Liliana Ricks MD Primary Care Provider [phone] Ozzy Quevedo PharmD Unavailable [phone] Reason for Visit * Reason Onset Date Comments Nurse Triage 05/18/2023 Encounter Details Date Type Department Care Team ([facility] st Contact Info) Description 05/18/2023 Telephone [facility] [address] [place] [address] Liliana Ricks MD [address] [place] [address] Nurse Triage Social History Tobacco Use Types [...] Description 02/03/2025 11:15 AM EDT Office Visit [facility] [address] [place] [address] Liliana Ricks MD [address] [place] [address] documented as of this encounter Visit Diagnoses Not on filedocumented in this encounter Additional Health Concerns Assessment Noted Time PHQ-9 Depression Total Score: 2 01/18/20 9:56 AM EDT documented as of this encounter Care Teams Contract Law Specialist Relationship Specialty Start Date End Date Liliana Ricks MD [address] [place] [address] PCP - General Family Medicine 09/04/18 Ozzy Quevedo, PharmD [address] [place] [phone] Pharmacist Internal Medicine 06/14/23 documented as of this encounter
--- OUTSIDE RECORDS SUMMARY | 2025-01-06 15:53 | XMS_ITS | Encounter Summary ---
Author Organization [employer] Address [address] [place] [address] Care Team Providers Care Regional Manager Name Role Phone Liliana Ricks MD Primary Care Provider [phone] Ozzy Quevedo PharmD Unavailable [phone] Reason for Visit * Reason Comments Med Refill Encounter Details Date Type Department Care Team ([facility] Contact Info) Description 11/01/2022 Refill [facility]INE [address] [place] [address] [phone] Liliana Ricks MD [address] [place] [address] [phone] Chronic pain of right knee Social History [...] Upcoming Encounters Date Type Department Care Team ([facility] Contact Info) Description 02/03/2025 11:15 AM EDT Office Visit [facility] MED[facility]INE [address] [place] [phone] Liliana Ricks MD [address] [place] [phone] documented as of this encounter Visit Diagnoses Diagnosis Chronic pain of right knee documented in this encounter Care Teams Regional Manager Relationship Specialty Start Date End Date Liliana Ricks MD [address] [place] [phone] PCP - General Family Medicine 09/04/18 Ozzy Quevedo, MarinaD [address] [place] [phone] Pharmacist Internal Medicine 06/14/23 documented as of this encounter
== END 2025-01-06 15:04 | disposition home or self-care (01) ==
LOC: HO.HSMS 14:21
PROVIDERS: Absent Provider Nurse Practitioner Family; PCP Family Medicine; Visit Provider Nurse Practitioner Family
DX: G47.33 Obstructive sleep apnea (adult) (pediatric) (principal); Z99.89 Dependence on other enabling machines and devices
CPT/HCPCS: 99213

== ENCOUNTER → 2025-01-06 14:20 | Outpatient (BNVA) | payer OTHER, SELFPAY | PROVIDERS: Absent Provider Nurse Practitioner Family; PCP Family Medicine; Visit Provider Nurse Practitioner Family | DX: G47.33 Obstructive sleep apnea (adult) (pediatric) (principal); Z99.89 Dependence on other enabling machines and devices | CPT/HCPCS: 99212 ==

== ENCOUNTER 2025-02-03 11:42 | Outpatient (REF) | payer OTHER, SELFPAY ==
--- NOTE | ~2025-02-03 | XR_ITS ---
EXAMINATION: XR ANKLE, LEFT CLINICAL INFORMATION: left medial ankle pain. No known injury. COMPARISON: None available. TECHNIQUE: AP, lateral, and mortise views of the left ankle. FINDINGS: No fracture, dislocation, or suspicious bone lesion. Normal bone mineralization. Normal alignment. Mortise is intact. The talar dome is normal. 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 The subtalar joints appear normal. There is a moderate-sized plantar calcaneal spur. No significant ankle joint effusion. Soft tissues demonstrate vascular calcifications. XR/XR ankle LT min 3V IMPRESSION: 1. No acute findings of the left ankle. Electronically signed by: Rubin Roland MD 02/03/2025 12:08 PM EDT
--- OUTSIDE RECORDS SUMMARY | 2025-02-03 12:58 | XMS_ITS | Clinical Summary ---
Author Organization [employer] Address [address] [place] [address] Care Team Providers Care Model And Mold Maker Plaster Name Role Phone Liliana Ricks MD Primary Care Provider [phone] Ozzy Quevedo PharmD Unavailable [phone] Allergies No known active allergies Medications Bisacodyl EC 5 MG EC tablet Take 10 mg by mouth at bedtime. 2 Active Blood Glucose Monitoring Suppl (FreeStyle Lite) device USE TO TEST BLOOD SUGAR TWICE DAILY 2 Active cholecalciferol (Vitamin D-3) 25 MCG (1000 UT) capsule Take 25 mcg by mouth in the morning. 2 Active clonazePAM (KlonoPIN) 1 MG tablet TAKE 1/2 TO 1 TABLET BY MOUTH TWICE DAILY NEEDED FOR ANXIETY 3 Active cyclobenzaprine (Flexeril) 5 MG tablet TAKE 1 TABLET BY MOUTH AT BEDTIME NEEDED FOR MUSCLE SPASM 3 Active DULoxetine (Cymbalta) [address] capsule Take 30 mg by mouth 2 times daily. 2 Active polyethylene glycol, PEG, 3350 (Miralax) 17 g packet MIX AND DRINK 17G BY MOUTH EVERY DAY DIRECTED 2 Active zolpidem (Ambien) 5 MG tablet Take 5 mg by mouth if needed at bedtime. 3 Active montelukast (Singulair) 10 MG tabletIndications: Moderate persistent asthma without complication Take 1 tablet (10 mg) by mouth in the evening. 90 tablet 1 3 Active Acetaminophen Extra Strength 500 MG tablet TAKE TWO TABLET BY MOUTH EVERY EIGHT HOURS NEEDED 60 tablet 3 3 Active Blood Pressure Monitor kitIndications:Ess ential hypertension Use daily as directed 1 kit 3 Active fluticasone (Flonase) 50 MCG/ACT nasal spray Administer 1-2 sprays into each nostril in the morning. Shake gently. Before first use, prime pump. After use, clean tip and replace cap. 16 g 2 4 Active loratadine (Claritin) 10 MG tablet Take 1 tablet (10 mg) by mouth Once per day. 30 tablet 11 4 Active metFORMIN XR (Glucophage-XR) 500 MG 24 hr tablet TAKE 1 TABLET(500 MG) BY MOUTH WITH THE EVENING MEAL. DO NOT CRUSH, CHEW, OR SPLIT 90 tablet 3 4 Active Ventolin HFA 108 (90 Base) MCG/ACT inhalerIndications :Moderate persistent asthma without complication INHALE 2 PUFFS BY MOUTH EVERY 4 HOURS NEEDED FOR WHEEZING OR SHORTNESS OF BREATH 18 g 3 4 Active hydroCHLOROthiazid e 12.5 MG tabletIndications: Essential hypertension TAKE 1 TABLET(12.5 MG) BY MOUTH IN THE MORNING 90 tablet 1 5 Active meloxicam (Mobic) 15 MG tabletIndications: Chronic pain of right knee TAKE 1 TABLET(15 MG) BY MOUTH EACH DAY NEEDED FOR MILD PAIN 30 tablet 2 5 Active omeprazole (PriLOSEC) [address] capsule Take 1 capsule (20 mg) by mouth before breakfast. Do not crush or chew. 90 capsule 3 5 026 Active atorvastatin (Lipitor) 10 MG tablet TAKE 1 TABLET(10 MG) BY MOUTH AT BEDTIME 90 tablet 3 5 Active FreeStyle lancetsIndications :Type 2 diabetes mellitus without complication, without long-term current use of insulin ([facility]) 1 each by Other route Once per day. USE TO TEST BLOOD SUGAR TWICE DAILY 100 each 11 5 Active glucose blood (FREESTYLE LITE) test stripIndications:T ype 2 diabetes mellitus without complication, without long-term current use of insulin ([facility]) USE TO TEST BLOOD SUGAR TWICE DAILY 100 strip 11 5 Active ondansetron ODT (Zofran-ODT) 4 MG disintegrating tabletIndications: Nausea Take 1 tablet (4 mg) by mouth every 8 (eight) hours if needed for nausea or vomiting. 30 tablet 1 5 Active budesonide-formote rol (Symbicort) 160-4.5 MCG/ACT inhaler INHALE 2 PUFFS BY MOUTH IN THE MORNING AND AT BEDTIME. RINSE MOUTH WITH WATER AFTER USE FOR AFTERTASTE AND INCIDENCE OF CANDIDIASIS. DO NOT SWALLOW 10.2 g 11 5 Active lisinopril 10 MG tabletIndications: Essential hypertension TAKE 1 TABLET BY MOUTH DAILY 90 tablet 1 5 Active Calcium Carb-Cholecalcifer ol 600-10 MG-MCG tablet TAKE 1 TABLET BY MOUTH TWICE DAILY 180 tablet 3 5 Active Tirzepatide (Mounjaro) 5 MG/0.5ML solution auto-injectorIndic ations:Type 2 diabetes mellitus without complication, without long-term current use of insulin ([facility]) Inject 5 mg under the skin 1 (one) time per week. 2 mL 5 Active ibuprofen 800 MG tablet Take 1 tablet (800 mg) by mouth every 8 (eight) hours if needed for mild pain or moderate pain. 90 tablet 1 5 Active Active Problems Problem Noted Date Diagnosed Date [...] colonoscopy was done by Dr. Cote at [facility] in Apr 2022 Assessment & [...] endometrial thickness, 9 mm - evaluated by supervising airplane pilot for postmenopausal bleeding and endometrial biopsy done on 02/19/24. Result was negative for atypia, hyperplasia, or malignancy. Assessment & Plan (05/10/2024 2:48 PM EDT): - Normal PAP and negative high risk HPV in Jun 2023 - most recent transvaginal US in Jun 2023 showed endometrial thickness, 9 mm - evaluated by supervising airplane pilot for postmenopausal bleeding and endometrial biopsy done on 02/19/24. Result was negative for atypia, hyperplasia, or malignancy. Assessment & Plan (02/01/2024 11:24 AM EDT): - Normal PAP and negative high risk HPV in Jun 2023 - most recent transvaginal US in Jun 2023 showed endometrial thickness, 9 mm - seen by [facility] [employer]MIN[employer] GAUGER SUPERVISOR in Aug 2023, scheduling for endometrial biopsy Assessment & Plan (10/30/2023 5:30 AM EST): - Normal PAP and negative high risk HPV in Jun 2023 - most recent transvaginal US in Jun 2023 showed endometrial thickness, 9 mm - seen by [facility] TERMINAL GAUGER SUPERVISOR in Aug 2023, scheduling for endometrial biopsy [...] (10/08/2024 10:10 AM EST): Pt of Dr. Ricks Most recent A1C [...] APAP, prn -Cont following with Orthopedist at [facility] Chronic pain of right knee 10/11/2022 LESTER (obstructive sleep apnea) 10/11/2022 Assessment & Plan (11/13/2024 12:38 PM EDT): -Sleep Study in February 2019, recommended Position Therapy, avoid sleeping in spine position; If she is symptomatic still then recommended CPAP Therapy. -Home sleep study and titration study in Apr 2022 showed moderate LESTER -Following with [facility] Sleep medicine clinic on 09/16/22 -Continue auto PAP 5-20. Assessment & Plan (05/08/2024 11:32 AM EDT): -Sleep Study in February 2019, recommended Position Therapy, avoid sleeping in spine position; If she is symptomatic still then recommended CPAP Therapy. -Home sleep study and titration study in Apr 2022 showed moderate LESTER -Following with [facility] Sleep medicine clinic on 09/16/22 -Continue auto PAP 5-20. Assessment & Plan (11/13/2023 8:46 AM EDT): -Sleep Study in February 2019, recommended Position Therapy, avoid sleeping in spine position; If she is symptomatic still then recommended CPAP Therapy. -Home sleep study and titration study in Apr 2022 showed moderate LESTER -Following with [facility] Sleep medicine clinic on 09/16/22 -Continue auto PAP 5-20. Assessment & Plan (07/28/2023 6:56 AM EST): -Sleep Study in February 2019, recommended Position Therapy, avoid sleeping in spine position; If she is symptomatic still then recommended CPAP Therapy. -Home sleep study and titration study in Apr 2022 showed moderate LESTER -Following with [facility] Sleep medicine clinic on 09/16/22 -Continue auto PAP 5-20. Assessment & Plan (04/27/2023 5:46 AM EDT): -Sleep Study in February 2019, recommended Position Therapy, avoid sleeping in spine position; If she is symptomatic still then recommended CPAP Therapy. -Home sleep study and titration study in Apr 2022 showed moderate LESTER -Following with [facility] Sleep medicine clinic on 09/16/22 -Continue auto PAP 5-20. Assessment & Plan (10/21/2022 7:13 PM EST): -Sleep Study in February 2019, recommended Position Therapy, avoid sleeping in spine position; If she is symptomatic still then recommended CPAP Therapy. -Home sleep study and titration study in Apr 2022 showed moderate LESTER -Following with [facility] Sleep medicine clinic on 09/16/22 [...] / RF) -Continue Cyclobenzaprine as prescribed by mechanical manager -Continue Cymbalta 30 mg QHS -Continue Gabapentin [...] / RF) -Continue Cyclobenzaprine as prescribed by mechanical manager -Continue Cymbalta 30 mg QHS -Continue Gabapentin [...] / RF) -Continue Cyclobenzaprine as prescribed by mechanical manager -Continue Cymbalta 30 mg QHS -Continue Gabapentin [...] (09/23/2024 12:13 PM EST): Previously followed by [facility], seen 2020. -Received steroid injection. -Continue judicious use of meloxicam -Recommended to f/u. -Work on achieving healthier weight Assessment & Plan (07/28/2023 7:02 AM EST): Previously followed by [facility], seen 2020. -Received steroid injection. -Recommended to f/u. -Work on achieving healthier weight Assessment & Plan (01/20/2023 12:16 PM EDT): Previously followed by [facility], seen 2020. -Received steroid injection. -Recommended to f/u. Assessment & Plan (10/11/2022 10:59 AM EST): Previously followed by [facility], seen 2020. -Received steroid injection. -Recommended [...] (11/13/2024 12:39 PM EDT): - Followed by short haul driver, [facility]. Last seen by Dr. Cash [...] (09/23/2024 12:06 PM EST): - Followed by short haul driver, C. Last seen by Dr. Cash in May [...] WRITTEN ON 10/21/2022 6:52 PM BY LILIANA RICKS MD Reviewed maintenance and rescue medications. -Continue Flovent to 110 mcg bid as maintenance -Continue Singulair 10 mg daily as maintenance -Continue albuterol HFA prn and neb prn as rescue. Improve adherence or consider step-down therapy Assessment & Plan (10/30/2023 5:27 AM EST): >>ASSESSMENT AND PLAN FOR MODERATE PERSISTENT ASTHMA WITHOUT COMPLICATION WRITTEN ON 01/20/2023 12:14 PM BY LILIANA RICKS MD Reviewed maintenance and rescue medications. -Continue Flovent to 110 mcg bid as maintenance -Continue Singulair 10 mg daily as maintenance -Continue albuterol HFA prn and neb prn as rescue. Improve adherence or consider step-down therapy Assessment & Plan (10/30/2023 5:27 AM EST): >>ASSESSMENT AND PLAN FOR MODERATE PERSISTENT ASTHMA WITHOUT COMPLICATION WRITTEN ON 04/27/2023 5:47 AM BY LILIANA RICKS MD Reviewed maintenance and rescue medications. -Continue [...] WRITTEN ON 07/28/2023 6:57 AM BY LILIANA RICKS MD Reviewed maintenance and rescue medications. -Continue Flovent to 110 mcg bid as maintenance -Continue Singulair 10 mg daily as maintenance -Continue albuterol HFA prn and neb prn as rescue. Improve adherence or consider step-down therapy >>ASSESSMENT AND PLAN FOR MODERATE PERSISTENT ASTHMA WITHOUT COMPLICATION WRITTEN ON 07/28/2023 6:56 AM BY LILIANA RICKS MD Reviewed maintenance and rescue medications. -Continue Flovent to 110 mcg bid as maintenance -Continue Singulair 10 mg daily as maintenance -Continue albuterol HFA prn and neb prn as rescue. Improve adherence or consider step-down therapy Morbid obesity 05/04/2012 Assessment & Plan (11/13/2024 12:41 PM EDT): Pt was previously in [facility]. Pt is hesitant to have surgical weight loss due to family members with severe complications. Patient tried GLP1RA for diabetes mellitus, but was unable to tolerate semaglutide side effects. Will switch to tirzepatide. Continue working on lifestyle modifications Assessment & Plan (09/23/2024 11:49 AM EST): Pt was previously in [facility]. Pt is hesitant to have surgical weight loss due to family members with severe complications. Continue semaglutide at 1 mg weekly. Patient developed adverse reaction to 2 mg. Assessment & Plan (05/08/2024 12:50 PM EDT): Pt was previously in [facility]. Pt is hesitant to have surgical weight loss due to family members with severe complications. Continue semaglutide, increased dose Assessment & Plan (07/28/2023 6:59 AM EST): Pt was previously in [facility]. Pt is hesitant to have surgical weight loss due to family members with severe complications. Continue semaglutide, increased dose Assessment & Plan (04/27/2023 5:52 AM EDT): Pt was previously in [facility]. Pt is hesitant to have surgical weight loss due to family members with severe complications. Pt is interested in GLP-1 agonist; we have discussed about difficulty getting insurance coverage and its shortage at this time, but will try as she has obesity class 3 with multiple complications Assessment & Plan (01/20/2023 12:20 PM EDT): Pt was previously in [facility]. Pt is recommended to resume [facility]. Assessment & Plan (10/11/2022 10:58 AM EST): Pt was previously in [facility]. Pt advised to resume [facility]. Chronic low back pain 05/04/2012 Assessment [...] injection on 10/22/19 -restarted PT again at [facility], but stopped -recommended to restart [...] WRITTEN ON 01/20/2023 12:21 PM BY LILIANA RICKS MD -Followed by [facility] provider, last seen in November 2020 -tried PT -tried different muscle relaxants: methocarbamol, cyclobenzaprine -tried gabapentin and pregabalin -received left L3-L4 transforaminal epidural steroid injection on 10/22/19 -restarted PT again at [facility], but stopped -recommended to restart [...] injection on 10/22/19 -restarted PT again at [facility], but stopped -recommended to restart [...] (10/08/2024 10:09 AM EST): Patient of Dr. Ricks here with c/o [...] Encounters Date Type Department Care Team Description 02/03/2025 11:15 AM EDT Office Visit [facility] [address] [place] [phone] Liliana Ricks MD Essential hypertension (Primary Dx); Dyslipidemia; Type 2 diabetes mellitus without complication, without long-term current use of insulin (CMS/HCC); Morbid obesity (CMS/HCC); Vitamin D deficiency; Moderate persistent asthma without complication; Acute left ankle pain 02/03/2025 Travel 01/31/2025 Telephone [facility] [address] [place] [phone] Liliana Ricks MD chart prep 12/30/2024 Orders Only [facility] [address] [place] [phone] Liliana Ricks MD Type 2 diabetes mellitus without complication, without long-term current use of insulin (CMS/HCC) 12/25/2024 Telephone [facility] [address] [place] [address] Liliana Ricks MD Medication Question 12/16/2024 Refill [facility] [address] [place] [address] Liliana Ricks MD 12/04/2024 Refill [facility] [address] [place] [address] Liliana Ricks MD Essential hypertension 12/03/2024 Refill [facility] [address] [place] [address] Liliana Ricks MD 11/26/2024 Telephone [facility] [address] [place] [address] Liliana Ricks MD [facility] from [facility] 11/06/2024 11:15 AM EST Office Visit [facility] [address] [place] [address] Liliana Ricks MD Essential hypertension (Primary Dx); Type 2 diabetes mellitus without complication, without long-term current use of insulin (CMS/[facility]); Morbid obesity (CMS/[facility]); Nausea; LESTER (obstructive sleep apnea); Moderate persistent asthma without complication 11/06/2024 Travel from Last 3 Months Immunizations Immunization Administration Dates Next Due Hep B, adult [...] Answer Date Recorded Patient Health Questionnaire-9 Score 3 02/03/2025 Patient Health Questionnaire-9 Score 3 02/03/2025 Last PHQ-9: Questionnaire Data Not on file 0 02/03/2025 Housing Stability Answer Date Recorded What is your housing situation today? I have yvonne mancera 02/03/[address] you li ve. Do you have problems with any of the following? None of the above 02/03/2025 Food Insecurity Answer Date Recorded Within the past 12 months, y ou worried that your food would run out before you got money to buy more: Never True 02/03/2025 Within the past 12 months,th e food you bought just didn't last and you didn't have enough money to get more: Never True 10/2024 Transportation Answer Date Recorded In the past 12 months, has l ack of transportation kept you from medical appts, meetings, work or from getting things needed for daily living? No 02/03/2025 Utilities Answer Date Recorded In the past 12 months, has t he electric, gas, oil or water company threatened to shut off services in your home? No 02/03/2025 Depression Answer Date Recorded Patient Health Questionnaire-2 Score 2 02/03/2025 Internet Access Answer Date Recorded Internet Access Q1 Yes 02/03/2025 Internet Access Q2 Not on file 02/03/2025 Comments No Sex and Gender Information Value Date Recorded Sex Assigned at Female 07/04/2022 10:19 AM EDT Legal Sex Female 10:19 AM EDT Gender Identity Female 07/04/2022 10:19 AM EDT Sexual Orientation Straight 07/04/2022 10 :19 AM EDT Last Filed Vital Signs Vital Sign Reading Time Taken Comments Blood Pressure 100/80 02/03/2025 11:03 AM EDT Pulse 76 02/03/2025 11:03 AM EDT Temperature 36.9 ??C (98.4 ??F) 02/03/2025 11:03 AM E DT Respiratory Rate 15 02/03/2025 11:03 AM EDT Oxygen Saturation 97% 11/06/2024 11:51 AM EST Inhaled Oxygen Concentration - - Weight 151 kg (332 lb 12.8 oz) 02/03/2025 11:03 AM EDT Height 157.5 cm (5' 2 ) 02/03/2025 11:03 AM EDT Body Mass Index 60.87 02/03/2025 11:03 AM EDT Plan of Treatment Health Maintenance Due Date Last Done Comments CT Colonography 1970 Dental Oral Exam 1970 Dental Prophylaxis 1970 Dental X-Ray: Bitewings 1970 FIT DNA/Cologuard 1970 FIT 1970 FOBT 1970 HIV Screening 1970 Sigmoidoscopy 1970 Eye Exam 1980 Hepatitis C Screening 1988 Zoster Vaccines (1 of 2) 2020 Diabetes: Hemoglobin A1C 05/06/2025 025, 11/06/2024, 08/07/2024, Additional history exists Diabetes: Foot Exam 05/08/2025 05/08/2024, 05/08/2024, 05/08/2024, Additional history exists Alcohol/Substance Use Screening 08/07/2025 08/07/2024 Diabetes: Urine Protein Screening 10/08/2025 10/08/2024, 01/26/2024, 01/16/2023, Additional history exists Lipid Panel 10/08/2025 10/08/2024, 01/03, 01/16/2023, Additional history exists Mammogram 12/07/2025 12/08/2023, 11/02, 10/01/2018 COVID-19 Vaccine ( season) 2026 12/18/2020, 11/20/2020 Postponed from 05/05/2024 (Patient Refused) Depression Screening 02/03/2026 02/03/2025, 02/04/20 25 Disability Screening 02/03/2026 02/03/2025 SDOH Screening 02/03/2026 02/03/2025 Tobacco Screening 02/03/2026 02/03/2025 Dental X-Ray: Full Mouth 04/18/2026 04/17/2023 Pap [...] patient's age to complete this topic Meningococcal B Vaccine Aged Out No l onger eligible based on patient's age to complete [...] Author Blood Pressure < 140/90 Blood Pressure 100/80(2024 11:03 AM EDT) No Ozzy Quevedo, Josue Hemoglobin A1c < 7 Result Component 6(02/03/2025 11:28 AM EDT) No Ozzy Quevedo, Josue Procedures Procedure Name Priority Date/Time Associated Diagnosis Comments XR ANKLE 3+ VIEWS LEFT Routine 11:43 AM EDT Acute left ankle pain POCT GLYCOSYLATED HEMOGLOBIN (HGB A1C) Routine 02/03/2025 11:28 AM EDT Type 2 diabetes mellitus without complication, without long-term current use of insulin (CMS/HCC) POCT GLUCOSE Routine 02/03/2025 11:28 AM EDT Type 2 diabetes mellitus without complication, without long-term current use of insulin (CMS/HCC) POCT GLYCOSYLATED HEMOGLOBIN (HGB A1C) Routine 11/06/2024 2:09 PM EST Type 2 diabetes mellitus without complication, without long-term current use of insulin (CMS/HCC) POCT GLUCOSE Routine 11/06/2024 2:07 PM EST Type 2 diabetes mellitus without complication, without long-term current use of insulin (CMS/HCC) ALBUMIN, RANDOM URINE W/CREATININE Routine 10/08/2024 10:21 AM EST Essential hypertension Type 2 diabetes mellitus without complication, without long-term current use of insulin (CMS/HCC) Dyslipidemia LIPID PANEL WITH REFLEX TO DIRECT LDL Routine 10/08/2024 10:21 AM EST Type 2 diabetes mellitus without complication, without long-term current use of insulin (CMS/HCC) Dyslipidemia BI MAMMOGRAM SCREENING TOMOSYNTHESIS BILATERAL Routine [...] Recently Relevant to Health Maintenance Results * XR Ankle 3+ Views Left (02/03/2025 11:43 AM EDT) Anatomical Region Laterality Modality Lower Extremities, Ankle Left Radiogr aphic Imaging 02/03/2025 11:4 3 AM EDT Narrative 02/03/2025 12:10 PM EDT ?[facility] ?[address] ?[place] [address] ?XRay Report ? Signed ? Patient: Janina Saldaña ?MR#: [id number] ?? [id number] ? : 1970 ?Acct:[id number] ? Age/Sex: 54 / F ?ADM Date: 02/03/25 ? Loc: HO.HHCX ? Attending Dr: Liliana Ricks MD ? Ordering Physician: Liliana Ricks MD ?? Date of Service: 02/03/25 ?? Procedure(s): XR ankle LT min 3V ?? Accession Number(s): [id number] ? cc: Liliana Ricks MD ? EXAMINATION: ?? XR ANKLE, LEFT ? CLINICAL INFORMATION: ?? left medial ankle pain. ??No known injury. ? COMPARISON: ?? None available. ? TECHNIQUE: ?? AP, lateral, and mortise views of the left ankle. ? FINDINGS: ?? No fracture, dislocation, or suspicious bone lesion. Normal bone ?? mineralization. ?? Normal alignment. Mortise is intact. The talar dome is normal. ?? 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 ?? The subtalar joints appear normal. There is a moderate-sized plantar ?? calcaneal spur. ? No significant ankle joint effusion. ? Soft tissues demonstrate vascular calcifications. ? XR/XR ankle LT min 3V ?? IMPRESSION: ?? 1. No acute findings of the left ankle. ? Electronically signed by: ??Rubin Roland MD ??02/03/2025 12:08 PM EDT RP ? Dictated By: ?Rubin Roland MD ? Signed By: ?<Electronically signed by Rubin Roland MD in OV> ?02/03/25 1208 ? DD/ 1143 ? TD/TT: 02/03/25 1200 ? Buckle Wire Inserter: ? Procedure Note Donotuseinterpreter, Image - 02/03/[address] [address] XRay Report Signed Patient: Janina SaldañaMR#: [id number] : 1970Acct:[id number] Age/Sex: 54 / FADM Date: 02/03/25 [facility]: Liliana Ricks MD Ordering Physician: Liliana Ricks MD Date of Service: 02/03/25 Procedure(s): XR ankle LT min 3V Accession Number(s): [id number] cc: Liliana Ricks MD EXAMINATION: XR ANKLE, LEFT CLINICAL INFORMATION: left medial ankle pain. No known injury. COMPARISON: None available. TECHNIQUE: AP, lateral, and mortise views of the left ankle. FINDINGS: No fracture, dislocation, or suspicious bone lesion. Normal bone mineralization. Normal alignment. Mortise is intact. The talar dome is normal. 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 The subtalar joints appear normal. There is a moderate-sized plantar calcaneal spur. No significant ankle joint effusion. Soft tissues demonstrate vascular calcifications. XR/XR ankle LT min 3V IMPRESSION: 1. No acute findings of the left ankle. Electronically signed by: Rubin Roland MD 02/03/2025 12:08 PM EDT Dictated By: Rubin Roland MD Signed By: <Electronically signed by Rubin Roland MD in OV> 02/03/25 1208 DD/ 1143 TD/TT: 02/03/25 1200 Buckle Wire Inserter: Liliana Ricks MD IMG XR PROCEDURES Edited Result - Final * POCT glycosylated hemoglobin (Hgb A1c) (02/03/2025 11:28 AM EDT) Only the most recent of2 resultswithin the time period is included. Hemoglobin A1C 6.0 4.0 - 6.0 % QC Media Lot # [id number] Lot# Expiration Date Blood Capillary blood specimen / Unknown 02/03/2025 11:28 AM EDT us Liliana Ricks MD POINT OF CARE TEST ENTER/EDIT OR DERABLES Final Result * POCT glucose manually resulted (02/03/2025 11:28 AM EDT) Only the most recent of2 resultswithin the time period is included. Glucose Blood, POC 123 60 - 200 mg/dL QC Media Lot # [id number] Lot# Expiration Date Blood Capillary blood specimen / Unknown 02/03/2025 11:28 AM EDT us Liliana Ricks MD POINT OF CARE TEST ENTER/EDIT OR DERABLES Final Result * Lipid Panel with Reflex to Direct LDL (10/08/2024 10:21 AM EST) Triglycerides 78 <150 mg/dL [facility] Comment:Desirable Triglyceri de: less than 150 mg/dLBorderline High Triglyceride 150-199 mg/dLHigh Triglyceride: 200-499 mg/dLVery High Triglyceride: greater than or equal to 5OO mg/dL Cholesterol 141 <200 mg/dL [facility] Comment:Desirable Cholestero l: less than 200 mg/dLBorderline High Cholesterol: 200-239 mg/dLHigh Cholesterol: greater than 239 mg/dL LDL Cholesterol Calculated 81 <100 mg/dL [facility] Comment:Desirable LDL: less than 100 mg/dLNear Optimal/Above Optimal LDL: 110- 129 mg/dLBorderline High LDL: 130-159 mg/dLHigh LDL: 160-189 mg/dLVery High LDL: greater than or equal to 190 mg/dL HDL Cholesterol 45 >40 mg/dL [facility] Comment:Desirable HDL: great er than 40 mg/dL Note: This HDL assay may give artificially low results in patients with liver disease. Blood 10/08/2024 10:2 1 AM EST 10/08/2024 11:27 AM EST Liliana Ricks MD LAB BLOOD ORDERABLES Final Resul t Performing Organization Address [facility] de Phone Number [facility] [address] [place] [address] [phone] * Albumin, Random Urine W/Creatinine (10/08/2024 10:21 AM EST) Creatinine, Urine 420.86 mg/dL [facility] Microalbumin Urine 22.0 mg/L [facility] Microalbum Creatinine Ratio Ur 5.2 <30 ug/mg cr [facility] Comment:Albumin/Creatinine R atio Reference Ranges: Normal: < 30 ug/mg creatinine Microalbuminuria: 30 - 300 ug/mg creatinineClinical Albuminuria: > 300 ug/mg creatinine Urine 10/08/2024 10:2 1 AM EST 10/08/2024 11:18 AM EST Liliana Ricks MD LAB URINE ORDERABLES Final Resul t Performing Organization Address [facility] de Phone Number [facility] [address] [place] [address] [phone] * BI Mammogram Screening Tomosynthesis Bilateral (12/08/2023 10:25 AM EDT) Anatomical Region Laterality Modality Breast Bilateral Mammography 12/08/2023 10:2 5 AM EDT Narrative 12/16/2023 5:19 PM EDT ? [facility] [place] ? [address] ?[place] [address] ? Mammography Report ? Signed ? Patient: Saldaña,Janina ?MR#: [id number] ?? [id number] ? : 1970 ?Acct:[id number] ? Age/Sex: 53 / F ?ADM Date: 04/05/24 ? Loc: HO.MAMMO ? Attending Dr: Liliana Ricks MD ? Ordering Physician: Liliana Ricks MD ?Results: 1Negative ? Date of Service: 12/08/23 ?Follow Up: 1 Year From Orig ?? inal Mammogram ? Procedure(s): MM tomosynthesis screening BI ?? Accession Number(s): [id number] ? cc: Liliana Ricks MD ? EXAMINATION: ?? MM SCREENING DIGITAL [...] 12/16/235 ? DD/ 24 ? TD/TT: ? Buckle Wire Inserter: ? Procedure Note Donotlonginterpreter, Image - 12/16/2023 [facility] [address] [place], [place] [address] Mammography Report Signed Patient: Catherine Saldaña#: [id number] : 1970Acct:[id number] Age/Sex: 53 / FADM Date: 12/08/23 Loc: HO.MAMMO Attending Dr: Liliana Ricks MD Ordering Physician: Liliana Ricks MDResults: 1Negative Date of Service: 12/08/23Follow Up: 1 Year From Orig inal Mammogram Procedure(s): MM tomosynthesis screening BI Accession Number(s): [id number] cc: Liliana Ricks MD EXAMINATION: MM SCREENING DIGITAL BREAST TOMOSYNTHESIS, [...] in OV> 12/16/23 1715 DD/ 1025 TD/TT: Buckle Wire Inserter: Liliana Ricks MD IMG BI PROCEDURES Edited Result - Final * Image-Guided Pap with Age-Based Screening??with CT/NG,??Trichomonas (06/08/2023 12:02 PM EDT) Pathologist [facility] Trichomonas (NAAT) NOT DETECTED NOT DETECTED [facility] Comment:The analytical perfo rmance characteristics of thisassay have been determined by [employer]. Themodifications have not been cleared or approved bythe FDA. This assay has been validated pursuant to theIA regulations and is used for clinical purposes.For additional information, please refer tohttp://[employer]/faq/Trichomonastma(This link is being provided for information/educational purposes only.)THIS TEST WAS PERFORMED AT:[facility] [place] [id number] CAR MD CTNG Ref Lab NOT DETECTED NOT DETECTED [facility] NG Ref Lab NOT DETECTED NOT DETECTED [facility] 06/08/2023 12:0 2 PM EDT 06/09/2023 9:00 AM EDT us Isela Jones [facility] CYTOLOGY ORDERABLES F inal Result [facility] [address] [place] [address] [phone] * HPV mRNA E6/E7 w/Reflex to HPV Genotypes 16, 18/45 (06/08/2023 12:02 PM EDT) Pathologist [facility] HPV nRNA E6/E7 Not Detected Not Detected [facility] Comment:Methodology: Transcr iption-Mediated AmplificationThis assay detects E6/E7 viral messenger RNA (mRNA) from 14high-risk HPV types (16,18,31,33,35,39,45,51,52,56,58,59,66,68).Cervical sources are required for HPV testing.If a vaginal source from a patient who has had atotal hysterectomy with removal of cervix wassubmitted, please contact the testing laboratoryfor alternative testing options.For additional information, please refer tohttp://education.[employer]/faq/HVW208d8(This link if provided for information/educational purposes only.)THIS TEST WAS PERFORMED AT:[facility] [place] [id number] CAR MD HPV mRNA E6/E7 TNP [facility] HPV 16 RNA [facility] HPV 18/45 RNA [facility] 06/08/2023 12:0 2 PM EDT 06/09/2023 9:00 AM EDT Isela Jones CN LAB CYTOLOGY ORDERABLES F inal Result [facility] [address] [place] [address] [phone] * Colonoscopy (04/25/2022) Colonoscopy Normal Normal Historical Provider HEALTH MAINTENANCE Final Result from Last 3 Months or Most Recently Relevant to Health Maintenance Insurance [facility] < 65 ALEYDA MIGUEL [id number] DENTAL - [facility] Care Teams Model And Mold Maker Plaster Relationship Specialty Start Date End Date Liliana Ricks MD [address] [place] [address] PCP - General Family Medicine 09/04/18 Ozzy Quevedo, MarinaD [address] [place] [address] Pharmacist Internal Medicine 06/14/23
== END 2025-02-03 11:43 | disposition home or self-care (01) ==
LOC: HO.HHCX 11:42
PROVIDERS: Visit Provider Family Medicine
DX: M25.572 Pain in left ankle and joints of left foot (principal)
CPT/HCPCS: 73610

== ENCOUNTER → 2025-02-03 11:43 | Outpatient (BNV) | payer OTHER, SELFPAY | PROVIDERS: Visit Provider Radiology Diagnostic Radiology | DX: M25.572 Pain in left ankle and joints of left foot (principal) | CPT/HCPCS: 73610 ==

== ENCOUNTER 2025-07-16 18:10 | Outpatient (REF) | payer OTHER, SELFPAY ==
--- OUTSIDE RECORDS SUMMARY | 2025-07-16 11:00 | XMS_ITS | Encounter Summary ---
Author Organization [employer] Address [address] [facility] [address] [place] [address] Care Team Providers Care Shoe Handler Name Role Phone Liliana Ricks MD Primary Care Provider [phone] Ozzy Quevedo PharmD Unavailable [phone] Reason for Referral * Medications - Closed Specialty Diagnoses / Procedures Referred By Contac t Referred To Contact Diagnoses Type 2 diabetes mellitus without complication, without long-term current use of insulin (HCC) Liliana Ricks MD [address] [place] [address] Phone: tel: fax: Referral ID Status Reason Start Date Expiration Date Visits Re quested Visits Authorized [id number] Closed 1 1 Encounter Details Date Type Department Care Team (Late st Contact Info) Description 07/16/2025 11:00 AM EST Office Visit [facility] [address] [place] [phone] Liliana Ricks MD [address] [place] [phone] Essential hypertension (Primary Dx); Dyslipidemia; Type 2 diabetes mellitus without complication, without long-term current use of insulin (HCC); Urinary frequency Social History Tobacco Use Types Packs/Day Years [...] Sign Reading Time Taken Comments Blood Pressure 130/80 07/16/2025 11:14 AM EST Pulse 94 07/16/2025 11:14 AM EST Temperature 35.4 C (95.7 F) 07/16/2025 11:14 AM EST Respiratory Rate 15 07/16/2025 11:14 AM EST Oxygen Saturation 98% 07/16/2025 11:14 AM EST Inhaled Oxygen Concentration - - Weight 153 kg (337 lb) 07/16/2025 11:14 AM EST Height 157.5 cm (5' 2 ) 07/16/2025 11:14 AM EST Body Mass Index 61.64 07/16/2025 11:14 AM EST documented in this encounter Plan of Treatment Scheduled Orders Name Type Priority Associated Diagnoses Orde r Schedule Culture, Urine, Routine Microbiology Routine Urinary frequency Expected: 07/16/2025 (Approximate), Expires: 07/16/2026 documented as of this encounter Goals Goal Patient Goal Type Associated Problems Recent Progress Patient-Stated? Author Blood Pressure < 140/90 Blood Pressure 130/80(2024 11:14 AM EST) Ozzy Bell PharmD Hemoglobin A1c < 7 Result Component 5.9( 11:14 AM EDT) No Ozzy Quevedo PharmD Help patients manage their type 2 diabetes Care Plan Help patients manage their type 2 diabetes Liliana Temple MD Weekly blood pressure task Care Plan Weekly blood pressure task Liliana Temple MD Help patients manage their type 2 diabetes Care Plan Help patients manage their type 2 diabetes Liliana Temple MD Patient has chronic kidney disease Care Plan Patient has chronic kidney disease Liliana Temple MD Weekly blood pressure task Care Plan Weekly blood pressure task Liliana Temple MD Patient has chronic kidney disease Care Plan Patient has chronic kidney disease No Liliana Ricks MD documented as of this encounter Procedures Procedure Name Priority Date/Time Associated Diagnosis Comments POCT URINALYSIS DIPSTICK Routine 07/16/2025 11:24 AM EST Urinary frequency documented in this encounter Results * (ABNORMAL) POCT urinalysis dipstick manually resulted (CPT 16348) (07/16/2025 11:24 AM EST) Color, UA Yellow Clarity, UA Clear Glucose, UA Negative Bilirubin, UA Negative Ketones, UA Negative Spec Grav, UA 1.020 Blood, UA Negative Negative, None Detected pH, UA 5.5 Protein, UA Negative Urobilinogen, UA 0.2 Leukocytes, UA Few 15(A) Negative, Rare, Trace Nitrite, UA Negative Negative, None Detected Appearance, UA clear QC Media Lot # [id number] Lot# Expiration Date [id number] Urine (Urine, Random) 07/16/2025 11:24 AM EST Liliana Ricks MD POINT OF CARE TEST ENTER/EDIT OR DERABLES Final Result documented in this encounter Visit Diagnoses Diagnosis Essential hypertension- Primary Unspecified essential hypertension Dyslipidemia Other and unspecified hyperlipidemia Type 2 diabetes mellitus without complication, without long-term current use of insulin (HCC) Urinary frequency documented in this encounter Additional Health Concerns Active Problems Noted Date Diagnosed Date Help patients manage their type 2 diabetes 07/16 Weekly blood pressure task 07/16/2025 Help patients manage their type 2 diabetes 07/16 Patient has chronic kidney disease 07/16/2025 Weekly blood pressure task 07/16/2025 Patient has chronic kidney disease 07/16/2025 Assessment Noted Time PHQ-9 Depression Total Score: 3 02/04/20 25 11:34 AM EDT documented as of this encounter Care Teams Shoe Handler Relationship Specialty Start Date End Date Liliana Ricks MD [address] [place] [address] PCP - General Family Medicine 09/04/18 Ozzy Quevedo, PharmD [address] [place] [address] Pharmacist Internal Medicine 06/14/23 documented as of this encounter
--- OUTSIDE RECORDS SUMMARY | 2025-07-16 19:11 | XMS_ITS | Encounter Summary ---
Author Organization [employer] Address [address] [place] [address] Care Team Providers Care Director Of Recruitment And Admissions Name Role Phone Liliana Ricsk MD Primary Care Provider [phone] Ozzy Quevedo PharmD Unavailable [phone] Reason for Visit * Reason Comments Med Refill Encounter Details Date Type Department Care Team ([facility] st Contact Info) Description 11/01/2022 Refill [facility] [address] [place] [address] Liliana Ricks MD [address] [place] [address] Chronic pain of right knee Social History [...] knee documented in this encounter Care Teams Director Of Recruitment And Admissions Relationship Specialty Start Date End Date Liliana Ricks MD [address] [place] [phone] PCP - General Family Medicine 09/04/18 Ozzy Quevedo, MarinaD [address] [place] [phone] Pharmacist Internal Medicine 06/14/23 documented as of this encounter
--- OUTSIDE RECORDS SUMMARY | 2025-07-16 19:11 | XMS_ITS | Clinical Summary ---
Author Organization [employer] Address [address] [place] [address] Care Team Providers Care Analytics Developer Name Role Phone Liliana Ricks MD Primary Care Provider [phone] Ozzy Quevedo PharmD Unavailable [phone] Allergies No known active allergies Medications Blood Glucose Monitoring Suppl (FreeStyle Lite) device USE TO TEST BLOOD SUGAR TWICE DAILY 2 Active cholecalciferol (Vitamin D-3) 25 MCG (1000 UT) capsule Take 25 mcg by mouth in the morning. 2 Active clonazePAM (KlonoPIN) 1 MG tablet TAKE 1/2 TO 1 TABLET BY MOUTH TWICE DAILY NEEDED FOR ANXIETY 3 Active DULoxetine (Cymbalta) [address] capsule Take 30 mg by mouth 2 times daily. 2 Active zolpidem (Ambien) 5 MG tablet [...] replace cap. 16 g 2 4 Active hydroCHLOROthiazid e 12.5 MG tabletIndications: Essential hypertension TAKE 1 TABLET(12.5 MG) BY MOUTH IN THE MORNING 90 tablet 1 5 Active omeprazole (PriLOSEC) [address] capsule Take 1 capsule (20 mg) by mouth before breakfast. Do not crush or chew. 90 capsule 3 5 026 Active atorvastatin (Lipitor) 10 MG tablet TAKE 1 TABLET(10 MG) BY MOUTH AT BEDTIME 90 tablet 3 5 Active FreeStyle lancetsIndications :Type 2 diabetes mellitus without complication, without long-term current use of insulin (HCC) 1 each by Other route Once per day. USE TO TEST BLOOD SUGAR TWICE DAILY 100 each 5 Active glucose blood (FREESTYLE LITE) test stripIndications:T ype 2 diabetes mellitus without complication, without long-term current use of insulin (HCC) USE TO TEST BLOOD SUGAR TWICE DAILY 100 strip 5 Active ondansetron ODT (Zofran-ODT) 4 MG [...] OF CANDIDIASIS. DO NOT SWALLOW 10.2 g 5 Active Calcium Carb-Cholecalcifer ol 600-10 MG-MCG tablet TAKE 1 TABLET BY MOUTH TWICE DAILY 180 tablet 5 Active ibuprofen 800 MG tablet Take 1 tablet (800 mg) by mouth every 8 (eight) hours if needed for mild pain or moderate pain. 90 tablet 1 5 Active cyclobenzaprine (Flexeril) 5 MG tabletIndications: Chronic pain of right knee Take 1 tablet (5 mg) by mouth at bedtime. 30 tablet 3 5 Active meloxicam (Mobic) 15 MG tabletIndications: Chronic pain of right knee TAKE 1 TABLET(15 MG) BY MOUTH EACH DAY NEEDED FOR MILD PAIN 30 tablet 3 5 Active Bisacodyl EC 5 MG EC tablet Take 2 tablets (10 mg) by mouth at bedtime. 30 tablet 1 5 Active polyethylene glycol, PEG, 3350 (Miralax) 17 g packet MIX AND DRINK 17G BY MOUTH EVERY DAY DIRECTED 30 packet 3 5 Active loratadine (Claritin) 10 MG tablet TAKE1 TABLET BY MOUTH ONCE DAILY 30 tablet 11 5 Active metFORMIN XR (Glucophage-XR) 500 MG 24 hr tabletIndications: Type 2 diabetes mellitus without complication, without long-term current use of insulin (HCC) Take 1 tablet (500 mg) by mouth 2 times daily. Do not crush, chew, or split. Take with meal. 90 tablet 3 5 Active lisinopril 10 MG tabletIndications: Essential hypertension TAKE 1 TABLET BY MOUTH DAILY 90 tablet 1 5 Active Tirzepatide (Mounjaro) 2.5 MG/0.5ML solution auto-injectorIndic ations:Type 2 diabetes mellitus without complication, without long-term current use of insulin (HCC) Inject 2.5 mg under the skin 1 (one) time per week. 2 mL 11 5 Active nitrofurantoin (Macrodantin) 100 MG capsule Take 1 capsule (100 mg) by mouth 2 times daily for 5 days. 10 capsule 5 025 Active Active Problems Problem Noted Date Diagnosed [...] colonoscopy was done by Dr. Cote at [facility] in Apr 2022 Assessment & Plan (08/07/2024 [...] endometrial thickness, 9 mm - evaluated by [employer] teacher for postmenopausal bleeding and endometrial biopsy done on 02/19/24. Result was negative for atypia, hyperplasia, or malignancy. Assessment & Plan (05/10/2024 2:48 PM EDT): - Normal PAP and negative high risk HPV in Jun 2023 - most recent transvaginal US in Jun 2023 showed endometrial thickness, 9 mm - evaluated by [employer] teacher for postmenopausal bleeding and endometrial biopsy done on 02/19/24. Result was negative for atypia, hyperplasia, or malignancy. Assessment & Plan (02/01/2024 11:24 AM EDT): - Normal PAP and negative high risk HPV in Jun 2023 - most recent transvaginal US in Jun 2023 showed endometrial thickness, 9 mm - seen by [facility] in Aug 2023, scheduling for endometrial biopsy Assessment & Plan (10/30/2023 5:30 AM EST): - Normal PAP and negative high risk HPV in Jun 2023 - most recent transvaginal US in Jun 2023 showed endometrial thickness, 9 mm - seen by [facility] [employer] in Aug 2023, scheduling for endometrial biopsy Periodontal disease 04/17/2023 Dental caries 04/17/2023 Derangement of posterior horn of lateral meniscu s 01/13/2023 Type 2 diabetes mellitus 10/11/2022 Assessment & Plan (05/11/2025 11:28 AM EDT): -A1C 5.9% on 05/06/2025, improved from 6.0% on 02/03/25 - last eye exam: Dr. Vargas, last visit on 04/16/24 Nonproliferative diabetic retinopathy. - last foot exam: 05/08/24 - Last lipid profile: 10/08/24 LDL 81; HDL 45; TC 141; TG 78 - microalbumin : 01/26/24 no microalbuminuria - current medications: metformin ER 500 mg daily; tirzepatide 5 mg weekly. - treatment history: patient was unable to tolerate semaglutide 2 mg due to nausea and vomiting, decreased to 1 mg weekly, then switched to tirzepatide in November 2024 - Discussed importance of lifestyle modifications. - Last dental exam: 12/15/21 Assessment & Plan (02/14/2025 6:28 AM EDT): -A1C 6.0% on 02/03/25, improved from 6.3% on 11/06/24 - last eye exam: 04/16/24 No diabetic retinopathy. - last foot exam: 05/08/24 - Last lipid profile: 10/08/24 LDL 81; HDL 45; TC 141; TG 78 - microalbumin : 01/26/24 no microalbuminuria - current medications: metformin ER 500 mg daily; tirzepatide 5 mg weekly. - treatment history: patient was unable to tolerate semaglutide 2 mg due to nausea and vomiting, decreased to 1 mg weekly, then switched to tirzepatide in November 2024 - Discussed importance of lifestyle modifications. - Last dental exam: 12/15/21 Assessment & Plan (11/13/2024 12:43 PM EDT): [...] APAP, prn -Cont following with Orthopedist at [facility] Chronic pain of right knee 10/11/2022 LESTER (obstructive sleep apnea) 10/11/2022 Assessment & Plan (05/09/2025 9:14 AM EDT): -Sleep Study in February 2019, recommended Position Therapy, avoid sleeping in spine position; If she is symptomatic still then recommended CPAP Therapy. -Home sleep study and titration study in Apr 2022 showed moderate LESTER -Following with [facility] Sleep medicine clinic on 09/16/22 -Continue auto PAP 5-20. Assessment & Plan (11/13/2024 12:38 PM EDT): -Sleep Study in February 2019, recommended Position Therapy, avoid sleeping in spine position; If she is symptomatic still then recommended CPAP Therapy. -Home sleep study and titration study in Apr 2022 showed moderate LESTER -Following with [facility] Sleep medicine clinic on 09/16/22 -Continue auto PAP 5-20. Assessment & Plan (05/08/2024 11:32 AM EDT): -Sleep Study in February 2019, recommended Position Therapy, avoid sleeping in spine position; If she is symptomatic still then recommended CPAP Therapy. -Home sleep study and titration study in Apr 2022 showed moderate LESTER -Following with [facility] Sleep medicine clinic on 09/16/22 -Continue auto PAP 5-20. Assessment & Plan (11/13/2023 8:46 AM EDT): -Sleep Study in February 2019, recommended Position Therapy, avoid sleeping in spine position; If she is symptomatic still then recommended CPAP Therapy. -Home sleep study and titration study in Apr 2022 showed moderate LESTER -Following with [facility] Sleep medicine clinic on 09/16/22 -Continue auto PAP 5-20. Assessment & Plan (07/28/2023 6:56 AM EST): -Sleep Study in February 2019, recommended Position Therapy, avoid sleeping in spine position; If she is symptomatic still then recommended CPAP Therapy. -Home sleep study and titration study in Apr 2022 showed moderate LESTER -Following with [facility] Sleep medicine clinic on 09/16/22 -Continue auto PAP 5-20. Assessment & Plan (04/27/2023 5:46 AM EDT): -Sleep Study in February 2019, recommended Position Therapy, avoid sleeping in spine position; If she is symptomatic still then recommended CPAP Therapy. -Home sleep study and titration study in Apr 2022 showed moderate LESTER -Following with [facility] Sleep medicine clinic on 09/16/22 -Continue auto PAP 5-20. Assessment & Plan (10/21/2022 7:13 PM EST): -Sleep Study in February 2019, recommended Position Therapy, avoid sleeping in spine position; If she is symptomatic still then recommended CPAP Therapy. -Home sleep study and titration study in Apr 2022 showed moderate LESTER -Following with [facility] Sleep medicine clinic on 1/13/23 -Continue auto PAP 5-20. Essential hypertension 10/11/2022 Assessment & Plan (05/11/2025 11:24 AM EDT): -Goal BP < 130/80 per ACC/AHA guideline - BP at goal today - Co-managed with our pharmacist CDTM - Continue HCTZ 12.5 mg daily - Continue lisinopril 10 mg daily - Consider using a combo medication - Continue working on lifestyle modifications Assessment & Plan (02/14/2025 6:21 AM EDT): -Goal BP < 130/80 per ACC/AHA guideline - BP at goal today - Co-managed with our pharmacist CDTM - Continue HCTZ 12.5 mg daily - Continue lisinopril 10 mg daily - Continue working on lifestyle modifications Assessment & Plan (11/13/2024 12:40 PM EDT): [...] problem arises Dyslipidemia 10/11/2022 Assessment & Plan (05/06/2025 5:54 AM EDT): -Last lipid profile: 10/08/24 LDL 81; HDL 45; TC 141; TG 78 -Current medication: atorvastatin 10 mg qhs -Work on lifestyle modification. Assessment & Plan (02/04/2025 6:15 PM EDT): -Last lipid profile: 10/08/24 LDL 81; HDL 45; TC 141; TG 78 -Current medication: atorvastatin 10 mg qhs -Work on lifestyle modification. Assessment & Plan (09/23/2024 11:52 AM EST): [...] / RF) -Continue Cyclobenzaprine as prescribed by director ambulatory -Continue Cymbalta 30 mg QHS -Continue Gabapentin [...] / RF) -Continue Cyclobenzaprine as prescribed by director ambulatory -Continue Cymbalta 30 mg QHS -Continue Gabapentin [...] / RF) -Continue Cyclobenzaprine as prescribed by director ambulatory -Continue Cymbalta 30 mg QHS -Continue Gabapentin 300mg QHS -Continue Ibuprofen 800mg prn -Encouraged to remain physically active, increase as tolerated -Encouraged to search peer support Depression with anxiety 10/11/2022 Assessment & Plan (05/09/2025 9:13 AM EDT): -Followed by N. -Continue current medications as prescribed: Cymbalta, Clonazepam and Ambien. -Previously on escitalopram Assessment & Plan (04/27/2023 5:52 AM EDT): -Followed by [facility]. -Continue current medications as prescribed: Cymbalta, Clonazepam and Ambien. -Previously on escitalopram Assessment & Plan (01/20/2023 12:21 PM EDT): Followed by [facility]. -Continue current medications as prescribed: Cymbalta, Clonazepam and Ambien. -Previously on Lexapro. Assessment & Plan (10/11/2022 10:58 AM EST): Followed by [facility]. -Continue current medications as prescribed: Cymbalta, Clonazepam and Ambien. -Previously on Lexapro. Bilateral primary osteoarthritis of knee 023 Assessment & Plan (05/11/2025 11:30 AM EDT): Previously followed by [facility], seen 2020. -Received steroid injection. -Continue judicious use of meloxicam -Recommended to f/u. -Work on achieving healthier weight Assessment & Plan (09/23/2024 12:13 PM EST): Previously followed by [facility], seen 2020. -Received steroid injection. -Continue judicious use of meloxicam -Recommended to f/u. -Work on achieving healthier weight Assessment & Plan (07/28/2023 7:02 AM EST): Previously followed by [facility], seen 2020. -Received steroid injection. -Recommended to f/u. -Work on achieving healthier weight Assessment & Plan (01/20/2023 12:16 PM EDT): Previously followed by [facility], seen 2020. -Received steroid injection. -Recommended to f/u. Assessment & Plan (10/11/2022 10:59 AM EST): Previously followed by [facility], seen 2020. -Received steroid injection. -Recommended [...] while symptomatic Asthma 07/11/2016 Assessment & Plan (05/11/2025 11:31 AM EDT): - Followed by residential tech, [facility]. Last seen by Dr. Cash in May 2024 - Most recent exacerbation in January 2024, Rx azithromycin - PFT in Aug 2024: Mild restrictive ventilatory defect with bronchodilator response present in small to medium airways only. Decreased expiratory reserve volume suggests extrathoracic restriction likely secondary to abdominal obesity. - Continue budesonide / formoterol (Symbicort) as maintenance and rescue; will start SMART - Continue Singulair 10 mg daily as maintenance Assessment & Plan (02/04/2025 6:14 PM EDT): - Followed by residential tech, [facility]. Last seen by Dr. Cash in May [...] neb prn as rescue. Assessment & Plan (11/13/2024 12:39 PM EDT): - Followed by residential tech, [facility]. Last seen by Dr. Cash in May [...] (09/23/2024 12:06 PM EST): - Followed by residential tech, [facility]. Last seen by Dr. Cash in May [...] adherence or consider step-down therapy Morbid obesity (CMS/HCC) 05/04/2012 Assessment & Plan (05/11/2025 11:29 AM EDT): Pt was previously in [facility]. Pt is hesitant to have surgical weight loss due to family members with severe complications. Patient tried GLP1RA for diabetes mellitus, but was unable to tolerate semaglutide or tirzepatide side effects. Continue working on lifestyle modifications Assessment & Plan (02/04/2025 6:13 PM EDT): Pt was previously in [facility]. Pt is hesitant to have surgical weight loss due to family members with severe complications. Patient tried GLP1RA for diabetes mellitus, but was unable to tolerate semaglutide side effects. Will switch to tirzepatide. Continue working on lifestyle modifications Assessment & Plan (11/13/2024 12:41 PM EDT): Pt was previously in [facility]. Pt is hesitant to have surgical weight loss due to family members with severe complications. Patient tried GLP1RA for diabetes mellitus, but was unable to tolerate semaglutide side effects. Will switch to tirzepatide. Continue working on lifestyle modifications Assessment & Plan (09/23/2024 11:49 AM EST): Pt was previously in [facility]. Pt is hesitant to have surgical weight loss due to family members with severe complications. Continue semaglutide at 1 mg weekly. Patient developed adverse reaction to 2 mg. Assessment & Plan (05/08/2024 12:50 PM EDT): Pt was previously in [facility]. Pt is hesitant to have surgical weight loss due to family members with severe complications. Continue semaglutide, increased dose Assessment & Plan (07/28/2023 6:59 AM EST): Pt was previously in [facility]. Pt is hesitant to have surgical weight loss due to family members with severe complications. Continue semaglutide, increased dose Assessment & Plan (04/27/2023 5:52 AM EDT): Pt was previously in [facility]. Pt is hesitant to have surgical weight loss due to family members with severe complications. Pt is interested in GLP-1 agonist; we have discussed about difficulty getting insurance coverage and its shortage at this time, but will try as she has obesity class 3 with multiple complications Assessment & Plan (01/20/2023 12:20 PM EDT): Pt was previously in [facility]. Pt is recommended to resume [facility]. Assessment & Plan (10/11/2022 10:58 AM EST): Pt was previously in [facility]. Pt advised to resume [facility]. Chronic low back pain 05/04/2012 Assessment & Plan (05/11/2025 11:30 AM EDT): -Followed by [facility] provider, last seen in November 2020 -tried PT -tried different muscle relaxants: methocarbamol, cyclobenzaprine -tried gabapentin and pregabalin -received left L3-L4 transforaminal epidural steroid injection on 10/22/19 -restarted PT again at [facility], but stopped -recommended to restart [facility] management [...] injection on 10/22/19 -restarted PT again at [facility], but stopped -recommended to restart Wt management [...] injection on 10/22/19 -restarted PT again at [facility], but stopped -recommended to restart Wt management [...] injection on 10/22/19 -restarted PT again at [facility], but stopped -recommended to restart Wt management [...] Encounters Date Type Department Care Team Description 07/16/2025 11:00 AM EST Office Visit [facility] [address] [place] [id number] Liliana Ricks MD Essential hypertension (Primary Dx); Dyslipidemia; Type 2 diabetes mellitus without complication, without long-term current use of insulin (HCC); Urinary frequency 07/16/2025 Travel 07/15/2025 Telephone [facility] [address] [place] [phone] Liliana Ricks MD Nurse Triage 06/14/2025 Refill [facility] [address] [place] [phone] Liliana Ricks MD Essential hypertension 06/04/2025 Refill [facility] [address] [place] [address] Liliana Ricks MD Type 2 diabetes mellitus without complication, without long-term current use of insulin (HCC) 05/12/2025 Telephone [facility] [address] [place] [address] Liliana Ricks MD notes 05/06/2025 11:15 AM EDT Office Visit [facility] [address] [place] [address] Liliana Ricks MD Type 2 diabetes mellitus without complication, without long-term current use of insulin (CMS/HCC) (Primary Dx); Essential hypertension; Dyslipidemia; Morbid obesity (CMS/HCC); Depression with anxiety; LESTER (obstructive sleep apnea); Moderate persistent asthma without complication; Chronic pain of right knee; Chronic low back pain, unspecified back pain laterality, unspecified whether sciatica present; Bilateral primary osteoarthritis of knee 05/06/2025 Travel 04/28/2025 Telephone [facility] [address], [place] [phone] Liliana Ricks MD Error (VOID this visit) from Last 3 Months Immunizations Immunization Administration [...] Mass Index 61.64 07/16/2025 11:14 AM EST Plan of Treatment Health Maintenance Due Date Last Done Comments CT Colonography 1970 Dental Oral Exam 1970 Dental Prophylaxis 1970 Dental X-Ray: Bitewings 1970 FIT DNA/Cologuard 1970 FIT 1970 FOBT 1970 HIV Screening 1970 Sigmoidoscopy 1970 RSV Patients and Patients Aged 60 years or older (1 - Risk 50-74 years 1-dose series) 2020 Zoster Vaccines (1 of 2) 2020 Eye Exam 04/16/2025 COVID-19 Vaccine (3 - season) 2025 12/18/2020, 11/20/2020 Influenza Vaccine (#1) 2025 , 07/18/2023, 05/30/2022, Additional history exists Diabetes: Foot Exam 05/08/2025 05/08/2024, 05/08/2024, 05/08/2024, Additional history exists Diabetes: Hemoglobin A1C 08/05/2025 025, 02/03/2025, 11/06/2024, Additional history exists Alcohol/Substance Use Screening 08/07/2025 08/07/2024 Diabetes: Urine Protein Screening 10/08/2025 10/08/2024, 01/26/2024, 01/16/2023, Additional history exists Lipid Panel 10/08/2025 10/08/2024, 01/03, 01/16/2023, Additional history exists Mammogram 12/07/2025 12/08/2023, 11/02, 10/01/2018 Depression Screening 02/03/2026 02/03/2025, 02/04/20 25 Disability Screening 02/03/2026 02/03/2025 SDOH Screening 02/03/2026 02/03/2025 Dental X-Ray: Full Mouth 04/18/2026 04/17/2023 Pap Smear 06/08/2026 06/08/2023, 06/08/2023 Tobacco Screening 07/16/2026 07/16/2025 Colonoscopy 04/25/2027 04/25/2022 Colorectal Cancer Screening 04/25/2027 Cervical Cancer Screening 06/08/2028 HPV/Cotest 06/08/2028 06/08/2023 DTaP/Tdap/Td Vaccines (3 - Td or Tdap) 01/17/2033 01/17/2023, 09/21/2012, 08/17/2007 Hepatitis B Vaccines Completed 05/22/2019, 12/24/2018, 10/02/2018 Pneumococcal Vaccine: 50+ Years Completed 05/08/2024, 10/02/2018 HIB Vaccines Aged Out No longer eligi ble based on patient's age to complete this topic HPV Vaccines Aged Out No longer eligi ble based on patient's age to complete this topic Hepatitis A Vaccines Aged Out No long er eligible based on patient's age to complete this topic Hepatitis C Screening Discontinued IPV Vaccines Aged Out No longer eligi [...] 140/90 Blood Pressure 130/80(2024 11:14 AM EST) No Ozzy Quevedo, PharmHumaira Hemoglobin A1c < 7 Result Component 5.9( 11:14 AM EDT) No Ozzy Quevedo, Josue Help patients manage their type 2 diabetes Care Plan Help patients manage their type 2 diabetes No Liliana Ricks MD Weekly blood pressure task Care Plan Weekly blood pressure task No Liliana Ricks MD Help patients manage their type 2 diabetes Care Plan Help patients manage their type 2 diabetes No Liliana Ricks MD Patient has chronic kidney disease Care Plan Patient has chronic kidney disease No Liliana Ricks MD Weekly blood pressure task Care Plan Weekly blood pressure task No Liliana Ricks MD Patient has chronic kidney disease Care Plan Patient has chronic kidney disease No Liliana Ricks MD Procedures Procedure Name Priority Date/Time Associated Diagnosis Comments POCT URINALYSIS DIPSTICK Routine 07/16/2025 11:24 AM EST Urinary frequency POCT GLYCOSYLATED HEMOGLOBIN (HGB A1C) Routine 05/06/2025 11:14 AM EDT Type 2 diabetes mellitus without complication, without long-term current use of insulin ([facility]) POCT GLUCOSE Routine 05/06/2025 11:13 AM EDT Type 2 diabetes mellitus without complication, without long-term current use of insulin ([facility]) ALBUMIN, RANDOM URINE W/CREATININE Routine 10/08/2024 10:21 AM EST Essential hypertension Type 2 diabetes mellitus without complication, without long-term current use of insulin ([facility]) Dyslipidemia LIPID PANEL WITH REFLEX TO DIRECT LDL Routine 10/08/2024 10:21 AM EST Type 2 diabetes mellitus without complication, without long-term current use of insulin ([facility]) Dyslipidemia BI MAMMOGRAM SCREENING TOMOSYNTHESIS BILATERAL Routine [...] to Health Maintenance Results * (ABNORMAL) POCT urinalysis dipstick manually resulted (CPT 93361) (07/16/2025 11:24 AM EST) Color, UA Yellow Clarity, UA Clear Glucose, UA Negative Bilirubin, UA Negative Ketones, UA Negative Spec Grav, UA 1.020 Blood, UA Negative Negative, None Detected pH, UA 5.5 Protein, UA Negative Urobilinogen, UA 0.2 Leukocytes, UA Few 15(A) Negative, Rare, Trace Nitrite, UA Negative Negative, None Detected Appearance, UA clear QC Media Lot # [id number] Lot# Expiration Date [id number] Urine (Urine, Random) 07/16/2025 11:24 AM EST Liliana Ricks MD POINT OF CARE TEST ENTER/EDIT OR DERABLES Final Result * (ABNORMAL) POCT glycosylated hemoglobin (Hgb A1c) (05/06/2025 11:14 AM EDT) Hemoglobin A1C 5.9(A) 4.0 - 5.7 % QC Media Lot # [id number] Lot# Expiration Date ,[id number] Blood Capillary blood specimen / Unknown 05/06/2025 11:14 AM EDT Liliana Ricks MD POINT OF CARE TEST ENTER/EDIT OR DERABLES Final Result * POCT glucose manually resulted (05/06/2025 11:13 AM EDT) Glucose Blood, POC 120 60 - 200 mg/dL QC Media Lot # [id number] Lot# Expiration Date [id number] Blood Capillary blood specimen / Unknown 05/06/2025 11:13 AM EDT Liliana Ricks MD POINT OF CARE TEST ENTER/EDIT OR DERABLES Final Result * Lipid Panel with Reflex to Direct LDL (10/08/2024 10:21 AM EST) Triglycerides 78 <150 mg/dL [facility] Comment:Desirable Triglyceri de: less than 150 mg/dLBorderline High Triglyceride 150-199 mg/dLHigh Triglyceride: 200-499 mg/dLVery High Triglyceride: greater than or equal to 5OO mg/dL Cholesterol 141 <200 mg/dL [facility] Comment:Desirable Cholestero l: less than 200 mg/dLBorderline High Cholesterol: 200-239 mg/dLHigh Cholesterol: greater than 239 mg/dL LDL Cholesterol Calculated 81 <100 mg/dL [facility] Comment:Desirable LDL: less than 100 mg/dLNear Optimal/Above Optimal LDL: 110- 129 mg/dLBorderline High LDL: 130-159 mg/dLHigh LDL: 160-189 mg/dLVery High LDL: greater than or equal to 190 mg/dL HDL Cholesterol 45 >40 mg/dL [facility] Comment:Desirable HDL: great er than 40 mg/dL Note: This HDL assay may give artificially low results in patients with liver disease. Blood 10/08/2024 10:2 1 AM EST 10/08/2024 11:27 AM EST Liliana Ricks MD LAB BLOOD ORDERABLES Final Resul t [facility] [address] [place] [phone] * Albumin, Random Urine W/Creatinine (10/08/2024 10:21 AM EST) Creatinine, Urine 420.86 mg/dL [facility] Microalbumin Urine 22.0 mg/L [facility] Microalbum Creatinine Ratio Ur 5.2 <30 ug/mg cr [facility] Comment:Albumin/Creatinine R atio Reference Ranges: Normal: < 30 ug/mg creatinine Microalbuminuria: 30 - 300 ug/mg creatinineClinical Albuminuria: > 300 ug/mg creatinine Urine 10/08/2024 10:2 1 AM EST 10/08/2024 11:18 AM EST us Liliana Ricks MD LAB URINE ORDERABLES Final Resul t [facility] [address] [place] [address] [phone] * BI Mammogram Screening Tomosynthesis Bilateral (12/08/2023 10:25 AM EDT) Anatomical Region Laterality Modality Breast Bilateral Mammography 12/08/2023 10:2 5 AM EDT Narrative 12/16/2023 5:19 PM EDT [facility] [address] [place] [address] Mammography Report Signed Patient: Janina Saldaña MR#: [id number] : 1970 Acct:[id number] Age/Sex: 53 / F ADM Date: 12/08/23 Loc: MAMMO Attending Dr: Liliana Ricks MD Ordering Physician: Liliana Ricks MD Results: 1Negative Date of Service: 12/08/23 Follow Up: 1 Year From [facility] ina Mammogram Procedure(s): MM tomosynthesis screening BI Accession Number(s): [id number] cc: Liliana Ricks MD EXAMINATION: MM SCREENING [...] signed by Bhavna Parra MD in OV> 12/16/231714 DD/ 1025 TD/TT: Fleet Technician: Procedure Note Donotuseinterpreter, Image - 12/16/2023 [facility] [address] [place] [address] [place] [address] Mammography Report Signed Patient: Catherine Saldaña#: [id number] : 1970Acct:[id number] Age/Sex: 53 / FADM Date: 12/08/23 Loc: HO.MAMMO Attending Dr: Liliana Ricks MD Ordering Physician: Liliana Ricks MDResults: 1Negative Date of Service: 12/08/23Follow Up: 1 Year From Orig inal Mammogram Procedure(s): MM tomosynthesis screening BI Accession Number(s): [id number] cc: Liliana Ricks MD EXAMINATION: MM SCREENING [...] signed by Bhavna Parra MD in OV> 12/16/231714 DD/ 1025 TD/TT: Fleet Technician: Liliana Ricks MD IMG BI PROCEDURES Edited Result - Final * Image-Guided Pap with Age-Based Screening??with CT/NG,??Trichomonas (06/08/2023 12:02 PM EDT) Trichomonas (NAAT) NOT DETECTED NOT DETECTED [facility] Comment:The analytical perfo rmance characteristics of thisassay have been determined by [employer]. Themodifications have not been cleared or approved bythe FDA. This assay has been validated pursuant to theIA regulations and is used for clinical purposes.For additional information, please refer [email or web address].Greatist/faq/Trichomonastma(This link is being provided for information/educational purposes only.)THIS TEST WAS PERFORMED AT:[employer] [place] [phone] CAR MD CTNG Ref Lab NOT DETECTED NOT DETECTED [facility] NG Ref Lab NOT DETECTED NOT DETECTED [facility] 06/08/2023 12:0 2 PM EDT 06/09/2023 9:00 AM EDT Isela Jones [facility] LAB CYTOLOGY ORDERABLES F inal Result [facility] [address] [place] [address] [phone] * HPV mRNA E6/E7 w/Reflex to HPV Genotypes 16, 18/45 (06/08/2023 12:02 PM EDT) HPV nRNA E6/E7 Not Detected Not Detected [facility] Comment:Methodology: Transcr iption-Mediated AmplificationThis assay detects E6/E7 viral messenger RNA (mRNA) from 14high-risk HPV types (16,18,31,33,35,39,45,51,52,56,58,59,66,68).Cervical sources are required for HPV testing.If a vaginal source from a patient who has had atotal hysterectomy with removal of cervix wassubmitted, please contact the testing laboratoryfor alternative testing options.For additional information, please refer tohttp://education.Greatist/faq/OVM797v2(This link if provided for information/educational purposes only.)THIS TEST WAS PERFORMED AT:[employer] [place] [phone] CAR MD HPV mRNA E6/E7 [facility] HPV 16 RNA [facility] HPV 18/45 RNA [facility] 06/08/2023 12:0 2 PM EDT 06/09/2023 9:00 AM EDT Isela Jones CN LAB CYTOLOGY ORDERABLES F inal Result [facility] [address] [place] [address] [phone] * Colonoscopy (04/25/2022) Colonoscopy Normal Normal Historical Provider HEALTH MAINTENANCE Final Result from Last 3 Months or Most Recently Relevant to Health Maintenance Additional Health Concerns Active Problems Noted Date Diagnosed Date Help patients manage their type 2 diabetes 07/16 Weekly blood pressure task 07/16/2025 Help patients manage their type 2 diabetes 07/16 Patient has chronic kidney disease 07/16/2025 Weekly blood pressure task 07/16/2025 Patient has chronic kidney disease 07/16/2025 Insurance [facility] ONE CARE < 65 ALEYDA MIGUEL [id number] DENTAL - [facility] [address] [place] [address] [place] [address] Care Teams Analytics Developer Relationship Specialty Start Date End Date Liliana Ricks MD [address] [place] [address] PCP - General Family Medicine 09/04/18 Ozzy Quevedo, PharmD [address] [place] [address] Pharmacist Internal Medicine 06/14/23
--- OUTSIDE RECORDS SUMMARY | 2025-07-16 19:11 | XMS_ITS | Encounter Summary ---
Author Organization [employer] Address [address] [facility] 7t [place] [address] Care Team Providers Care Skirt Clipper Name Role Phone Liliana Ricks MD Primary Care Provider [phone] Ozzy Quevedo PharmD Unavailable [phone] Reason for Visit * Reason Onset Date Comments Nurse Triage 07/15/2025 Encounter Details Date Type Department Care Team ([facility] st Contact Info) Description 07/15/2025 Telephone [facility] [address] [place] [address] Liliana Ricks MD [address] [place], [place] [phone] Nurse Triage Social History Tobacco Use Types [...] encounter Miscellaneous Notes * Telephone Encounter - Jeanne Fortune RN - 07/15/2025 4:21 PM EST TC placed to patient. Patient reported urine frequency, discomfort, foul odor urine that started 2 days ago. Denies any fever or back pain. RN scheduled an appt with her PCP for further evaluation. RN advised patient of her symptoms worsen overnight to go to the ED for further evaluation. Patient verbalized understanding. Protocol Used: Urinary Symptoms (Adult) Protocol-Based Disposition: See in Office or Video Visit Today Video visit not offered Positive Triage Questions: * Bad or foul-smelling urine * Urinating more frequently than usual (i.e., frequency) OR new-onset of the feeling of an urgent need to urinate (i.e., urgency) * Patient wants to be seen * All other urine symptoms * All higher-acuity triage questions were negative Care Advice Discussed: * Reasons To Call Back - Fever occurs - Pain or burning with urination - You become worse * Telephone Encounter - Maryan Jerome - 07/15/2025 3:38 PM EST Symptom: Urine Symptoms Outcome: Schedule a same-day appointment or talk to a nurse or provider today Reason: Caller denied all higher acuity questions The caller accepted this outcome. Contact pt at [phone] documented in this encounter Plan of Treatment Not on file documented as of this encounter Goals Goal Patient Goal Type Associated Problems Recent Progress Patient-Stated? Author Blood Pressure < 140/90 Blood Pressure 130/80(2024 11:14 AM EST) No Ozzy Quevedo PharmD Hemoglobin A1c < 7 Result Component 5.9( 11:14 AM EDT) No Ozzy Quevedo PharmD documented as of this encounter Visit Diagnoses Not on filedocumented in this encounter Additional Health Concerns Assessment Noted Time PHQ-9 Depression Total Score: 3 02/04/20 25 11:34 AM EDT documented as of this encounter Care Teams Skirt Clipper Relationship Specialty Start Date End Date Liliana Ricks MD [address] [place] [address] PCP - General Family Medicine 09/04/18 Ozzy Quevedo PharmD [address] [place] [address] Pharmacist Internal Medicine 06/14/23 documented as of this encounter
--- OUTSIDE RECORDS SUMMARY | 2025-07-16 19:11 | XMS_ITS | Encounter Summary ---
Author Organization [employer] Address [address] [facility] [address] [place] [address] Care Team Providers Care Adolescent Specialist Name Role Phone Liliana Ricks MD Primary Care Provider Ozzy Quevedo PharmD Unavailable [phone] Encounter Details Date Type Department Care Team (Latest Contact Info) Description 07/16/2025 Travel Social History Tobacco Use Types Packs/Day [...] t he electric, gas, oil or water [employer] threatened to shut off services in your [...] Ricks MD documented as of this encounter Visit Diagnoses Not on filedocumented in this encounter Additional Health Concerns Active [...] documented as of this encounter Care Teams Adolescent Specialist Relationship Specialty Start Date End Date Liliana Ricks MD [address] [place] [address] PCP - General Family Medicine 09/04/18 Ozzy Quevedo, MarinaD [address] [place] [address] Pharmacist Internal Medicine 06/14/23 documented as of this encounter
--- OUTSIDE RECORDS SUMMARY | 2025-07-16 19:11 | XMS_ITS | Data Portability ---
Author Organization [facility], [facility] Address [address] [place] [address] Care Team Providers Care Conservation Officer Name Role Phone HIM CCA OTHER AMBAR HAMILTON Primary Care Provider Assessment Encounter Date Assessment Date Assessment LastModified by Organization Details LastModified Time 07/20/2024 07/20/2024 As noted, pa campos called to see this patient regarding concerns of hypotension.Evalu ation in the field was performed by my internal audit director colleague, as noted above, I provided real-time direction and supervision for this visit. 53 F reports low BP, ongoing diarrhea. recent admission at [facility] for gastroenteritis, reportedly had large volume [...] bloody stool, reduced urine output, increased diarrhea [email or web address] Not available 07/20/2024 20:45:18 08/02/2024 08/02/2024 As noted, pa campos called to see this patient regarding concerns of nausea, vomiting and diarrhea since yesterday. [facility] after being [...] in the field was performed by my internal audit director colleague, as noted above, I provided real-time [...] Lab BMP, serum or plasma 2023 024 [facility], [address] [place] [address], [place], [phone] 4 07:56:10 Referral None recorded. Procedures None recorded. Surgeries None recorded. Imaging None recorded. Medication Orders lactated Ringers intravenous solution 2023 024 [email or web address] [id number], [address] [place], [place], [phone], 4 20:51:37 Patient TargetsNo targets recorded. Patient [...] active Not Available Not Available Not Lacho lable guaifenesin 100 mg/5 mL oral liquid [...] Body height Body temperature Heart rate Systolic And Diastolic Systolic And Diastolic Provider Name and Address Organization Details Last Updated DateTime 4 204259. 28 g 16 /min 94 /min 95 % 95 % 160.02 cm 97.7 [degF] 74 /min 89/58 mm[Hg] 143/78 mm[Hg] Not Available [employer] production 4 20:44:04 Date Recorded Oxygen saturation Oxygen saturation in Arterial blood by Pulse oximetry Heart rate Respiratory rate Body weight Body temperature Systolic And Diastolic Provider Name and Address Organization Details Last Updated DateTime 4 98 % 98 % 86 /min 16 /min 864674. 28 g 97.2 [degF] 138/78 mm[Hg] Not Available [employer] production 4 18:22:52 Social History None recorded. Functional Status None recorded. Mental Status None recorded. Family History Nothing Reported. Medical History No medical history recorded. Gynecological HistoryNo gynecological history recorded. Obstetrics History GPAL:G 0 P 0 0 0 0 Past Encounters Encounter ID Performer Location Encounter Start Date Encounter Closed Date Diagnosis/Indication Diagnosis SNOMED-CT Code Diagnosis ICD10 Code Diagnosis IMO Codes Diagnosis Note [id number] Ramesh Merrill MD [facility] [address] [place] [address] [phone] 07/20/2024 19:47:48 07/21/2024 14:05:18 Acute kidney injury 50163417 N17.9 [id number] MAYA DONALD MD [facility] [address] [place] [phone] 08/02/2024 18:20:23 08/02/2024 22:57:36 Nausea, vomiting and diarrhea 7726589 R19.7 Health Concerns Section Related Observation LastModified by Organization Detai ls LastModified Time None Recorded Concern Status LastModified by Organization Details LastModified Time None Recorded Advance Directives Directive None Recorded Payers Insurance Date Sequence Insurance Name Policy Number Policy You Covered Member ID You Member ID Guarantor Name 08/02/2024 1 [facility] - DOS ON OR AFTER 2022 - DUAL ELIGIBLE - HALF-WAY OPTIONS AND ONE CARE (MEDICARE REPLACEMENT/AD VANTAGE - HMO) Janina Saldaña [id number] Janina Saldaña Notes Date Note Type Note Provider Name and Address Organization Details Recorded Time 07/20/2024 text/html CRC Nurse Triage Notes (Lucio Sibley): Chief Complaints: Hypotension PMH: Diabetes Mellitus Type 2 Comments: Draw Operator verified the Pt.'s name//address and phone [...] - Concerns expressed - ER treatment declined Electrical Prospecting Operator Organization Information for [employer] Business Legal Name: [facility] Address: [address] [place] [address], [place] [address], Cable Installer Repairer: Julien Macias MD CLIA No.: [id number] Electrical Prospecting Operator POC Test Results from [facility] (19:45:09) pH: 7.44 pH units pCO2: 41.7 mmHg pO2: 33.0 mmHg Na: 136 mmol/L K: 3.6 mmol/L iCa: 1.09 mmol/L Cl: 98 mmol/L TCO2: 28.6 mEq/L Hct: 45 % Hb: 15.5 g/dL Glu: 108 mg/dL Lac: 2.5 mmol/L Cr: 1.86 mg/dL BUN: 20 mg/dL A .................... .................... .................... .................... .................... .................... .................... . Electrical Prospecting Operator Note From Butch Valdez: This 53-year-old female with a history including but not limited to HTN, DM type II, COPD, obesity, depression requested a visit today to address low blood pressure readings at home. She tells me that she was seen in [facility]'s emergency department two days ago for nausea, vomiting, diarrhea. [place] told her that she has food poisoning [...] soft, nontender, nondistended. No lower extremity edema. Uyopw-nz-alow labs are uploaded, of note creatinine is 1.86. Patient was able to provide labs from [place], creatinine 1.02.I treated this patient for hypovolemia [...] .................... .................... .................... .................... .................... .................... . [facility] Consulted: Ramesh Merrill .................... .................... .................... .................... .................... .................... .................... . Disposition: Fulfilled Ramesh Merrill MD [address] [place] [address],[address], [place], [phone] [employer] 07/20/2024 20:51:47 08/02/2024 text/html ROS as noted in the [facility] Nurse Triage Notes (Lucio Sibley): Reason For Request: PT reporting n/v/d which started today Patient Reports: Nausea with or without vomiting; Inability to tolerate foods, fluids or daily medications Denies: Vague abdominal pain greater than 24 hours Constipation Diarrhea no blood in stool Chief Complaints: Nausea, Vomiting, Diarrhea PMH: Diabetes Mellitus Type 2, Hypertension, Chronic Pain, Fibromyalgia Comments: Draw Operator verified the Pt.'s name//address and phone [...] .................... .................... .................... .................... .................... .................... . Electrical Prospecting Operator Note From Giovani Morillo: Pt Co nausea [...] abdomen soft non tender, lungs clear bilaterally. [facility] Jean-Claude contacted and advised [...] .................... .................... .................... .................... .................... .................... . [facility] Consulted: Maya Donald .................... .................... .................... .................... .................... .................... .................... . Disposition: Fulfilled MAYA DONALD MD [address] [facility],[address] [facility], [place], [phone], Placed - [employer] 08/02/2024 19:04:18 OBGyn Episode No OBEpisode recorded.
--- OUTSIDE RECORDS SUMMARY | 2025-07-16 19:11 | XMS_ITS | Encounter Summary ---
Author Organization [employer] Address [address] [facility] [address] [place] [address] Care Team Providers Care Talcer Name Role Phone Liliana Ricks MD Primary Care Provider [phone] Ozzy Quevedo PharmD Unavailable [phone] Encounter Details Date Type Department Care Team (Late st Contact Info) Description 12/30/2024 Orders Only [facility] [address] [place], [place] [phone] Liliana Ricks MD [address] [place] [address] Type 2 diabetes mellitus without complication, without long-term current use of insulin ([facility]) Social History Tobacco Use Types Packs/Day Years [...] 130/80(2024 11:14 AM EST) No Ozzy Quevedo, Josue Hemoglobin A1c < 7 Result Component 5.9( 11:14 AM EDT) No Ozzy Quevedo PharmD documented as of this encounter Visit Diagnoses Diagnosis Type 2 diabetes mellitus without complication, without long-term current use of insulin (HCC) documented in this encounter Additional Health Concerns Assessment Noted Time PHQ-9 Depression Total Score: 0 02/01/20 24 10:58 AM EDT documented as of this encounter Care Teams Talcer Relationship Specialty Start Date End Date Liliana Ricks MD [address] [place] [address] PCP - General Family Medicine 09/04/18 Ozzy Quevedo, Josue [address] [place] [address] Pharmacist Internal Medicine 06/14/23 documented as of this encounter
--- OUTSIDE RECORDS SUMMARY | 2025-07-16 19:11 | XMS_ITS | Encounter Summary ---
Author Organization [employer] Address [address] [facility] 7t [place] [address] Care Team Providers Care Physician Obstetrician Name Role Phone Liliana Ricks MD Primary Care Provider [phone] Ozzy Quevedo PharmD Unavailable [phone] Reason for Visit * Reason Onset Date Comments Nurse Triage 05/18/2023 Encounter Details Date Type Department Care Team ([facility] st Contact Info) Description 05/18/2023 Telephone [facility] [address] [place] [address] Liliana Ricks MD [address] [place], [place] [phone] Nurse Triage Social History Tobacco Use Types [...] documented as of this encounter Care Teams Physician Obstetrician Relationship Specialty Start Date End Date Liliana Ricks MD [address] [place] [address] PCP - General Family Medicine 09/04/18 Ozzy Quevedo, Josue [address] [place] [address] Pharmacist Internal Medicine 06/14/23 documented as of this encounter
== END 2025-07-16 18:11 | disposition home or self-care (01) ==
LOC: HO.HHCLNP 18:10
PROVIDERS: Visit Provider Family Medicine
DX: R35.0 Frequency of micturition (principal)
CPT/HCPCS: 87086